=== PATIENT | male | born 1980 | race Two or more races ===

== ENCOUNTER 2024-10-02 15:44 | Inpatient (IN) | payer MEDICAID, SELFPAY ==
[2024-10-02] VITALS (18 sets, daily range): BP systolic 170–250; BP diastolic 17–140; PULSE 81–110; RESP 14–93; TEMP 36.9–37.4; O2SAT 95–99; BMI 32.5
--- NOTE | 2024-10-02 15:49 | EKG_ITS ---
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
--- NOTE | 2024-10-02 15:49 | XR_ITS ---
Examination: CTA carotids with intravenous contrast CTA brain, head with intravenous contrast. 2-D sagittal, coronal reconstructions. 3-D reconstructions. Exam date and time: October 02, 2024 1557 hrs. Indications: Stroke alert today, onset focal neurologic deficit CTDI: vol (mGy) 11.3 DLP: (mGycm) 6 Technique: Multiple CTA axial brain, head carotid images post contrast injection 100 cc, [id number]. 2-D sagittal, coronal reconstructions. 3-D reconstructions, 3-D post processing including vascular maximum intensity projection images. Low dose protocols were performed. One or more of the following dose reduction techniques were used; automated exposure control, adjustment of the mA and/or KV according to patient size, use of iterative reconstruction technique. Findings: No significant common carotid carotid bifurcation or internal carotid artery stenoses Mildly dominant right vertebral artery with no critical stenoses no middle cerebral or anterior cerebral large vessel occlusions, thrombus or dissection Suspicious for significant stenosis P1 segment right posterior cerebral artery, this may be technical however, clinical correlation advised Impression: No significant neck arterial stenoses No middle cerebral or anterior cerebral artery large vessel occlusions Suspicious for significant stenosis P1 segment right posterior cerebral artery, however, this may be technical, clinical correlation advised
--- NOTE | 2024-10-02 15:49 | XR_ITS ---
Examination: CT brain head without contrast. 2-D sagittal coronal reconstructions Date and time of exam:October 02, 2024 1553 hrs. Indications: Stroke alert, onset focal neurologic deficit today CTDI: vol (mGy):60 DLP: (mGycm):1282 Technique: Multiple CT axial sections of the brain have been obtained, 5 mm slice thickness. Contrast has not been administered. 2-D sagittal, coronal reconstructions have been obtained Low dose protocols were performed. One or more of the following dose reduction techniques were used; automated exposure control, adjustment of the mA and/or KV according to patient size, use of iterative reconstruction technique. Findings: No significant ventricular enlargement. Intra-axial or extra-axial hemorrhage density is not seen. No mass effect or midline shift Basal cisterns are not remarkable. Fourth ventricle is midline. Cranial vault intact. Impression: Negative for acute hemorrhage, mass effect or midline shift As clinically warranted, brain MRI follow-up would best assess for demyelinating disease, acute ischemic change
--- NOTE | 2024-10-02 15:50 | PC.NURSE ---
FSBS 307
--- NOTE | 2024-10-02 15:57 | ESCONSULT_ITS ---
Tele Neuro Consultation Consultation Date 10/02/24 Most Recent Vital Signs Last Vital Signs Temp 98.5 F 10/02/24 15:48 Pulse 103 H 10/02/24 15:48 Resp 20 10/02/24 15:48 BP 250/140 H 10/02/24 15:48 Pulse Ox 96 10/02/24 15:48 O2 Del Method Nasal Cannula 10/02/24 15:48 Consultation Narrative [facility] Tele[facility]rology [facility] Patient Name:???JUNIOR RHEA Date of :???1980 Identification Number:??? Date of Service:???10/02/2024 15:34:11 Diagnosis:?R41.0 - Disorientation, unspecified Impression: ?44 y/o man with h/o DM and HTN who presents to the ED with headache and AMS. Patient appears having difficulty expressing himself. CTA head/neck pending. Our recommendations are outlined below. Recommendations: ? Stroke/Telemetry Floor ? Neuro Checks ? Bedside Swallow Eval ? DVT Prophylaxis ? IV Fluids, Normal Saline ? Head of Bed 30 Degrees ? Euglycemia and Avoid Hyperthermia (PRN Acetaminophen) ? Initiate or continue Aspirin 81 MG daily ? Antihypertensives PRN if Blood pressure is greater than 220/120 or there is a concern for End organ damage/contraindications for permissive HTN. If blood pressure is greater than 220/120 give labetalol PO or IV or Vasotec IV with a goal of 15% reduction in BP during the first 24 hours. Sign Out: ? Discussed with Emergency Department Provider Advanced Imaging: Advanced imaging has been ordered. Results pending. Metrics: Last Known Well: 10/02/2024 04:00:00 Dispatch Time: 10/02/2024 15:34:11 Arrival Time: 10/02/2024 15:36:00 Initial Response Time: 10/02/2024 15:36:08Symptoms: headache. Initial patient interaction: 10/02/2024 15:40:18 NIHSS Assessment Completed: 10/02/2024 15:49:01Patient is not a candidate for Thrombolytic. Thrombolytic Medical Decision: 10/02/2024 15:49:03Patient was not deemed candidate for Thrombolytic because of following reasons: LKW outside 4.5 hr window. . I personally Reviewed the CT Head and it Showed No Acute Hemorrhage or Acute Core Infarct Primary Provider Notified of Diagnostic Impression and Management Plan on: 10/02/2024 16:02:01 History of Present Illness:Patient is a 44 year old Male. Patient was brought by EMS for symptoms of headache. 44 y/o man with h/o DM and HTN who presents to the ED via EMS. Emergent telestroke consult for headache since 0 and AMS. Unclear if patient woke up with the symptoms. Unclear last known well director life sciences used. No focal neurologic deficits on exam. CT brain reviewed and case discussed with the ED attending (Dr. Angel). Medications: No Anticoagulant use? No Antiplatelet use Reviewed EMR for current medications Allergies:? Allergies Unable To Obtain Due To:?Patient Is Confused Social History: Unable To Obtain Due To Patient Status :?Patient Is Confused Family History: Family History Cannot Be Obtained Because:Patient Is Confused ROS :?ROS Cannot Be Obtained Because:? Patient Is Confused Past Surgical History: Past Surgical History Cannot Be Obtained Because: Patient Is Confused Examination: BP(250/140),?Pulse(102),?Blood Glucose(307) 1A: Level of Consciousness - Alert; keenly responsive?+ 0 1B: Ask Month and Age - Could Not Answer Either Question Correctly?+ 2 1C: Blink Eyes & Squeeze Hands - Performs 0 Tasks?+ 2 2: Test Horizontal Extraocular Movements - Normal?+ 0 3: Test Visual Sanders - No Visual Loss?+ 0 4: Test Facial Palsy (Use Grimace if Obtunded) - Normal symmetry?+ 0 5A: Test Left Arm Motor Drift - No Drift for 10 Seconds?+ 0 5B: Test Right Arm Motor Drift - No Drift for 10 Seconds?+ 0 6A: Test Left Leg Motor Drift - No Drift for 5 Seconds?+ 0 6B: Test Right Leg Motor Drift - No Drift for 5 Seconds?+ 0 7: Test Limb Ataxia (FNF/Heel-Agudelo) - Does Not Understand?+ 0 8: Test Sensation - Normal; No sensory loss?+ 0 9: Test Language/Aphasia - Severe Aphasia: Fragmentary Expression, Inference Needed, Cannot Identify Materials?+ 2 10: Test Dysarthria - Normal?+ 0 11: Test Extinction/Inattention - No abnormality?+ 0 NIHSS Score:?6 Pre-Morbid Modified [place] Scale:0 Points = No symptoms at all Spoke with :?Dr. Angel Consent could not be obtained due to patient status and family not available. Patient is being evaluated for possible acute neurologic impairment and high probability of imminent or life-threatening deterioration. I spent total of 30 minutes providing care to this patient, including time for face to face visit via telemedicine, review of medical records, imaging studies and discussion of findings with providers, the patient and/or family. Dr Caesar Negrete [facility] For Inpatient follow-up with [facility] physician please call [facility] at . As we are not an outpatient service for any post hospital discharge needs please contact the hospital for assistance. If you have any questions for the [facility] physicians or need to reconsult for clinical or diagnostic changes please contact us via [facility] at .
--- NOTE | 2024-10-02 16:08 | PD.EDAMS ---
Altered Mental Status RME/HPI General Chief Complaint: Altered Mental Status Stated Complaint: AMS Time Seen by Provider: 10/02/24 15:46 Arrival date/time: 10/02/24 15:44 Limitations: physical limitation RME / HPI RME / HPI narrative: Patient was greeted in the ambulance bay by myself. According to the information conveyed to us by the EMS, the patient was last seen normal around 12 noon today, but patient cannot provide a consistent story. Patient he jumps between Estonian and Bruneian and seems completely confused. Immediately on arrival, the patient was introduced to teleneurology who also evaluated the patient at the same time. Patient did not have any facial droop or significant deficits in his arms and legs. Stroke alert was announced to the patient was immediately transferred to the CT scan for CT head and CT angio of the neck and brain. To the best of her knowledge, patient is not in the tPA time zone and his NIH score does not support tPA. Patient's only complaint at the time of arrival is of mild right-sided headache 1802 The care of this patient was coordinated together with teleneurology. The CT and CT angiogram results was also discussed with them and the possibility of P1 stenosis seen on the CT angiogram were discussed. The likelihood is very slim of this to be of any concern and most likely it is technical as called by the radiologist as well. Nonetheless, for this small lesion no medication or procedure is indicated at this point. Patient can be admitted to the hospital. Started on aspirin and allow permissive hypertension around 200s systolic. Once the MRI is done, the blood pressure can be managed more aggressively. I personally performed serial neurological checks on the patient. At the time of this dictation, he is conversive and makes more sense. He was able to pass swallow screening test supervised by myself. His neurological exam remained unremarkable throughout this time Related Data Home Medications ?Medication ?Instructions ?Recorded ?Confirmed amlodipine 10 mg tablet 10 mg PO QDAY 10/02/24 10/02/24 hydralazine 50 mg tablet 50 mg PO TID 10/02/24 10/02/24 losartan 100 1 tab PO QDAY 10/02/24 10/02/24 mg-hydrochlorothiazide 25 mg tablet metformin 1,000 mg tablet 1,000 mg PO BID 10/02/24 10/02/24 Previous Rx's ?Medication ?Instructions ?Recorded aspirin 81 mg tablet,delayed 81 mg PO QDAY 30 days #30 tabs 10/05/24 release atorvastatin 80 mg tablet 80 mg PO HS 30 days #30 tabs 10/05/24 blood sugar diagnostic (Blood #50 ea 10/05/24 Glucose Test strips) blood-glucose meter #1 ea 10/05/24 blood-glucose sensor (FreeStyle #1 ea 10/05/24 Anthony 3 Sensor device) carvedilol 12.5 mg tablet 12.5 mg PO BIDWM 30 days #60 tabs 10/05/24 insulin glargine 100 unit/mL (3 15 unit (0.15 mL) subcut HS #15 mL 10/05/24 mL) subcutaneous pen lancets #200 ea 10/05/24 nifedipine 30 mg tablet,extended 30 mg PO QDAY 30 days #30 tabs 10/05/24 release 24 hr pen needle, diabetic 29 gauge x #100 ea 10/05/24 1/2 Allergies Allergy/AdvReac Type Severity Reaction Status Date / Time No Known Allergies Allergy Verified 10/02/24 16:59 Review of Systems Review of Systems Systems Reviewed: All systems reviewed, normal except as documented ED Exam General Limitations: Present physical limitation General appearance: Present in no apparent distress Head Head exam: Present atraumatic and normocephalic Eye Eye exam: Present PERRL and EOMI ENT ENT exam: Present normal exam Neck Neck exam: Present normal inspection Respiratory Respiratory exam: Present normal lung sounds bilaterally Cardiovascular Cardiovascular exam: Present regular rate and normal rhythm Abdominal Exam Abdominal exam: Present soft and normal bowel sounds Extremities Exam Extremities exam: Present normal inspection Back Exam Back exam: Present normal inspection Neurological Exam Neurological exam: Present alert, CN II-XII intact and other (Speech appears normal, but patient has flight of ideas. 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 Care 10/02/24 15:49 Completed Continuous Pulse Oximetry NOW Care 10/02/24 15:49 Completed EKG (ED ONLY) *Do not use* NOW Care 10/02/24 15:49 Completed In and Out Catheter NEEDED Care 10/02/24 15:49 Completed Insert IV NOW Care 10/02/24 15:49 Completed NIH Stroke Scale now Care 10/02/24 15:49 Completed NPO NOW Care 10/02/24 15:49 Completed Nurse Swallow Screen x1 Care 10/02/24 15:49 Completed Consult to Neurology / Tele-Neurology Routine Cons 10/02/24 15:[address] angio stroke protocol Stat Exams 10/02/24 15:[address] stroke protocol Stat Exams 10/02/24 15:49 Completed EKG (ED Only) Stat Exams 10/02/24 15:49 Draft Arterial Blood Gas Stat Lab 10/02/24 16:23 Completed CBC Stat Lab 10/02/24 16:11 Completed Comprehensive Metabolic Panel Stat Lab 10/02/24 16:11 Completed Drug Screen,Urine Stat Lab 10/02/24 16:46 Completed HCG Titer if Positive Stat Lab 10/02/24 16:11 Completed Magnesium Stat Lab 10/02/24 16:11 Completed Partial Thromboplastin Time Stat Lab 10/02/24 16:11 Completed Prothrombin Time with INR Stat Lab 10/02/24 16:11 Completed Troponin I Stat Lab 10/02/24 16:11 Completed Urinalysis Stat Lab 10/02/24 16:46 Completed HYDROmorphone INJ [Dilaudid Inj] Med 10/02/24 16:48 Discontinued 1 mg IVP X1 ONE Metoprolol Tartrate Inj [Lopressor Inj] Med 10/02/24 17:41 Discontinued 2.5 mg IVP X1 ONE Ondansetron Inj [Zofran Inj] Med 10/02/24 15:49 Discontinued 4 mg IV Q4HR PRN Oxygen Delivery NOW RT 10/02/24 15:49 Completed Vital Signs Vital signs: Vital Signs Temperature 98.5 F 10/02/24 15:48 Pulse Rate 103 H 10/02/24 15:48 Respiratory Rate 20 10/02/24 15:48 Blood Pressure 250/140 H 10/02/24 15:48 Pulse Oximetry (%) 96 10/02/24 15:48 Oxygen Delivery Method Nasal Cannula 10/02/24 15:48 Altered Mental Status Patient data External records reviewed:: None Clinical information provided by:: EMS Social determinants that could affect healthcare access:: none Patient has the following chronic illnesses:: M How is presenting disease/condition affected by chronic disease/condition?: no chronic disease Evaluation data The following diagnostics were reviewed and interpreted by me:: lab results Lab and/or radiology exams considered but not ordered:: NA Interpretation Summary: as noted Medications / Prescriptions Medications or Prescriptions considered but not ordered:: NA Medication administrations:: Medication Administration History Discontinued Medications Acetaminophen (Acetaminophen 325 Mg Tablet) 650 mg PO Q6H PRN PRN Reason: PAIN OR FEVER > 101 Stop: 11/01/24 19:26 Last Admin: 10/02/24 23:09 Dose: 650 mg Documented By: MINH Aspirin (Aspirin Ec 81 Mg Tabec) 81 mg PO QDAY [facility] Stop: 11/01/24 20:59 Last Admin: 10/05/24 09:06 Dose: 81 mg Documented By: JRHarsh Admin: 10/04/24 08:10 Dose: 81 mg Documented By: Admin: 10/03/24 11:31 Dose: 81 mg Documented By: JRHarsh Admin: 10/02/24 20:56 Dose: 81 mg Documented By: CHEPE Atorvastatin Calcium (Atorvastatin Calcium 20 Mg Tablet) 80 mg PO HS [facility] Stop: 11/01/24 20:59 Last Admin: 10/04/24 21:40 Dose: 80 mg Documented By: Admin: 10/03/24 21:30 Dose: 80 mg Documented By: Admin: 10/02/24 20:56 Dose: 80 mg Documented By: CHEPE Atropine Sulfate (Atropine Sulf Inj 1 Mg/Ml Vial) Confirm Administered Dose 1 mg .ROUTE .STK-MED ONE Stop: 10/04/24 11:43 Last Admin: 10/04/24 12:58 Dose: Not Given Documented By: DENISE Non-Admin Reason: Duplicate Medication on eMAR Benzocaine (Benzocaine 20% (Hurricaine) [place] 1 Dose) Confirm Administered Dose 1 dose TOP .STK-MED ONE Stop: 10/04/24 11:42 Last Admin: 10/04/24 12:58 Dose: Not Given Documented By: DENISE Non-Admin Reason: Duplicate Medication on eMAR Benzocaine (Benzocaine 20% (Hurricaine) [place] 1 Dose) 0 dose TOP X1 ONE Stop: 10/04/24 12:22 Last Admin: 10/04/24 12:31 Dose: 1 dose Documented By: DL Carvedilol (Carvedilol 12.5 Mg Tablet) 12.5 mg PO BIDWM [facility] Stop: 11/02/24 20:23 Last Admin: 10/05/24 08:02 Dose: 12.5 mg Documented By: Admin: 10/04/24 17:10 Dose: 12.5 mg Documented By: Admin: 10/04/24 08:09 Dose: 12.5 mg Documented By: Admin: 10/03/24 21:31 Dose: 12.5 mg Documented By: MINH Dextrose (Dextrose 50%-Water Inj 50 Ml Syringe) 25 ml IV Q15MIN PRN PRN Reason: BG 50-70 responsive npo pt Stop: 11/01/24 19:29 Dextrose (Dextrose 50%-Water Inj 50 Ml Syringe) 50 ml IV Q15MIN PRN PRN Reason: BG <50 OR BG <70 & pt unresponsive Stop: 11/01/24 19:29 Fentanyl Citrate (Fentanyl Cit Inj 50 Mcg/Ml Amp 2ml) Confirm Administered Dose 200 mcg .ROUTE .STK-MED ONE Stop: 10/04/24 11:43 Last Admin: 10/04/24 12:59 Dose: Not Given Documented By: DENISE Non-Admin Reason: Duplicate Medication on eMAR Fentanyl Citrate (Fentanyl Cit Inj 50 Mcg/Ml Amp 2ml) 100 mcg IM X1 ONE Stop: 10/04/24 12:22 Fentanyl Citrate (Fentanyl Cit Inj 50 Mcg/Ml Amp 2ml) 100 mcg IVP X1 ONE Stop: 10/04/24 12:22 Last Admin: 10/04/24 12:23 Dose: 100 mcg Documented By: DENISE Flumazenil (Flumazenil Inj 0.1 Mg/Ml Vial 10 Ml) Confirm Administered Dose 1 mg .ROUTE .STK-MED ONE Stop: 10/04/24 11:44 Last Admin: 10/04/24 12:59 Dose: Not Given Documented By: DENISE Non-Admin Reason: Duplicate Medication on eMAR Glucagon (Glucagon Inj 1 Mg Vial) 1 mg IM Q15MIN PRN PRN Reason: BG <70, and no IV access Heparin Sodium (Porcine) (Heparin Sod Inj 5000 Unit/Ml Vial) 5,000 unit SC Q12HR DANA Stop: 10/16/24 20:59 Last Admin: 10/05/24 09:05 Dose: 5,000 unit Documented By: OMAYRA Co-signed By: AIDEN Admin: 10/04/24 21:41 Dose: 5,000 unit Documented By: MINH Co-signed By: MAURI Admin: 10/04/24 08:13 Dose: Not Given Documented By: OMAYRA Non-Admin Reason: Held for Procedure Admin: 10/03/24 21:29 Dose: 5,000 unit Documented By: MINH Co-signed By: LYNNETTE Admin: 10/03/24 09:20 Dose: 5,000 unit Documented By: OMAYRA Co-signed By: AIDEN Admin: 10/02/24 20:56 Dose: 5,000 unit Documented By: CHEPE Co-signed By: FARHAD Hydralazine HCl (Hydralazine Inj 20 Mg/Ml Vial) 10 mg IV X1 PRN PRN Reason: Hypertensive Emergency Stop: 11/01/24 20:12 Hydralazine HCl (Hydralazine Hcl 25 Mg Tablet) 50 mg PO TID DANA Stop: 11/02/24 13:59 Hydralazine HCl (Hydralazine Hcl 25 Mg Tablet) 50 mg PO TID DANA Stop: 11/02/24 13:24 Last Admin: 10/05/24 14:11 Dose: 50 mg Documented By: Admin: 10/05/24 06:10 Dose: 50 mg Documented By: Admin: 10/04/24 21:40 Dose: 50 mg Documented By: Admin: 10/04/24 14:46 Dose: 50 mg Documented By: Admin: 10/04/24 05:42 Dose: 50 mg Documented By: Admin: 10/03/24 21:30 Dose: 50 mg Documented By: Admin: 10/03/24 14:21 Dose: Not Given Documented By: OMAYRA Non-Admin Reason: Wrong Time Admin: 10/03/24 14:05 Dose: 50 mg Documented By: OMAYRA Hydralazine HCl (Hydralazine Inj 20 Mg/Ml Vial) 10 mg IV Q6HR PRN PRN Reason: Systolic >180 Stop: 11/01/24 20:12 Hydrochlorothiazide (Hydrochlorothiazide 12.5 Mg Capsule) 25 mg PO QDAY [facility]NA Stop: 11/02/24 10:29 Last Admin: 10/03/24 11:30 Dose: 25 mg Documented By: OMAYRA Hydrochlorothiazide (Hydrochlorothiazide 12.5 Mg Capsule) 25 mg PO QDAY [facility] Stop: 11/03/24 14:44 Last Admin: 10/05/24 09:06 Dose: 25 mg Documented By: Admin: 10/04/24 14:47 Dose: 25 mg Documented By: OMAYRA Hydromorphone HCl (Hydromorphone Inj 2 Mg/Ml Vial) 1 mg IVP X1 ONE Stop: 10/02/24 16:49 Last Admin: 10/02/24 16:55 Dose: 1 mg Documented By: ER Sodium Chloride (Ns) 1,000 mls @ 80 mls/hr IV .[id number] ONE Stop: 10/03/24 10:15 Last Admin: 10/02/24 22:47 Dose: 80 mls/hr Documented By: MINH Influenza Virus Vaccine Quadrival (Influenza Virus Quadrivalent 0.5 Ml Syringe) 0.5 ml IMi .ONCE ONE Stop: 10/03/24 02:38 Insulin Glargine (Insulin Glargine (Lantus) 5 Unit/0.05 Ml (Per 5 Units)) 10 unit SC [facility] Stop: 11/03/24 20:59 Last Admin: 10/04/24 21:41 Dose: 10 unit Documented By: MINH Co-signed By: MAURI Insulin Human Lispro (Insulin Lispro (Admelog) 1 Unit/0.01 Ml Unit) 0 unit SC [facility]; Protocol Stop: 11/01/24 20:59 Last Admin: 10/04/24 07:01 Dose: 4 unit Documented By: OMAYRA Co-signed By: MAURI Admin: 10/03/24 21:28 Dose: 4 unit Documented By: MINH Co-signed By: LYNNETTE Admin: 10/03/24 16:39 Dose: 4 unit Documented By: OMAYRA Co-signed By: AIDEN Admin: 10/03/24 11:32 Dose: 4 unit Documented By: OMAYRA Co-signed By: AIDEN Admin: 10/03/24 07:24 Dose: 4 unit Documented By: OMAYRA Co-signed By: AIDEN Admin: 10/02/24 20:56 Dose: 4 unit Documented By: CHEPE Co-signed By: FARHAD Insulin Human Lispro (Insulin Lispro (Admelog) 1 Unit/0.01 Ml Unit) 3 unit SC AC [facility] Stop: 11/03/24 11:29 Last Admin: 10/05/24 11:34 Dose: 3 unit Documented By: OMAYRA Co-signed By: AIDEN Admin: 10/05/24 08:00 Dose: 3 unit Documented By: OMAYRA Co-signed By: AIDEN Admin: 10/04/24 16:36 Dose: 3 unit Documented By: OMAYRA Co-signed By: GERA Admin: 10/04/24 13:25 Dose: Not Given Documented By: JRHarsh 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 Insulin Human Lispro (Insulin Lispro (Admelog) 1 Unit/0.01 Ml Unit) 0 unit SC AC [facility]; Protocol Stop: 11/03/24 09:29 Last Admin: 10/05/24 11:34 Dose: 2 unit Documented By: OMAYRA Co-signed By: AIDEN Admin: 10/05/24 08:01 Dose: 2 unit Documented By: OMAYRA Co-signed By: AIDEN Admin: 10/04/24 16:37 Dose: 6 unit Documented By: OMAYRA Co-signed By: GERA Admin: 10/04/24 13:25 Dose: Not Given Documented By: JRR 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 Admin: 10/04/24 08:44 Dose: Not Given Documented By: JRR Non-Admin Reason: NPO Losartan Potassium (Losartan Potassium 25 Mg Tablet) 100 mg PO QDAY [facility] Stop: 11/02/24 10:14 Losartan Potassium (Losartan Potassium 25 Mg Tablet) 100 mg PO QDAY [facility] Stop: 11/02/24 13:29 Last Admin: 10/05/24 09:07 Dose: 100 mg Documented By: Admin: 10/04/24 08:10 Dose: 100 mg Documented By: Admin: 10/03/24 14:06 Dose: 100 mg Documented By: OMAYRA Metoprolol Tartrate (Metoprolol Tartrate Inj 1 Mg/Ml Amp 5 Ml) 2.5 mg IVP X1 ONE Stop: 10/02/24 17:42 Last Admin: 10/02/24 17:44 Dose: 2.5 mg Documented By: ER Midazolam HCl (Midazolam Inj 1 Mg/Ml Vial 2 Ml) Confirm Administered Dose 8 mg .ROUTE .STK-MED ONE Stop: 10/04/24 11:43 Last Admin: 10/04/24 12:59 Dose: Not Given Documented By: DENISE Non-Admin Reason: Duplicate Medication on eMAR Midazolam HCl (Midazolam Inj 1 Mg/Ml Vial 2 Ml) 5 mg IV X1 ONE Stop: 11/26/24 12:22 Last Admin: 10/04/24 12:23 Dose: 5 mg Documented By: DENISE Naloxone HCl (Naloxone Inj 0.4 Mg/Ml Vial) Confirm Administered Dose 0.4 mg .ROUTE .STK-MED ONE Stop: 10/04/24 11:43 Last Admin: 10/04/24 12:59 Dose: Not Given Documented By: DENISE Non-Admin Reason: Duplicate Medication on eMAR Nicotine (Nicotine Patch 14 Mg/24 Hr Patch.Td24) 14 mg TOP QDAY [facility] Stop: 11/02/24 21:51 Last Admin: 10/05/24 09:05 Dose: 14 mg Documented By: Admin: 10/04/24 08:09 Dose: 14 mg Documented By: Admin: 10/03/24 22:04 Dose: 14 mg Documented By: MINH Nifedipine (Nifedipine Xl 30 Mg Tabcr) 30 mg PO X1 ONE Stop: 10/03/24 15:37 Last Admin: 10/03/24 16:34 Dose: 30 mg Documented By: OMAYRA Nifedipine (Nifedipine Xl 30 Mg Tabcr) 30 mg PO QDAY [facility] Stop: 11/03/24 08:59 Last Admin: 10/05/24 09:06 Dose: 30 mg Documented By: Admin: 10/04/24 08:08 Dose: 30 mg Documented By: OMAYRA Ondansetron HCl (Ondansetron Inj 2 Mg/Ml Inj 2 Ml) 4 mg IV Q4HR PRN PRN Reason: NAUSEA OR VOMITING Stop: 11/01/24 15:48 Pantoprazole Sodium (Pantoprazole 40 Mg Tablet) 40 mg PO QDAY [facility] Stop: 11/02/24 08:59 Last Admin: 10/05/24 09:06 Dose: 40 mg Documented By: Admin: 10/04/24 08:09 Dose: 40 mg Documented By: Admin: 10/03/24 11:31 Dose: 40 mg Documented By: OMAYRA Potassium Chloride (Potassium Chloride 20 Meq Tabcr) 40 meq PO X1 ONE Stop: 10/04/24 08:22 Last Admin: 10/04/24 08:53 Dose: 40 meq Documented By: OMAYRA Noted Consultations Consultation(s) initiated? (list below): Yes Diagnosis Most likely diagnosis given after review of the tests above:: as above Admission Indicated Admission indicated?: indicated Admission Request Was there a request for admission?: Yes Admission Attestation Admission request attestation: Discussed case with [] from Hospitalist service regarding admission. Discussed patients ED course, exam findings, labs, and radiology results. The Hospitalist [agrees,declines] to accept the patient for admission. Disposition Plan Disposition Plan: Admit Discharge Plan Plan Patient Disposition: Admit Acute Care w/in Hospital Patient condition on transfer: Stable Problem List Clinical Impression: Acute CVA (cerebrovascular accident) Patient/Caregiver Discharge Instructions Other Activity Instructions:: Please take your new medications as prescribed. Please start using Freestyle Anthony as a guide for your blood glucose. Fasting blood glucose goal is 80-130, and 180 after 2 hours post meal consumption. Please start incorporating daily exercise and healthy meals into your routine. Stop taking Atorvastatin 40mg and instead take Atorvastatin 80mg at night. Please see your PCP within 1 week. If you do not have one, please make an appointment at the [facility] at [phone]. Please see Cardiology within 1 week as you will need frequent follow up and echocardiograms for your bicuspid aortic stenosis. [place] fadia nuevos medicamentos seg?n lo recetado. Empiece a utilizar Freestyle Anthony ramon gu?a para moslye nivel de glucosa en glynn. El objetivo de glucosa en glynn en ayunas es 80-130 y 180 despu?s de 2 horas despu?s del consumo de comida. Comience a incorporar ejercicio diario y comidas saludables en mosley rutina. Deje de rhina Atorvastatina 40 mg y en mosley lugar tome Atorvastatina 80 mg por la noche. Consulte a mosley PCP dentro de 1 semana. Si no tiene nick, programe korin lizbeth en el [facility] al [phone]. Consulte Cardiolog?a dentro de 1 semana, ya que necesitar? seguimiento y ecocardiogramas frecuentes para mosley estenosis a?rtica bic?spide.
[2024-10-02 16:28] LABS: Basophils # (Auto) 0.1 Thou/mm3 (0.0-0.2); Basophils % (Auto) 0 % (0-2.5); Eosinophils % (Auto) 0 % (0-10); Hematocrit 49.4 % (41.0-53.0); Hemoglobin 17.2 g/dL (13.5-16.0); Immature Granulocytes % (Auto) 0 % (0-0); Immature Granulocytes Auto 0.04 Thou/mm3 (0.00-0.00); Lymphocytes # (Auto) 1.3 Thou/mm3 (1.0-4.8); Lymphocytes % (Auto) 10 % (10-50); Mean Corpuscular HGB Conc 34.8 g/dl (31.0-37.0); Mean Corpuscular Volume 83 fL (80-100); Monocytes # (Auto) 0.8 Thou/mm3 (0.0-0.8); Monocytes % (Auto) 6 % (0-12); Neutrophils # (Auto) 10.3 Thou/mm3 (1.8-7.7); Neutrophils % (Auto) 83 % (37-80); Nucleated Red Blood Cell % 0 /100 WBC (0); Platelet Count 245 Thou/mm3 (140-440); RDW Standard Deviation 38.5 fL (35.1-43.9); Red Blood Count 5.94 Miln/mm3 (4.50-5.90); White Blood Count 12.5 Thou/mm3 (3.8-10.6)
[2024-10-02 16:29] LABS: Base Excess 4 (-3-3); HCO3 29 mEq/L (20-26); Inspired Oxygen, FIO2 21 %; O2 Saturation 88 % (91-98); PCO2 43 mmHg (32.0-48.0); pH, Arterial 7.44 (7.35-7.45)
[2024-10-02 16:38] LABS: Allen Test Performed/OK; PO2 51 mmHg (83-108); Puncture Site Right Radial
[2024-10-02 16:43] LABS: INR 1.1 (0.9-1.3); Partial Thromboplastin Time 29.3 Seconds (22.0-36.0); Prothrombin Time 11.7 Seconds (9.0-12.2)
[2024-10-02 16:47] LABS: Alanine Aminotransferase 74 U/L (10-49); Albumin, Serum 4.5 gm/dL (3.5-5.0); Albumin/Globulin Ratio 1.6 (1.2-2.2); Alkaline Phosphatase 123 U/L (46-116); Anion Gap 6 (7-16); Aspartate Amino Transferase 26 U/L (0-34); BUN/Creatinine Ratio 12 Ratio (12-20); Bilirubin,Total 0.7 mg/dL (0.3-1.2); Blood Urea Nitrogen 15 mg/dL (9-23); Calcium 9.8 mg/dL (8.3-10.6); Calcium (Corrected) 9.8 mg/dL (8.5-10.1); Carbon Dioxide 31.1 mMol/L (20.0-31.0); Chloride 94 mMol/L (98-107); Creatinine (Component) 1.3 mg/dL (0.6-1.3); Estimated Creatinine Clearance 90.1 mL/min (>60); Globulin 2.8 gm/dL (2.3-3.5); Glucose 279 mg/dL (74-106); Magnesium 2.1 mg/dL (1.6-2.6); Osmolality,Calculated 273 (275-295); Potassium 3.6 mMol/L (3.4-5.1); Sodium 131 mMol/L (136-145); Total Protein 7.3 gm/dL (5.7-8.2); eGFR > 60 See Note
[2024-10-02 16:49] LABS: Troponin I 0.353 ng/mL (0.0-0.045)
[2024-10-02 16:51] LABS: HCG Titer if Positive Negative
[2024-10-02] MEDS: HYDROmorphone INJ 2 MG/ML VIAL 1 MG IVP (16:55)
--- NOTE | 2024-10-02 17:00 | PC.NURSE ---
Patient BIBA due to family noted increased AMS, and slurred speech since 1200. Upon arrival patient was able to follow commands, but could not verbally express himself properly. Patient has hx of HTN, DM, and hyperlipedemia. Patient c/o of IZAGUIRRE 08/18. Stroke alert initiated.
[2024-10-02 17:04] LABS: Collection Type, Urine Clean Catch; Squamous Epithelial Cell,Urine 0 /hpf (0-5)
[2024-10-02 17:19] LABS: Amphetamine/Methamp Scrn,U Negative (Negative); Barbiturate Screen,Urine Negative (Negative); Benzodiazepines Screen,Urine Negative (Negative); Benzoylecgonine Screen, Ur Negative (Negative); Fentanyl Screen,Urine Negative (Negative); Opiate Screen,Urine Negative (Negative); THC Screen,Urine Negative (Negative)
[2024-10-02 17:22] LABS: Bilirubin,Urine Negative (Negative); Blood,Urine Negative (Negative); Clarity,Urine Clear (Clear/Hazy); Color,Urine Lt-Yellow (Lt Yel-Yel); Glucose, Urine 4+ (Negative); Ketones,Urine Negative (Negative); Leukocyte Esterase,Urine Negative (Negative); Nitrite,Urine Negative (Negative); PH,Urine 7.5 (5.0-7.0); Protein,Urine 2+ (Neg - Trace); RBC,Urine 1 /hpf (0-3); Specific Gravity,Urine 1.028 (1.001-1.035); Urobilinogen,Urine Negative mg/dL (0.0-1.0); WBC,Urine < 1 /hpf (0-5)
--- NOTE | 2024-10-02 17:41 | PC.NURSE ---
Dr. Barrios at bedside updated patient and family on POC. Swallow screen completed, and pass.
[2024-10-02] MEDS: METOPROLOL TARTRATE INJ 1 MG/ML AMP 5 ML 2.5 MG IVP (17:44)
--- NOTE | 2024-10-02 18:29 | PD.RESEVENT ---
Documentation for date of: 10/02/24 Event Note Event Note: Patient is 44 years old male with past medical history of hypertension, hyperlipidemia and type 2 diabetes presents to the ED by ambulance due to slurred speech and confusion. His last well-known was around noon today. Stroke alert was called but patient did not meet criteria for tPA administration. On admission his blood pressure 250/140, pulse 103, respirations 20, saturation 96% on 3 L. Labs are significant for mild hypoosmolar hyponatremia and troponinemia of 0.353. U tox was negative. CT scan of the head was negative for acute hemorrhage. CTA of the neck was suspicious for significant stenosis P1 segment right posterior cerebral artery. Teleneurology recommended admission for further management and MRI in the morning. Primary team received a call for admission at 6:25 PM, the admission will be signed out night team. Plan of care discussed with attending Dr. Landrum. Mehul Rehman MD, PGY 2. Disclaimer: This note was dictated by speech recognition. Minor errors in trust administrative assistant may be present due to voice recognition software.
--- NOTE | 2024-10-02 19:18 | PC.NURSE ---
Hospitalist at bedside assessing patient at this time.
--- NOTE | 2024-10-02 19:35 | ESHP_ITS ---
Documentation for date of: 10/02/24 [facility] History of Present Illness History of present illness: Junior Penaloza is a 44-year-old male with a past medical history of type 2 diabetes mellitus, hypertension, and hyperlipidemia who presents to the ED with altered mental status. Patient was brought in by mother due to AMS and slurred speech. Upon presentation, patient was speaking Cook Islander and Niuean and could not provide history to ED physician. Thus, stroke alert was called and teleneurology was consulted. CT head was negative, NIHSS was 6, and LKW was approximately 4 AM, which was outside of tPA window. CTA obtained later and showed possible P1 stenosis , which was discussed again with teleneurology who advised admission and MRI brain for further evaluation. Upon my evaluation, mother at bedside who stated that patient was still not at his baseline but has improved from prior. During encounter, patient was alert and appeared to understand questions but had difficulty with word pronunciation. He states his only symptom prior to arriving to the ED was pressure and a headache, denying blurry vision or FNDs. He states that the pressure sensation has occurred more than once and that he does not regularly take his medications or monitor his blood pressure at home. He does have a PCP in [place]. ED course: BP 250/140, HR 103, RR 20, O2 96% on 3 L NC WBC 12.5, Na 131, glucose 279, troponin 0.353, ALP 133, ALT 74, UA and U tox negative ABG: pH 7.4, pCO2 43, pO2 51 CTA head/neck: possible P1 stenosis of R [employer] CT head negative PMHx: as stated above Medications: amlodipine, atorvastatin, losartan-HCTZ, metformin SHx: currently smokes 0.5 pack cigarettes/day, illicit drug use > 20 years ago, does not drink alcohol Review of Systems Review of Systems ROS Unobtainable: unobtainable due to mental status Exam Vital Signs Temp Pulse Resp BP Pulse Ox O2 Del Method O2 Flow Rate 98.4 F 85 18 187/98 H 98 Nasal Cannula 3 10/02/24 18:30 10/02/24 18:30 10/02/24 18:30 10/02/24 18:30 10/02/24 18:30 10/02/24 18:30 10/02/24 18:30 Narrative Exam General: alert, responding to questions, dysarthric HEENT: NC/AT, mucous membranes moist, bilateral sclera anicteric Cardiovascular: regular rate and rhythm, S1/S2 present, no murmurs appreciated Pulmonary: clear to auscultation bilaterally, no rales/rhonchi/wheezes Abdominal: soft, non-tender, non-distended, no rebound/guarding, normal bowel sounds present Musculoskeletal: normal ROM, no peripheral edema Skin: warm and dry, intact, no rashes Neuro: CN II-XII intact, no focal deficits Results: Labs 10/03/24 05:36 10/03/24 05:36 Labs: Short CBC 10/02/24 Range/Units 16:11 WBC 12.5 H (3.8-10.6) Thou/mm3 Hgb 17.2 H (13.5-16.0) g/dL Hct 49.4 (41.0-53.0) % Plt Count 245 (140-440) Thou/mm3 BMP 10/02/24 16:11 Sodium 131 L Potassium 3.6 Chloride 94 L Carbon Dioxide 31.1 H BUN 15 Creatinine 1.3 Glucose 279 H Calcium 9.8 Cardiac Enzymes 10/02/24 Range/Units 16:11 Troponin I 0.353 H* (0.0-0.045) ng/mL Liver Function 10/02/24 Range/Units 16:11 Total Bilirubin 0.7 (0.3-1.2) mg/dL AST 26 (0-34) U/L ALT 74 H (10-49) U/L Alkaline Phosphatase 123 H (46-116) U/L Albumin 4.5 (3.5-5.0) gm/dL Urine 10/02/24 Range/Units 16:46 Urine Color Lt-Yellow (Lt Yel-Yel) Urine Clarity Clear (Clear/Hazy) Urine pH 7.5 H (5.0-7.0) Ur Specific [place] 1.028 (1.001-1.035) Urine Protein 2+ A (Neg - Trace) Urine Glucose (UA) 4+ A (Negative) ABG Interpretation ABG results: 10/02/24 16:23 ABG pH 7.44 ABG pCO2 43 ABG pO2 51 L* ABG HCO3 29 H ABG O2 Saturation 88 L ABG Base Excess 4 H Quality Measures Quality Measures VTE prophylaxis Medications Home Medications and Allergies Home Medications ?Medication ?Instructions ?Recorded ?Confirmed ?Type amlodipine 10 mg tablet 10 mg PO QDAY 10/02/24 10/02/24 History atorvastatin 40 mg tablet 40 mg PO QPM 10/02/24 10/02/24 History hydralazine 50 mg tablet 50 mg PO TID 10/02/24 10/02/24 History losartan 100 1 tab PO QDAY 10/02/24 10/02/24 History mg-hydrochlorothiazide 25 mg tablet metformin 1,000 mg tablet 1,000 mg PO BID 10/02/24 10/02/24 History Allergies Allergy/AdvReac Type Severity Reaction Status Date / Time No Known Allergies Allergy Verified 10/02/24 16:59 Visit Medications Acetaminophen (Acetaminophen 325 Mg Tablet) 650 mg PO Q6H PRN PRN Reason: PAIN OR FEVER > 101 Stop: 11/01/24 19:26 Dextrose (Dextrose 50%-Water Inj 50 Ml Syringe) 25 ml IV Q15MIN PRN PRN Reason: BG 50-70 responsive npo pt Stop: 11/01/24 19:29 Dextrose (Dextrose 50%-Water Inj 50 Ml Syringe) 50 ml IV Q15MIN PRN PRN Reason: BG <50 OR BG <70 & pt unresponsive Stop: 11/01/24 19:29 Glucagon (Glucagon Inj 1 Mg Vial) 1 mg IM Q15MIN PRN PRN Reason: BG <70, and no IV access Heparin Sodium (Porcine) (Heparin Sod Inj 5000 Unit/Ml Vial) 5,000 unit SC Q12HR DANA Stop: 10/16/24 20:59 Insulin Human Lispro (Insulin Lispro (Admelog) 1 Unit/0.01 Ml Unit) 0 unit SC [facility]; Protocol Stop: 11/01/24 20:59 Ondansetron HCl (Ondansetron Inj 2 Mg/Ml Inj 2 Ml) 4 mg IV Q4HR PRN PRN Reason: NAUSEA OR VOMITING Stop: 11/01/24 15:48 Pantoprazole Sodium (Pantoprazole 40 Mg Tablet) 40 mg PO QDAY [facility] Stop: 11/02/24 08:59 Discontinued Medications Hydromorphone HCl (Hydromorphone Inj 2 Mg/Ml Vial) 1 mg IVP X1 ONE Stop: 10/02/24 16:49 Last Admin: 10/02/24 16:55 Dose: 1 mg Metoprolol Tartrate (Metoprolol Tartrate Inj 1 Mg/Ml Amp 5 Ml) 2.5 mg IVP X1 ONE Stop: 10/02/24 17:42 Last Admin: 10/02/24 17:44 Dose: 2.5 mg Assessment & Plan Plan Junior Penaloza is a 44-year-old male with a past medical history of type 2 diabetes mellitus, hypertension, and hyperlipidemia who is admitted for CVA/TIA work-up. #Stroke rule out #? CVA versus TIA versus hypertensive encephalopathy #Dysarthria #Altered mental status Presented with AMS and dysarthric speech. Teleneurology consulted and recommended admission with MRI for further evaluation. CTA head/neck: Suspicion for significant stenosis of P1 segment of right [employer] ? Teleneurology consulted, appreciate recommendations ? Permissive hypertension (220/120) during first 24 hours ? As needed hydralazine if BP greater than 220/120 ? Bedside swallow eval: passed, supervised by ED physician ? IVF, NS ? In-house neurology consulted, appreciate recommendations ? Aspirin 81 mg daily ? Atorvastatin 80 mg daily ? Physical therapy ? Follow-up MRI ? Follow-up lipid panel ? Follow-up A1c ? Every 4 neurochecks #Elevated troponins #NSTEMI type II, demand ischemia Likely secondary to hypertensive emergency/encephalopathy. Initial troponin 0.353, will trend. ? Trend troponins #Hypertension #Hypertensive emergency/encephalopathy Permissive hypertension for first 24 hours, will defer home antihypertensives. Med rec completed, continue when appropriate. #Type 2 diabetes mellitus Takes metformin at home, will defer inpatient. ? SSI ? Follow-up A1c #Hyperlipidemia ? Atorvastatin 80 mg daily Hospital management: Disposition: telemetry IVF: NS at 80 mL/hr Diet: carb consistent low Lines: peripheral DVT prophylaxis: heparin SC BID GI prophylaxis: pantporazole 40 mg PO daily Lopez: not indicated CODE STATUS: full code ----- Plan discussed with attending physician Dr. Los Díaz MD PGY-1 Internal Medicine Attending Provider Attestation/Addendum I reviewed labs, imaging, EKG, home medications and prior available records. Face to face evaluation was performed by me. I have personally examined the patient and discussed assessment and plan with the IM team. I reviewed the resident note and agree with the plan with exceptions as below. 44-year-old male with history of hypertension, type 2 diabetes mellitus, and hyperlipidemia, who presented with slurred speech and confusion. He was admitted for CVA rule out. Acute encephalopathy/CVA symptoms: Differential diagnosis includes TIA/CVA versus hypertensive encephalopathy. CT head is negative for acute changes but CT angiogram of the head/neck showed P1 right [employer] stenosis. Teleneurology was consulted and recommended starting the patient on aspirin. Continue atorvastatin hypotensive. Send A1c and lipid panel. Ordered brain MRI. Ordered echocardiogram. Inpatient neurology consulted. Hypertensive urgency versus emergency: Allowing permissive hypertension in the setting of possible CVA. Goal is BP less than 220/110. IV hydralazine as needed for that. Elevated troponin: Likely type II non-STEMI in the setting of hypertensive emergency. Management as above. Trend troponin. Continue telemetry. Uncontrolled diabetes mellitus with hyperglycemia: Type II. Start the patient on sliding scale insulin and monitor fingersticks.
--- NOTE | 2024-10-02 19:58 | PC.NURSE ---
Dr Madison aware of elevated BP 193/103, and states he will be keeping pt on permissive hypertension until stroke has been ruled out. Per Dr Madison keep pts Bp under 220/110 if higher than those parameter inform .
[2024-10-02] MEDS: ASPIRIN EC 81 MG TABEC PO (20:56)
[2024-10-02] MEDS: INSULIN LISPRO (AdmeLOG) 1 UNIT/0.01 ML UNIT SC (20:56)
[2024-10-02] MEDS: ATORVASTATIN CALCIUM 20 MG TABLET 80 MG PO (20:56)
[2024-10-02] MEDS: HEPARIN SOD INJ 5000 UNIT/ML VIAL SC (20:56)
[2024-10-02 22:19] LABS: Troponin I 0.356 ng/mL (0.0-0.045)
[2024-10-02] MEDS: SODIUM CHLORIDE 0.9% 1000 ML 1,000 ML 80 ML IV (22:47)
[2024-10-02] MEDS: ACETAMINOPHEN 325 MG TABLET 650 MG PO (23:09)
[2024-10-03] VITALS (17 sets, daily range): BP systolic 152–205; BP diastolic 101–118; PULSE 65–87; RESP 20–98; TEMP 36.1–36.7; O2SAT 95–98; BMI 34.2
--- NOTE | 2024-10-03 | XR_ITS ---
Examinations: MRI Brain without intravenous contrast. MRA brain without intravenous contrast. MRA carotids without intravenous contrast 3-D vascular reconstructions Date and time of exam: October 03, 2024 1252 hours INDICATIONS: CT stroke alert October 02, 2024, onset focal neurologic deficit Technique: Multiple axial and sagittal images of the brain have been obtained MRA brain carotid images without contrast obtained, including 3-D postprocessing, vascular maximum intensity projection images Findings: [place] is not enlarged. The optic chiasm and infundibular stalk are not remarkable. Prepontine and interpeduncular cisterns are not enlarged. No localized enlargement of the medulla or lizbet. Fourth ventricle and cerebellar tonsils normal in position. Subacute hemorrhage is not seen. Fourth ventricle is midline. Mass in the cerebellopontine angle region is not evident. 7th and 8th nerve complexes exhibits symmetry. Globes are symmetrical with no retro-orbital mass. Increased white matter signal moderate, old infarct right middle cerebral artery distribution Diffusion-weighted images demonstrate no focus of restricted diffusion Mass-effect upon the ventricular system is not identified. MRA carotid images degraded by patient motion. 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
[2024-10-03 06:02] LABS: Basophils % (Auto) 0 % (0-2.5); Eosinophils # (Auto) 0.1 Thou/mm3 (0.0-0.5); Eosinophils % (Auto) 1 % (0-10); Hematocrit 49.8 % (41.0-53.0); Hemoglobin 17.1 g/dL (13.5-16.0); Immature Granulocytes % (Auto) 0 % (0-0); Immature Granulocytes Auto 0.03 Thou/mm3 (0.00-0.00); Lymphocytes # (Auto) 2.4 Thou/mm3 (1.0-4.8); Lymphocytes % (Auto) 25 % (10-50); Mean Corpuscular HGB Conc 34.3 g/dl (31.0-37.0); Mean Corpuscular Hemoglobin 28.7 pg (25.0-35.0); Mean Corpuscular Volume 84 fL (80-100); Monocytes # (Auto) 0.9 Thou/mm3 (0.0-0.8); Monocytes % (Auto) 9 % (0-12); Neutrophils # (Auto) 6.3 Thou/mm3 (1.8-7.7); Neutrophils % (Auto) 64 % (37-80); Nucleated Red Blood Cell % 0 /100 WBC (0); Platelet Count 235 Thou/mm3 (140-440); Red Blood Count 5.95 Miln/mm3 (4.50-5.90); White Blood Count 9.8 Thou/mm3 (3.8-10.6)
[2024-10-03 06:52] LABS: Alanine Aminotransferase 60 U/L (10-49); Albumin, Serum 4.2 gm/dL (3.5-5.0); Albumin/Globulin Ratio 1.6 (1.2-2.2); Alkaline Phosphatase 107 U/L (46-116); Anion Gap 7 (7-16); Aspartate Amino Transferase 17 U/L (0-34); BUN/Creatinine Ratio 14 Ratio (12-20); Bilirubin,Total 1.1 mg/dL (0.3-1.2); Blood Urea Nitrogen 14 mg/dL (9-23); Calcium 9.3 mg/dL (8.3-10.6); Calcium (Corrected) 9.3 mg/dL (8.5-10.1); Carbon Dioxide 26.1 mMol/L (20.0-31.0); Cardiac Risk Estimate 4.3 RATIO (4.0-6.7); Chloride 101 mMol/L (98-107); Cholesterol 178 mg/dL (132-200); Globulin 2.7 gm/dL (2.3-3.5); Glucose 221 mg/dL (74-106); HDL Cholesterol 41 mg/dL (40-60); LDL Cholesterol,Calculated 112 mg/dL (0-130); Osmolality,Calculated 275 (275-295); Phosphorous 3.8 mg/dL (2.4-5.1); Potassium 3.6 mMol/L (3.4-5.1); Sodium 134 mMol/L (136-145); Thyroid Stimulating Hormone 2.05 uIU/mL (0.55-4.78); Total Protein 6.9 gm/dL (5.7-8.2); Triglycerides 123 mg/dL (30-150); eGFR > 60 See Note
[2024-10-03 06:56] LABS: Troponin I 0.328 ng/mL (0.0-0.045)
[2024-10-03 07:03] LABS: Glucose Estimated Average 275 mg/dL (80-131); Hemoglobin A1C 11.2 % Hgb (4.8-6.0)
[2024-10-03] MEDS: INSULIN LISPRO (AdmeLOG) 1 UNIT/0.01 ML UNIT SC ×4 (07:24→21:28)
--- NOTE | 2024-10-03 07:29 | ECHO_ITS ---
Transthoracic Echo Report Ht (in): 70 Wt (lb): 244 Exam Location: [facility] Status: Inpatient Cutter Grind Tool Technician: Elizabeth Decker Indications: Procedure Performed: BP: 198 / 112 HR: 71 Rhythm: Sinus Technical Quality: Fair Contrast: Agitated Saline Total Dose (mL): MEASUREMENTS (Male / Female) Normal Values 2D ECHO LV Diastolic Diameter PLAX 5.4 cm 4.2 - 5.9 / 3.9 - 5.3 cm LV Systolic Diameter PLAX 3.8 cm IVS Diastolic Thickness 1.2 cm 0.6 - 1.0 / 0.6 - 0.9 cm LVPW Diastolic Thickness 1.1 cm 0.6 - 1.0 / 0.6 - 0.9 cm LV Relative Wall Thickness 0.4 LVOT Diameter 2.2 cm LA Volume Index 27.6 cm?/m? 16 - 28 cm?/m? Ascending Aorta Diameter 3.4 cm M-MODE Aortic Root Diameter MM 2.7 cm LA Systolic Diameter MM 4.4 cm LA Ao Ratio MM 1.6 AV Cusp Separation MM 1.7 cm DOPPLER AV Peak Velocity 256.2 cm/s AV Peak Gradient 26.3 mmHg AV Mean Gradient 15.2 mmHg AV Velocity Time Integral 52.1 cm LVOT Peak Velocity 97.5 cm/s LVOT Peak Gradient 3.8 mmHg LVOT Velocity Time Integral 21.5 cm LVOT Cardiac Index 2440.6 cm?/min?m? AV Area Cont Eq vti 1.6 cm? AV Area Cont Eq pk 1.4 cm? MV Peak Velocity 108.0 cm/s MV Peak Gradient 4.7 mmHg MV Mean Velocity 71.3 cm/s MV Mean Gradient 2.0 mmHg MV Area PHT 3.9 cm? Mitral E Point Velocity 81.0 cm/s Mitral A Point Velocity 99.0 cm/s Mitral E to A Ratio 0.8 LV E' Lateral Velocity 5.7 cm/s Mitral E to LV E' Lateral Ratio 14.3 LV E' Septal Velocity 4.6 cm/s Mitral E to LV E' Septal Ratio 17.7 TR Peak Velocity 118.0 cm/s TR Peak Gradient 5.6 mmHg FINDINGS Left Ventricle Normal left ventricular size, Mild LVH. Nomral systolic function with no obvious regional wall louis on abnormalities. The ejection fraction is visually estimated at 55-60%. Right Ventricle The right ventricle is normal in size and systolic function. The estimated right ventricular systoli c pressure, 11mmHg. RAP 5. Left Atrium The left atrium is normal by two-dimensional, color flow and Doppler imaging with no structural abnormalities, no thrombus formation present. Right Atrium The right atrium is normal by two-dimensional imaging, color flow and Doppler imaging with no struct ural abnormalities, no thrombus formation present. Atrial Septum The interatrial septum appears normal with no evidence of a shunt. Aorta The aorta is normal by two-dimensional, color flow and Doppler interrogation. Mitral Valve The mitral valve is mildly MAC. There is trace mitral valve regurgitation. Aortic Valve The aortic valve is trileaflet. There is mild to moderate stenosis, mean gradient 23mmHg, vmax 3.1m/ s. There is no significant aortic valve regurgitation. Tricuspid Valve The tricuspid valve is normal by two-dimensional, color flow and Doppler interrogation. There is tra ce tricuspid valve regurgitation. Pulmonic Valve There is no significant pulmonic valve regurgitation. Vessels The pulmonary artery appears normal. The inferior vena cava pulmonary and hepatic veins appear jaylene l. Pericardium The pericardium is normal by two-dimensional imaging. There is no significant pericardial effusion. CONCLUSIONS Indication: Stroke Negative bubble study. No evidence of PFO or ASD. Consider [facility] if high clinical suspicion. Moderately elevated AV velocity - vmax 3.1m/s and mean gradient 23mmHg across the aortic valve. Need additional PW velocity measurements to evaluate for any sub aortic stenosis. There is a suspicious echogenic structure in the LVOT. Possible subaortic membrane. Consider [facility]. Normal LV size and function. Mild LVH. Grade I diastolic dysfunction. Estimated EF 55-60% Normal RV size and funciton. Mild MAC. Trace MR, TR. Rafael Mccain (Electronically Signed) Final Date: 03 October 2024 16:51
[2024-10-03] MEDS: HEPARIN SOD INJ 5000 UNIT/ML VIAL SC ×2 (09:20→21:29)
--- NOTE | 2024-10-03 09:20 | PCS.ST ---
Swallow Evaluation completed. No dysphagia. Regular carb consistent diet.
--- NOTE | 2024-10-03 10:38 | PC.SS ---
Patient Junior Penaloza is a 44 Year old male admitted for Altered Mental Status. SS met with patient at bedside however patient was asleep, Patient's mother, Jaye Penaloza was also at bedside, she reports patient resides at home with her. Patient is independent with all ADL's and does not utilize any source of DME to assist with ambulation. reports she is medical decision maker [phone]. Patient's PCP is Gerald Mcgregor from [facility], [place].When medically clear, patient will return home, no transportation. Discharge plan: Home Next of Kin: motherJaye
[2024-10-03 10:40] LABS: Troponin I 0.333 ng/mL (0.0-0.045)
[2024-10-03] MEDS: hydroCHLOROthiazide 12.5 MG CAPSULE 25 MG PO (11:30)
[2024-10-03] MEDS: ASPIRIN EC 81 MG TABEC PO (11:31)
[2024-10-03] MEDS: PANTOPRAZOLE 40 MG TABLET PO (11:31)
--- NOTE | 2024-10-03 11:48 | ESPR_ITS ---
<Statement entered by Mely Castañeda MD - 10/03/24 22:50> I discussed with and supervised the fashion styling intern physician who took care of this patient. I personally saw and examined the patient and discussed the assessment and plan with the entire medicine team, including my attending , I agree with most of the assessment and plan as documented below Mely Castañeda M.D. PGY-2 Documentation for date of: 10/03/24 Subjective Subjective Interval history: 10/03/2024: Overnight admit for patient 44-year-old with hypertension, hyperlipidemia, type 2 diabetes presented with slurred speech and admitted for stroke rule out. Overnight no acute events reported. Patient seen and examined in hospital bed reporting improvement in presenting symptoms; back to his regular baseline with no neurologic deficits. Patient was explained that he will need a MRI brain to rule out any stroke along with the TTE with bubble study. On exam, patient does not have any neurologic deficits and denies have any concerning symptoms such as chest pain, shortness of breath or any new headache/dizziness. Patient was extensively counseled on medication compliance and the importance of taking health seriously as he is very high risk for developing heart attack/stroke if he does not take his diabetes and blood pressure medication. 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 Exam Vital Signs Temp Pulse Resp BP Pulse Ox O2 Del Method O2 Flow Rate 97.5 F 75 20 205/118 H 97 Nasal Cannula 2 10/03/24 08:00 10/03/24 11:30 10/03/24 08:00 10/03/24 11:30 10/03/24 08:00 10/03/24 08:00 10/03/24 08:00 Narrative Exam General: alert, responding to questions, appears stated age HEENT: NC/AT, mucous membranes moist, bilateral sclera anicteric Cardiovascular: regular rate and rhythm, S1/S2 present, no murmurs appreciated Pulmonary: clear to auscultation bilaterally, no rales/rhonchi/wheezes Abdominal: soft, non-tender, non-distended, no rebound/guarding, normal bowel sounds present Musculoskeletal: normal ROM, no peripheral edema Skin: warm and dry, intact, no rashes Neuro: CN II-XII intact, no focal deficits Objective Labs 10/03/24 05:36 10/03/24 05:36 Labs: Laboratory Results - last 24 hr 10/02/24 10/02/24 10/02/24 16:11 16:23 16:46 WBC 12.5 H RBC 5.94 H Hgb 17.2 H Hct 49.4 MCV 83 MCH 29.0 MCHC 34.8 RDW Std Deviation 38.5 Plt Count 245 Neut % (Auto) 83 H Lymph % (Auto) 10 [place] % (Auto) 6 Eos % (Auto) 0 Baso % (Auto) 0 Neut # (Auto) 10.3 H Lymph # (Auto) 1.3 [place] # (Auto) 0.8 Eos # (Auto) 0.0 Baso # (Auto) 0.1 Immature Gran # (Auto) 0.04 H Absolute Nucleated RBC 0.00 Immature Gran % 0 Nucleated RBC % 0 PT 11.7 INR 1.1 APTT 29.3 Puncture Site Right Radial ABG pH 7.44 ABG pCO2 43 ABG pO2 51 L* ABG HCO3 29 H ABG O2 Saturation 88 L ABG Base Excess 4 H FiO2 21 Sodium 131 L Potassium 3.6 Chloride 94 L Carbon Dioxide 31.1 H Anion Gap 6 L BUN 15 Creatinine 1.3 Estim Creat Clear Calc 90.1 eGFR > 60 BUN/Creatinine Ratio [address] Glu mg/dL Hemoglobin A1c Calculated Osmolality 273 L Calcium 9.8 Corrected Calcium 9.8 Phosphorus Magnesium 2.1 Total Bilirubin 0.7 AST 26 ALT 74 H Alkaline Phosphatase 123 H Troponin I 0.353 H* Total Protein 7.3 Albumin 4.5 Globulin 2.8 Albumin/Globulin Ratio 1.6 Triglycerides Cholesterol LDL Cholesterol, Calc HDL Cholesterol Cholesterol/HDL Ratio TSH Ur Collection Type Clean Catch Urine Color Lt-Yellow Urine Clarity Clear Urine pH 7.5 H Ur Specific [place] 1.028 Urine Protein 2+ A Urine Glucose (UA) 4+ A Urine Ketones Negative Urine Blood Negative Urine Nitrite Negative Urine Bilirubin Negative Urine Urobilinogen (Auto) Negative Ur Leukocyte Esterase Negative Urine RBC 1 Urine WBC < 1 Ur Squamous Epith Cells 0 Urine Bacteria None Urine Opiates Screen Negative Urine Fentanyl Screen Negative Ur Barbiturates Screen Negative U Amphetamin/Meth Scrn Negative U Benzodiazepines Scrn Negative U Cocaine Metab Screen Negative U Marijuana (THC) Screen Negative HCG (Qual) Negative 10/02/24 10/03/24 10/03/24 21:50 05:36 10:12 WBC 9.8 RBC 5.95 H Hgb 17.1 H Hct 49.8 MCV 84 MCH 28.7 MCHC 34.3 RDW Std Deviation 39.0 Plt Count 235 Neut % (Auto) 64 Lymph % (Auto) 25 [place] % (Auto) 9 Eos % (Auto) 1 Baso % (Auto) 0 Neut # (Auto) 6.3 Lymph # (Auto) 2.4 [place] # (Auto) 0.9 H Eos # (Auto) 0.1 Baso # (Auto) 0.0 Immature Gran # (Auto) 0.03 H Absolute Nucleated RBC 0.00 Immature Gran % 0 Nucleated RBC % 0 PT INR APTT Puncture Site ABG pH ABG pCO2 ABG pO2 ABG HCO3 ABG O2 Saturation ABG Base Excess FiO2 Sodium 134 L Potassium 3.6 Chloride 101 Carbon Dioxide 26.1 Anion Gap 7 BUN 14 Creatinine 1.0 Estim Creat Clear Calc 120.0 eGFR > 60 BUN/Creatinine Ratio [address]ucose [address] Glu mg/dL 275 H Hemoglobin A1c 11.2 H Calculated Osmolality 275 Calcium 9.3 Corrected Calcium 9.3 Phosphorus 3.8 Magnesium 2.0 Total Bilirubin 1.1 AST 17 ALT 60 H Alkaline Phosphatase 107 Troponin I 0.356 H* 0.328 H* 0.333 H* Total Protein 6.9 Albumin 4.2 Globulin 2.7 Albumin/Globulin Ratio 1.6 Triglycerides 123 Cholesterol 178 LDL Cholesterol, Calc 112 HDL Cholesterol 41 Cholesterol/HDL Ratio 4.3 TSH 2.05 Ur Collection Type Urine Color Urine Clarity Urine pH Ur Specific [place] Urine Protein Urine Glucose (UA) Urine Ketones Urine Blood Urine Nitrite Urine Bilirubin Urine Urobilinogen (Auto) Ur Leukocyte Esterase Urine RBC Urine WBC Ur Squamous Epith Cells Urine Bacteria Urine Opiates Screen Urine Fentanyl Screen Ur Barbiturates Screen U Amphetamin/Meth Scrn U Benzodiazepines Scrn U Cocaine Metab Screen U Marijuana (THC) Screen HCG (Qual) ABG Interpretation ABG results: 10/02/24 16:23 ABG pH 7.44 ABG pCO2 43 ABG pO2 51 L* ABG HCO3 29 H ABG O2 Saturation 88 L ABG Base Excess 4 H Quality Measures Quality Measures VTE prophylaxis Assessment & Plan Assessment Current Active Medications: Generic Name Dose Route Start Last Admin Trade Name Freq PRN Reason Stop Dose Admin Acetaminophen 650 mg 10/02/24 19:27 10/02/24 23:09 Acetaminophen 325 Mg Tablet PO 11/01/24 19:26 650 mg Q6H PRN Administration PAIN OR FEVER > 101 Aspirin 81 mg 10/02/24 21:00 10/03/24 11:31 Aspirin Ec 81 Mg Tabec PO 11/01/24 20:59 81 mg QDAY DANA Administration Atorvastatin Calcium 80 mg 10/02/24 21:00 10/02/24 20:56 Atorvastatin Calcium 20 Mg Tablet PO 11/01/24 20:59 80 mg HS DANA Administration Dextrose 25 ml 10/02/24 19:30 Dextrose 50%-Water Inj 50 Ml Syringe IV 11/01/24 19:29 Q15MIN PRN BG 50-70 responsive npo pt Dextrose 50 ml 10/02/24 19:30 Dextrose 50%-Water Inj 50 Ml Syringe IV 11/01/24 19:29 Q15MIN PRN BG <50 OR BG <70 & pt unresponsive Glucagon 1 mg 10/02/24 19:30 Glucagon Inj 1 Mg Vial IM Q15MIN PRN BG <70, and no IV access Heparin Sodium (Porcine) 5,000 unit 10/02/24 21:00 10/03/24 09:20 Heparin Sod Inj 5000 Unit/Ml Vial SC 10/16/24 20:59 5,000 unit Q12HR DANA Administration Hydralazine HCl 10 mg 10/02/24 20:13 Hydralazine Inj 20 Mg/Ml Vial IV 11/01/24 20:12 X1 PRN Hypertensive Emergency Hydralazine HCl 50 mg 10/03/24 14:00 Hydralazine Hcl 25 Mg Tablet PO 11/02/24 13:59 TID DANA Hydrochlorothiazide 25 mg 10/03/24 10:30 10/03/24 11:30 Hydrochlorothiazide 12.5 Mg Capsule PO 11/02/24 10:29 25 mg QDAY DANA Administration Insulin Human Lispro 0 unit 10/02/24 21:00 10/03/24 11:32 Insulin Lispro (Admelog) 1 Unit/0.01 Ml Unit SC 11/01/24 20:59 4 unit ACHS DANA Administration Protocol Ondansetron HCl 4 mg 10/02/24 15:49 Ondansetron Inj 2 Mg/Ml Inj 2 Ml IV 11/01/24 15:48 Q4HR PRN NAUSEA OR VOMITING Pantoprazole Sodium 40 mg 10/03/24 09:00 10/03/24 11:31 Pantoprazole 40 Mg Tablet PO 11/02/24 08:59 40 mg QDAY DANA Administration Plan 44-year-old male with a past medical history of type 2 diabetes mellitus, hypertension, and hyperlipidemia who is noncompliant with medications admitted for acute encephalopathy secondary to CVA/TIA vs. hypertensive emergency. 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 Initial troponin 0.353 ==> 0.328 Plan: Stop trending troponin Monitor for acute changes #Hypertension #Hypertensive emergency/encephalopathy Patient on home amlodipine 10, hydralazine 50 tid, losartan-hctz (100-25) Permissive hypertension for first 24 hours, will defer home antihypertensives Patient given x1 dose of HCTZ 25mg by Pharmacy Plan: Discontinued HCTZ Will give Losartan 100 and Hydralazine 50 tid Telemetry #Type 2 diabetes mellitus A1c of >11 Patient is noncompliant with meds Takes metformin at home, will defer inpatient. Plan: Diabetic education SSI #Hyperlipidemia ASCVD risk of 19.4-34.9% Risk of cardiovascular event (coronary or stroke or non-fatal LA or stroke) in next 10 years. Lipid panel shows LDL above target <70 for diabetic patients Plan: Continue high-intensity statin for now while ruling out stroke Will discharge with high-intensity statin Hospital Management: Lines - PIV Diet - carb consistent low Bowel - Senna prn GI prophylaxis - protonix DVT prophylaxis - hep subq Dispo - stroke r/o Code - Full Patient seen and examined with attending Dr. Gomez and senior resident Dr. Maddy Carrington, PGY-1 Attending Provider Attestation/Addendum I have examined the patient, reviewed labs and imaging findings, discussed the case with the resident(s), and reviewed entered orders. I agree with the plan of care as outlined in this note, with these additional summaries/recommendations: #Stroke-like symptoms: TIA vs CVA vs HTN emergency CT head is negative for acute changes but CT angiogram of the head/neck showed P1 right CARD FIXER stenosis. Teleneurology was consulted and recommended starting the patient on aspirin. Continue atorvastatin. Risk factor screening. Echocardiogram and MRI brain. In-house neurology consulted. Continue aspirin. Physical therapy and swallow evaluation # Hypertensive emergency: Suspect patient's symptoms are related to hypertensive emergency rather than acute CVA. Given this we will discontinue permissive hypertension and start home antihypertensives as of as well as as needed. If blood pressure does not improve then we will consider secondary workup although appears patient's elevated blood pressure is most likely related to medication noncompliance #Elevated troponin: Likely type II non-STEMI in the setting of hypertensive emergency. Trend troponin. Continue telemetry. #Uncontrolled diabetes mellitus with hyperglycemia: Type II. Continue the patient on sliding scale insulin and monitor fingersticks. Dr. Gomez
[2024-10-03] MEDS: hydrALAZINE HCL 25 MG TABLET 50 MG PO ×2 (14:05→21:30)
[2024-10-03] MEDS: LOSARTAN POTASSIUM 25 MG TABLET 100 MG PO (14:06)
--- NOTE | 2024-10-03 16:14 | PC.SS ---
Rounding note; MRI pending at the time.
[2024-10-03] MEDS: NIFEdipine XL 30 MG TABCR PO (16:34)
--- NOTE | 2024-10-03 18:35 | PD.RESCONSUL ---
HPI Data of Consult Patient: new to practice Consult date: 10/03/24 Requesting Physician: Toby Gomez MD Admitting Provider: Garcia Madison MD Attending Provider: Toby Gomez MD Primary Care Provider: Physician No Primary/Family Consult Narrative Reason for consult: LAWRENCE, sub aortic membrane on TTE History of present illness: HISTORY OF PRESENT ILLNESS : Patient is a 44-year-old male with past medical history significant for NIDDM [11.2], essential hypertension, CAD, CA 2-3 years ago and hyperlipidemia. Patient presented to the ED with a chief complaint of headache and high blood pressure. From chart review however it appears that patient was brought in by his mother for AMS and slurred speech. Initially patient was speaking Setswana and Ethiopian and could not provide any history to the ED providers. Patient endorses an 8/10 occipital headache at the time of admission with no radiation, squeezing in nature and no aggravating or relieving factors. Patient also endorsed SOB at the time, but denies any chest pain/pressure or palpitations. Patient also denies any presyncope/syncopal episodes at the time. Patient also denies any PND or orthopnea and leg cramps/intermittent claudication. Upon review patient also denied cough, fever and chills. Of note patient stated that when he had his CA 2-3 years ago he was admitted to a hospital in [place] and had an angiogram at the time which she reported as normal. Patient denies any kind of swallowing problems or any kind of esophageal interventions or previous surgeries. Patient denies any kind of gastric ulcers bleeding and any other hematemesis or hematochezia. Patient denies any issues with anesthesia previously. Patient explained all the risks, benefits and alternatives of LAWRENCE including the risk of perforation, bleeding, respiratory failure secondary to sedation, injury to teeth gums esophagus and stomach. Patient understands all risks and benefits and provided consent for the procedure. 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 Brain MRI was significant for large old infarct in the right MCA distribution. EKG on admission showed sinus rhythm, rate 95, left atrial enlargement and left ventricular hypertrophy with Q waves in septal leads. No acute ST changes Transthoracic echocardiogram completed on 10/03 findings include: Negative bubble study. No evidence of PFO or ASD. Consider LAWRENCE if high clinical suspicion. Moderately elevated AV velocity - vmax 3.1m/s and mean gradient 23mmHg across the aortic valve. Need additional PW velocity measurements to evaluate for any sub aortic stenosis. There is a suspicious echogenic structure in the LVOT. Possible subaortic membrane. Consider LAWRENCE. Normal LV size and function. Mild LVH. Grade I diastolic dysfunction. Estimated EF 55-60% Normal RV size and funciton. Mild MAC. Trace MR, TR. Patient was admitted to the floor for stroke workup. Cardiology was consulted for suspicious echogenic structure seen in the LVOT possibly subaortic membrane. HOME MEDICATIONS: ? Amlodipine 10 Mg p.o. daily ? Atorvastatin 40 Mg p.o. daily ? Hydralazine 50 Mg p.o. 3 times daily ? Losartan/hydrochlorothiazide 100/25 1 tab p.o. daily ? Metformin 1 g p.o. twice daily cc:: cc: Toby Gomez MD Review of Systems Review of Systems Narrative Review of Systems: GENERAL: Denies fever/chills or diaphoresis. HEENT: As above Neuro: As above CARDIO: As above PULM: As above GI: Denies abdominal pain, N/V/C/D. Reports having BMs. URO: Denies buring/itching/pain/urinary changes. MSK/EXT/SKIN: Denies joint/skeletal/muscle pain, issues/changes in upper or lower extremities, itchiness, or superficial pain. PSYCH: Cooperative, pleasant mood & affect. The rest of the review of systems is otherwise negative. Past Medical History Past Medical History Comments PMH COMMENT: Past medical history: ? Essential hypertension ? Hyperlipidemia ? CAD ? History of CA ? NIDDM Past surgical history: Nil Allergies: NKFDA Social history: Tobacco use: 10 pack year history. Quit 10 years ago ETHO use: Quit Alchohol, methamphetamine and marijuana use 10 years ago Illicit drug use: Denies Social note : patient lives with his parents and has a sedentary lifestyle Family History: Denies any family history of cardiac disease Exam Vital Signs Temp Pulse Resp BP Pulse Ox O2 Del Method O2 Flow Rate 98.1 F 82 20 176/104 H 98 Room Air 2 10/03/24 16:00 10/03/24 16:34 10/03/24 16:00 10/03/24 16:34 10/03/24 16:00 10/03/24 16:00 10/03/24 12:00 Narrative Exam Constitutional Alert, oriented x 3 and comfortable. HEENT Vision grossly intact. Patent nares. Trachea midline Respiratory Chest normal on inspection and clear auscultation bilaterally Cardiovascular S1 and S2 audible, RRR. 2/6 ejection systolic murmur at right sternal border, No carotid bruit. JVD not assessed Abdominal Soft and non tender to palpation in all quadrants. BS + Genitourinary No bladder tenderness, no flank pain. Normal to palpation Musculoskeletal Extremities tone within normal limits. No LE edema. Neurological CN II - XII grossly intact. Extremity motor and sensation grossly intact. Skin Warm, dry and intact. No apparent lesions. Psychiatric Patient has good affect, is cooperative Results Labs 10/04/24 04:30 10/04/24 04:30 Labs: Short CBC 10/03/24 Range/Units 05:36 WBC 9.8 (3.8-10.6) Thou/mm3 Hgb 17.1 H (13.5-16.0) g/dL Hct 49.8 (41.0-53.0) % Plt Count 235 (140-440) Thou/mm3 BMP 10/03/24 05:36 Sodium 134 L Potassium 3.6 Chloride 101 Carbon Dioxide 26.1 BUN 14 Creatinine 1.0 Glucose 221 H D Calcium 9.3 Cardiac Enzymes 10/02/24 10/03/24 10/03/24 Range/Units 21:50 05:36 10:12 Troponin I 0.356 H* 0.328 H* 0.333 H* (0.0-0.045) ng/mL Liver Function 10/03/24 Range/Units 05:36 Total Bilirubin 1.1 (0.3-1.2) mg/dL AST 17 (0-34) U/L ALT 60 H (10-49) U/L Alkaline Phosphatase 107 (46-116) U/L Albumin 4.2 (3.5-5.0) gm/dL ABG Interpretation ABG results: 10/02/24 16:23 ABG pH 7.44 ABG pCO2 43 ABG pO2 51 L* ABG HCO3 29 H ABG O2 Saturation 88 L ABG Base Excess 4 H Quality Measures Quality Measures VTE prophylaxis Medications Home Medications and Allergies Home Medications ?Medication ?Instructions ?Recorded ?Confirmed ?Type amlodipine 10 mg tablet 10 mg PO QDAY 10/02/24 10/02/24 History atorvastatin 40 mg tablet 40 mg PO QPM 10/02/24 10/02/24 History hydralazine 50 mg tablet 50 mg PO TID 10/02/24 10/02/24 History losartan 100 1 tab PO QDAY 10/02/24 10/02/24 History mg-hydrochlorothiazide 25 mg tablet metformin 1,000 mg tablet 1,000 mg PO BID 10/02/24 10/02/24 History Allergies Allergy/AdvReac Type Severity Reaction Status Date / Time No Known Allergies Allergy Verified 10/02/24 16:59 Visit Medications Acetaminophen (Acetaminophen 325 Mg Tablet) 650 mg PO Q6H PRN PRN Reason: PAIN OR FEVER > 101 Stop: 11/01/24 19:26 Last Admin: 10/02/24 23:09 Dose: 650 mg Aspirin (Aspirin Ec 81 Mg Tabec) 81 mg PO QDAY DANA Stop: 11/01/24 20:59 Last Admin: 10/03/24 11:31 Dose: 81 mg Atorvastatin Calcium (Atorvastatin Calcium 20 Mg Tablet) 80 mg PO HS DANA Stop: 11/01/24 20:59 Last Admin: 10/02/24 20:56 Dose: 80 mg Dextrose (Dextrose 50%-Water Inj 50 Ml Syringe) 25 ml IV Q15MIN PRN PRN Reason: BG 50-70 responsive npo pt Stop: 11/01/24 19:29 Dextrose (Dextrose 50%-Water Inj 50 Ml Syringe) 50 ml IV Q15MIN PRN PRN Reason: BG <50 OR BG <70 & pt unresponsive Stop: 11/01/24 19:29 Glucagon (Glucagon Inj 1 Mg Vial) 1 mg IM Q15MIN PRN PRN Reason: BG <70, and no IV access Heparin Sodium (Porcine) (Heparin Sod Inj 5000 Unit/Ml Vial) 5,000 unit SC Q12HR DANA Stop: 10/16/24 20:59 Last Admin: 10/03/24 09:20 Dose: 5,000 unit Hydralazine HCl (Hydralazine Hcl 25 Mg Tablet) 50 mg PO TID [facility] Stop: 11/02/24 13:24 Last Admin: 10/03/24 14:21 Dose: Not Given Hydralazine HCl (Hydralazine Inj 20 Mg/Ml Vial) 10 mg IV Q6HR PRN PRN Reason: Systolic >180 Stop: 11/01/24 20:12 Insulin Human Lispro (Insulin Lispro (Admelog) 1 Unit/0.01 Ml Unit) 0 unit SC [facility]; Protocol Stop: 11/01/24 20:59 Last Admin: 10/03/24 16:39 Dose: 4 unit Losartan Potassium (Losartan Potassium 25 Mg Tablet) 100 mg PO QDAY [facility] Stop: 11/02/24 13:29 Last Admin: 10/03/24 14:06 Dose: 100 mg Nifedipine (Nifedipine Xl 30 Mg Tabcr) 30 mg PO QDAY [facility] Stop: 11/03/24 08:59 Ondansetron HCl (Ondansetron Inj 2 Mg/Ml Inj 2 Ml) 4 mg IV Q4HR PRN PRN Reason: NAUSEA OR VOMITING Stop: 11/01/24 15:48 Pantoprazole Sodium (Pantoprazole 40 Mg Tablet) 40 mg PO QDAY [facility] Stop: 11/02/24 08:59 Last Admin: 10/03/24 11:31 Dose: 40 mg Discontinued Medications Hydralazine HCl (Hydralazine Inj 20 Mg/Ml Vial) 10 mg IV X1 PRN PRN Reason: Hypertensive Emergency Stop: 11/01/24 20:12 Hydralazine HCl (Hydralazine Hcl 25 Mg Tablet) 50 mg PO TID [facility] Stop: 11/02/24 13:59 Hydrochlorothiazide (Hydrochlorothiazide 12.5 Mg Capsule) 25 mg PO QDAY [facility] Stop: 11/02/24 10:29 Last Admin: 10/03/24 11:30 Dose: 25 mg Hydromorphone HCl (Hydromorphone Inj 2 Mg/Ml Vial) 1 mg IVP X1 ONE Stop: 10/02/24 16:49 Last Admin: 10/02/24 16:55 Dose: 1 mg Sodium Chloride (Ns) 1,000 mls @ 80 mls/hr IV .[id number] ONE Stop: 10/03/24 10:15 Last Admin: 10/02/24 22:47 Dose: 80 mls/hr Influenza Virus Vaccine Quadrival (Influenza Virus Quadrivalent 0.5 Ml Syringe) 0.5 ml IMi .ONCE ONE Stop: 10/03/24 02:38 Losartan Potassium (Losartan Potassium 25 Mg Tablet) 100 mg PO QDAY DANA Stop: 11/02/24 10:14 Metoprolol Tartrate (Metoprolol Tartrate Inj 1 Mg/Ml Amp 5 Ml) 2.5 mg IVP X1 ONE Stop: 10/02/24 17:42 Last Admin: 10/02/24 17:44 Dose: 2.5 mg Nifedipine (Nifedipine Xl 30 Mg Tabcr) 30 mg PO X1 ONE Stop: 10/03/24 15:37 Last Admin: 10/03/24 16:34 Dose: 30 mg Assessment & Plan Plan Patient is a 44-year-old male with past medical history significant for NIDDM [11.2], essential hypertension, CAD, CA 2-3 years ago and hyperlipidemia. Patient presented to the ED with a chief complaint of headache and high blood pressure. From chart review however it appears that patient was brought in by his mother for AMS and slurred speech. 1. Hypertensive emergency?resolved 2. NSTEMI type I versus type II 3. Rule out subaortic membrane On admission patient was hypertensive BP 250/140, permissive hypertension was allowed as patient was being worked up for stroke. Also troponin were mildly elevated at 0.328 and up trended to 0.333 EKG on admission showed sinus rhythm, rate 95, left atrial and left ventricular hypertrophy. No acute ST elevation. Troponin elevation likely secondary to hypertensive emergency Transthoracic echocardiogram completed on 10/03 findings include: Negative bubble study. No evidence of PFO or ASD. Consider LAWRENCE if high clinical suspicion. Moderately elevated AV velocity - vmax 3.1m/s and mean gradient 23mmHg across the aortic valve. Need additional PW velocity measurements to evaluate for any sub aortic stenosis. There is a suspicious echogenic structure in the LVOT. Possible subaortic membrane. Consider LAWRENCE. Normal LV size and function. Mild LVH. Grade I diastolic dysfunction. Estimated EF 55-60% Normal RV size and funciton. Mild MAC. Trace MR, TR. Patient denies any kind of swallowing problems or any kind of esophageal interventions or previous surgeries. Patient denies any kind of gastric ulcers bleeding and any other hematemesis or hematochezia. Patient denies any issues with anesthesia previously. Patient explained all the risks, benefits and alternatives of LAWRENCE including the risk of perforation, bleeding, respiratory failure secondary to sedation, injury to teeth gums esophagus and stomach. Patient understands all risks and benefits and provided consent for the procedure. Patient NPO overnight - will plan for LAWRENCE today Plan: ? No need for heparin infusion at this time ? Recommend to continue aspirin 81 Mg p.o. daily ? Continue high intensity statin ?Patient n.p.o. for LAWRENCE today to better visualize aortic area 4. Uncontrolled essential hypertension On admission patient's BP 250/140 Home medication losartan/HCTZ 100/25 1 tab p.o. daily, hydralazine 50 Mg p.o. 3 times daily and amlodipine 10 Mg p.o. daily. Currently patient's BP 150/93 and stroke was ruled out. Plan: ? Recommend Coreg 12.5 Mg p.o. twice daily ? Recommend to continue hydralazine 50 Mg p.o. 3 times daily ? Recommend to continue losartan 100 Mg p.o. daily and nifedipine 30 Mg p.o. daily. ? Recommend tight control of blood pressure keeping SBP <140. Titrate medication as necessary 5. CAD 6. Hyperlipidemia 7. History of CA Patient had an CA approximately 2-3 years ago and was admitted at a hospital in [place]. At the time he had an angiogram which patient reports was normal. No PCI or stents were done. On admission triglycerides 123, cholesterol 178, LDL 112. Plan: ? Recommend to continue high intensity statin 8. VEGA On admission CR 1 currently CR 1.2. Continue management as per primary team 9. Polycythemia On admission patient's Hb 17.4 and HCT 51.5%. Patient may benefit from therapeutic phlebotomy. DDx: LUCÍA, smoking, dehydration, polycythemia vera Patient should be worked up as outpatient for LUCÍA and polycythemia. Continue management as per primary team 10. TIA Patient's symptoms of confusion and slurred speech has presentation have now resolved and patient is back to baseline. 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 Continue management as per primary team and neurology Continue rest of management as per primary team. We are grateful to be able to participate in Mr. Penaloza's care. Thank you for the consult Plan of care discussed with attending Watch Dial Printer, Dr Kalyn Schulz MD PGY 1 Attending Provider Attestation/Addendum I have personally seen and examined the patient separately on the above date of service and discussed the plan of care with the resident. I reviewed the resident Dr. Schulz consultation note and agree with the resident findings and plan in the note above and have also edited the documentation to reflect my findings and plan. Patient presented to the emergency department for further evaluation of headache as well as high blood pressure. Patient does have a history of type 2 diabetes mellitus along with essential hypertension and hyperlipidemia. Questionable history of CAD as per the patient he went to [facility] few years ago and they did a cardiac catheterization on him which was apparently negative and did not receive any kind of stents. Patient blood pressure was elevated around 240/120 mmHg. Patient otherwise denies any Chest pain or chest pressure. Patient blood pressure still high at 180 mmHg today. Recommended to start Coreg 12.5 mg twice daily and continue to uptitrate it as needed. Cardiology was consulted because of questionable subaortic membrane because of increased aortic valve velocities and could not rule out a bicuspid aortic valve. Hence LAWRENCE was recommended and cardiology was consulted for further evaluation with a LAWRENCE. Patient did not have any cardiac indications for a LAWRENCE and was explained that his benefits and alternatives of the performing the LAWRENCE including the risk of significant perforation, esophageal bleeding as well as gastric bleeding and significant respiratory depression from anesthesia requiring possible intubation. Patient agreed and consented for the procedure. LAWRENCE showed no evidence of any subaortic membrane but patient does have a mildly calcified bicuspid aortic valve but no evidence of any aortopathy. LAWRENCE results as noted below. The ascending aorta only measured at 3.5 cm. Patient explained the results of the LAWRENCE and recommended to continue to follow with cardiology as this does have mild to moderate bicuspid aortic stenosis with a mean gradient of 19 mmHg and a V-max of 3 m/s. Patient will need frequent echocardiograms for monitoring for his bicuspid aortic stenosis. Patient will eventually need surgery for the aortic valve replacement when he has severe symptoms or has severe stenosis or aortopathy. Patient again reiterated the importance to continue to follow-up with cardiology as well as primary care regularly. MRI did not show any evidence of any stroke. LAWRENCE did not show any evidence of any PFO or ASD or any kind of LA or KELSIE thrombus. Patient blood pressure is elevated and he is already on amlodipine 10 mg once daily, losartan 100 mg once daily as well as hydrochlorothiazide 25 mg once daily and hydralazine 50 mg p.o. 3 times daily. Patient started the patient on Coreg 12.5 mg twice daily for today and will continue to uptitrate to 25 mg twice daily if the blood pressure continues to be high. Patient recommended to follow-up with doctors regularly and will need strict control of diabetes mellitus. Patient also has a history of polysubstance abuse including methamphetamine, marijuana, cocaine and heroin previously. Still continues to do meth. Recommend U tox and follow-up in the clinic closely and counseled the patient to quit smoking and substance abuse LAWRENCE: 10/04/2024 The aortic valve is bicuspid. Both cusps are calcified. Mild to moderate bicuspid stenosis, mean gradient 19mmHg, vmax 3.0m/s. There is LVOT calcification. Trace bicuspid valve regurigitation. Negative bubble study. No evidence of PFO or LA/KELSIE thrombus. Normal LV size and function. Moderate LVH. Estimated EF 55-60% Normal RV size and function. Mild MR. TR. Normal pulmonary veins flow. Management of rest of the medical conditions as per primary team and other consultants. Thank you for the consult and allowing me to participate in the care of the patient. Cardiology will continue to follow. Rafael Mccain M.D. Interventional Cardiology
[2024-10-03] MEDS: ATORVASTATIN CALCIUM 20 MG TABLET 80 MG PO (21:30)
[2024-10-03] MEDS: carVEDILOL 12.5 MG TABLET PO (21:31)
[2024-10-03] MEDS: NICOTINE PATCH 14 MG/24 HR PATCH.TD24 TOP (22:04)
--- NOTE | 2024-10-03 23:55 | ESPR_ITS ---
Documentation for date of: 10/03/24 Subjective Subjective Interval history: Patient was seen in telemetry today. No new symptoms reported, no recurrence of similar symptoms after admission. No more dysarthria. Exam - Neurology Vital Signs Temp Pulse Resp BP Pulse Ox O2 Del Method O2 Flow Rate 97.8 F 87 20 152/108 H 96 Room Air 2 10/03/24 20:00 10/03/24 21:31 10/03/24 20:00 10/03/24 21:31 10/03/24 20:00 10/03/24 20:00 10/03/24 12:00 Narrative Exam GENERAL APPEARANCE: Well hydrated, well-nourished in no acute distress. HEENT: Normocephalic, atraumatic, extraocular movements intact. Pupils: Equal reacting to light and accommodation NECK: Supple, no JVD or bruits. CARDIOVASULAR: Heart: S1, S2 heard, regular without S3-S4 or murmur no rubs or gallops. LUNGS/CHEST: Clear to auscultation bilaterally. No rails, rhonchi, or wheezing. Normal inspection. ABDOMEN: Soft, nontender, with normal bowel sounds. No pulsatile masses. No rebound, rigidity, or guarding. Normal inspection and palpation. EXTREMITIES: Normal inspection and palpation. No edema, clubbing or cyanosis. SKIN: Warm and dry without rashes. Normal inspection. MUSCULOSKELETAL: No cervical, thoracic, lumbar or midline bony tenderness. Normal inspection. NEURO: Alert, awake and oriented x3. Cranial nerves: II through XII grossly intact. Speech and language: Normal with no dysarthria or dysphasia. Motor system: Tone and bulk: Normal: Strength: 5 out of 5 in all 4 extremities; No pronator drift noted. Deep tendon reflexes: 2+ bilaterally symmetrical. Plantar reflex: Downgoing bilaterally. Sensory system: Intact to all modalities of sensation bilaterally. Coordination: Intact to [id number] and [id number]-[id number] test bilaterally. No ataxia, no dysmetria, or dysdiadochokinesia noted. No intention tremors noted. Gait: Normal. Toe, heel, tandem walk all are normal. Romberg: Negative. No signs of meningeal irritation noted. PSYCHIATRIC: Normal mood and affect. Objective Labs 10/03/24 05:36 10/03/24 05:36 Labs: Laboratory Results - last 24 hr 10/03/24 10/03/24 05:36 10:12 WBC 9.8 RBC 5.95 H Hgb 17.1 H Hct 49.8 MCV 84 MCH 28.7 MCHC 34.3 RDW Std Deviation 39.0 Plt Count 235 Neut % (Auto) 64 Lymph % (Auto) 25 Phillips % (Auto) 9 Eos % (Auto) 1 Baso % (Auto) 0 Neut # (Auto) 6.3 Lymph # (Auto) 2.4 Phillips # (Auto) 0.9 H Eos # (Auto) 0.1 Baso # (Auto) 0.0 Immature Gran # (Auto) 0.03 H Absolute Nucleated RBC 0.00 Immature Gran % 0 Nucleated RBC % 0 Sodium 134 L Potassium 3.6 Chloride 101 Carbon Dioxide 26.1 Anion Gap 7 BUN 14 Creatinine 1.0 Estim Creat Clear Calc 120.0 eGFR > 60 BUN/Creatinine Ratio [address] Glu mg/dL 275 H Hemoglobin A1c 11.2 H Calculated Osmolality 275 Calcium 9.3 Corrected Calcium 9.3 Phosphorus 3.8 Magnesium 2.0 Total Bilirubin 1.1 AST 17 ALT 60 H Alkaline Phosphatase 107 Troponin I 0.328 H* 0.333 H* Total Protein 6.9 Albumin 4.2 Globulin 2.7 Albumin/Globulin Ratio 1.6 Triglycerides 123 Cholesterol 178 LDL Cholesterol, Calc 112 HDL Cholesterol 41 Cholesterol/HDL Ratio 4.3 TSH 2.05 ABG Interpretation ABG results: 10/02/24 16:23 ABG pH 7.44 ABG pCO2 43 ABG pO2 51 L* ABG HCO3 29 H ABG O2 Saturation 88 L ABG Base Excess 4 H Assessment & Plan Assessment and plan (1) TIA (transient ischemic attack): Status: Resolved Assessment and plan: Reassurance given to the patient regarding the negative MRI brain for acute ischemic infarction. MRI brain only showed old large infarct. Transthoracic echocardiogram: Negative bubble study. No evidence of PFO or ASD. Consider LAWRENCE if high clinical suspicion. Moderately elevated AV velocity - vmax 3.1m/s and mean gradient 23mmHg across the aortic valve. Need additional PW velocity measurements to evaluate for any sub aortic stenosis. There is a suspicious echogenic structure in the LVOT. Possible subaortic membrane. Consider LAWRENCE. Normal LV size and function. Mild LVH. Grade I diastolic dysfunction. Estimated EF 55-60% Normal RV size and funciton. Mild MAC. Trace MR, TR. Continue with aspirin 81 mg a day along with vascular risk factors reduction: Blood pressure, diabetes and cholesterol controlled. Patient does not have any focal deficit. (2) Hypertension: Status: Acute Assessment and plan: Continue home meds (3) Hyperlipidemia: Status: Acute Assessment and plan: Continue with high intensity statin: LDL: 112 (4) Type 2 diabetes mellitus: Status: Chronic Assessment and plan: Needs better control of diabetes as the last A1c: 11.2
[2024-10-04] VITALS (28 sets, daily range): BP systolic 132–176; BP diastolic 85–102; PULSE 74–90; RESP 9–96; TEMP 36.2–37; O2SAT 93–98
[2024-10-04] MEDS: hydrALAZINE HCL 25 MG TABLET 50 MG PO ×3 (05:42→21:40)
[2024-10-04 05:44] LABS: Basophils # (Auto) 0.1 Thou/mm3 (0.0-0.2); Basophils % (Auto) 1 % (0-2.5); Eosinophils # (Auto) 0.1 Thou/mm3 (0.0-0.5); Eosinophils % (Auto) 2 % (0-10); Hematocrit 51.5 % (41.0-53.0); Hemoglobin 17.4 g/dL (13.5-16.0); Immature Granulocytes % (Auto) 0 % (0-0); Immature Granulocytes Auto 0.02 Thou/mm3 (0.00-0.00); Lymphocytes # (Auto) 1.7 Thou/mm3 (1.0-4.8); Lymphocytes % (Auto) 19 % (10-50); Mean Corpuscular HGB Conc 33.8 g/dl (31.0-37.0); Mean Corpuscular Hemoglobin 28.6 pg (25.0-35.0); Mean Corpuscular Volume 85 fL (80-100); Monocytes # (Auto) 0.7 Thou/mm3 (0.0-0.8); Monocytes % (Auto) 8 % (0-12); Neutrophils # (Auto) 6.4 Thou/mm3 (1.8-7.7); Neutrophils % (Auto) 71 % (37-80); Nucleated Red Blood Cell % 0 /100 WBC (0); Platelet Count 230 Thou/mm3 (140-440); RDW Standard Deviation 39.2 fL (35.1-43.9); Red Blood Count 6.08 Miln/mm3 (4.50-5.90)
[2024-10-04 06:11] LABS: Alanine Aminotransferase 54 U/L (10-49); Albumin, Serum 4.4 gm/dL (3.5-5.0); Albumin/Globulin Ratio 1.6 (1.2-2.2); Alkaline Phosphatase 110 U/L (46-116); Anion Gap 8 (7-16); Aspartate Amino Transferase 17 U/L (0-34); BUN/Creatinine Ratio 15 Ratio (12-20); Blood Urea Nitrogen 18 mg/dL (9-23); Calcium 9.5 mg/dL (8.3-10.6); Calcium (Corrected) 9.5 mg/dL (8.5-10.1); Carbon Dioxide 27.2 mMol/L (20.0-31.0); Chloride 99 mMol/L (98-107); Creatinine (Component) 1.2 mg/dL (0.6-1.3); Globulin 2.8 gm/dL (2.3-3.5); Glucose 221 mg/dL (74-106); Osmolality,Calculated 277 (275-295); Potassium 3.5 mMol/L (3.4-5.1); Sodium 134 mMol/L (136-145); Total Protein 7.2 gm/dL (5.7-8.2); eGFR > 60 See Note
[2024-10-04] MEDS: INSULIN LISPRO (AdmeLOG) 1 UNIT/0.01 ML UNIT SC ×2 (07:01→16:37)
[2024-10-04] MEDS: NIFEdipine XL 30 MG TABCR PO (08:08)
[2024-10-04] MEDS: carVEDILOL 12.5 MG TABLET PO ×2 (08:09→17:10)
[2024-10-04] MEDS: NICOTINE PATCH 14 MG/24 HR PATCH.TD24 TOP (08:09)
[2024-10-04] MEDS: PANTOPRAZOLE 40 MG TABLET PO (08:09)
[2024-10-04] MEDS: LOSARTAN POTASSIUM 25 MG TABLET 100 MG PO (08:10)
[2024-10-04] MEDS: ASPIRIN EC 81 MG TABEC PO (08:10)
[2024-10-04] MEDS: POTASSIUM CHLORIDE 20 mEq TABCR 40 MEQ PO (08:53)
--- NOTE | 2024-10-04 09:00 | ECHO_ITS ---
Transesophageal Echo Report Ht (in): 70 Wt (lb): 244 Exam Location: [facility] Status: Inpatient Trial Mgr: Elizabeth Decker Indications: Procedure Performed: BP: 169 / 96 HR: 78 Contrast: Agitated Saline Rhythm: Sinus Technical Quality: Fair Total Dose(mL): MEASUREMENTS 2D ECHO LVOT Diameter 1.8 cm DOPPLER LVOT Peak Velocity 85.2 cm/s LVOT Peak Gradient 2.9 mmHg LVOT Velocity Time Integral 17.0 cm LVOT Cardiac Index 1419.2 cm?/min?m? (Male / Female) Normal Values Medications The patient is medicated with 5mg of intravenous Versed and 100mcg of intravenous Fentanyl. Complications There are no complications prior to, during or in recovery from the transesophageal echocardiogram. FINDINGS Left Ventricle Normal left ventricular size, systolic function with no obvious regional wall motion abnormalities. Moderate LVH. The ejection fraction is visually estimated at 55-60 %. Right Ventricle The right ventricle is normal in size and systolic function. Left Atrium The left atrium is normal. Right Atrium The right atrium is normal. Atrial Appendages The left atrial appendage appears normal with no evidence for thrombus. Atrial Septum The interatrial septum appears normal with no evidence of a shunt. Aorta The aorta is normal. Mitral Valve The mitral valve is normal. There is mild mitral valve regurgitation. Aortic Valve Bicuspid aortic valve. Both cusps are calcified. There is dooming of the valves. There is mild to mo derate stenosis, mean gradient 19mmHg, vmax 3.0m/s. There is trace bicuspid valve. Tricuspid Valve The tricuspid valve is normal. There is mild tricuspid valve regurgitation. Pulmonic Valve The pulmonic valve is normal. There is no significant pulmonic valve regurgitation. Vessels The pulmonary artery appears normal. The inferior vena cava pulmonary and hepatic veins appear jaylene l. Pericardium The pericardium is normal. There is no significant pericardial effusion. CONCLUSIONS Indication: Subaortic membrane The aortic valve is bicuspid. Both cusps are calcified. Mild to moderate bicuspid stenosis, mean gra dient 19mmHg, vmax 3.0m/s. There is LVOT calcification. Trace bicuspid valve regurigitation. Negative bubble study. No evidence of PFO or LA/KELSIE thrombus. Normal LV size and function. Moderate LVH. Estimated EF 55-60% Normal RV size and function. Mild MR. TR. Normal pulmonary veins flow. Rafael Anumandla (Electronically Signed) Final Date: 04 October 2024 17:19
[2024-10-04] MEDS: MIDAZOLAM INJ 1 MG/ML VIAL 2 ML 5 MG IV (12:23)
[2024-10-04] MEDS: fentaNYL CIT INJ 50 mCg/ML AMP 2ML 100 MCG IVP (12:23)
[2024-10-04] MEDS: BENZOCAINE 20% (Hurricaine) SPRAY 1 DOSE TOP (12:31)
[2024-10-04 13:20] LABS: Magnesium 2.1 mg/dL (1.6-2.6)
[2024-10-04] MEDS: hydroCHLOROthiazide 12.5 MG CAPSULE 25 MG PO (14:47)
[2024-10-04] MEDS: INSULIN LISPRO (AdmeLOG) 1 UNIT/0.01 ML UNIT 3 UNIT SC (16:36)
[2024-10-04 16:47] LABS: Amphetamine/Methamp Scrn,U Negative (Negative); Barbiturate Screen,Urine Negative (Negative); Benzodiazepines Screen,Urine Positive (Negative); Benzoylecgonine Screen, Ur Negative (Negative); Fentanyl Screen,Urine Positive (Negative); Opiate Screen,Urine Negative (Negative); THC Screen,Urine Negative (Negative)
--- NOTE | 2024-10-04 18:07 | PC.DIETICIAN ---
Nutrition Education (A1C=11.2): Patient was educated on dietary management of diabetes; written material and a FreeStyle Anthony 3 System (CGM) were provided. *Consider prescribing FreeStyle Anthony 3 Sensor prior to discharge.
--- NOTE | 2024-10-04 18:11 | PD.RESPRO ---
Documentation for date of: 10/04/24 Subjective Subjective Interval history: 10/04/2024: No acute overnight events to report. Patient seen and examined in hospital bed reporting improvement in presenting symptoms. Patient was counselled on medication adherence and the importance of following up with PCP once he is safe to be discharged. Cardiology completed both TTE w/bubble and LAWRENCE (for suspicion of echogenic structure near LVOT), and results were negative for PFO or presence of thrombus; however, patient does bicuspid aortic valve with increased Vmax which equates with a moderate valve stenosis. Patient will remain in the hospital for hypertension management and to control insulin needs with likely discharge on 10/05 if he remains clinically stable. Exam Vital Signs Temp Pulse Resp BP Pulse Ox O2 Del Method O2 Flow Rate 98.6 F 82 20 141/85 H 94 L Room Air 3 10/04/24 16:00 10/04/24 17:10 10/04/24 16:38 10/04/24 17:10 10/04/24 16:00 10/04/24 16:00 10/04/24 12:50 Narrative Exam General: alert, responding to questions, appears stated age HEENT: NC/AT, mucous membranes moist, bilateral sclera anicteric Cardiovascular: regular rate and rhythm, S1/S2 present, no murmurs appreciated Pulmonary: clear to auscultation bilaterally, no rales/rhonchi/wheezes Abdominal: soft, non-tender, non-distended, no rebound/guarding, normal bowel sounds present Musculoskeletal: normal ROM, no peripheral edema Skin: warm and dry, intact, no rashes Neuro: CN II-XII intact, no focal deficits Objective Labs 10/04/24 04:30 10/04/24 04:30 Labs: Laboratory Results - last 24 hr 10/04/24 10/04/24 10/04/24 04:30 12:54 14:50 WBC 9.0 RBC 6.08 H Hgb 17.4 H Hct 51.5 MCV 85 MCH 28.6 MCHC 33.8 RDW Std Deviation 39.2 Plt Count 230 Neut % (Auto) 71 Lymph % (Auto) 19 [place] % (Auto) 8 Eos % (Auto) 2 Baso % (Auto) 1 Neut # (Auto) 6.4 Lymph # (Auto) 1.7 [place] # (Auto) 0.7 Eos # (Auto) 0.1 Baso # (Auto) 0.1 Immature Gran # (Auto) 0.02 H Absolute Nucleated RBC 0.00 Immature Gran % 0 Nucleated RBC % 0 Sodium 134 L Potassium 3.5 Chloride 99 Carbon Dioxide 27.2 Anion Gap 8 BUN 18 Creatinine 1.2 Estim Creat Clear Calc 100.0 eGFR > 60 BUN/Creatinine Ratio 15 Glucose 221 H Calculated Osmolality 277 Calcium 9.5 Corrected Calcium 9.5 Magnesium 2.1 Total Bilirubin 1.0 AST 17 ALT 54 H Alkaline Phosphatase 110 Total Protein 7.2 Albumin 4.4 Globulin 2.8 Albumin/Globulin Ratio 1.6 Urine Opiates Screen Negative Urine Fentanyl Screen Positive A Ur Barbiturates Screen Negative U Amphetamin/Meth Scrn Negative U Benzodiazepines Scrn Positive A U Cocaine Metab Screen Negative U Marijuana (THC) Screen Negative ABG Interpretation ABG results: 10/02/24 16:23 ABG pH 7.44 ABG pCO2 43 ABG pO2 51 L* ABG HCO3 29 H ABG O2 Saturation 88 L ABG Base Excess 4 H Quality Measures Quality Measures VTE prophylaxis Assessment & Plan Assessment Current Active Medications: Generic Name Dose Route Start Last Admin Trade Name Freq PRN Reason Stop Dose Admin Acetaminophen 650 mg 10/02/24 19:27 10/02/24 23:09 Acetaminophen 325 Mg Tablet PO 11/01/24 19:26 650 mg Q6H PRN Administration PAIN OR FEVER > 101 Aspirin 81 mg 10/02/24 21:00 10/04/24 08:10 Aspirin Ec 81 Mg Tabec PO 11/01/24 20:59 81 mg QDAY DANA Administration Atorvastatin Calcium 80 mg 10/02/24 21:00 10/03/24 21:30 Atorvastatin Calcium 20 Mg Tablet PO 11/01/24 20:59 80 mg HS DANA Administration Carvedilol 12.5 mg 10/03/24 20:24 10/04/24 17:10 Carvedilol 12.5 Mg Tablet PO 11/02/24 20:23 12.5 mg BIDWM DANA Administration Dextrose 25 ml 10/02/24 19:30 Dextrose 50%-Water Inj 50 Ml Syringe IV 11/01/24 19:29 Q15MIN PRN BG 50-70 responsive npo pt Dextrose 50 ml 10/02/24 19:30 Dextrose 50%-Water Inj 50 Ml Syringe IV 11/01/24 19:29 Q15MIN PRN BG <50 OR BG <70 & pt unresponsive Glucagon 1 mg 10/02/24 19:30 Glucagon Inj 1 Mg Vial IM Q15MIN PRN BG <70, and no IV access Heparin Sodium (Porcine) 5,000 unit 10/02/24 21:00 10/04/24 08:13 Heparin Sod Inj 5000 Unit/Ml Vial SC 10/16/24 20:59 Not Given Q12HR DANA Hydralazine HCl 50 mg 10/03/24 13:25 10/04/24 14:46 Hydralazine Hcl 25 Mg Tablet PO 11/02/24 13:24 50 mg TID DANA Administration Hydralazine HCl 10 mg 10/03/24 16:03 Hydralazine Inj 20 Mg/Ml Vial IV 11/01/24 20:12 Q6HR PRN Systolic >180 Hydrochlorothiazide 25 mg 10/04/24 14:45 10/04/24 14:47 Hydrochlorothiazide 12.5 Mg Capsule PO 11/03/24 14:44 25 mg QDAY DANA Administration Insulin Glargine 10 unit 10/04/24 21:00 Insulin Glargine (Lantus) 5 Unit/0.05 Ml (Per 5 Units) SC 11/03/24 20:59 [facility] Insulin Human Lispro 3 unit 10/04/24 11:30 10/04/24 16:36 Insulin Lispro (Admelog) 1 Unit/0.01 Ml Unit SC 11/03/24 11:29 3 unit AC [facility] [place] Administration Insulin Human Lispro 0 unit 10/04/24 09:30 10/04/24 16:37 Insulin Lispro (Admelog) 1 Unit/0.01 Ml Unit SC 11/03/24 09:29 6 unit AC DANA Administration Protocol Losartan Potassium 100 mg 10/03/24 13:30 10/04/24 08:10 Losartan Potassium 25 Mg Tablet PO 11/02/24 13:29 100 mg QDAY DANA Administration Nicotine 14 mg 10/03/24 21:52 10/04/24 08:09 Nicotine Patch 14 Mg/24 Hr Patch.Td24 TOP 11/02/24 21:51 14 mg QDAY DANA Administration Nifedipine 30 mg 10/04/24 09:00 10/04/24 08:08 Nifedipine Xl 30 Mg Tabcr PO 11/03/24 08:59 30 mg QDAY DANA Administration Ondansetron HCl 4 mg 10/02/24 15:49 Ondansetron Inj 2 Mg/Ml Inj 2 Ml IV 11/01/24 15:48 Q4HR PRN NAUSEA OR VOMITING Pantoprazole Sodium 40 mg 10/03/24 09:00 10/04/24 08:09 Pantoprazole 40 Mg Tablet PO 11/02/24 08:59 40 mg QDAY DANA Administration Plan 44-year-old male with a past medical history of type 2 diabetes mellitus, hypertension, and hyperlipidemia who is noncompliant with medications admitted for acute encephalopathy secondary to CVA/TIA vs. hypertensive emergency. 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 No evidence of PFO or ASD. Moderately elevated AV velocity. There is a suspicious echogenic structure in the LVOT. Mild LVH. Grade I diastolic dysfunction. Estimated EF 55-60% Normal RV size and funciton. Mild MAC. Trace MR, TR. LAWRENCE ordered showed: aortic valve is bicuspid. Both cusps are calcified. Mild to moderate bicuspid stenosis, mean gradient 19mmHg, vmax 3.0m/s. There is LVOT calcification. Trace bicuspid valve regurigitation. Plan: Hydralazine if BP greater than 220/120 In-house neurology consulted, appreciate recommendations Continue Aspirin 81 mg daily Atorvastatin 40 mg daily Physical therapy #Bicuspid Aortic Valve #Mild/Moderate Bicuspid Stenosis As noted from LAWRENCE above Plan: Follow-up outpatient for monitoring with PCP and cardiology referral. #Polycythemia Patient has persistently elevated Hgb, 17s Ddx: Secondary polycythemia (OHS/LUCÍA) vs. primary less likely (hematologic) Patient denies anabolic steroid use, hx of COPD/asthma, smoking Patient does have BMI 33 and apparently does snore at home Plan: Follow-up outpatient for work-up with church warden vs. sleep study #Elevated troponins, peaked/downtrending #NSTEMI type II, demand ischemia Likely secondary to hypertensive emergency/encephalopathy. Initial troponin 0.353 ==> 0.328 Plan: Stop trending troponin Monitor for acute changes #Hypertension #Hypertensive emergency/encephalopathy Patient on home amlodipine 10, hydralazine 50 tid, losartan-hctz (100-25) Permissive hypertension for first 24 hours, will defer home antihypertensives Patient given x1 dose of HCTZ 25mg by Pharmacy Plan: Cardiology recommended starting Coreg 12.5mg po BID Started HCTZ 25mg po daily Will give Losartan 100 po daily and Hydralazine 50 tid Telemetry #Type 2 diabetes mellitus A1c of >11 Patient is noncompliant with meds Takes metformin at home, will defer inpatient. Plan: Diabetic education Lantus 10 Lispro 3 premeals SSI #Hyperlipidemia ASCVD risk of 19.4-34.9% Risk of cardiovascular event (coronary or stroke or non-fatal SD or stroke) in next 10 years. Lipid panel shows LDL above target <70 for diabetic patients Plan: Continue statin; 40mg HS Will discharge with high-intensity statin Hospital Management: Lines - PIV Diet - carb consistent low Bowel - Senna prn GI prophylaxis - protonix DVT prophylaxis - hep subq Dispo - hypertension management; plan for d/c on 10/05 Code - Full Patient seen and examined with attending Dr. Culp and senior resident Dr. Eddi Carrington, PGY-1 Attending Provider Attestation/Addendum In short, the patient is a 44-year-old male with significant past medical history of type 2 diabetes, presently uncontrolled with an A1c of 11.2, hypertension and hyperlipidemia as well as medication noncompliance who was admitted for acute encephalopathy likely secondary to CVA versus hypertensive. Initial CT head was negative for any acute intracranial pathology, CTA head and neck was suspicious for significant stenosis of the P1 segment of the right ELECTROTYPE CASTER, MRI of the brain demonstrates a large old infarction in the right MCA, echo negative for PFO however suspicious for an echogenic structure within the left ventricular outflow track. Grade 1 diastolic function was also noted overall EF 55 to 60% with normal RV size and function, mild MAC noted as well as trace MR and TR. INTERVAL HX: 10/04. Vital signs stable, patient afebrile overnight. Significant labs include a hemoglobin of 17 which is elevated however stable. BMP largely unremarkable, U tox demonstrating fentanyl and benzodiazepines. LAWRENCE performed today: The aortic valve is bicuspid. Both cusps are calcified. Mild to moderate bicuspid stenosis, mean gradient 19mmHg, vmax 3.0m/s. There is LVOT calcification. Trace bicuspid valve regurigitation. Negative bubble study. No evidence of PFO or LA/KELSIE thrombus. Normal LV size and function. Moderate LVH. Estimated EF 55-60% Normal RV size and function. Mild MR. TR. Normal pulmonary veins flow. ASSESSMENT: #Hypertensive emergency?resolved #NSTEMI, likely type II secondary to demand ischemia?resolved #Acute encephalopathy likely secondary to TIA versus hypertensive emergency?resolved 1. Cardiology consulted, appreciate recommendations 2. Will continue aspirin 81 mg daily and high intensity statin 3. LAWRENCE performed today to rule out subaortic membrane, results above #VEGA ? Resolved #Polycythemia, hemoglobin 17, possibly secondary to LUCÍA, patient will likely need a sleep study on an outpatient basis Chronic Conditions: #Essential hypertension, uncontrolled 1. Per cardiology recommendations, Coreg 12.5 mg p.o. twice daily 2. Continue hydralazine 50 mg p.o. 3 times daily 3. Continue losartan 100 mg p.o. daily 4. Continue nifedipine 30 mg p.o. daily 5. Goal SBP less than 140 #CAD #Hyperlipidemia #History of myocardial infarction 1. Continue statin as demonstrated above DISPO: Likely discharge in 1 to 2 days pending specialist recommendations
[2024-10-04] MEDS: ATORVASTATIN CALCIUM 20 MG TABLET 80 MG PO (21:40)
[2024-10-04] MEDS: INSULIN GLARGINE (Lantus) 5 UNIT/0.05 ML (PER 5 UNITS) 10 UNIT SC (21:41)
[2024-10-04] MEDS: HEPARIN SOD INJ 5000 UNIT/ML VIAL SC (21:41)
--- NOTE | 2024-10-04 23:27 | PD.NEUROPROG ---
Documentation for date of: 10/04/24 Subjective Subjective Interval history: Patient was seen in telemetry today. No new symptoms reported, no recurrence of similar symptoms after admission. No more dysarthria. Exam - Neurology Vital Signs Temp Pulse Resp BP Pulse Ox O2 Del Method O2 Flow Rate 97.7 F 79 14 132/98 H 95 Room Air 3 10/04/24 20:00 10/04/24 21:40 10/04/24 20:00 10/04/24 21:40 10/04/24 20:00 10/04/24 20:00 10/04/24 12:50 Narrative Exam GENERAL APPEARANCE: Well hydrated, well-nourished in no acute distress. HEENT: Normocephalic, atraumatic, extraocular movements intact. Pupils: Equal reacting to light and accommodation NECK: Supple, no JVD or bruits. CARDIOVASULAR: Heart: S1, S2 heard, regular without S3-S4 or murmur no rubs or gallops. LUNGS/CHEST: Clear to auscultation bilaterally. No rails, rhonchi, or wheezing. Normal inspection. ABDOMEN: Soft, nontender, with normal bowel sounds. No pulsatile masses. No rebound, rigidity, or guarding. Normal inspection and palpation. EXTREMITIES: Normal inspection and palpation. No edema, clubbing or cyanosis. SKIN: Warm and dry without rashes. Normal inspection. MUSCULOSKELETAL: No cervical, thoracic, lumbar or midline bony tenderness. Normal inspection. NEURO: Alert, awake and oriented x3. Cranial nerves: II through XII grossly intact. Speech and language: Normal with no dysarthria or dysphasia. Motor system: Tone and bulk: Normal: Strength: 5 out of 5 in all 4 extremities; No pronator drift noted. Deep tendon reflexes: 2+ bilaterally symmetrical. Plantar reflex: Downgoing bilaterally. Sensory system: Intact to all modalities of sensation bilaterally. Coordination: Intact to [id number] and [id number] test bilaterally. No ataxia, no dysmetria, or dysdiadochokinesia noted. No intention tremors noted. Gait: Normal. Toe, heel, tandem walk all are normal. Romberg: Negative. No signs of meningeal irritation noted. PSYCHIATRIC: Normal mood and affect. Objective Labs 10/04/24 04:30 10/04/24 04:30 Labs: Laboratory Results - last 24 hr 10/04/24 10/04/24 10/04/24 04:30 12:54 14:50 WBC 9.0 RBC 6.08 H Hgb 17.4 H Hct 51.5 MCV 85 MCH 28.6 MCHC 33.8 RDW Std Deviation 39.2 Plt Count 230 Neut % (Auto) 71 Lymph % (Auto) 19 [place] % (Auto) 8 Eos % (Auto) 2 Baso % (Auto) 1 Neut # (Auto) 6.4 Lymph # (Auto) 1.7 [place] # (Auto) 0.7 Eos # (Auto) 0.1 Baso # (Auto) 0.1 Immature Gran # (Auto) 0.02 H Absolute Nucleated RBC 0.00 Immature Gran % 0 Nucleated RBC % 0 Sodium 134 L Potassium 3.5 Chloride 99 Carbon Dioxide 27.2 Anion Gap 8 BUN 18 Creatinine 1.2 Estim Creat Clear Calc 100.0 eGFR > 60 BUN/Creatinine Ratio 15 Glucose 221 H Calculated Osmolality 277 Calcium 9.5 Corrected Calcium 9.5 Magnesium 2.1 Total Bilirubin 1.0 AST 17 ALT 54 H Alkaline Phosphatase 110 Total Protein 7.2 Albumin 4.4 Globulin 2.8 Albumin/Globulin Ratio 1.6 Urine Opiates Screen Negative Urine Fentanyl Screen Positive A Ur Barbiturates Screen Negative U Amphetamin/Meth Scrn Negative U Benzodiazepines Scrn Positive A U Cocaine Metab Screen Negative U Marijuana (THC) Screen Negative ABG Interpretation ABG results: 10/02/24 16:23 ABG pH 7.44 ABG pCO2 43 ABG pO2 51 L* ABG HCO3 29 H ABG O2 Saturation 88 L ABG Base Excess 4 H Assessment & Plan Assessment and plan (1) TIA (transient ischemic attack): Status: Resolved Assessment and plan: Reassurance given to the patient regarding the negative MRI brain for acute ischemic infarction. MRI brain only showed old large infarct. Transthoracic echocardiogram: Negative bubble study. No evidence of PFO or ASD. Consider LAWRENCE if high clinical suspicion. Moderately elevated AV velocity - vmax 3.1m/s and mean gradient 23mmHg across the aortic valve. Need additional PW velocity measurements to evaluate for any sub aortic stenosis. There is a suspicious echogenic structure in the LVOT. Possible subaortic membrane. Consider LAWRENCE. Normal LV size and function. Mild LVH. Grade I diastolic dysfunction. Estimated EF 55-60% Normal RV size and funciton. Mild MAC. Trace MR, TR. Continue with aspirin 81 mg a day along with vascular risk factors reduction: Blood pressure, diabetes and cholesterol controlled. Patient does not have any focal deficit. FU with LAWRENCE. (2) Hypertension: Status: Acute Assessment and plan: Continue home meds (3) Hyperlipidemia: Status: Acute Assessment and plan: Continue with high intensity statin: LDL: 112 (4) Type 2 diabetes mellitus: Status: Chronic Assessment and plan: Needs better control of diabetes as the last A1c: 11.2
[2024-10-05] VITALS (13 sets, daily range): BP systolic 139–161; BP diastolic 89–102; PULSE 69–85; RESP 14–97; TEMP 36–36.5; O2SAT 95–97; BMI 33.6
[2024-10-05 05:49] LABS: Basophils % (Auto) 1 % (0-2.5); Eosinophils # (Auto) 0.1 Thou/mm3 (0.0-0.5); Eosinophils % (Auto) 2 % (0-10); Hematocrit 50.8 % (41.0-53.0); Hemoglobin 17.4 g/dL (13.5-16.0); Immature Granulocytes % (Auto) 0 % (0-0); Immature Granulocytes Auto 0.03 Thou/mm3 (0.00-0.00); Lymphocytes % (Auto) 24 % (10-50); Mean Corpuscular HGB Conc 34.3 g/dl (31.0-37.0); Mean Corpuscular Hemoglobin 28.7 pg (25.0-35.0); Mean Corpuscular Volume 84 fL (80-100); Monocytes # (Auto) 0.8 Thou/mm3 (0.0-0.8); Monocytes % (Auto) 9 % (0-12); Neutrophils # (Auto) 5.6 Thou/mm3 (1.8-7.7); Neutrophils % (Auto) 65 % (37-80); Nucleated Red Blood Cell % 0 /100 WBC (0); Platelet Count 216 Thou/mm3 (140-440); RDW Standard Deviation 39.2 fL (35.1-43.9); Red Blood Count 6.06 Miln/mm3 (4.50-5.90); White Blood Count 8.6 Thou/mm3 (3.8-10.6)
[2024-10-05] MEDS: hydrALAZINE HCL 25 MG TABLET 50 MG PO ×2 (06:10→14:11)
[2024-10-05 06:26] LABS: Alanine Aminotransferase 46 U/L (10-49); Albumin, Serum 4.5 gm/dL (3.5-5.0); Albumin/Globulin Ratio 1.5 (1.2-2.2); Alkaline Phosphatase 112 U/L (46-116); Anion Gap 8 (7-16); Aspartate Amino Transferase 20 U/L (0-34); BUN/Creatinine Ratio 17 Ratio (12-20); Blood Urea Nitrogen 20 mg/dL (9-23); Calcium 9.7 mg/dL (8.3-10.6); Calcium (Corrected) 9.7 mg/dL (8.5-10.1); Carbon Dioxide 26.7 mMol/L (20.0-31.0); Chloride 100 mMol/L (98-107); Creatinine (Component) 1.2 mg/dL (0.6-1.3); Estimated Creatinine Clearance 99.1 mL/min (>60); Glucose 168 mg/dL (74-106); Osmolality,Calculated 276 (275-295); Potassium 3.9 mMol/L (3.4-5.1); Sodium 135 mMol/L (136-145); Total Protein 7.5 gm/dL (5.7-8.2); eGFR > 60 See Note
[2024-10-05] MEDS: INSULIN LISPRO (AdmeLOG) 1 UNIT/0.01 ML UNIT 3 UNIT SC ×2 (08:00→11:34)
[2024-10-05] MEDS: INSULIN LISPRO (AdmeLOG) 1 UNIT/0.01 ML UNIT SC ×2 (08:01→11:34)
[2024-10-05] MEDS: carVEDILOL 12.5 MG TABLET PO (08:02)
[2024-10-05] MEDS: NICOTINE PATCH 14 MG/24 HR PATCH.TD24 TOP (09:05)
[2024-10-05] MEDS: HEPARIN SOD INJ 5000 UNIT/ML VIAL SC (09:05)
[2024-10-05] MEDS: hydroCHLOROthiazide 12.5 MG CAPSULE 25 MG PO (09:06)
[2024-10-05] MEDS: NIFEdipine XL 30 MG TABCR PO (09:06)
[2024-10-05] MEDS: PANTOPRAZOLE 40 MG TABLET PO (09:06)
[2024-10-05] MEDS: ASPIRIN EC 81 MG TABEC PO (09:06)
[2024-10-05] MEDS: LOSARTAN POTASSIUM 25 MG TABLET 100 MG PO (09:07)
--- NOTE | 2024-10-05 10:37 | PD.RESPRO ---
Documentation for date of: 10/05/24 Subjective Subjective Interval history: Patient was seen and examined at bedside this AM. No acute exents overnight. Patient tolerating diet, adequate urine output and mentation is at baseline. Patient endorses improvement of headaches and is currently ambulating in the hallway without assistance LAWRENCE completed on 10/04/2024 findings include: The aortic valve is bicuspid. Both cusps are calcified. Mild to moderate bicuspid stenosis, mean gradient 19mmHg, vmax 3.0m/s. There is LVOT calcification. Trace bicuspid valve regurigitation. Negative bubble study. No evidence of PFO or LA/KELSIE thrombus. Normal LV size and function. Moderate LVH. Estimated EF 55-60% Normal RV size and function. Mild MR. TR. Normal pulmonary veins flow. Patient will need to continue following up with cardiology outpatient every 3 months for the rest of his life to monitor for progression of aortic stenosis and assess for valve replacement when it becomes necessary. Recommend patient to follow-up in cardiology clinic within 1 week of discharge. Exam Vital Signs Temp Pulse Resp BP Pulse Ox O2 Del Method O2 Flow Rate 97.2 F 85 14 155/102 H 96 Room Air 3 10/05/24 08:00 10/05/24 09:07 10/05/24 08:00 10/05/24 09:07 10/05/24 08:00 10/05/24 08:00 10/04/24 12:50 Narrative Exam Constitutional Alert, oriented x 3 and comfortable. HEENT Vision grossly intact. Patent nares. Trachea midline Respiratory Chest normal on inspection and clear auscultation bilaterally Cardiovascular S1 and S2 audible, RRR. 2/6 ejection systolic murmur at right sternal border, No carotid bruit. JVD not assessed Abdominal Soft and non tender to palpation in all quadrants. BS + Genitourinary No bladder tenderness, no flank pain. Normal to palpation Musculoskeletal Extremities tone within normal limits. No LE edema. Neurological CN II - XII grossly intact. Extremity motor and sensation grossly intact. Skin Warm, dry and intact. No apparent lesions. Psychiatric Patient has good affect, is cooperative Objective Labs 10/05/24 05:13 10/05/24 05:13 Labs: Laboratory Results - last 24 hr 10/04/24 10/04/24 10/05/24 12:54 14:50 05:13 WBC 8.6 RBC 6.06 H Hgb 17.4 H Hct 50.8 MCV 84 MCH 28.7 MCHC 34.3 RDW Std Deviation 39.2 Plt Count 216 Neut % (Auto) 65 Lymph % (Auto) 24 [place] % (Auto) 9 Eos % (Auto) 2 Baso % (Auto) 1 Neut # (Auto) 5.6 Lymph # (Auto) 2.0 [place] # (Auto) 0.8 Eos # (Auto) 0.1 Baso # (Auto) 0.0 Immature Gran # (Auto) 0.03 H Absolute Nucleated RBC 0.00 Immature Gran % 0 Nucleated RBC % 0 Sodium 135 L Potassium 3.9 Chloride 100 Carbon Dioxide 26.7 Anion Gap 8 BUN 20 Creatinine 1.2 Estim Creat Clear Calc 99.1 eGFR > 60 BUN/Creatinine Ratio 17 Glucose 168 H D Calculated Osmolality 276 Calcium 9.7 Corrected Calcium 9.7 Magnesium 2.1 Total Bilirubin 1.0 AST 20 ALT 46 Alkaline Phosphatase 112 Total Protein 7.5 Albumin 4.5 Globulin 3.0 Albumin/Globulin Ratio 1.5 Urine Opiates Screen Negative Urine Fentanyl Screen Positive A Ur Barbiturates Screen Negative U Amphetamin/Meth Scrn Negative U Benzodiazepines Scrn Positive A U Cocaine Metab Screen Negative U Marijuana (THC) Screen Negative ABG Interpretation ABG results: 10/02/24 16:23 ABG pH 7.44 ABG pCO2 43 ABG pO2 51 L* ABG HCO3 29 H ABG O2 Saturation 88 L ABG Base Excess 4 H Quality Measures Quality Measures VTE prophylaxis Assessment & Plan Assessment Current Active Medications: Generic Name Dose Route Start Last Admin Trade Name Freq PRN Reason Stop Dose Admin Acetaminophen 650 mg 10/02/24 19:27 10/02/24 23:09 Acetaminophen 325 Mg Tablet PO 11/01/24 19:26 650 mg Q6H PRN Administration PAIN OR FEVER > 101 Aspirin 81 mg 10/02/24 21:00 10/05/24 09:06 Aspirin Ec 81 Mg Tabec PO 11/01/24 20:59 81 mg QDAY DAAN Administration Atorvastatin Calcium 80 mg 10/02/24 21:00 10/04/24 21:40 Atorvastatin Calcium 20 Mg Tablet PO 11/01/24 20:59 80 mg HS DANA Administration Carvedilol 12.5 mg 10/03/24 20:24 10/05/24 08:02 Carvedilol 12.5 Mg Tablet PO 11/02/24 20:23 12.5 mg BIDWM DANA Administration Dextrose 25 ml 10/02/24 19:30 Dextrose 50%-Water Inj 50 Ml Syringe IV 11/01/24 19:29 Q15MIN PRN BG 50-70 responsive npo pt Dextrose 50 ml 10/02/24 19:30 Dextrose 50%-Water Inj 50 Ml Syringe IV 11/01/24 19:29 Q15MIN PRN BG <50 OR BG <70 & pt unresponsive Glucagon 1 mg 10/02/24 19:30 Glucagon Inj 1 Mg Vial IM Q15MIN PRN BG <70, and no IV access Heparin Sodium (Porcine) 5,000 unit 10/02/24 21:00 10/05/24 09:05 Heparin Sod Inj 5000 Unit/Ml Vial SC 10/16/24 20:59 5,000 unit Q12HR DANA Administration Hydralazine HCl 50 mg 10/03/24 13:25 10/05/24 06:10 Hydralazine Hcl 25 Mg Tablet PO 11/02/24 13:24 50 mg TID DANA Administration Hydralazine HCl 10 mg 10/03/24 16:03 Hydralazine Inj 20 Mg/Ml Vial IV 11/01/24 20:12 Q6HR PRN Systolic >180 Hydrochlorothiazide 25 mg 10/04/24 14:45 10/05/24 09:06 Hydrochlorothiazide 12.5 Mg Capsule PO 11/03/24 14:44 25 mg QDAY DANA Administration Insulin Glargine 10 unit 10/04/24 21:00 10/04/24 21:41 Insulin Glargine (Lantus) 5 Unit/0.05 Ml (Per 5 Units) SC 11/03/24 20:59 10 unit HS COUNT INCLUDES THE [facility] Administration Insulin Human Lispro 3 unit 10/04/24 11:30 10/05/24 08:00 Insulin Lispro (Admelog) 1 Unit/0.01 Ml Unit SC 11/03/24 11:29 3 unit AC DANA Administration Insulin Human Lispro 0 unit 10/04/24 09:30 10/05/24 08:01 Insulin Lispro (Admelog) 1 Unit/0.01 Ml Unit SC 11/03/24 09:29 2 unit AC DANA Administration Protocol Losartan Potassium 100 mg 10/03/24 13:30 10/05/24 09:07 Losartan Potassium 25 Mg Tablet PO 11/02/24 13:29 100 mg QDAY DANA Administration Nicotine 14 mg 10/03/24 21:52 10/05/24 09:05 Nicotine Patch 14 Mg/24 Hr Patch.Td24 TOP 11/02/24 21:51 14 mg QDAY DANA Administration Nifedipine 30 mg 10/04/24 09:00 10/05/24 09:06 Nifedipine Xl 30 Mg Tabcr PO 11/03/24 08:59 30 mg QDAY DANA Administration Ondansetron HCl 4 mg 10/02/24 15:49 Ondansetron Inj 2 Mg/Ml Inj 2 Ml IV 11/01/24 15:48 Q4HR PRN NAUSEA OR VOMITING Pantoprazole Sodium 40 mg 10/03/24 09:00 10/05/24 09:06 Pantoprazole 40 Mg Tablet PO 11/02/24 08:59 40 mg QDAY DANA Administration Plan Patient is a 44-year-old male with past medical history significant for NIDDM [11.2], essential hypertension, CAD, ME 2-3 years ago and hyperlipidemia. Patient presented to the ED with a chief complaint of headache and high blood pressure. From chart review however it appears that patient was brought in by his mother for AMS and slurred speech. 1. Hypertensive emergency?resolved 2. NSTEMI type I versus type II 3. Subaortic membrane - ruled out 4. Bicuspid aortic valve On admission patient was hypertensive BP 250/140, permissive hypertension was allowed as patient was being worked up for stroke. Also troponin were mildly elevated at 0.328 and up trended to 0.333 EKG on admission showed sinus rhythm, rate 95, left atrial and left ventricular hypertrophy. No acute ST elevation. Troponin elevation likely secondary to hypertensive emergency Transthoracic echocardiogram completed on 10/03 findings include: Negative bubble study. No evidence of PFO or ASD. Consider LAWRENCE if high clinical suspicion. Moderately elevated AV velocity - vmax 3.1m/s and mean gradient 23mmHg across the aortic valve. Need additional PW velocity measurements to evaluate for any sub aortic stenosis. There is a suspicious echogenic structure in the LVOT. Possible subaortic membrane. Consider LAWRENCE. Normal LV size and function. Mild LVH. Grade I diastolic dysfunction. Estimated EF 55-60% Normal RV size and funciton. Mild MAC. Trace MR, TR. Patient denies any kind of swallowing problems or any kind of esophageal interventions or previous surgeries. Patient denies any kind of gastric ulcers bleeding and any other hematemesis or hematochezia. Patient denies any issues with anesthesia previously. Patient explained all the risks, benefits and alternatives of LAWRENCE including the risk of perforation, bleeding, respiratory failure secondary to sedation, injury to teeth gums esophagus and stomach. Patient understands all risks and benefits and provided consent for the procedure. LAWRENCE completed on 10/04/2024 findings include: The aortic valve is bicuspid. Both cusps are calcified. Mild to moderate bicuspid stenosis, mean gradient 19mmHg, vmax 3.0m/s. There is LVOT calcification. Trace bicuspid valve regurigitation. Negative bubble study. No evidence of PFO or LA/KELSIE thrombus. Normal LV size and function. Moderate LVH. Estimated EF 55-60% Normal RV size and function. Mild MR. TR. Normal pulmonary veins flow. Plan: ? Recommend to continue aspirin 81 Mg p.o. daily ? Continue high intensity statin - Patient will need frequent echocardiograms for monitoring for his bicuspid aortic stenosis. - Patient will eventually need surgery for the aortic valve replacement when he has severe symptoms or has severe stenosis or aortopathy. - Patient again reiterated the importance to continue to follow-up with cardiology as well as primary care regularly. - Follow up in Cardiology clinic within 1 week of discharge 4. Uncontrolled essential hypertension On admission patient's BP 250/140 Home medication losartan/HCTZ 100/25 1 tab p.o. daily, hydralazine 50 Mg p.o. 3 times daily and amlodipine 10 Mg p.o. daily. Currently patient's BP 150/93 and stroke was ruled out. Patient blood pressure is elevated and he is already on amlodipine 10 mg once daily, losartan 100 mg once daily as well as hydrochlorothiazide 25 mg once daily and hydralazine 50 mg p.o. 3 times daily. Patient started the patient on Coreg 12.5 mg twice daily for today and will continue to uptitrate to 25 mg twice daily if the blood pressure continues to be high. Plan: ? Continue Coreg 12.5 Mg p.o. twice daily and titrate as necessary ? Recommend to continue hydralazine 50 Mg p.o. 3 times daily ? Recommend to continue losartan 100 Mg p.o. daily and nifedipine 30 Mg p.o. daily. ? Recommend tight control of blood pressure keeping SBP <140. Titrate medication as necessary 5. CAD 6. Hyperlipidemia 7. History of ME Patient had an ME approximately 2-3 years ago and was admitted at a hospital in [place]. At the time he had an angiogram which patient reports was normal. No PCI or stents were done. On admission triglycerides 123, cholesterol 178, LDL 112. Plan: ? Recommend to continue high intensity statin 8. VEGA On admission CR 1 currently CR 1.2. Continue management as per primary team 9. Polycythemia On admission patient's Hb 17.4 and HCT 51.5%. Patient may benefit from therapeutic phlebotomy. DDx: LUCÍA, smoking, dehydration, polycythemia vera Patient should be worked up as outpatient for LUCÍA and polycythemia. Continue management as per primary team 10. TIA Patient's symptoms of confusion and slurred speech has presentation have now resolved and patient is back to baseline. 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 Continue management as per primary team and neurology 11. History of polysubstance use Patient also has a history of polysubstance abuse including methamphetamine, marijuana, cocaine and heroin previously. Still continues to do meth. Recommend U tox and follow-up in the clinic closely and counseled the patient to quit smoking and substance abuse Continue rest of management as per primary team. We are grateful to be able to participate in Mr. Penaloza's care. Thank you for the consult Plan of care discussed with attending Shuttle Van Driver, Dr Kalyn Schulz MD PGY 1 Attending Provider Attestation/Addendum I have personally seen and examined the patient separately on the above date of service and discussed the plan of care with the resident. I reviewed the resident Dr. Schulz consultation progress note and agree with the resident findings and plan in the note above and have also edited the documentation to reflect my findings and plan. Rafael Mccain M.D. Interventional Cardiology
[2024-10-05 10:49] LABS: Magnesium 2.1 mg/dL (1.6-2.6)
--- NOTE | 2024-10-05 13:36 | ESDS_ITS ---
<Statement entered by Mely Castañeda MD - 10/05/24 16:51> I discussed with and supervised the manager internet physician who took care of this patient. I personally saw and examined the patient and discussed the assessment and plan with the entire medicine team, including my attending , I agree with most of the assessment and plan as documented below Mely Castañeda M.D. PGY-2 Planned Discharge Date 10/05/24 DS: Providers Provider Date of admission: 10/02/24 19:26 Primary care physician: Physician No Primary/Family Admitting Provider: Garcia Madison MD Attending Provider on Admission: Dawood Culp DO Consults: 10/02/24 15:49 Consult to Neurology / Tele-Neurology Routine Comment: Consulting Provider: [facility] 10/02/24 19:29 Referral Physical Therapy Routine Comment: Physician Instructions: 10/02/24 20:10 Consult to Neurology / Tele-Neurology Routine Comment: Consulting Provider: David Castañeda 10/03/24 00:44 Referral Speech Therapy Routine Comment: 10/03/24 02:38 Referral Smoking Cessation Counseling Routine Comment: Smoking Cessation Education Needed 10/03/24 10:14 Referral Registered Dietitian Routine Comment: Referral Registered Dietitian Stat Comment: 10/03/24 17:47 Consult to Cardiology Routine Comment: Consulting Provider: Rafael Mccain Attending Provider on DC: Jose Carrington MD Discharging Provider: Jose Carrington MD DS: Diagnosis Problem List Completed Was Problem List Reviewed/Reconciled?: Yes Hospital Course Hospital Course Hospital course: 44-year-old male with past medical history of type 2 diabetes, hypertension and hyperlipidemia not medically compliant presented to the ED on 10/02 with acute encephalopathy likely secondary to hypertensive emergency. Stroke alert was initiated in the ED; CT head was negative, NIHSS score was 6, CTA showed possible P1 stenosis at which point MRI brain was ordered which showed no acute process; however, there was a large old infarct in the right middle cerebral artery. Cardiology was consulted for echo with bubble study which showed negative bubble study; however, there was a suspicious echogenic structure in the LVOT, at which point LAWRENCE was ordered which ruled out any thrombi or PFO; however, there was confirmation of bicuspid aortic valve with some mild to moderate stenosis and calcification. Patient will be discharged upon making significant improvement and returning near his baseline with the following strict recommendations as outlined below. Please take your new medications as prescribed. Please start using Freestyle Anthony as a guide for your blood glucose. Fasting blood glucose goal is 80-130, and 180 after 2 hours post meal consumption. Please start incorporating daily exercise and healthy meals into your routine. Stop taking Atorvastatin 40mg and instead take Atorvastatin 80mg at night. Please see your PCP within 1 week. If you do not have one, please make an appointment at the [facility] at [phone]. Please see Cardiology within 1 week as you will need frequent follow up and echocardiograms for your bicuspid aortic stenosis. (Also translated to Grenadian) Hospital Diagnosis: #Acute Encephalopathy, resolved #TIA versus hypertensive encephalopathy #Dysarthria, resolved #Altered mental status, resolved #Bicuspid Aortic Valve #Mild/Moderate Bicuspid Stenosis #Polycythemia #Elevated troponins, peaked/downtrending #NSTEMI type II, demand ischemia #Hypertension #Hypertensive emergency/encephalopathy #Type 2 diabetes mellitus #Hyperlipidemia Jose Carrington, PGY-1 Status at Discharge Overall status at discharge: patient is progressing back to baseline Time Spent with Patient Time attestation: Total time spent providing and/or coordinating discharge services: 45 minutes Time spent: Greater than 30 minutes Quality: Stroke Pt Provided Written Stroke Discharge Instructions: Yes Exam Vital Signs Temp Pulse Resp BP Pulse Ox O2 Del Method O2 Flow Rate 97.6 F 85 20 158/89 H 97 Room Air 3 10/05/24 12:00 10/05/24 12:00 10/05/24 12:10/05/24 12:00 10/05/24 12:00 10/05/24 12:00 10/04/24 12:50 Narrative Exam General: alert, responding to questions, appears stated age HEENT: NC/AT, mucous membranes moist, bilateral sclera anicteric Cardiovascular: regular rate and rhythm, S1/S2 present, no murmurs appreciated Pulmonary: clear to auscultation bilaterally, no rales/rhonchi/wheezes Abdominal: soft, non-tender, non-distended, no rebound/guarding, normal bowel sounds present Musculoskeletal: normal ROM, no peripheral edema Skin: warm and dry, intact, no rashes Neuro: CN II-XII intact, no focal deficits Discharge Plan Plan Patient Disposition: HOME (Self Care) Prescriptions/Referrals Prescriptions/Med Rec: New nifedipine 30 mg Tablet Extended Release 24hr 30 mg PO QDAY 30 Days Qty: 30 0RF carvedilol 12.5 mg Tablet 12.5 mg PO BIDWM 30 Days Qty: 60 0RF aspirin 81 mg Tablet,Delayed Release (Dr/Ec) 81 mg PO QDAY 30 Days Qty: 30 0RF atorvastatin 80 mg tablet 80 mg PO HS 30 Days Qty: 30 0RF insulin glargine 100 unit/mL (3 mL) insulin pen 15 unit subcut HS Qty: 15 0RF (DME) pen needle, diabetic 29 gauge x 1/2 needle See Rx Instructions .Route Qty: 100 0RF Rx Instructions: As directed (DME) blood-glucose meter Kit See Rx Instructions .Route Qty: 1 0RF Rx Instructions: As directed (DME) Blood Glucose Test Strip See Rx Instructions .Route Qty: 50 0RF Rx Instructions: As directed (DME) lancets Misc See Rx Instructions .Route Qty: 200 0RF Rx Instructions: As directed (DME) FreeStyle Anthony 3 Sensor Device See Rx Instructions .Route Qty: 1 0RF Rx Instructions: As directed Continued losartan-hydrochlorothiazide 100-25 mg Tablet 1 tab PO QDAY amlodipine 10 mg Tablet 10 mg PO QDAY metformin 1,000 mg Tablet 1,000 mg PO BID hydralazine 50 mg Tablet 50 mg PO TID Discontinued atorvastatin 40 mg Tablet 40 mg PO QPM Referrals: Rafael Mccain MD [Physician] - No Primary/Family,Physician [Primary Care Provider] - Patient/Caregiver Discharge Instructions Other Discharge Activity Instructions:: Please take your new medications as prescribed. Please start using Freestyle Anthony as a guide for your blood glucose. Fasting blood glucose goal is 80-130, and 180 after 2 hours post meal consumption. Please start incorporating daily exercise and healthy meals into your routine. Stop taking Atorvastatin 40mg and instead take Atorvastatin 80mg at night. Please see your PCP within 1 week. If you do not have one, please make an appointment at the [facility] at [phone]. Please see Cardiology within 1 week as you will need frequent follow up and echocardiograms for your bicuspid aortic stenosis. [place] fadia nuevos medicamentos seg?n lo recetado. Empiece a utilizar Freestyle Anthony ramon gu?a para mos[place] nivel de glucosa en glynn. El objetivo de glucosa en glynn en ayunas es 80-130 y 180 despu?s de 2 horas despu?s del consumo de comida. Comience a incorporar ejercicio diario y comidas saludables en mos[place] rutina. Deje de rhina Atorvastatina 40 mg y en mosley lugar tome Atorvastatina 80 mg por la noche. Consulte a mosley PCP dentro de 1 semana. Si no tiene nick, programe korin lizbeth en el [facility] de [facility]?maximus al [phone]. Consulte Cardiolog?a dentro de 1 semana, ya que necesitar? seguimiento y ecocardiogramas frecuentes para [place] estenosis a?rtica bic?spide. Education Materials: Controlling High Blood Pressure, Healthy Meals for Diabetes, Diabetes: Keeping Feet Healthy, Diabetes: Caring for Your Body, Diabetes Exercise Get Started, Managing Diabetes: The A1C Test, Aortic Stenosis Ch, Diabetes Exercise Plan, Diabetes Tracking Your Fitness ..., Diabetes Carbs Fats Protein, Diabetes and High Blood Pressure Print Language: Grenadian Stand Alone Forms: Mag Award Info., Patient Portal Info Letter Discharge Order Discharge Orders: Discharge (Routine); Ordered 10/05/24 Ordered By: Jose Carrington Quality Discharge Quality Measures VTE prophylaxis Attestestation MD Attestation I have discussed and was present for the essential components of the discharge history, physical examination, diagnosis, and discharge treatment plan with the resident. I agree with the patient's discharge care as documented by the resident and amended herein by me. Saleem Culp DO. The patient understood all discharge instructions, all questions were answered satisfactorily. The patient was instructed to return to the Emergency Department is symptoms worsened or persisted. Although this document has been carefully reviewed, there may still be some phonetic and other typographical errors. These errors are purely grammatical due to imperfections in the software program and should not be construed in any way to compromise the substance of the patient's medical care during this visit.
--- NOTE | 2024-10-05 23:50 | VVPN_ITS ---
Telemedicine visit statement This visit was conducted with the use of phone was obtained on 10/05/24. Documentation for date of: 10/05/24 Subjective Subjective Interval history: Patient is in telemetry. No new symptoms reported. No similar episodes after admission. Virtual exam Vital Signs Temp Pulse Resp BP Pulse Ox O2 Del Method O2 Flow Rate 96.8 F 83 20 160/100 H 97 Room Air 3 10/05/24 15:00 10/05/24 15:00 10/05/24 15:00 10/05/24 15:00 10/05/24 15:00 10/05/24 15:00 10/04/24 12:50 Objective Labs 10/05/24 05:13 10/05/24 05:13 Labs: Laboratory Results - last 24 hr 10/05/24 05:13 WBC 8.6 RBC 6.06 H Hgb 17.4 H Hct 50.8 MCV 84 MCH 28.7 MCHC 34.3 RDW Std Deviation 39.2 Plt Count 216 Neut % (Auto) 65 Lymph % (Auto) 24 [place] % (Auto) 9 Eos % (Auto) 2 Baso % (Auto) 1 Neut # (Auto) 5.6 Lymph # (Auto) 2.0 [place] # (Auto) 0.8 Eos # (Auto) 0.1 Baso # (Auto) 0.0 Immature Gran # (Auto) 0.03 H Absolute Nucleated RBC 0.00 Immature Gran % 0 Nucleated RBC % 0 Sodium 135 L Potassium 3.9 Chloride 100 Carbon Dioxide 26.7 Anion Gap 8 BUN 20 Creatinine 1.2 Estim Creat Clear Calc 99.1 eGFR > 60 BUN/Creatinine Ratio 17 Glucose 168 H D Calculated Osmolality 276 Calcium 9.7 Corrected Calcium 9.7 Magnesium 2.1 Total Bilirubin 1.0 AST 20 ALT 46 Alkaline Phosphatase 112 Total Protein 7.5 Albumin 4.5 Globulin 3.0 Albumin/Globulin Ratio 1.5 ABG Interpretation ABG results: 10/02/24 16:23 ABG pH 7.44 ABG pCO2 43 ABG pO2 51 L* ABG HCO3 29 H ABG O2 Saturation 88 L ABG Base Excess 4 H Assessment & Plan Assessment (1) TIA (transient ischemic attack): Status: Resolved Assessment and plan: Reassurance given to the patient regarding the negative MRI brain for acute ischemic infarction. MRI brain only showed old large infarct. Transthoracic echocardiogram: Negative bubble study. No evidence of PFO or ASD. Consider LAWRENCE if high clinical suspicion. Moderately elevated AV velocity - vmax 3.1m/s and mean gradient 23mmHg across the aortic valve. Need additional PW velocity measurements to evaluate for any sub aortic stenosis. There is a suspicious echogenic structure in the LVOT. Possible subaortic membrane. Consider LAWRENCE. Normal LV size and function. Mild LVH. Grade I diastolic dysfunction. Estimated EF 55-60% Normal RV size and funciton. Mild MAC. Trace MR, TR. Continue with aspirin 81 mg a day along with vascular risk factors reduction: Blood pressure, diabetes and cholesterol controlled. Patient does not have any focal deficit. Follow-up with cardiology for aortic stenosis patient is stable from neurology standpoint for discharge we will see him back in the clinic in 3 weeks (2) Hypertension: Continue home meds (3) Hyperlipidemia: Continue with high intensity statin: LDL: 112 (4) Type 2 diabetes mellitus: Needs better control of diabetes as the last A1c: 11.2
== END 2024-10-05 14:43 | disposition home or self-care (01) | DRG 199 ==
LOC: SERX 17:35 → SERHOLD 20:08 → S2NX 22:27
PROVIDERS: Internal Medicine Cardiovascular Disease; Admitting Provider Student in an Organized Health Care Education/Training Program; Emergency Provider Emergency Medicine; Visit Provider Student in an Organized Health Care Education/Training Program
PROC: B24BZZ4 Ultrasonography of Heart with Aorta, Transesophageal (ICD-10-PCS; CPT 93312; principal; 2024-10-04 09:30)
DX: I16.1 Hypertensive emergency (principal); I67.4 Hypertensive encephalopathy; G45.9 Transient cerebral ischemic attack, unspecified; E11.65 Type 2 diabetes mellitus with hyperglycemia; I21.A1 Myocardial infarction type 2; I35.0 Nonrheumatic aortic (valve) stenosis; Q23.81 Bicuspid aortic valve; I66.21 Occlusion and stenosis of right posterior cerebral artery; E78.5 Hyperlipidemia, unspecified; D75.1 Secondary polycythemia; E87.1 Hypo-osmolality and hyponatremia; I25.10 Atherosclerotic heart disease of native coronary artery without angina pectoris; I25.2 Old myocardial infarction; F12.10 Cannabis abuse, uncomplicated; I10 Essential (primary) hypertension; F14.10 Cocaine abuse, uncomplicated; F17.210 Nicotine dependence, cigarettes, uncomplicated; Z86.73 Personal history of transient ischemic attack (TIA), and cerebral infarction without residual deficits; Z91.148 Patient's other noncompliance with medication regimen for other reason; Z79.84 Long term (current) use of oral hypoglycemic drugs; Z79.899 Other long term (current) drug therapy
CPT/HCPCS: 36415; 36600; 70450; 70496; 70498; 70544; 80053; 80061; 80307; 81001; 82803; 83036; 83735; 84100; 84443; 84484; 84703; 85025; 85610; 85730; 92610; 93005; 93306; 93312; 96372; 96374; 96375; 97162; 99152; 99285; A4649; J1643; J1815; J2250; J3010; J3490; J7030; Q9967; A9270; J1644

== ENCOUNTER 2024-10-14 02:36 | Inpatient (IN) | payer MEDICAID, SELFPAY ==
[2024-10-14] VITALS (19 sets, daily range): BP systolic 158–224; BP diastolic 86–122; PULSE 81–99; RESP 12–28; TEMP 36.4–36.7; O2SAT 95–100; BMI 33.0; BMI 34.0
--- NOTE | 2024-10-14 | XR_ITS ---
Examination: MRI brain without intravenous contrast. Date and time of exam: October 14, 2024 0708 hrs. Indications: Stroke alert, onset dizziness vomiting, onset focal neurologic deficits generalized body weakness beginning this morning Technique: Multiple axial and sagittal images of the brain obtained. Siemens high-resolution 1.5 Kaley short bore scanners utilized. Sagittal sections, T1-weighted, TR 500, TE 14, are performed. Axial sections proton-density and T2-weighted have been obtained. Inversion recovery axial images, TR 9, 260, TE 111, TI 2500. Diffusion weighted images, axial sections, TR 4800, TE 128, B value 1000 Axial sections, ADC map, TR 4800, TE 128 Findings: Enlargement of the sella turcica is not present. The optic chiasm and infundibular are not remarkable. Prepontine and interpeduncular cisterns are not enlarged. There is no localized enlargement of the medulla or lizbet. Fourth ventricle and cerebellar tonsils appear normal in position. No subacute area of hemorrhage density is seen. Mass in the cerebellopontine angle region is not evident. Globes symmetrical. Orbital musculature including medial lateral rectus muscles do not exhibit abnormality. Diffusion-weighted images demonstrate foci restricted diffusion involving the right cerebellar hemisphere and inferior vermis as well as small portions of the left cerebellar hemisphere. Increased white matter signal prominent Mass effect upon the ventricular system is not identified. 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
--- NOTE | 2024-10-14 03:00 | EDNOTE_ITS ---
ED Dizzyness RME/HPI General Chief Complaint: Dizziness Stated Complaint: VOMITING AND DIZZINESS Time Seen by Provider: 10/14/24 04:04 Arrival date/time: 10/14/24 02:36 Limitations: no limitations RME / HPI RME / HPI Narrative: Dr. [facility]aya[facility] Main ED Evaluation: 44yo male with pmhx DM, HTN, HLD BIBA from home presents to the ED for a chief complaint of dizziness x tonight. 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 He states he wasn't able to ambulate due to being dizzy, so he called 911 to come in for evaluation. He states he ate [employer] at 2130 and thinks it could be related. He is actively vomiting here in the ED. He denies any diarrhea, fever, chills, slurred speech or any other associated symptoms. No known allergies. Related Data Home Medications ?Medication ?Instructions ?Recorded ?Confirmed amlodipine 10 mg tablet 10 mg PO QDAY 10/02/24 10/02/24 hydralazine 50 mg tablet 50 mg PO TID 10/02/24 10/02/24 losartan 100 1 tab PO QDAY 10/02/24 10/02/24 mg-hydrochlorothiazide 25 mg tablet metformin 1,000 mg tablet 1,000 mg PO BID 10/02/24 10/02/24 Previous Rx's ?Medication ?Instructions ?Recorded aspirin 81 mg tablet,delayed 81 mg PO QDAY 30 days #30 tabs 10/05/24 release atorvastatin 80 mg tablet 80 mg PO HS 30 days #30 tabs 10/05/24 blood sugar diagnostic (Blood #50 ea 10/05/24 Glucose Test strips) blood-glucose meter #1 ea 10/05/24 blood-glucose sensor (FreeStyle #1 ea 10/05/24 Anthony 3 Sensor device) carvedilol 12.5 mg tablet 12.5 mg PO BIDWM 30 days #60 tabs 10/05/24 insulin glargine 100 unit/mL (3 15 unit (0.15 mL) subcut HS #15 mL 10/05/24 mL) subcutaneous pen lancets #200 ea 10/05/24 nifedipine 30 mg tablet,extended 30 mg PO QDAY 30 days #30 tabs 10/05/24 release 24 hr pen needle, diabetic 29 gauge x #100 ea 10/05/24 1/2 Allergies Allergy/AdvReac Type Severity Reaction Status Date / Time No Known Allergies Allergy Verified 10/02/24 16:59 Review of Systems Review of Systems Systems Reviewed: All systems reviewed, normal except as documented ED Exam Narrative Physical exam: NIHSS is 0. Patient unable to cooperate with [place]out [place]-Hallpike since actively vomiting General Limitations: Present no limitations General appearance: Present alert and other (Vomiting) Head Head exam: Present atraumatic Eye Eye exam: Present normal appearance, PERRL, EOMI and other (No nystagmus) ENT ENT exam: Present normal exam, normal oropharynx and mucous membranes moist Neck Neck exam: Present normal inspection, full ROM and trachea midline Chest Chest inspection: Present normal inspection and symmetric chest wall rise Respiratory Respiratory exam: Present normal lung sounds bilaterally Cardiovascular Cardiovascular exam: Present regular rate, normal rhythm and normal heart sounds Abdominal Exam Abdominal exam: Present soft and normal bowel sounds; Absent distention Extremities Exam Extremities exam: Present normal inspection and full ROM Back Exam Back exam: Present normal inspection and full ROM Neurological Exam Neurological exam: Present alert, oriented X3, CN II-XII intact and other (normal mbrdfl-cs-wakc, normal aagv-si-gfot bilaterally, normal sensations, no facial droop) Psychiatric Psychiatric exam: Present normal affect and normal mood Skin Skin exam: Present warm, dry, intact and other; Absent diaphoresis or mottled Course Course Course Narrative: On arrival, patient's BP was 166/122. Now at 0302, his BP is 166/122. Hydralazine ordered. 0310: Patient is sent to CT. 0406: Pt's blood pressure is 185/101 after being given hydralazine, valium, and zofran. Labetalol ordered. 0534: Patient states he feels significantly better. He is not vomiting at this time. 0538: The nurse sat the patient up to attempt to ambulate him and he started vomiting again. MRI ordered. 0600: Care signed out to Dr. Loaiza (emergency physician). Past medical, surgical, social and family history reviewed. Vitals and home medications reviewed. Results and treatment plan discussed. They will assume the care of the patient at this time and will follow the patient, pending MRI Quality Measures none Orders Category Date Time Status Bedside Blood Glucose NOW Care 10/14/24 03:08 Active EKG (ED ONLY) *Do not use* NOW Care 10/14/24 03:02 Completed MRI Screening NOW Care 10/14/24 05:46 Active MRI Screening NOW Care 10/14/24 05:46 Active NIH Stroke Scale now Care 10/14/24 03:08 Active NPO NOW Care 10/14/24 03:[address] stroke protocol Stat Exams 10/14/24 03:08 Taken EKG (ED Only) Stat Exams 10/14/24 03:02 Ordered MR head/brain wo con Stat Exams 10/14/24 Ordered Alcohol, Blood Medical Stat Lab 10/14/24 03:05 Completed CBC Stat Lab 10/14/24 03:05 Completed Comprehensive Metabolic Panel Stat Lab 10/14/24 03:05 Completed Drug Screen,Urine Stat Lab 10/14/24 03:42 Completed Magnesium Stat Lab 10/14/24 03:05 Completed Partial Thromboplastin Time Stat Lab 10/14/24 03:05 Completed Prothrombin Time with INR Stat Lab 10/14/24 03:05 Completed Troponin I Stat Lab 10/14/24 03:05 Completed Urinalysis Stat Lab 10/14/24 03:42 Completed Urine Culture Stat Lab 10/14/24 03:42 Received Diazepam Inj [Valium Inj] Med 10/14/24 03:01 Discontinued 2.5 mg IVP X1 ONE Diazepam Inj [Valium Inj] Med 10/14/24 05:38 Discontinued 2.5 mg IVP X1 ONE Labetalol IV [Trandate IV] Med 10/14/24 04:06 Discontinued 10 mg IVP X1 ONE Labetalol IV [Trandate IV] Med 10/14/24 04:40 Discontinued 10 mg IVP X1 ONE Meclizine HCl [Antivert] Med 10/14/24 02:57 Discontinued 25 mg PO X1 ONE Metoclopramide Inj [Reglan Inj] Med 10/14/24 03:56 Discontinued 10 mg IVP X1 ONE Ondansetron Inj [Zofran Inj] Med 10/14/24 02:57 Active 4 mg IV Q1HR PRN Ondansetron Inj [Zofran Inj] Med 10/14/24 03:07 Active 4 mg IV Q4HR PRN Sodium Chloride 0.9% 1000 ml [Ns] 1,000 ml Med 10/14/24 02:57 Discontinued IV 999 mls/hr hydrALAZINE INJ [Apresoline Inj] Med 10/14/24 03:00 Discontinued 20 mg IV X1 ONE Vital Signs Vital signs: Vital Signs Temperature 97.9 F 10/14/24 02:40 Pulse Rate 81 10/14/24 02:40 Respiratory Rate 18 10/14/24 02:40 Blood Pressure 191/95 H 10/14/24 02:40 Pulse Oximetry (%) 96 10/14/24 02:40 Oxygen Delivery Method Room Air 10/14/24 02:40 Pulse ox is 96% on room air, according to my interpretation. Dizziness Patient data External records reviewed:: [facility] previous records (Per chart review, patient was admitted here from 10/02/24-10/05/24 for acute encephalopathy 2/2 hypertensive emergency.) Clinical information provided by:: patient Social determinants that could affect healthcare access:: none Patient has the following chronic illnesses:: DM, HTN, HLD How is presenting disease/condition affected by chronic disease/condition?: exacerbated by Evaluation data The following diagnostics were reviewed and interpreted by me:: lab results, radiology exam(s) and EKG tracing(s) Lab and/or radiology exams considered but not ordered:: none Interpretation Summary: WBC count is elevated at 11.7, Glucose is elevated at 266, Troponin is elevated at 0.162, UA shows trace protein and 3+ glucose, UDS is negative, Blood alcohol is negative, according to my interpretation. EKG done at 0333, NSR, rate of 81, PVCs, LVH, no ST depressions, 1st degree AV block, similar LVH changes to EKG done on 10/02/24. 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 Record#: [id number] Birthdate: 1980 Age/Sex: 44 / M Location: [facility] [place] Attending Dr: Ordering Physician: Date of Service: Procedure(s): Accession Number(s): cc: ~ CT scan of the head without intravenous contrast (axial sections with sagittal and coronal reformats) October 14, 2024 0310 hours. 3D reconstructed images were also provided. Clinical History: Elevated BP Comparison: No prior study is available for comparison. Findings: No evidence of intracranial hemorrhage, mass effect or midline shift. The ventricles and CSF spaces are unremarkable. A prominent cisterna magna is incidentally noted. There is mild atheromatous calcification of the intracranial arteries. The calvarium is unremarkable. Small retention cysts or polyps are seen in the maxillary sinuses bilaterally. The mastoid air cells are clear. 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 Impression: No evidence of intracranial hemorrhage, mass effect or midline shift. If there are persistent clinical symptoms or additional clinical concerns, consider MRI. Other findings as described above. Discussion Details: Results verbally communicated to : Dr. Jaime at 03:24 AM 10/14/2024 Report Electronically Signed By: Christina Jackson 10/14/2024 3:29:24 AM [EST] Medications / Prescriptions Medications or Prescriptions considered but not ordered:: none Medication administrations:: Medication Administration History Ondansetron HCl (Ondansetron Inj 2 Mg/Ml Inj 2 Ml) 4 mg IV Q1HR PRN PRN Reason: PERSISTENT NAUSEA OR VOMITING Last Admin: 10/14/24 03:06 Dose: 4 mg Documented By: TC Ondansetron HCl (Ondansetron Inj 2 Mg/Ml Inj 2 Ml) 4 mg IV Q4HR PRN PRN Reason: NAUSEA OR VOMITING Stop: 11/13/24 03:06 Discontinued Medications Diazepam (Diazepam Inj 5 Mg/Ml Vial 2 Ml) 2.5 mg IVP X1 ONE Stop: 10/14/24 03:02 Last Admin: 10/14/24 03:24 Dose: 2.5 mg Documented By: TC Diazepam (Diazepam Inj 5 Mg/Ml Vial 2 Ml) 2.5 mg IVP X1 ONE Stop: 10/14/24 05:39 Last Admin: 10/14/24 05:42 Dose: 2.5 mg Documented By: TC Hydralazine HCl (Hydralazine Inj 20 Mg/Ml Vial) 20 mg IV X1 ONE Stop: 10/14/24 03:01 Last Admin: 10/14/24 03:05 Dose: 20 mg Documented By: TC Sodium Chloride (Ns) 1,000 mls @ 999 mls/hr IV .Q1H1M ONE Stop: 10/14/24 03:57 Last Infusion: 10/14/24 04:39 Dose: Infused Documented By: Admin: 10/14/24 03:25 Dose: 999 mls/hr Documented By: TC Labetalol HCl (Labetalol Inj 5 Mg/Ml Vial 20 Ml) 10 mg IVP X1 ONE Stop: 10/14/24 04:07 Last Admin: 10/14/24 04:11 Dose: 10 mg Documented By: TC Labetalol HCl (Labetalol Inj 5 Mg/Ml Vial 20 Ml) 10 mg IVP X1 ONE Stop: 10/14/24 04:41 Last Admin: 10/14/24 04:42 Dose: 10 mg Documented By: TC Meclizine HCl (Meclizine Hcl 25 Mg Tablet) 25 mg PO X1 ONE Stop: 10/14/24 02:58 Last Admin: 10/14/24 03:25 Dose: Not Given Documented By: TC Non-Admin Reason: Duplicate Medication on eMAR Metoclopramide HCl (Metoclopramide Inj 5 Mg/Ml Vial 2 Ml) 10 mg IVP X1 ONE; Pro tocol Stop: 10/14/24 03:57 Last Admin: 10/14/24 03:59 Dose: 10 mg Documented By: TC see above Consultations Consultation(s) initiated? (list below): No Diagnosis Dizziness Differential Diagnosis: benign paroxysmal positional vertigo and other (hypertensive urgency versus emergency, drug use, cerebellar infarct, dehydration, electrolyte abnormality) Most likely diagnosis given after review of the tests above:: see below Admission Indicated Admission indicated?: not indicated Admission Request Was there a request for admission?: No Disposition Plan Disposition Plan: other (specify) (Signed out to the next oncoming provider at 0600 pending MRI.) Discharge Plan Prescriptions/Referrals Prescriptions/Med Rec: No Action losartan-hydrochlorothiazide 100-25 mg Tablet 1 tab PO QDAY amlodipine 10 mg Tablet 10 mg PO QDAY metformin 1,000 mg Tablet 1,000 mg PO BID hydralazine 50 mg Tablet 50 mg PO TID nifedipine 30 mg Tablet Extended Release 24hr 30 mg PO QDAY 30 Days Qty: 30 0RF carvedilol 12.5 mg Tablet 12.5 mg PO BIDWM 30 Days Qty: 60 0RF aspirin 81 mg Tablet,Delayed Release (Dr/Ec) 81 mg PO QDAY 30 Days Qty: 30 0RF atorvastatin 80 mg tablet 80 mg PO HS 30 Days Qty: 30 0RF insulin glargine 100 unit/mL (3 mL) insulin pen 15 unit subcut HS Qty: 15 0RF (DME) pen needle, diabetic 29 gauge x 1/2 needle See Rx Instructions .Route Qty: 100 0RF Rx Instructions: As directed (DME) blood-glucose meter Kit See Rx Instructions .Route Qty: 1 0RF Rx Instructions: As directed (DME) Blood Glucose Test Strip See Rx Instructions .Route Qty: 50 0RF Rx Instructions: As directed (DME) lancets Misc See Rx Instructions .Route Qty: 200 0RF Rx Instructions: As directed (DME) FreeStyle Anthony 3 Sensor Device See Rx Instructions .Route Qty: 1 0RF Rx Instructions: As directed Problem List Clinical Impression: Intractable vomiting, Dizziness Patient/Caregiver Discharge Instructions Print Language: Persian
[2024-10-14] MEDS: hydrALAZINE INJ 20 MG/ML VIAL IV (03:05)
[2024-10-14] MEDS: ONDANSETRON INJ 2 MG/ML INJ 2 ML 4 MG IV ×3 (03:06→20:39)
--- NOTE | 2024-10-14 03:08 | XR_ITS ---
Examination: CT brain head without contrast. 2-D sagittal coronal reconstructions Date and time of exam:October 14, 2024 0310 hours INDICATIONS: Onset dizziness vomiting episodes today, stroke alert, onset focal neurologic deficit today CTDI: vol (mGy):57.7 DLP: (mGycm):1259 Technique: Multiple CT axial sections of the brain have been obtained, 5 mm slice thickness. Contrast has not been administered. 2-D sagittal, coronal reconstructions have been obtained Low dose protocols were performed. One or more of the following dose reduction techniques were used; automated exposure control, adjustment of the mA and/or KV according to patient size, use of iterative reconstruction technique. Findings: No significant ventricular enlargement. Intra-axial or extra-axial hemorrhage density is not seen. No mass effect or midline shift Basal cisterns are not remarkable. Fourth ventricle is midline. Cranial vault intact. Axial image 40 demonstrates diffuse low density in the inferior right cerebellar hemisphere Impression: Negative for acute hemorrhage, mass effect or midline shift Nonhemorrhagic infarct right inferior cerebellar hemisphere
[2024-10-14 03:21] LABS: Basophils # (Auto) 0.1 Thou/mm3 (0.0-0.2); Basophils % (Auto) 0 % (0-2.5); Eosinophils # (Auto) 0.3 Thou/mm3 (0.0-0.5); Eosinophils % (Auto) 2 % (0-10); Hematocrit 47.6 % (41.0-53.0); Hemoglobin 16.7 g/dL (13.5-16.0); Immature Granulocytes % (Auto) 0 % (0-0); Immature Granulocytes Auto 0.04 Thou/mm3 (0.00-0.00); Lymphocytes # (Auto) 3.2 Thou/mm3 (1.0-4.8); Lymphocytes % (Auto) 27 % (10-50); Mean Corpuscular HGB Conc 35.1 g/dl (31.0-37.0); Mean Corpuscular Volume 83 fL (80-100); Monocytes # (Auto) 0.9 Thou/mm3 (0.0-0.8); Monocytes % (Auto) 8 % (0-12); Neutrophils # (Auto) 7.2 Thou/mm3 (1.8-7.7); Neutrophils % (Auto) 62 % (37-80); Nucleated Red Blood Cell % 0 /100 WBC (0); Platelet Count 326 Thou/mm3 (140-440); RDW Standard Deviation 37.4 fL (35.1-43.9); Red Blood Count 5.76 Miln/mm3 (4.50-5.90); White Blood Count 11.7 Thou/mm3 (3.8-10.6)
[2024-10-14] MEDS: DIAZEPAM INJ 5 MG/ML VIAL 2 ML 2.5 MG IVP ×2 (03:24→05:42)
[2024-10-14] MEDS: SODIUM CHLORIDE 0.9% 1000 ML 1,000 ML 999 ML IV (03:25)
[2024-10-14 03:29] LABS: INR 1.1 (0.9-1.3); Partial Thromboplastin Time 26.4 Seconds (22.0-36.0); Prothrombin Time 12.2 Seconds (9.0-12.2)
--- NOTE | 2024-10-14 03:30 | PRELIM_ITS ---
CT scan of the head without intravenous contrast (axial sections with sagittal and coronal reformats) October 14, 2024 0310 hours. 3D reconstructed images were also provided. Clinical History: Elevate d BPComparison: No prior study is available for comparison. Findings:No evidence of intracranial hemo rrhage, mass effect or midline shift. The ventricles and CSF spaces are unremarkable. A prominent cis terna magna is incidentally noted. There is mild atheromatous calcification of the intracranial arter ies. The calvarium is unremarkable. Small retention cysts or polyps are seen in the maxillary sinuses bilaterally. The mastoid air cells are clear. 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 Impression:No evidence of intracranial hemorrhage, mass effect or midline shift. If the re are persistent clinical symptoms or additional clinical concerns, consider MRI. Other findings as described above. Discussion Details: Results verbally communicated to : Dr. Jaime at 03:24 AM 04/2024 Report Electronically Signed By: Christina Jackson 10/14/2024 3:29:24 AM [EST]
[2024-10-14 03:33] LABS: Alanine Aminotransferase 51 U/L (10-49); Albumin, Serum 4.8 gm/dL (3.5-5.0); Albumin/Globulin Ratio 1.7 (1.2-2.2); Alcohol, Blood Medical < 3.0 mg/dL (0-10.0); Alkaline Phosphatase 129 U/L (46-116); Anion Gap 10 (7-16); Aspartate Amino Transferase 25 U/L (0-34); BUN/Creatinine Ratio 21 Ratio (12-20); Bilirubin,Total 0.4 mg/dL (0.3-1.2); Blood Urea Nitrogen 23 mg/dL (9-23); Calcium 9.7 mg/dL (8.3-10.6); Calcium (Corrected) 9.7 mg/dL (8.5-10.1); Carbon Dioxide 27.5 mMol/L (20.0-31.0); Chloride 99 mMol/L (98-107); Creatinine (Component) 1.1 mg/dL (0.6-1.3); Estimated Creatinine Clearance 105.8 mL/min (>60); Globulin 2.8 gm/dL (2.3-3.5); Glucose 226 mg/dL (74-106); Magnesium 2.1 mg/dL (1.6-2.6); Osmolality,Calculated 282 (275-295); Potassium 3.5 mMol/L (3.4-5.1); Sodium 136 mMol/L (136-145); Total Protein 7.6 gm/dL (5.7-8.2); eGFR > 60 See Note
[2024-10-14 03:37] LABS: Troponin I 0.162 ng/mL (0.0-0.045)
[2024-10-14 03:48] LABS: Collection Type, Urine Voided; Squamous Epithelial Cell,Urine 0 /hpf (0-5)
[2024-10-14] MEDS: METOCLOPRAMIDE INJ 5 MG/ML VIAL 2 ML 10 MG IVP (03:59)
[2024-10-14] MEDS: LABETALOL INJ 5 MG/ML VIAL 20 ML 10 MG IVP ×4 (04:11→19:50)
[2024-10-14 04:33] LABS: Bilirubin,Urine Negative (Negative); Blood,Urine Negative (Negative); Clarity,Urine Clear (Clear/Hazy); Color,Urine Colorless (Lt Yel-Yel); Glucose, Urine 3+ (Negative); Ketones,Urine Negative (Negative); Leukocyte Esterase,Urine Negative (Negative); Nitrite,Urine Negative (Negative); Protein,Urine Trace (Neg - Trace); RBC,Urine 2 /hpf (0-3); Specific Gravity,Urine 1.013 (1.001-1.035); Urobilinogen,Urine Negative mg/dL (0.0-1.0); WBC,Urine 1 /hpf (0-5)
[2024-10-14 04:38] LABS: Amphetamine/Methamp Scrn,U Negative (Negative); Barbiturate Screen,Urine Negative (Negative); Benzodiazepines Screen,Urine Negative (Negative); Benzoylecgonine Screen, Ur Negative (Negative); Fentanyl Screen,Urine Negative (Negative); Opiate Screen,Urine Negative (Negative); THC Screen,Urine Negative (Negative)
--- NOTE | 2024-10-14 08:46 | XR_ITS ---
Examination: CTA carotids with intravenous contrast CTA brain, head with intravenous contrast. 2-D sagittal, coronal reconstructions. 3-D reconstructions. Exam date and time: October 14, 2024 0858 hours INDICATIONS: Onset dizziness vomiting generalized body weakness beginning this morning, stroke alert, onset focal neurologic deficit this morning CTDI: vol (mGy) 65.6 DLP: (mGycm) 540 Technique: Multiple CTA axial brain, head carotid images post intravenous contrast injection 75 cc, [id number]. 2-D sagittal, coronal reconstructions. 3-D reconstructions, 3-D post processing including vascular maximum intensity projection images. Low dose protocols were performed. One or more of the following dose reduction techniques were used; automated exposure control, adjustment of the mA and/or KV according to patient size, use of iterative reconstruction technique. Findings: No significant common carotid carotid bifurcation or internal carotid artery stenoses Minimally dominant right vertebral artery no critical stenoses Intracranial vertebral arteries intact No thrombus noted in the basilar artery or posterior cerebral artery branches No large vessel occlusions involving the middle cerebral or anterior cerebral arteries IMPRESSION: No significant neck arterial stenoses No cerebral large vessel arterial occlusions or thrombus noted
[2024-10-14] MEDS: LABETALOL INJ 5 MG/ML VIAL 20 ML 20 MG IVP (09:00)
--- NOTE | 2024-10-14 09:24 | EDNOTE_ITS ---
Emergency Room Addendum Addendum Narrative: 0600: Care assumed from Dr. Jaime, the previous shift emergency physician. Past medical, surgical, social and family history reviewed. Vitals and home medications reviewed. I will assume the care of the patient at this time, pending MRI. Please refer to the emergency department record for history and examination from initial visit.? Nursing notes reviewed by me. Vital signs reviewed by me. [facility] medical records reviewed by me. I reviewed ED visit 10/02/2024 through 10/05/2024 for TIA vs hypertensive encephalopathy. MRI at that time showed no acute infarct. MRI today shows a large acute infarct involving the right cerebellar hemisphere, inferior vermis as well as small portions of the left cerebellar hemisphere. 0838: I spoke with radiologist Dr. Ramos regarding head CT results, recommends head/neck CTA. 0840: On reassessment, the patient complains of headache. States he went to bed last night at 22:30 hours feeling at his usual state of health. Woke up at 02:00 this morning with a headache and room spinning dizziness accompanied by nausea and vomiting. Denies changes in speech. Stroke alert activated. GENERAL APPEARANCE:? alert and oriented x 4, well-developed, well-nourished, no acute distress HEENT: normocephalic, atraumatic; horizontal nystagmus right>left. NECK: supple LUNGS: no respiratory distress, normal effort HEART: good peripheral perfusion ABDOMEN: non distended EXTREMITIES:? atraumatic NEUROLOGIC: awake; alert and oriented x4; horizontal nystagmus right>left, positive ataxia, no intention tremor, no dysdiadochokinesia PSYCHIATRIC:? appropriate mood and affect SKIN: warm, dry, normal color; no rashes 0920: I spoke with teleneurologist Dr. Avendaño. Discussed patients PMHx, HPI, ED course, exam findings, labs, and radiology results. States patient is not a TNK candidate, LKW above 4.5 hour window. He recommends antihypertensives PRN if blood pressure is greater than 220/120. 1024: I spoke with resident Dr. Cummings working with Dr. Madison. Discussed patients PMHx, HPI, ED course, exam findings, labs, and radiology results. The hospitalist agree to accept the patient for admission. Critical Care Time Critical Care Time Critical Care Time: Yes Total Critical Care Time (min.): 60 Attestation: The high probability of sudden, clinically significant deterioration in the patient's condition required the highest level of my preparedness to intervene urgently. The services I provided to this patient were to treat and/or prevent clinically significant deterioration. Services included the following: chart data review, reviewing nursing notes and/or old charts, documentation time, medical device sales consultant collaboration regarding findings and treatment options, medication orders and management, direct patient care, vital sign assessments and ordering, interpreting and reviewing diagnostic studies and lab tests. Aggregate critical care time includes only time during which I was engaged in work directly related to the patient's care, as described above, whether at bedside or elsewhere in the Emergency Department. It did not include time spent performing other reported procedures or the services of residents, students, nurses or physician assistants.
--- NOTE | 2024-10-14 09:30 | ESCONSULT_ITS ---
Tele Neuro Consultation Consultation Date 10/14/24 Most Recent Vital Signs Last Vital Signs Temp 97.9 F 10/14/24 07:55 Pulse 94 10/14/24 09:00 Resp 28 H 10/14/24 07:55 BP 193/110 H 10/14/24 09:00 Pulse Ox 95 10/14/24 07:55 O2 Del Method Room Air 10/14/24 07:55 Laboratory-Coagulation Panel PT 12.2 Seconds (9.0-12.2) 10/14/24 03:05 INR 1.1 (0.9-1.3) 10/14/24 03:05 APTT 26.4 Seconds (22.0-36.0) 10/14/24 03:05 Consultation Narrative [facility] TeleNeurology Consult Services Patient Name:???Junior Tremaine Date of :???1980 Identification Number:??? Date of Service:???10/14/2024 08:46:20 Diagnosis:?I63.40 - Cerebrovascular accident (CVA) due to embolism of other cerebral artery (HCCC) Impression: ?Mr. Penaloza has a bicuspid aortic valve and embolic stroke pattern history causing right MCA and now right cerebellar infarct. His vomiting, ataxia, size of infarct and young age are concerning and require close monitoring to detect any early signs of herniation in the posterior fossa therefore for the first 24 hours Q1-2 neuro checks. I recommend loop recorder, cardiology evaluation of aortic valve for vegetations, hypercoagulation labs like antiphospholipid panel. His LAWRENCE recently showed no PFO. Our recommendations are outlined below. Recommendations: ? Stroke/Telemetry Floor ? Neuro Checks ? Bedside Swallow Eval ? DVT Prophylaxis ? IV Fluids, Normal Saline ? Head of Bed 30 Degrees ? Euglycemia and Avoid Hyperthermia (PRN Acetaminophen) ? Initiate or continue Aspirin 325 MG daily ? Antihypertensives PRN if Blood pressure is greater than 220/120 or there is a concern for End organ damage/contraindications for permissive HTN. If blood pressure is greater than 220/120 give labetalol PO or IV or Vasotec IV with a goal of 15% reduction in BP during the first 24 hours. Sign Out: ? Discussed with Emergency Department Provider Advanced Imaging: Advanced imaging has been ordered. Results pending. Metrics: Last Known Well: 10/13/2024 22:30:00 Dispatch Time: 10/14/2024 08:46:19 Arrival Time: 10/14/2024 02:36:00 Initial Response Time: 10/14/2024 08:49:49Symptoms: dizziness and headache. Initial patient interaction: 10/14/2024 08:51:12 NIHSS Assessment Completed: 10/14/2024 09:00:05Patient is not a candidate for Thrombolytic. Thrombolytic Medical Decision: 10/14/2024 09:00:07Patient was not deemed candidate for Thrombolytic because of following reasons: LKW outside 4.5 hr window. . I personally Reviewed the CT Head and it Showed no ICH MRI brain shows acute right cerebellar hemisphere infarct Primary Provider Notified of Diagnostic Impression and Management Plan on: 10/14/2024 09:19:03 History of Present Illness:Patient is a 44 year old Male. Patient was brought by EMS for symptoms of dizziness and headache. 44 year old man with history of right MCA infarct and recent evaluation for stroke in September with LAWERNCE and MRI/MRA presents with acute onset dizziness. He went to bed normal then awoke with vertigo and no new focal weakness or numbness or speech difficulty. He tells me that he is taking his stroke prevention medications without missing doses, but has noticed extremely high blood pressures at home. He is vomiting in the ED and can't walk because of imbalance Past Medical History: ?Hypertension ?Diabetes Mellitus ?Stroke Other PMH:? stroke 1 year ago right MCA infarct Medications: No Anticoagulant use? Antiplatelet use:?Yes?asa Reviewed EMR for current medications Allergies:? NKDA Social History: Smoking: Yes Alcohol Use: No Drug Use: Former Family History: There is no family history of premature cerebrovascular disease pertinent to this consultation ROS : 14 Points Review of Systems was performed and was negative except mentioned in HPI. Past Surgical History: There Is No Surgical History Contributory To Today?s Visit Examination: BP(198/113),?Pulse(89),?Blood Glucose(221) 1A: Level of Consciousness - Alert; keenly responsive?+ 0 1B: Ask Month and Age - Both Questions Right?+ 0 1C: Blink Eyes & Squeeze Hands - Performs Both Tasks?+ 0 2: Test Horizontal Extraocular Movements - Normal?+ 0 3: Test Visual Sanders - No Visual Loss?+ 0 4: Test Facial Palsy (Use Grimace if Obtunded) - Normal symmetry?+ 0 5A: Test Left Arm Motor Drift - No Drift for 10 Seconds?+ 0 5B: Test Right Arm Motor Drift - No Drift for 10 Seconds?+ 0 6A: Test Left Leg Motor Drift - No Drift for 5 Seconds?+ 0 6B: Test Right Leg Motor Drift - No Drift for 5 Seconds?+ 0 7: Test Limb Ataxia (FNF/Heel-Agudelo) - Ataxia in 1 Limb?+ 1 8: Test Sensation - Normal; No sensory loss?+ 0 9: Test Language/Aphasia - Normal; No aphasia?+ 0 10: Test Dysarthria - Normal?+ 0 11: Test Extinction/Inattention - No abnormality?+ 0 NIHSS Score:?1 NIHSS Free Text :?mild HTS difficulty Pre-Morbid Modified Nai Scale:0 Points = No symptoms at all Spoke with :? in ED This consult was conducted in real time using interactive audio and video technology. Patient was informed of the technology being used for this visit and agreed to proceed. Patient located in hospital and provider located at home/office setting. Patient is being evaluated for possible acute neurologic impairment and high pr obability of imminent or life-threatening deterioration. I spent total of 35 minutes providing care to this patient, including time for face to face visit via telemedicine, review of medical records, imaging studies and discussion of findings with providers, the patient and/or family. Dr Elmer Avendaño [facility] For Inpatient follow-up with [facility] physician please call [facility] at . As we are not an outpatient service for any post hospital discharge needs please contact the hospital for assistance. If you have any questions for the [facility] physicians or need to r econsult for clinical or diagnostic changes please contact us via [facility] at .
[2024-10-14] MEDS: Aspirin 325 MG TABLET PO (09:58)
--- NOTE | 2024-10-14 11:57 | PD.RESHP ---
Documentation for date of: 10/14/24 [facility] History of Present Illness History of present illness: This is a 44-year-old male presented to ED after acute overnight dizziness. Patient has a history of previous/recent right MCA stroke, HTN, HLD, T2DM, bicuspid aortic valve with moderate stenosis. Last known normal was yesterday at 22:30 before he went to bed, woke up prior to arrival at 3 AM feeling dizzy, called 911 for evaluation. In ED patient was found vomiting which she attributed to eating [employer] last night, fever, chills or diarrhea. ED COURSE: Presentation was consistent with stroke, stroke alert was initiated. CT head showed nonhemorrhagic infarct of right inferior cerebellar hemisphere, negative for hemorrhage or mass effect. CTA head/neck no significant neck arterial stenosis or stable large vessel occlusion or thrombus. MRI showed large acute infarct of right cerebellar hemisphere, inferior vermis and small portion of left cerebellar hemisphere. Afebrile, BP 191/95, HR 81, satting 96% on room air. Troponin 0.162 then 0.163, EKG showed sinus rhythm with occasional PVCs, no acute ST changes. ALP 129, ALT 51, AST normal, GLUCOSE 226. WBC 11.7, hemoglobin 16.7 with baseline around 17.4. UA negative for UTI U-Tox negative Teleneuro was consulted who recommended patient admission, ASPIRIN, and statin, permissive hypertension. I saw patient at bedside, in ED. He was complaining of persistent dizziness, and generalized headache, similar to when he came in, not worse than before. He denies recent fall, head injury, drug use, alcohol use, tobacco use, recent illness, sick exposure, chest pain, shortness of breath, palpitation, GI or urinary symptoms other than vomiting. Admission blood pressure 191/95, patient recently prescribed antihypertensives which she has been taking for the last week as prescribed. Patient states also taking ASPIRIN and ATORVASTATIN daily as prescribed. Per chart review, recent admission 10/02 for acute encephalopathy and hypertensive emergency with NIHSS score of 6. CT head then was negative, CTA showed possible P1 stenosis. MRI was also negative for acute pathology but demonstrated large old infarct of right MCA. TTE and LAWRENCE were done showing suspicious echogenic structure in LVOT, bicuspid aortic valve with moderate stenosis and calcification, negative for PFO or thrombus. Will admit patient for stroke protocol. PMHx: CVA, HTN, HLD, T2DM Meds: Pending med rec. Patient states taking ASPIRIN, statin, and ANTIHYPERTENSIVE. Allergies: NKA FH: No history of stroke SH: No alcohol tobacco or drugs Exam Vital Signs Temp Pulse Resp BP Pulse Ox O2 Del Method 98.0 F 92 22 H 180/101 H 96 Room Air 10/14/24 10:28 10/14/24 10:28 10/14/24 10:28 10/14/24 10:10/14/24 10:10/14/24 10:28 Narrative Exam GENERAL: Normal appearing adult male, NAD, complains of headaches and dizziness, on room air HEENT: NCAT.?KEYUR. Oral mucosa is moist. Patent Nares NECK: Supple, nontender, no thyromegaly, no meningismus, no JVD, no step offs CHEST: Symmetrical, atraumatic, and with equal expansion, Nontender on palpation no deformity and no crepitus. CARDIOVASCULAR: RRR, no m/g/r LUNGS: CTAB, no w/r/r. Symmetrical chest rise. No intercostal subcostal retraction. ABDOMEN: Soft, flat, nontender. No guarding/rebound tenderness/masses. +BS EXTREMITIES: Nontender.? No edema/cyanosis.?Moves all 4 extremities well, with full ROM and good CSM. SKIN: Warm and dry, no jaundice/rashes. MSK: No lumbar or midline, no CVA, no paraspinal muscle spasm or tenderness. NEURO: SUTTON x4, CN II-XII grossly intact.?No focal neurologic deficits. PSYCHIATRIC: Normal mood and affect, cooperative, no SI or HI or hallucinations. Results: Labs 10/15/24 04:46 10/15/24 04:46 Labs: Short CBC 10/14/24 Range/Units 03:05 WBC 11.7 H (3.8-10.6) Thou/mm3 Hgb 16.7 H (13.5-16.0) g/dL Hct 47.6 (41.0-53.0) % Plt Count 326 D (140-440) Thou/mm3 BMP 10/14/24 03:05 Sodium 136 Potassium 3.5 Chloride 99 Carbon Dioxide 27.5 BUN 23 Creatinine 1.1 Glucose 226 H Calcium 9.7 Cardiac Enzymes 10/14/24 Range/Units 03:05 Troponin I 0.162 H* (0.0-0.045) ng/mL Liver Function 10/14/24 Range/Units 03:05 Total Bilirubin 0.4 (0.3-1.2) mg/dL AST 25 (0-34) U/L ALT 51 H (10-49) U/L Alkaline Phosphatase 129 H (46-116) U/L Albumin 4.8 (3.5-5.0) gm/dL Urine 10/14/24 Range/Units 03:42 Urine Color Colorless A (Lt Yel-Yel) Urine Clarity Clear (Clear/Hazy) Urine pH 7.0 (5.0-7.0) Ur Specific [place] 1.013 (1.001-1.035) Urine Protein Trace (Neg - Trace) Urine Glucose (UA) 3+ A (Negative) Quality Measures Quality Measures none Medications Home Medications and Allergies Home Medications ?Medication ?Instructions ?Recorded ?Confirmed ?Type hydralazine 50 mg tablet 50 mg PO TID 10/02/24 10/14/24 History losartan 100 1 tab PO QDAY 10/02/24 10/14/24 History mg-hydrochlorothiazide 25 mg tablet metformin 1,000 mg tablet 1,000 mg PO BID 10/02/24 10/14/24 History Allergies Allergy/AdvReac Type Severity Reaction Status Date / Time No Known Allergies Allergy Verified 10/02/24 16:59 Visit Medications Acetaminophen (Acetaminophen 325 Mg Tablet) 650 mg PO Q6H PRN PRN Reason: Fever >100.4 Stop: 11/13/24 11:31 Acetaminophen (Acetaminophen 325 Mg Tablet) 650 mg PO Q6H PRN PRN Reason: PAIN SCALE 1-3 (mild Stop: 11/13/24 11:31 Aspirin (Aspirin Ec 81 Mg Tabec) 81 mg PO QDAY [facility] Stop: 11/14/24 08:59 Atorvastatin Calcium (Atorvastatin Calcium 20 Mg Tablet) 80 mg PO HS [facility] Stop: 11/13/24 20:59 Sodium Chloride (Ns) 1,000 mls @ 75 mls/hr IV .[id number] [facility] Stop: 11/13/24 11:41 Ondansetron HCl (Ondansetron Inj 2 Mg/Ml Inj 2 Ml) 4 mg IV Q1HR PRN PRN Reason: PERSISTENT NAUSEA OR VOMITING Last Admin: 10/14/24 08:59 Dose: 4 mg Ondansetron HCl (Ondansetron Inj 2 Mg/Ml Inj 2 Ml) 4 mg IV Q4HR PRN PRN Reason: NAUSEA OR VOMITING Stop: 11/13/24 03:06 Oxycodone/Acetaminophen (Oxycodone/Apap 5/325 Tablet) 1 tab PO Q6H PRN PRN Reason: PAIN SCALE 4-6 (Moderate Stop: 10/19/24 11:31 Pantoprazole Sodium (Pantoprazole 40 Mg Tablet) 40 mg PO Q12HR DANA Stop: 11/13/24 20:59 Discontinued Medications Aspirin (Aspirin 325 Mg Tablet) 325 mg PO X1 ONE Stop: 10/14/24 09:21 Last Admin: 10/14/24 09:58 Dose: 325 mg Diazepam (Diazepam Inj 5 Mg/Ml Vial 2 Ml) 2.5 mg IVP X1 ONE Stop: 10/14/24 03:02 Last Admin: 10/14/24 03:24 Dose: 2.5 mg Diazepam (Diazepam Inj 5 Mg/Ml Vial 2 Ml) 2.5 mg IVP X1 ONE Stop: 10/14/24 05:39 Last Admin: 10/14/24 05:42 Dose: 2.5 mg Hydralazine HCl (Hydralazine Inj 20 Mg/Ml Vial) 20 mg IV X1 ONE Stop: 10/14/24 03:01 Last Admin: 10/14/24 03:05 Dose: 20 mg Sodium Chloride (Ns) 1,000 mls @ 999 mls/hr IV .Q1H1M ONE Stop: 10/14/24 03:57 Last Infusion: 10/14/24 04:39 Dose: Infused Labetalol HCl (Labetalol Inj 5 Mg/Ml Vial 20 Ml) 10 mg IVP X1 ONE Stop: 10/14/24 04:07 Last Admin: 10/14/24 04:11 Dose: 10 mg Labetalol HCl (Labetalol Inj 5 Mg/Ml Vial 20 Ml) 10 mg IVP X1 ONE Stop: 10/14/24 04:41 Last Admin: 10/14/24 04:42 Dose: 10 mg Labetalol HCl (Labetalol Inj 5 Mg/Ml Vial 20 Ml) 20 mg IVP X1 ONE Stop: 10/14/24 08:53 Last Admin: 10/14/24 09:00 Dose: 20 mg Labetalol HCl (Labetalol Inj 5 Mg/Ml Vial 20 Ml) 10 mg IVP Q4H ONE Stop: 10/14/24 11:37 Meclizine HCl (Meclizine Hcl 25 Mg Tablet) 25 mg PO X1 ONE Stop: 10/14/24 02:58 Last Admin: 10/14/24 03:25 Dose: Not Given Metoclopramide HCl (Metoclopramide Inj 5 Mg/Ml Vial 2 Ml) 10 mg IVP X1 ONE; Protocol Stop: 10/14/24 03:57 Last Admin: 10/14/24 03:59 Dose: 10 mg Assessment & Plan Plan In summary: 44-year-old male with history of CVA, HTN, HLD, T2DM presenting with acute dizziness, outside tPA window, admitted for left cerebral hemisphere infarct. Teleneuro recommended ASPIRIN and high-dose statin. In-house neurology, Dr. Castañeda, on board. Hematology, Dr. Hobbs, consulted for chronic erythrocytosis. Appreciate neurology and hematology recommendations. # Acute cerebral infarct # Hx of right MCA infarct # Hypertensive emergency # Hyperlipidemia Presented with acute dizziness, outside tPA window CT head showed nonhemorrhagic infarct right inferior cerebellar hemisphere, no hemorrhage or mass effect. CTA head/neck no stenosis or large vessel disease. MRI with large acute infarct of right cerebellar hemisphere, inferior vermis, and small portion of left cerebellar hemisphere. NIHSS score 0 Teleneuro recommended ASPIRIN and high-dose statin permissive hypertension BP 191/95, HR 81 on admission 10/03 TGC 123, LDL 112, cholesterol 178 10/03 LAWRENCE negative for thrombus or PFO, EF 55 to 60% 10/03 A1c 11.2, TSH 2.05 Dr. Castañeda recommended continue current management, no PLAVIX ? Continue ASPIRIN 81 mg daily ? Continue ATORVASTATIN 80 mg HS ? Continue LABETALOL PRN q.4h. for BP greater than 220/120 ? Head elevation 30 degrees ? Swallow evaluation, continue n.p.o. for now ? Physical therapy ? TYLENOL for fever and headache ? Normal saline 1 L at 75 cc/HR # NSTEMI type II Likely demand ischemia 2/2 HTN Admission troponin 0.162 then 0.163 EKG sinus rhythm with occasional PVC Denies chest pain or palpitations Previous admission elevated troponin of 0.356 Previous admission, LAWRENCE EF 55?60, no wall motion abnormalities ? Troponin q.6 H ? Antihypertensives as above ? Fluids as above # Erythrocytosis Patient hemoglobin 16.7, baseline around 17.5 No previous workup for hematological disorders Possibly contributing to her recurrent CVA ? Hematology, Dr. Hobbs consulted ? Daily CBC # T2DM Admission GLUCOSE 168, currently 226 10/03 A1c 11.2 ? Accu-Cheks ? INSULIN sliding scale ? Holding home meds ? CHO consistent diet Health maintenance Diet: Passed swallow eval, CHO consistent/cardiac diet GI prophylaxis: PROTONIX DVT prophylaxis: SCD Antibiotics: Not indicated CODE STATUS: Full code Disposition: Pending neurology recommendations Patient case was discussed with attending, Garcia Madison MD and senior residents Dr. Rico and Dr. Cummings. Kati Brooks DO PGYI Attending Provider Attestation/Addendum I reviewed labs, imaging, EKG, home medications and prior available records. Face to face evaluation was performed by me. I have personally examined the patient and discussed assessment and plan with the IM team. I reviewed the resident note and agree with the plan with exceptions as below. Acute CVA: Brain MRI showed large right cerebellum which is consistent with the patient's symptoms. In the setting of prior history of CVA. Started aspirin and atorvastatin. Allow permissive hypertension. Consulted inpatient neurology. Continue frequent neurochecks. Ordered PT evaluation. Erythrocytosis: Noted on H&H. Mild. May contribute to increased risk of CVA. Consulted hematology. Monitor H&H.
[2024-10-14] MEDS: SODIUM CHLORIDE 0.9% 1000 ML 1,000 ML 75 ML IV (12:23)
[2024-10-14 12:28] LABS: Troponin I 0.163 ng/mL (0.0-0.045)
[2024-10-14 12:31] LABS: Path Review Blood Smear Sent to Pathologist
--- NOTE | 2024-10-14 14:38 | PCS.ST ---
Swallow Evaluation completed. See report for details. No dysphagia. OK with current diet order.
[2024-10-14 16:27] LABS: Troponin I 0.161 ng/mL (0.0-0.045)
[2024-10-14] MEDS: INSULIN LISPRO (AdmeLOG) 1 UNIT/0.01 ML UNIT SC ×2 (17:08→20:24)
[2024-10-14 20:08] LABS: Troponin I 0.159 ng/mL (0.0-0.045)
[2024-10-14] MEDS: PANTOPRAZOLE 40 MG TABLET PO (20:24)
[2024-10-14] MEDS: ATORVASTATIN CALCIUM 20 MG TABLET 80 MG PO (20:26)
--- NOTE | 2024-10-14 23:05 | ESPR_ITS ---
Documentation for date of: 10/14/24 Subjective Subjective Interval history: Patient was seen in telemetry at the bedside with his family. Patient continues to have pressure-like sensation, dizziness, vertigo and intractable nausea and vomiting. He finds it hard to sit up. Denies any weakness or paresthesias or lack of coordination in both upper and lower extremities. Exam - Neurology Vital Signs Temp Pulse Resp BP Pulse Ox O2 Del Method 97.5 F 97 12 191/105 H 95 Room Air 10/14/24 20:25 10/14/24 20:25 10/14/24 20:25 10/14/24 20:25 10/14/24 20:25 10/14/24 20:25 Narrative Exam GENERAL APPEARANCE: Well hydrated, well-nourished in no acute distress. HEENT: Normocephalic, atraumatic, extraocular movements intact. Pupils: Equal reacting to light and accommodation NECK: Supple, no JVD or bruits. CARDIOVASULAR: Heart: S1, S2 heard, regular without S3-S4 or murmur no rubs or gallops. LUNGS/CHEST: Clear to auscultation bilaterally. No rails, rhonchi, or wheezing. Normal inspection. ABDOMEN: Soft, nontender, with normal bowel sounds. No pulsatile masses. No rebound, rigidity, or guarding. Normal inspection and palpation. EXTREMITIES: Normal inspection and palpation. No edema, clubbing or cyanosis. SKIN: Warm and dry without rashes. Normal inspection. MUSCULOSKELETAL: No cervical, thoracic, lumbar or midline bony tenderness. Normal inspection. NEURO: Alert, awake and oriented x3. Cranial nerves: II through XII grossly intact. Speech and language: Normal with no dysarthria or dysphasia. Motor system: Tone and bulk: Normal: Strength: 5 out of 5 in all 4 extremities; No pronator drift noted. Deep tendon reflexes: 2+ bilaterally symmetrical. Plantar reflex: Downgoing bilaterally. Sensory system: Intact to all modalities of sensation bilaterally. Coordination: Intact to [id number]-[id number] and vbvl-ille-akuz test bilaterally. No ataxia, no dysmetria, or dysdiadochokinesia noted. No intention tremors noted. Gait: Not tested. No signs of meningeal irritation noted. PSYCHIATRIC: Normal mood and affect. Objective Labs 10/14/24 03:05 10/14/24 03:05 Labs: Laboratory Results - last 24 hr 10/14/24 10/14/24 10/14/24 03:05 03:42 11:40 WBC 11.7 H RBC 5.76 Hgb 16.7 H Hct 47.6 MCV 83 MCH 29.0 MCHC 35.1 RDW Std Deviation 37.4 Plt Count 326 D Neut % (Auto) 62 Lymph % (Auto) 27 [place] % (Auto) 8 Eos % (Auto) 2 Baso % (Auto) 0 Neut # (Auto) 7.2 Lymph # (Auto) 3.2 [place] # (Auto) 0.9 H Eos # (Auto) 0.3 Baso # (Auto) 0.1 Immature Gran # (Auto) 0.04 H Absolute Nucleated RBC 0.00 Immature Gran % 0 Nucleated RBC % 0 Smear Path Review Sent to Pathologist Cancelled PT 12.2 INR 1.1 APTT 26.4 Sodium 136 Potassium 3.5 Chloride 99 Carbon Dioxide 27.5 Anion Gap 10 BUN 23 Creatinine 1.1 Estim Creat Clear Calc 105.8 eGFR > 60 BUN/Creatinine Ratio 21 H Glucose 226 H Calculated Osmolality 282 Calcium 9.7 Corrected Calcium 9.7 Magnesium 2.1 Total Bilirubin 0.4 AST 25 ALT 51 H Alkaline Phosphatase 129 H Troponin I 0.162 H* 0.163 H* Total Protein 7.6 Albumin 4.8 Globulin 2.8 Albumin/Globulin Ratio 1.7 Ur Collection Type Voided Urine Color Colorless A Urine Clarity Clear Urine pH 7.0 Ur Specific [place] 1.013 Urine Protein Trace Urine Glucose (UA) 3+ A Urine Ketones Negative Urine Blood Negative Urine Nitrite Negative Urine Bilirubin Negative Urine Urobilinogen (Auto) Negative Ur Leukocyte Esterase Negative Urine RBC 2 Urine WBC 1 Ur Squamous Epith Cells 0 Urine Bacteria None Urine Opiates Screen Negative Urine Fentanyl Screen Negative Ur Barbiturates Screen Negative U Amphetamin/Meth Scrn Negative U Benzodiazepines Scrn Negative U Cocaine Metab Screen Negative U Marijuana (THC) Screen Negative Ethyl Alcohol < 3.0 10/14/24 10/14/24 15:31 19:20 WBC RBC Hgb Hct MCV MCH MCHC RDW Std Deviation Plt Count Neut % (Auto) Lymph % (Auto) [place] % (Auto) Eos % (Auto) Baso % (Auto) Neut # (Auto) Lymph # (Auto) [place] # (Auto) Eos # (Auto) Baso # (Auto) Immature Gran # (Auto) Absolute Nucleated RBC Immature Gran % Nucleated RBC % Smear Path Review PT INR APTT Sodium Potassium Chloride Carbon Dioxide Anion Gap BUN Creatinine Estim Creat Clear Calc eGFR BUN/Creatinine Ratio Glucose Calculated Osmolality Calcium Corrected Calcium Magnesium Total Bilirubin AST ALT Alkaline Phosphatase Troponin I 0.161 H* 0.159 H* Total Protein Albumin Globulin Albumin/Globulin Ratio Ur Collection Type Urine Color Urine Clarity Urine pH Ur Specific [place] Urine Protein Urine Glucose (UA) Urine Ketones Urine Blood Urine Nitrite Urine Bilirubin Urine Urobilinogen (Auto) Ur Leukocyte Esterase Urine RBC Urine WBC Ur Squamous Epith Cells Urine Bacteria Urine Opiates Screen Urine Fentanyl Screen Ur Barbiturates Screen U Amphetamin/Meth Scrn U Benzodiazepines Scrn U Cocaine Metab Screen U Marijuana (THC) Screen Ethyl Alcohol Assessment & Plan Assessment and plan (1) Dizziness: Status: Acute Assessment and plan: Secondary to acute cerebellar CVA Should improve with time (2) Acute CVA (cerebrovascular accident): Status: Acute Assessment and plan: Affecting the right cerebellar hemisphere mainly Will continue to follow him closely as stroke involves the posterior fossa Continue with aspirin for now and then will add Plavix later on to prevent hemorrhagic transformation (3) Hypertension: Status: Acute Assessment and plan: Continue permissive blood pressure control (4) Hyperlipidemia: Status: Acute Assessment and plan: Continue with high intensity statin: LDL: 112 (5) Type 2 diabetes mellitus: Status: Chronic Assessment and plan: Needs better control of diabetes as the last A1c: 11.2 (6) Intractable vomiting: Status: Acute Assessment and plan: Secondary to acute cerebellar CVA, should improve with time as the edema resolves.
[2024-10-15] VITALS (20 sets, daily range): BP systolic 170–235; BP diastolic 90–127; PULSE 67–90; RESP 13–24; TEMP 36.3–36.8; O2SAT 94–98; BMI 34.1; BMI 34.0
[2024-10-15 00:23] LABS: Troponin I 0.161 ng/mL (0.0-0.045)
[2024-10-15] MEDS: SODIUM CHLORIDE 0.9% 1000 ML 1,000 ML 75 ML IV (03:29)
[2024-10-15] MEDS: ACETAMINOPHEN 325 MG TABLET 650 MG PO ×3 (03:29→17:21)
[2024-10-15] MEDS: LABETALOL INJ 5 MG/ML VIAL 20 ML 10 MG IVP ×3 (04:56→12:44)
[2024-10-15] MEDS: oxyCODONE/APAP 5/325 TABLET 1 TAB PO (05:05)
[2024-10-15 05:42] LABS: Basophils % (Auto) 0 % (0-2.5); Eosinophils % (Auto) 0 % (0-10); Hematocrit 49.8 % (41.0-53.0); Immature Granulocytes % (Auto) 0 % (0-0); Immature Granulocytes Auto 0.04 Thou/mm3 (0.00-0.00); Lymphocytes # (Auto) 1.4 Thou/mm3 (1.0-4.8); Lymphocytes % (Auto) 12 % (10-50); Mean Corpuscular HGB Conc 34.1 g/dl (31.0-37.0); Mean Corpuscular Volume 85 fL (80-100); Monocytes # (Auto) 0.6 Thou/mm3 (0.0-0.8); Monocytes % (Auto) 5 % (0-12); Neutrophils # (Auto) 10.4 Thou/mm3 (1.8-7.7); Neutrophils % (Auto) 83 % (37-80); Nucleated Red Blood Cell % 0 /100 WBC (0); Platelet Count 297 Thou/mm3 (140-440); RDW Standard Deviation 38.3 fL (35.1-43.9); Red Blood Count 5.87 Miln/mm3 (4.50-5.90); White Blood Count 12.5 Thou/mm3 (3.8-10.6)
[2024-10-15 05:52] LABS: INR 1.2 (0.9-1.3); Partial Thromboplastin Time 31.8 Seconds (22.0-36.0); Prothrombin Time 13.1 Seconds (9.0-12.2)
[2024-10-15 06:15] LABS: Alanine Aminotransferase 41 U/L (10-49); Albumin, Serum 4.8 gm/dL (3.5-5.0); Albumin/Globulin Ratio 1.7 (1.2-2.2); Alkaline Phosphatase 96 U/L (46-116); Anion Gap 11 (7-16); Aspartate Amino Transferase 21 U/L (0-34); BUN/Creatinine Ratio 18 Ratio (12-20); Bilirubin,Total 0.5 mg/dL (0.3-1.2); Blood Urea Nitrogen 18 mg/dL (9-23); Calcium 9.3 mg/dL (8.3-10.6); Calcium (Corrected) 9.3 mg/dL (8.5-10.1); Chloride 102 mMol/L (98-107); Estimated Creatinine Clearance 118.4 mL/min (>60); Globulin 2.8 gm/dL (2.3-3.5); Glucose 167 mg/dL (74-106); Magnesium 2.2 mg/dL (1.6-2.6); Osmolality,Calculated 279 (275-295); Phosphorous 3.3 mg/dL (2.4-5.1); Potassium 3.5 mMol/L (3.4-5.1); Sodium 137 mMol/L (136-145); Total Protein 7.6 gm/dL (5.7-8.2); eGFR > 60 See Note
[2024-10-15] MEDS: INSULIN LISPRO (AdmeLOG) 1 UNIT/0.01 ML UNIT SC ×4 (07:44→20:14)
[2024-10-15] MEDS: hydrALAZINE INJ 20 MG/ML VIAL 10 MG IV (07:45)
[2024-10-15] MEDS: ONDANSETRON INJ 2 MG/ML INJ 2 ML 4 MG IV (08:07)
--- NOTE | 2024-10-15 08:40 | ESPR_ITS ---
Documentation for date of: 10/15/24 Subjective Subjective Interval history: Patient seen and examined at bedside. Continues to c/o dizziness, has vomiting but tolerated some p.o. intake, and also c/o severe headache, likely related to elevated BP. Overnight, patient required multiple doses of labetalol. This morning, home antihypertensives were resumed and prn labetalol and hydralazine were added. Case discussed with neuro who recommends repeat CT scan. Patient's sister was updated about his condition. Additionally, will order renal artery duplex to rule out renal artery stenosis causing severe hypertension. Exam Vital Signs Temp Pulse Resp BP Pulse Ox O2 Del Method 97.3 F 71 13 191/95 H 94 L Room Air 10/15/24 00:00 10/15/24 07:45 10/15/24 00:00 10/15/24 07:45 10/15/24 00:00 10/15/24 00:00 Narrative Exam Gen: AAOx3, in severe distress from pain, appears ill HEENT: NCAT, PERRLA, EOMI, MMM, no LAD CVS: normal S1, S2. RRR. No MRG Resp: CTA B/L. No rhonchi, rales, crackles or wheezing Abd: soft, non-tender, non-distended. BS+ in all 4 quadrants MSK: Good ROM in BUE & BLE. No edema or rash. Neuro: CN II-XII grossly intact. No motor/sensory loss. Objective Labs 10/16/24 04:24 10/16/24 04:24 Labs: Laboratory Results - last 24 hr 10/14/24 10/14/24 10/14/24 03:05 11:40 15:31 WBC RBC Hgb Hct MCV MCH MCHC RDW Std Deviation Plt Count Neut % (Auto) Lymph % (Auto) [place] % (Auto) Eos % (Auto) Baso % (Auto) Neut # (Auto) Lymph # (Auto) [place] # (Auto) Eos # (Auto) Baso # (Auto) Immature Gran # (Auto) Absolute Nucleated RBC Immature Gran % Nucleated RBC % Smear Path Review Sent to Pathologist Cancelled PT INR APTT Sodium Potassium Chloride Carbon Dioxide Anion Gap BUN Creatinine Estim Creat Clear Calc eGFR BUN/Creatinine Ratio Glucose Calculated Osmolality Calcium Corrected Calcium Phosphorus Magnesium Total Bilirubin AST ALT Alkaline Phosphatase Troponin I 0.163 H* 0.161 H* Total Protein Albumin Globulin Albumin/Globulin Ratio 10/14/24 10/14/24 10/15/24 19:20 23:40 04:46 WBC 12.5 H RBC 5.87 Hgb 17.0 H Hct 49.8 MCV 85 MCH 29.0 MCHC 34.1 RDW Std Deviation 38.3 Plt Count 297 Neut % (Auto) 83 H Lymph % (Auto) 12 [place] % (Auto) 5 Eos % (Auto) 0 Baso % (Auto) 0 Neut # (Auto) 10.4 H Lymph # (Auto) 1.4 [place] # (Auto) 0.6 Eos # (Auto) 0.0 Baso # (Auto) 0.0 Immature Gran # (Auto) 0.04 H Absolute Nucleated RBC 0.00 Immature Gran % 0 Nucleated RBC % 0 Smear Path Review PT 13.1 H INR 1.2 APTT 31.8 Sodium 137 Potassium 3.5 Chloride 102 Carbon Dioxide 24.0 Anion Gap 11 BUN 18 Creatinine 1.0 Estim Creat Clear Calc 118.4 eGFR > 60 BUN/Creatinine Ratio 18 Glucose 167 H D Calculated Osmolality 279 Calcium 9.3 Corrected Calcium 9.3 Phosphorus 3.3 Magnesium 2.2 Total Bilirubin 0.5 AST 21 ALT 41 Alkaline Phosphatase 96 D Troponin I 0.159 H* 0.161 H* Total Protein 7.6 Albumin 4.8 Globulin 2.8 Albumin/Globulin Ratio 1.7 Quality Measures Quality Measures none Assessment & Plan Assessment Current Active Medications: Generic Name Dose Route Start Last Admin Trade Name Freq PRN Reason Stop Dose Admin Acetaminophen 650 mg 10/14/24 11:32 Acetaminophen 325 Mg Tablet PO 11/13/24 11:31 Q6H PRN Fever >100.4 Acetaminophen 650 mg 10/14/24 11:32 10/15/24 03:29 Acetaminophen 325 Mg Tablet PO 11/13/24 11:31 650 mg Q6H PRN Administration PAIN SCALE 1-3 (mild Aspirin 81 mg 10/15/24 09:00 Aspirin Ec 81 Mg Tabec PO 11/14/24 08:59 QDAY DANA Atorvastatin Calcium 80 mg 10/14/24 21:00 10/14/24 20:26 Atorvastatin Calcium 20 Mg Tablet PO 11/13/24 20:59 80 mg HS DANA Administration Dextrose 25 ml 10/14/24 14:01 Dextrose 50%-Water Inj 50 Ml Syringe IV 11/13/24 14:00 Q15MIN PRN BG 50-70 responsive npo pt Dextrose 50 ml 10/14/24 14:01 Dextrose 50%-Water Inj 50 Ml Syringe IV 11/13/24 14:00 Q15MIN PRN BG <50 OR BG <70 & pt unresponsive Glucagon 1 mg 10/14/24 14:01 Glucagon Inj 1 Mg Vial IM Q15MIN PRN BG <70, and no IV access Sodium Chloride 1,000 mls @ 75 mls/hr 10/14/24 11:42 10/15/24 03:29 Ns IV 10/15/24 11:41 75 mls/hr .[id number] DANA Administration Insulin Human Lispro 0 unit 10/14/24 17:00 10/15/24 07:44 Insulin Lispro (Admelog) 1 Unit/0.01 Ml Unit SC 11/13/24 16:59 4 unit ACHS DANA Administration Protocol Ondansetron HCl 4 mg 10/14/24 02:57 10/14/24 08:59 Ondansetron Inj 2 Mg/Ml Inj 2 Ml IV 4 mg Q1HR PRN Administration PERSISTENT NAUSEA OR VOMITING Ondansetron HCl 4 mg 10/14/24 03:07 10/15/24 08:07 Ondansetron Inj 2 Mg/Ml Inj 2 Ml IV 11/13/24 03:06 4 mg Q4HR PRN Administration NAUSEA OR VOMITING Oxycodone/Acetaminophen 1 tab 10/14/24 11:32 10/15/24 05:05 Oxycodone/Apap 5/325 Tablet PO 10/19/24 11:31 1 tab Q6H PRN Administration PAIN SCALE 4-6 (Moderate Pantoprazole Sodium 40 mg 10/14/24 21:00 10/14/24 20:24 Pantoprazole 40 Mg Tablet PO 11/13/24 20:59 40 mg Q12HR DANA Administration Plan In summary: 44-year-old male with history of CVA, HTN, HLD, T2DM presenting with acute dizziness, outside tPA window, admitted for left cerebral hemisphere infarct. Teleneuro recommended ASPIRIN and high-dose statin. In-house neurology, Dr. Castañeda, on board. Hematology, Dr. Hobbs, consulted for chronic erythrocytosis. Appreciate neurology and hematology recommendations. # Acute cerebellar infarct # Hx of right MCA infarct # Hyperlipidemia Presented with acute dizziness, outside tPA window CT head showed nonhemorrhagic infarct right inferior cerebellar hemisphere, no hemorrhage or mass effect. CTA head/neck no stenosis or large vessel disease. MRI with large acute infarct of right cerebellar hemisphere, inferior vermis, and small portion of left cerebellar hemisphere. NIHSS score 0 Teleneuro recommended ASPIRIN and high-dose statin permissive hypertension BP 191/95, HR 81 on admission 10/03 TGC 123, LDL 112, cholesterol 178 10/03 [place] negative for thrombus or PFO, EF 55 to 60% 10/03 A1c 11.2, TSH 2.05 Dr. Castañeda recommended continue current management, no PLAVIX ? Continue ASPIRIN 81 mg daily ? Continue ATORVASTATIN 80 mg HS ? Head elevation 30 degrees ? Speech eval ? Physical therapy ? TYLENOL for fever and headache ? Normal saline 1 L at 75 cc/HR 10/15: Repeat head CT: Large acute infarct right cerebellar hemisphere displacing the fourth ventricle and impinging upon the posterior right margin of the brainstem; No lizy hemorrhagic transformation. Will defer initiating Plavix to neurology, appreciate recommendations. # Hypertensive emergency #Hypertension Patient's BP has consistently been in 200s requiring labetalol pushes even with permissive hypertension. Today 10/15, significant difficulty controlling blood pressure. Home meds nifedipine, Coreg and hydralazine were resumed, in addition to as needed labetalol and hydralazine. Renal artery duplex ultrasound ordered to rule out renal artery stenosis, pending read Can consider consulting nephrology for further recommendations on management # NSTEMI type II, delta trope Likely demand ischemia 2/2 HTN Admission troponin 0.162 then 0.163 EKG sinus rhythm with occasional PVC Denies chest pain or palpitations Previous admission elevated troponin of 0.356 Previous admission, LAWRENCE EF 55?60, no wall motion abnormalities ? Troponin q.6 H ? Antihypertensives as above ? Fluids as above 10/15: [place] noted. Patient denies any chest pain # Erythrocytosis Patient hemoglobin 16.7, baseline around 17.5 No previous workup for hematological disorders Possibly contributing to her recurrent CVA ? Hematology, Dr. Hobbs consulted ? Daily CBC # T2DM Admission GLUCOSE 168, currently 226 10/03 A1c 11.2 ? Accu-Cheks ? INSULIN sliding scale ? Holding home meds ? CHO consistent diet 10/15: Started patient on 10 units Lantus at bedtime Health maintenance Diet: Passed swallow eval, CHO consistent/cardiac diet GI prophylaxis: PROTONIX DVT prophylaxis: SCD Antibiotics: Not indicated CODE STATUS: Full code Disposition: Patient admitted for management of CVA and hypertensive emergency Patient seen and care discussed with my attending Dr. Madison. Marko Rico MD PGY-3 Attending Provider Attestation/Addendum I reviewed labs, imaging, EKG, home medications and prior available records. Face to face evaluation was performed by me. I have personally examined the patient and discussed assessment and plan with the IM team. I reviewed the resident note and agree with the plan with exceptions as below. Acute CVA: Brain MRI showed large right cerebellum which is consistent with the patient's symptoms. In the setting of prior history of CVA. Started aspirin and atorvastatin. Start BP management. Consulted inpatient neurology. Continue frequent neurochecks. Ordered PT evaluation. Erythrocytosis: Noted on H&H. Mild. May contribute to increased risk of CVA. Consulted hematology. Monitor H&H. Hypertensive urgency: Patient's SBP is more than 200. Status post IV hydralazine. He does have headaches likely because of that. Discussed with neurology: Will start oral medications. Continue IV labetalol/IV hydralazine as needed. Monitor BP closely. Repeat CT head. Ordered renal duplex to investigate this resistant hypertension. Uncontrolled diabetes mellitus with hyperglycemia: Start insulin Lantus plus sliding scale insulin. Monitor fingersticks.
[2024-10-15] MEDS: NIFEdipine XL 30 MG TABCR PO (09:14)
[2024-10-15] MEDS: ASPIRIN EC 81 MG TABEC PO (09:14)
[2024-10-15] MEDS: PANTOPRAZOLE 40 MG TABLET PO ×2 (09:15→20:13)
--- NOTE | 2024-10-15 10:46 | PC.PT ---
Attempt to initiate PT evaluation at 1041. Patient's mother at bedside. BP checked on R arm 199/104mmHg; L arm 197/102mmhg. PT eval witheld today due to HTN, Garry [place] made aware.
--- NOTE | 2024-10-15 11:23 | XR_ITS ---
Examination: CT brain head without contrast. 2-D sagittal coronal reconstructions Date and time of exam:October 15, 2024 [address] brain scan October 14, 2024 CTDI: vol (mGy):58.1 DLP: (mGycm):1255 Indications: Post acute stroke, right cerebellar hemisphere left cerebellar hemisphere on brain MRI October 14, 2024 Technique: Multiple CT axial sections of the brain have been obtained, 5 mm slice thickness. Contrast has not been administered. 2-D sagittal, coronal reconstructions have been obtained Low dose protocols were performed. One or more of the following dose reduction techniques were used; automated exposure control, adjustment of the mA and/or KV according to patient size, use of iterative reconstruction technique. Findings: No significant ventricular enlargement. Large acute infarct right cerebellar hemisphere with significant mass effect upon the fourth ventricle and brainstem pontine level No definite acute hemorrhage Intra-axial or extra-axial hemorrhage density is not seen. Basal cisterns are not remarkable. Fourth ventricle is midline. Cranial vault intact. Impression: Large acute infarct right cerebellar hemisphere displacing the fourth ventricle and impinging upon the posterior right margin of the brainstem No lizy hemorrhagic transformation
[2024-10-15] MEDS: carVEDILOL 12.5 MG TABLET PO ×2 (12:18→17:20)
--- NOTE | 2024-10-15 12:19 | PC.NURSE ---
Patient having 10/10 pain headache, tylenol given and notified. Patient reevaluated still having 10/10 pain headache BP 201/103, Dr. Rico notified and carvedilol 12.5mg started ordered.
--- NOTE | 2024-10-15 13:29 | PC.NURSE ---
BP retaken after labetolol, BP on right arm 221/108, BP on left arm 201/102, Dr. Rico notified. Patient having headache 06/18 improved from 08/18 earlier, and feeling lightheaded. Dr. Rico notified.
--- NOTE | 2024-10-15 13:49 | XR_ITS ---
Examination: Renal Doppler sonographic study Exam date and time: October 15, 2024 1619 hrs. Indications: Hypertension several years Technique And Findings: Sonographic images right and left kidneys obtained with assessment peak systolic velocities, assessment resistive indices and calculation or renal aortic ratios Right kidney 12.2 x 6.9 x 7.2 cm Left kidney 12.6 x 6.2 x 6.4 cm Moderate bilateral renal parenchymal scar formation No elevation of peak systolic velocities Normal renal aortic ratios Impression: No findings diagnostic for renal artery stenosis
[2024-10-15] MEDS: hydrALAZINE HCL 25 MG TABLET 50 MG PO ×2 (14:01→21:21)
--- NOTE | 2024-10-15 18:51 | ESPR_ITS ---
Documentation for date of: 10/15/24 Subjective Subjective Interval history: Patient was seen in telemetry at the bedside with his family. Patient continues to have pressure-like sensation, dizziness, vertigo and intractable nausea and vomiting but much better. He finds it hard to sit up. Denies any weakness or paresthesias or lack of coordination in both upper and lower extremities. Exam - Neurology Vital Signs Temp Pulse Resp BP Pulse Ox O2 Del Method 97.8 F 90 22 H 170/99 H 95 Room Air 10/15/24 16:00 10/15/24 17:20 10/15/24 16:00 10/15/24 17:20 10/15/24 16:00 10/15/24 16:00 Narrative Exam GENERAL APPEARANCE: Well hydrated, well-nourished in no acute distress. HEENT: Normocephalic, atraumatic, extraocular movements intact. Pupils: Equal reacting to light and accommodation NECK: Supple, no JVD or bruits. CARDIOVASULAR: Heart: S1, S2 heard, regular without S3-S4 or murmur no rubs or gallops. LUNGS/CHEST: Clear to auscultation bilaterally. No rails, rhonchi, or wheezing. Normal inspection. ABDOMEN: Soft, nontender, with normal bowel sounds. No pulsatile masses. No rebound, rigidity, or guarding. Normal inspection and palpation. EXTREMITIES: Normal inspection and palpation. No edema, clubbing or cyanosis. SKIN: Warm and dry without rashes. Normal inspection. MUSCULOSKELETAL: No cervical, thoracic, lumbar or midline bony tenderness. Normal inspection. NEURO: Alert, awake and oriented x3. Cranial nerves: II through XII grossly intact. Speech and language: Normal with no dysarthria or dysphasia. Motor system: Tone and bulk: Normal: Strength: 5 out of 5 in all 4 extremities; No pronator drift noted. Deep tendon reflexes: 2+ bilaterally symmetrical. Plantar reflex: Downgoing bilaterally. Sensory system: Intact to all modalities of sensation bilaterally. Coordination: Intact to [id number] and isfg-[id number]-yntz test bilaterally. No ataxia, no dysmetria, or dysdiadochokinesia noted. No intention tremors noted. Gait: Not tested. No signs of meningeal irritation noted. PSYCHIATRIC: Normal mood and affect. Objective Labs 10/16/24 04:24 10/16/24 04:24 Labs: Laboratory Results - last 24 hr 10/14/24 10/14/24 10/15/24 19:20 23:40 04:46 WBC 12.5 H RBC 5.87 Hgb 17.0 H Hct 49.8 MCV 85 MCH 29.0 MCHC 34.1 RDW Std Deviation 38.3 Plt Count 297 Neut % (Auto) 83 H Lymph % (Auto) 12 [place] % (Auto) 5 Eos % (Auto) 0 Baso % (Auto) 0 Neut # (Auto) 10.4 H Lymph # (Auto) 1.4 [place] # (Auto) 0.6 Eos # (Auto) 0.0 Baso # (Auto) 0.0 Immature Gran # (Auto) 0.04 H Absolute Nucleated RBC 0.00 Immature Gran % 0 Nucleated RBC % 0 PT 13.1 H INR 1.2 APTT 31.8 Sodium 137 Potassium 3.5 Chloride 102 Carbon Dioxide 24.0 Anion Gap 11 BUN 18 Creatinine 1.0 Estim Creat Clear Calc 118.4 eGFR > 60 BUN/Creatinine Ratio 18 Glucose 167 H D Calculated Osmolality 279 Calcium 9.3 Corrected Calcium 9.3 Phosphorus 3.3 Magnesium 2.2 Total Bilirubin 0.5 AST 21 ALT 41 Alkaline Phosphatase 96 D Troponin I 0.159 H* 0.161 H* Total Protein 7.6 Albumin 4.8 Globulin 2.8 Albumin/Globulin Ratio 1.7 Assessment & Plan Assessment and plan (1) Dizziness: Status: Acute Assessment and plan: Secondary to acute cerebellar CVA Should improve with time (2) Acute CVA (cerebrovascular accident): Status: Acute Assessment and plan: Affecting the right cerebellar hemisphere mainly Will continue to follow him closely as stroke involves the posterior fossa Continue with aspirin for now and then will add Plavix tomorrow to prevent hemorrhagic transformation (3) Hypertension: Status: Acute Assessment and plan: Continue with aggressive blood pressure control (4) Hyperlipidemia: Status: Acute Assessment and plan: Continue with high intensity statin: LDL: 112 (5) Type 2 diabetes mellitus: Status: Chronic Assessment and plan: Needs better control of diabetes as the last A1c: 11.2 (6) Intractable vomiting: Status: Acute Assessment and plan: Secondary to acute cerebellar CVA, should improve with time as the edema resolves.
[2024-10-15] MEDS: ATORVASTATIN CALCIUM 20 MG TABLET 80 MG PO (20:13)
[2024-10-15] MEDS: INSULIN GLARGINE (Lantus) 5 UNIT/0.05 ML (PER 5 UNITS) 10 UNIT SC (20:14)
[2024-10-16] VITALS (17 sets, daily range): BP systolic 155–194; BP diastolic 83–111; PULSE 62–90; RESP 14–22; TEMP 36.1–36.9; O2SAT 95–98; BMI 34.0
[2024-10-16] MEDS: ONDANSETRON INJ 2 MG/ML INJ 2 ML 4 MG IV ×3 (02:49→15:46)
[2024-10-16] MEDS: hydrALAZINE HCL 25 MG TABLET 50 MG PO ×3 (05:04→21:03)
[2024-10-16 05:42] LABS: Basophils # (Auto) 0.1 Thou/mm3 (0.0-0.2); Basophils % (Auto) 1 % (0-2.5); Eosinophils % (Auto) 0 % (0-10); Hematocrit 51.5 % (41.0-53.0); Hemoglobin 17.6 g/dL (13.5-16.0); Immature Granulocytes % (Auto) 0 % (0-0); Immature Granulocytes Auto 0.04 Thou/mm3 (0.00-0.00); Lymphocytes # (Auto) 2.2 Thou/mm3 (1.0-4.8); Lymphocytes % (Auto) 17 % (10-50); Mean Corpuscular HGB Conc 34.2 g/dl (31.0-37.0); Mean Corpuscular Hemoglobin 28.9 pg (25.0-35.0); Mean Corpuscular Volume 85 fL (80-100); Monocytes # (Auto) 0.8 Thou/mm3 (0.0-0.8); Monocytes % (Auto) 6 % (0-12); Neutrophils # (Auto) 9.8 Thou/mm3 (1.8-7.7); Neutrophils % (Auto) 76 % (37-80); Nucleated Red Blood Cell % 0 /100 WBC (0); Platelet Count 231 Thou/mm3 (140-440); RDW Standard Deviation 37.7 fL (35.1-43.9); Red Blood Count 6.09 Miln/mm3 (4.50-5.90); White Blood Count 12.8 Thou/mm3 (3.8-10.6)
[2024-10-16 05:58] LABS: INR 1.2 (0.9-1.3)
[2024-10-16 06:21] LABS: Alanine Aminotransferase 33 U/L (10-49); Albumin, Serum 4.8 gm/dL (3.5-5.0); Albumin/Globulin Ratio 1.8 (1.2-2.2); Alkaline Phosphatase 98 U/L (46-116); Anion Gap 12 (7-16); Aspartate Amino Transferase 25 U/L (0-34); BUN/Creatinine Ratio 14 Ratio (12-20); Bilirubin,Total 0.8 mg/dL (0.3-1.2); Blood Urea Nitrogen 15 mg/dL (9-23); Calcium 9.2 mg/dL (8.3-10.6); Calcium (Corrected) 9.2 mg/dL (8.5-10.1); Carbon Dioxide 21.9 mMol/L (20.0-31.0); Chloride 101 mMol/L (98-107); Creatinine (Component) 1.1 mg/dL (0.6-1.3); Estimated Creatinine Clearance 107.6 mL/min (>60); Globulin 2.7 gm/dL (2.3-3.5); Glucose 148 mg/dL (74-106); Magnesium 2.2 mg/dL (1.6-2.6); Osmolality,Calculated 273 (275-295); Phosphorous 2.1 mg/dL (2.4-5.1); Potassium 4.2 mMol/L (3.4-5.1); Sodium 135 mMol/L (136-145); Total Protein 7.5 gm/dL (5.7-8.2); eGFR > 60 See Note
--- NOTE | 2024-10-16 07:28 | ESPR_ITS ---
Documentation for date of: 10/16/24 Subjective Subjective Interval history: No acute overnight events. Still feels dizzy, but reports improvement. Denies fever, chills, headaches, chest pain, sob, cough, GI or urinary symptoms. PT eval held 2/2 HTN. Exam Vital Signs Temp Pulse Resp BP Pulse Ox O2 Del Method 97.0 F 74 17 158/111 H 97 Room Air 10/16/24 04:00 10/16/24 05:04 10/16/24 04:00 10/16/24 05:04 10/16/24 04:00 10/16/24 04:00 Narrative Exam GENERAL: Normal appearing adult male, NAD, complains of headaches and dizziness, on room air HEENT: NCAT.?KEYUR. Oral mucosa is moist. Patent Nares NECK: Supple, nontender, no thyromegaly, no meningismus, no JVD, no step offs CHEST: Symmetrical, atraumatic, and with equal expansion, Nontender on palpation no deformity and no crepitus. CARDIOVASCULAR: RRR, no m/g/r LUNGS: CTAB, no w/r/r. Symmetrical chest rise. No intercostal subcostal retraction. ABDOMEN: Soft, flat, nontender. No guarding/rebound tenderness/masses. +BS EXTREMITIES: Nontender.? No edema/cyanosis.?Moves all 4 extremities well, with full ROM and good CSM. SKIN: Warm and dry, no jaundice/rashes. MSK: No lumbar or midline, no CVA, no paraspinal muscle spasm or tenderness. NEURO: SUTTON x4, CN II-XII grossly intact.?No focal neurologic deficits. PSYCHIATRIC: Normal mood and affect, cooperative, no SI or HI or hallucinations. Objective Labs 10/16/24 04:24 10/16/24 04:24 Labs: Laboratory Results - last 24 hr 10/16/24 04:24 WBC 12.8 H RBC 6.09 H Hgb 17.6 H* Hct 51.5 MCV 85 MCH 28.9 MCHC 34.2 RDW Std Deviation 37.7 Plt Count 231 D Neut % (Auto) 76 Lymph % (Auto) 17 [place] % (Auto) 6 Eos % (Auto) 0 Baso % (Auto) 1 Neut # (Auto) 9.8 H Lymph # (Auto) 2.2 [place] # (Auto) 0.8 Eos # (Auto) 0.0 Baso # (Auto) 0.1 Immature Gran # (Auto) 0.04 H Absolute Nucleated RBC 0.00 Immature Gran % 0 Nucleated RBC % 0 PT 13.0 H INR 1.2 Sodium 135 L Potassium 4.2 D Chloride 101 Carbon Dioxide 21.9 Anion Gap 12 BUN 15 Creatinine 1.1 Estim Creat Clear Calc 107.6 eGFR > 60 BUN/Creatinine Ratio 14 Glucose 148 H Calculated Osmolality 273 L Calcium 9.2 Corrected Calcium 9.2 Phosphorus 2.1 L Magnesium 2.2 Total Bilirubin 0.8 AST 25 ALT 33 Alkaline Phosphatase 98 Total Protein 7.5 Albumin 4.8 Globulin 2.7 Albumin/Globulin Ratio 1.8 Quality Measures Quality Measures none Assessment & Plan Assessment Current Active Medications: Generic Name Dose Route Start Last Admin Trade Name Freq PRN Reason Stop Dose Admin Acetaminophen 650 mg 10/14/24 11:32 Acetaminophen 325 Mg Tablet PO 11/13/24 11:31 Q6H PRN Fever >100.4 Acetaminophen 650 mg 10/14/24 11:32 10/15/24 17:21 Acetaminophen 325 Mg Tablet PO 11/13/24 11:31 650 mg Q6H PRN Administration PAIN SCALE 1-3 (mild Aspirin 81 mg 10/15/24 09:00 10/15/24 09:14 Aspirin Ec 81 Mg Tabec PO 11/14/24 08:59 81 mg QDAY DANA Administration Atorvastatin Calcium 80 mg 10/14/24 21:00 10/15/24 20:13 Atorvastatin Calcium 20 Mg Tablet PO 11/13/24 20:59 80 mg HS DANA Administration Carvedilol 12.5 mg 10/15/24 12:15 10/15/24 17:20 Carvedilol 12.5 Mg Tablet PO 11/14/24 12:14 12.5 mg BIDWM DANA Administration Dextrose 25 ml 10/14/24 14:01 Dextrose 50%-Water Inj 50 Ml Syringe IV 11/13/24 14:00 Q15MIN PRN BG 50-70 responsive npo pt Dextrose 50 ml 10/14/24 14:01 Dextrose 50%-Water Inj 50 Ml Syringe IV 11/13/24 14:00 Q15MIN PRN BG <50 OR BG <70 & pt unresponsive Glucagon 1 mg 10/14/24 14:01 Glucagon Inj 1 Mg Vial IM Q15MIN PRN BG <70, and no IV access Hydralazine HCl 50 mg 10/15/24 14:00 10/16/24 05:04 Hydralazine Hcl 25 Mg Tablet PO 11/14/24 13:59 50 mg TID DANA Administration Hydralazine HCl 10 mg 10/15/24 13:47 Hydralazine Inj 20 Mg/Ml Vial IV 11/14/24 13:46 Q4HR PRN SBP > 180 Insulin Glargine 10 unit 10/15/24 21:00 10/15/24 20:14 Insulin Glargine (Lantus) 5 Unit/0.05 Ml (Per 5 Units) SC 11/14/24 20:59 10 unit HS DANA Administration Insulin Human Lispro 0 unit 10/14/24 17:00 10/15/24 20:14 Insulin Lispro (Admelog) 1 Unit/0.01 Ml Unit SC 11/13/24 16:59 2 unit ACHS DANA Administration Protocol Labetalol HCl 10 mg 10/15/24 13:47 Labetalol Inj 5 Mg/Ml Vial 20 Ml IVP 11/14/24 13:46 Q4HR PRN Sbp > 180 Losartan Potassium 100 mg 10/16/24 09:00 Losartan Potassium 25 Mg Tablet PO 11/15/24 08:59 QDAY DANA Nifedipine 30 mg 10/15/24 09:00 10/15/24 09:14 Nifedipine Xl 30 Mg Tabcr PO 11/14/24 08:59 30 mg QDAY DANA Administration Ondansetron HCl 4 mg 10/14/24 02:57 10/14/24 08:59 Ondansetron Inj 2 Mg/Ml Inj 2 Ml IV 4 mg Q1HR PRN Administration PERSISTENT NAUSEA OR VOMITING Ondansetron HCl 4 mg 10/14/24 03:07 10/16/24 02:49 Ondansetron Inj 2 Mg/Ml Inj 2 Ml IV 11/13/24 03:06 4 mg Q4HR PRN Administration NAUSEA OR VOMITING Oxycodone/Acetaminophen 1 tab 10/14/24 11:32 10/15/24 05:05 Oxycodone/Apap 5/325 Tablet PO 10/19/24 11:31 1 tab Q6H PRN Administration PAIN SCALE 4-6 (Moderate Pantoprazole Sodium 40 mg 10/14/24 21:00 10/15/24 20:13 Pantoprazole 40 Mg Tablet PO 11/13/24 20:59 40 mg Q12HR DANA Administration Plan In summary: 44-year-old male with history of CVA, HTN, HLD, T2DM presenting with acute dizziness, outside tPA window, admitted for left cerebral hemisphere infarct. Teleneuro recommended ASPIRIN and high-dose statin. In-house neurology, Dr. Castañeda, on board. Hematology, Dr. Hobbs, consulted for chronic erythrocytosis. Appreciate neurology and hematology recommendations. BP 158/111, HR 74, had 1 PVC overnight WBC 12.8, Hgb 17.6 Phosphorus 2.1, repleted # Acute cerebellar infarct # Hx of right MCA infarct # Hyperlipidemia Presented with acute dizziness, outside tPA window CT head showed nonhemorrhagic infarct right inferior cerebellar hemisphere, no hemorrhage or mass effect. CTA head/neck no stenosis or large vessel disease. MRI with large acute infarct of right cerebellar hemisphere, inferior vermis, and small portion of left cerebellar hemisphere. NIHSS score 0 Teleneuro recommended ASPIRIN and high-dose statin permissive hypertension 10/[address] with large acute infarct right cerebellar hemisphere displacing the fourth ventricle and impinging upon the posterior right margin of the brainstem; No lizy hemorrhagic transformation. BP 191/95, HR 81 on admission 10/03 TGC 123, LDL 112, cholesterol 178 10/03 LAWRENCE negative for thrombus or PFO, EF 55 to 60% 10/03 A1c 11.2, TSH 2.05 Dr. Castañeda recommended ASPIRIN, adding PLAVIX later on ? Continue ASPIRIN 81 mg daily ? Continue ATORVASTATIN 80 mg HS ? Started PLAVIX 5 mg daily ? Head elevation 30 degrees ? Speech eval ? Physical therapy ? TYLENOL for fever and headache ? Normal saline 1 L at 75 cc/HR # Hypertensive emergency # Hypertension Patient's BP has consistently been in 200s requiring labetalol pushes even with permissive hypertension. Today 10/15, significant difficulty controlling blood pressure. Renal artery US no renal artery stenosis Can consider consulting nephrology for further recommendations on management. BP 158/111, currently still elevated, increase NIFEDIPINE to 60 mg daily, nephrology consulted ? Continue home LOSARTAN 100 mg daily ? Continue home NIFEDIPINE 60 mg daily ? Continue home CARVEDILOL 12.5 mg BID ? Continue home HYDRALAZINE 50 mg TID ? Continue LABETALOL PRN, goal SBP <170 ? Pending nephrology recommendations # NSTEMI type II, delta trope Likely demand ischemia 2/2 HTN Admission troponin 0.162 then 0.163 EKG sinus rhythm with occasional PVC Denies chest pain or palpitations Previous admission elevated troponin of 0.356 Previous admission, LAWRENCE EF 55?60, no wall motion abnormalities ? Troponin q.6 H ? Antihypertensives as above ? Fluids as above # Erythrocytosis Patient hemoglobin 16.7, baseline around 17.5 No previous workup for hematological disorders Possibly contributing to her recurrent CVA ? Hematology, Dr. Hobbs consulted ? Daily CBC # T2DM Admission GLUCOSE 168, currently 172 10/03 A1c 11.2 ? Accu-Cheks ? Continue LANTUS 10 unit HS ? INSULIN sliding scale ? Holding home meds ? CHO consistent diet # Hypophosphatemia Phosphate 2.1 ? Repleted Health maintenance Diet: Passed swallow eval, CHO consistent/cardiac diet GI prophylaxis: PROTONIX DVT prophylaxis: SCD Antibiotics: Not indicated CODE STATUS: Full code Disposition: Patient admitted for management of CVA and hypertensive emergency Patient case was discussed with attending, Garcia Madison MD and senior resident Dr. Cummings. Kati Brooks DO PGYI Attending Provider Attestation/Addendum I reviewed labs, imaging, EKG, home medications and prior available records. Face to face evaluation was performed by me. I have personally examined the patient and discussed assessment and plan with the IM team. I reviewed the resident note and agree with the plan with exceptions as below. Acute CVA: Brain MRI showed large right cerebellum which is consistent with the patient's symptoms. In the setting of prior history of CVA. Started aspirin and atorvastatin. Start BP management. Consulted inpatient neurology. Continue frequent neurochecks. Ordered PT evaluation. Erythrocytosis: Noted on H&H. Mild. May contribute to increased risk of CVA. Consulted hematology. Monitor H&H. Hypertensive urgency: His BP remains not well-controlled. Started oral antihypertensive treatment. Increased nifedipine. Repeat CT head: Showed no interval changes. Ordered renal duplex to investigate this resistant hypertension that showed no renal artery stenosis. Consulted nephrology. Uncontrolled diabetes mellitus with hyperglycemia: Start insulin Lantus plus sliding scale insulin. Monitor fingersticks.
[2024-10-16] MEDS: INSULIN LISPRO (AdmeLOG) 1 UNIT/0.01 ML UNIT SC ×4 (07:44→21:01)
[2024-10-16] MEDS: LABETALOL INJ 5 MG/ML VIAL 20 ML 10 MG IVP ×2 (07:45→15:37)
[2024-10-16] MEDS: POT PHOS 15 mMol in NS 250 ML 15 MMOL/250 ML BAG 62.5 MMOL IV (08:15)
[2024-10-16] MEDS: LOSARTAN POTASSIUM 25 MG TABLET 100 MG PO (09:41)
[2024-10-16] MEDS: ASPIRIN EC 81 MG TABEC PO (09:42)
[2024-10-16] MEDS: NIFEdipine XL 30 MG TABCR PO (09:42)
[2024-10-16] MEDS: PANTOPRAZOLE 40 MG TABLET PO ×2 (09:42→21:00)
[2024-10-16] MEDS: carVEDILOL 12.5 MG TABLET PO ×2 (09:42→17:09)
[2024-10-16] MEDS: CLOPIDOGREL BISULFATE 75 MG TABLET PO (09:47)
[2024-10-16] MEDS: ACETAMINOPHEN 325 MG TABLET 650 MG PO (11:24)
[2024-10-16] MEDS: hydrALAZINE INJ 20 MG/ML VIAL 10 MG IV (12:03)
--- NOTE | 2024-10-16 15:52 | PD.NEPHCONS ---
History of Present Illness Data of Consult Consult date: 10/16/24 Requesting Physician: Garcia Madison MD Primary Care Provider: Physician No Primary/Family Consult Narrative Reason for consult: Uncontrolled hypertension History of present illness: Informant chart review done Mr. Penaloza is a 44-year-old male past medical history significant for recent right MCA stroke, HTN, HLD, T2DM, bicuspid aortic valve with moderate stenosis presented to the emergency department with dizziness and nausea and vomiting. In the emergency department stroke alert was initiated.CT head showed nonhemorrhagic infarct of right inferior cerebellar hemisphere, negative for hemorrhage or mass effect. CTA head/neck no significant neck arterial stenosis or stable large vessel occlusion or thrombus. MRI showed large acute infarct of right cerebellar hemisphere, inferior vermis and small portion of left cerebellar hemisphere. Teleneurology was consulted. They recommended aspirin, statins, permissive hypertension. Patient was on aspirin, statin, carvedilol, hydralazine, insulin, losartan/hydrochlorothiazide, metformin, nifedipine at home. In the emergency department Afebrile, BP 191/95, HR 81, satting 96% on room air. Troponin 0.162 then 0.163, EKG showed sinus rhythm with occasional PVCs, no acute ST changes. ALP 129, ALT 51, AST normal, GLUCOSE 226. WBC 11.7, hemoglobin 16.7 with baseline around 17.4. UA negative for UTI U-Tox negative Per chart review, recent admission 10/02 for acute encephalopathy and hypertensive emergency with NIHSS score of 6. CT head then was negative, CTA showed possible P1 stenosis. MRI was also negative for acute pathology but demonstrated large old infarct of right MCA. TTE and LAWRENCE were done showing suspicious echogenic structure in LVOT, bicuspid aortic valve with moderate stenosis and calcification, negative for PFO or thrombus. Patient was admitted for possible repeat stroke. Dr Castañeda was consulted. Blood pressure continues to be significantly elevated despite on for class medications. Current blood pressure 185/103. Renal Doppler showed no renal artery stenosis. Renal consultation requested for malignant hypertension. 10/16/2024 WBC 12.8, hemoglobin 17.6, platelets 231. Sodium 135, potassium 4.2, bicarbonate 21.9, creatinine 1.1, glucose 148, phosphorus 2.1, calcium 9.2, magnesium 2.2, LFTs normal Patient currently seen in telemetry. cc:: cc: Garcia Madison MD Review of Systems Review of Systems Narrative Review of Systems: CONSTITUTIONAL: Patient denies any fever, chills. Complaining of fatigue HEENT: Denies any visual disturbances or hearing problems. CARDIOVASCULAR: Patient denies any chest pain, shortness of breath, swelling in the lower extremities. PULMONARY: Patient denies any shortness of breath, cough. GASTROINTESTINAL: Patient denies any abdominal pain, constipation, nausea, vomiting, diarrhea. GENITOURINARY: Patient denies any urinary symptoms of burning or frequency or hematuria, denies any form in the urine. SKIN: Denies any rash. MUSCULOSKELETAL: Denies any muscular skeletal problems of joint pains. NEUROLOGICAL: Complaining of headaches Past Medical History Past Medical History NEUROLOGIC: Positive Cerebrovascular Accident (2017); Negative Seizures CARDIAC: Positive Hypercholesterolemia and Hypertension; Negative Congestive Heart Failure RESPIRATORY: Negative Respiratory Disorders or Chronic Obstructive Pulmonary Disease (COPD) GENITOURINARY: Negative Renal Disease ENDOCRINE: Positive Diabetes Mellitus Type 2; Negative Diabetes Mellitus Type 1 OTHER HISTORY: Positive Hospitalization (2017); Negative Autoimmune Disease, Falls, Blood Transfusions or Anesthesia Reactions (previous anesthesia) Family History FAMILY HISTORY: Positive Family Cardiac Disorders (HTN); Negative Family Psychiatric Problems, Family Respiratory Disorders, Family Gastrointestinal Problems, Family Genitourinary Problems, Family Endocrine Disorders, Family Reproductive Disorders, Family Musculoskeletal Disorders, Family Cancer, Family Surgery or Family Anesthesia Reaction Social History SMOKING STATUS: Former smoker Meds Home Medications and Allergies Home Medications ?Medication ?Instructions ?Recorded ?Confirmed ?Type hydralazine 50 mg tablet 50 mg PO TID 10/02/24 10/14/24 History losartan 100 1 tab PO QDAY 10/02/24 10/14/24 History mg-hydrochlorothiazide 25 mg tablet metformin 1,000 mg tablet 1,000 mg PO BID 10/02/24 10/14/24 History Allergies Allergy/AdvReac Type Severity Reaction Status Date / Time No Known Allergies Allergy Verified 10/02/24 16:59 Exam Vital Signs Temp Pulse Resp BP Pulse Ox O2 Del Method 36.8 C 75 20 185/103 H 97 Room Air 10/16/24 12:00 10/16/24 15:37 10/16/24 12:00 10/16/24 15:37 10/16/24 12:00 10/16/24 12:00 Narrative Exam GENERAL APPEARANCE: Patient seems to be comfortable, adequately hydrated and nourished. HEENT: EOMI, PERRLA NECK: Neck supple, no JVD or bruit CARDIOVASCULAR: Heart regular, no murmurs LUNGS/CHEST: Chest clear to auscultation. No rales, rhonchi, wheezing ABDOMEN: Soft, nontender, nondistended. No masses. Normal bowel sounds. EXTREMITIES: No edema, clubbing or cyanosis. SKIN: Skin exam normal without any rashes MUSCULOSKELETAL: Musculoskeletal exam normal PSYCHIATRIC: Normal mood, affect LYMPHATICS: No lymphadenopathy noted NEUROLOGICAL : No neurological deficits-able to move his extremities. Complaining of occipital headaches and dizziness Results Labs 10/16/24 04:24 10/16/24 04:24 Labs: Short CBC 10/16/24 Range/Units 04:24 WBC 12.8 H (3.8-10.6) Thou/mm3 Hgb 17.6 H* (13.5-16.0) g/dL Hct 51.5 (41.0-53.0) % Plt Count 231 D (140-440) Thou/mm3 BMP 10/16/24 04:24 Sodium 135 L Potassium 4.2 D Chloride 101 Carbon Dioxide 21.9 BUN 15 Creatinine 1.1 Glucose 148 H Calcium 9.2 Liver Function 10/16/24 Range/Units 04:24 Total Bilirubin 0.8 (0.3-1.2) mg/dL AST 25 (0-34) U/L ALT 33 (10-49) U/L Alkaline Phosphatase 98 (46-116) U/L Albumin 4.8 (3.5-5.0) gm/dL Assessment & Plan Assessment and plan (1) Dizziness: Status: Acute (2) Acute CVA (cerebrovascular accident): Status: Acute (3) Hypertension: Status: Acute (4) Hyperlipidemia: Status: Acute (5) Type 2 diabetes mellitus: Status: Chronic (6) Intractable vomiting: Status: Acute Additional Assessment & Plan Additional Plan: # Malignant hypertension - Patient currently on 4 class medication (carvedilol, hydralazine, losartan, nifedipine) suspect secondary hypertension. Renin, aldosterone, 24-hour urine for catecholamines ordered. Added spironolactone. Had a long conversation with mom at bedside who had several questions which were answered to her satisfaction Renal Doppler showed renal artery stenosis # Acute cerebellar infarct-complaining of headaches, dizziness. Dr Castañeda on the case # Hx of right MCA infarct # Hyperlipidemia # Diabetes mellitus Thank you Garcia for allowing me to participate in the care of Marcelle Penaloza
[2024-10-16] MEDS: ATORVASTATIN CALCIUM 20 MG TABLET 80 MG PO (21:00)
[2024-10-16] MEDS: INSULIN GLARGINE (Lantus) 5 UNIT/0.05 ML (PER 5 UNITS) 10 UNIT SC (21:01)
[2024-10-16] MEDS: SPIRONOLACTONE 25 MG TABLET 50 MG PO (21:02)
--- NOTE | 2024-10-16 22:03 | PD.VPROG1 ---
Telemedicine visit statement This visit was conducted with the use of phone was obtained on 10/16/24 at 2203. Documentation for date of: 10/16/24 Subjective Subjective Interval history: Patient is in telemetry. His blood pressure is getting better controlled on carvedilol, losartan,, hydralazine, nifedipine and Aldactone. No new symptoms reported. He is able to tolerate oral diet. Virtual exam Vital Signs Temp Pulse Resp BP Pulse Ox O2 Del Method 98.5 F 87 14 158/83 H 95 Room Air 10/16/24 20:00 10/16/24 21:03 10/16/24 20:00 10/16/24 21:03 10/16/24 20:00 10/16/24 20:00 Objective Labs 10/16/24 04:24 10/16/24 04:24 Labs: Laboratory Results - last 24 hr 10/16/24 04:24 WBC 12.8 H RBC 6.09 H Hgb 17.6 H* Hct 51.5 MCV 85 MCH 28.9 MCHC 34.2 RDW Std Deviation 37.7 Plt Count 231 D Neut % (Auto) 76 Lymph % (Auto) 17 [place] % (Auto) 6 Eos % (Auto) 0 Baso % (Auto) 1 Neut # (Auto) 9.8 H Lymph # (Auto) 2.2 [place] # (Auto) 0.8 Eos # (Auto) 0.0 Baso # (Auto) 0.1 Immature Gran # (Auto) 0.04 H Absolute Nucleated RBC 0.00 Immature Gran % 0 Nucleated RBC % 0 PT 13.0 H INR 1.2 Sodium 135 L Potassium 4.2 D Chloride 101 Carbon Dioxide 21.9 Anion Gap 12 BUN 15 Creatinine 1.1 Estim Creat Clear Calc 107.6 eGFR > 60 BUN/Creatinine Ratio 14 Glucose 148 H Calculated Osmolality 273 L Calcium 9.2 Corrected Calcium 9.2 Phosphorus 2.1 L Magnesium 2.2 Total Bilirubin 0.8 AST 25 ALT 33 Alkaline Phosphatase 98 Total Protein 7.5 Albumin 4.8 Globulin 2.7 Albumin/Globulin Ratio 1.8 Assessment & Plan Plan (1) Dizziness: Secondary to acute cerebellar CVA Should improve with time (2) Acute CVA (cerebrovascular accident): Affecting the right cerebellar hemisphere mainly Will continue to follow him closely as stroke involves the posterior fossa Continue with aspirin and Plavix as the repeat CT did not show any bleed from yesterday. Will continue to monitor his mental status and neuroexam closely with aggressive blood pressure control. (3) Hypertension: Continue with aggressive blood pressure control Noted nephrology was consulted for blood pressure management, workup has been negative so far including renal artery Doppler for renal artery stenosis. Renin, aldosterone, 24-hour urinary catecholamines are pending. Spironolactone was added. (4) Hyperlipidemia: Continue with high intensity statin: LDL: 112 (5) Type 2 diabetes mellitus: Needs better control of diabetes as the last A1c: 11.2 (6) Intractable vomiting: Improving secondary to acute cerebellar CVA, should improve with time as the edema resolves.
[2024-10-17] VITALS (22 sets, daily range): BP systolic 171–198; BP diastolic 86–113; PULSE 56–86; RESP 12–19; TEMP 36.2–37; O2SAT 92–98; BMI 34.0
[2024-10-17] MEDS: ACETAMINOPHEN 325 MG TABLET 650 MG PO ×2 (00:05→23:17)
[2024-10-17] MEDS: LABETALOL INJ 5 MG/ML VIAL 20 ML 10 MG IVP ×3 (00:06→15:59)
[2024-10-17 05:00] LABS: Basophils % (Auto) 0 % (0-2.5); Eosinophils % (Auto) 0 % (0-10); Hematocrit 52.9 % (41.0-53.0); Hemoglobin 17.7 g/dL (13.5-16.0); Immature Granulocytes % (Auto) 0 % (0-0); Immature Granulocytes Auto 0.03 Thou/mm3 (0.00-0.00); Lymphocytes # (Auto) 2.7 Thou/mm3 (1.0-4.8); Lymphocytes % (Auto) 23 % (10-50); Mean Corpuscular HGB Conc 33.5 g/dl (31.0-37.0); Mean Corpuscular Hemoglobin 28.2 pg (25.0-35.0); Mean Corpuscular Volume 84 fL (80-100); Monocytes # (Auto) 0.7 Thou/mm3 (0.0-0.8); Monocytes % (Auto) 6 % (0-12); Neutrophils % (Auto) 70 % (37-80); Nucleated Red Blood Cell % 0 /100 WBC (0); Platelet Count 316 Thou/mm3 (140-440); RDW Standard Deviation 38.1 fL (35.1-43.9); Red Blood Count 6.28 Miln/mm3 (4.50-5.90); White Blood Count 11.5 Thou/mm3 (3.8-10.6)
[2024-10-17 05:07] LABS: INR 1.2 (0.9-1.3)
[2024-10-17 05:13] LABS: Alanine Aminotransferase 38 U/L (10-49); Albumin/Globulin Ratio 1.8 (1.2-2.2); Alkaline Phosphatase 97 U/L (46-116); Anion Gap 10 (7-16); Aspartate Amino Transferase 20 U/L (0-34); BUN/Creatinine Ratio 15 Ratio (12-20); Bilirubin,Total 0.9 mg/dL (0.3-1.2); Blood Urea Nitrogen 17 mg/dL (9-23); Calcium 9.4 mg/dL (8.3-10.6); Calcium (Corrected) 9.4 mg/dL (8.5-10.1); Carbon Dioxide 25.3 mMol/L (20.0-31.0); Chloride 101 mMol/L (98-107); Creatinine (Component) 1.1 mg/dL (0.6-1.3); Estimated Creatinine Clearance 107.6 mL/min (>60); Globulin 2.8 gm/dL (2.3-3.5); Glucose 156 mg/dL (74-106); Magnesium 2.4 mg/dL (1.6-2.6); Osmolality,Calculated 276 (275-295); Phosphorous 2.9 mg/dL (2.4-5.1); Potassium 3.9 mMol/L (3.4-5.1); Sodium 136 mMol/L (136-145); Total Protein 7.8 gm/dL (5.7-8.2); eGFR > 60 See Note
[2024-10-17] MEDS: hydrALAZINE HCL 25 MG TABLET 50 MG PO ×3 (05:33→23:19)
--- NOTE | 2024-10-17 07:24 | ESPR_ITS ---
<Statement entered by Marko Rico MD - 10/18/24 08:23> Patient was seen and examined by me personally. I agree with most of the assessment and plan as discussed with the pharmacy grad intern physician, and my attending, Dr. Madison. Vitals, labs reviewed. HTN remains uncontrolled, nephrology following appreciate recs. Adjusting antiHTN regimen, with prn labetalol & hydralazine. Work up ordered (renin, freya, catecholamines). Discussed case with hematology, recommending BM biopsy and therapeutic phlebo. Will discuss case with neuro to hold plavix in anticipation of biopsy. Pending PT eval. Marko Rico MD, PGY-3 Documentation for date of: 10/17/24 Subjective Subjective Interval history: No acute overnight events. PT evaluation still pending. Denies fever, chills, headaches, chest pain, sob, cough, GI or urinary symptoms. PT unable to evaluate patient 2/2 HTN. Will revisit tomorrow. Exam Vital Signs Temp Pulse Resp BP Pulse Ox O2 Del Method 97.9 F 83 14 176/96 H 95 Room Air 10/17/24 04:00 10/17/24 05:33 10/17/24 04:00 10/17/24 05:33 10/17/24 04:00 10/17/24 04:00 Narrative Exam GENERAL: Normal appearing adult male, NAD, complains of headaches and dizziness, on room air HEENT: NCAT.?KEYUR. Oral mucosa is moist. Patent Nares NECK: Supple, nontender, no thyromegaly, no meningismus, no JVD, no step offs CHEST: Symmetrical, atraumatic, and with equal expansion, Nontender on palpation no deformity and no crepitus. CARDIOVASCULAR: RRR, no m/g/r LUNGS: CTAB, no w/r/r. Symmetrical chest rise. No intercostal subcostal retraction. ABDOMEN: Soft, flat, nontender. No guarding/rebound tenderness/masses. +BS EXTREMITIES: Nontender.? No edema/cyanosis.?Moves all 4 extremities well, with full ROM and good CSM. SKIN: Warm and dry, no jaundice/rashes. MSK: No lumbar or midline, no CVA, no paraspinal muscle spasm or tenderness. NEURO: SUTTON x4, CN II-XII grossly intact.?No focal neurologic deficits. PSYCHIATRIC: Normal mood and affect, cooperative, no SI or HI or hallucinations. Objective Labs 10/17/24 14:21 10/17/24 04:13 Labs: Laboratory Results - last 24 hr 10/17/24 04:13 WBC 11.5 H RBC 6.28 H Hgb 17.7 H* Hct 52.9 MCV 84 MCH 28.2 MCHC 33.5 RDW Std Deviation 38.1 Plt Count 316 D Neut % (Auto) 70 Lymph % (Auto) 23 [place] % (Auto) 6 Eos % (Auto) 0 Baso % (Auto) 0 Neut # (Auto) 8.0 H Lymph # (Auto) 2.7 [place] # (Auto) 0.7 Eos # (Auto) 0.0 Baso # (Auto) 0.0 Immature Gran # (Auto) 0.03 H Absolute Nucleated RBC 0.00 Immature Gran % 0 Nucleated RBC % 0 PT 13.0 H INR 1.2 Sodium 136 Potassium 3.9 Chloride 101 Carbon Dioxide 25.3 Anion Gap 10 BUN 17 Creatinine 1.1 Estim Creat Clear Calc 107.6 eGFR > 60 BUN/Creatinine Ratio 15 Glucose 156 H Calculated Osmolality 276 Calcium 9.4 Corrected Calcium 9.4 Phosphorus 2.9 Magnesium 2.4 Total Bilirubin 0.9 AST 20 ALT 38 Alkaline Phosphatase 97 Total Protein 7.8 Albumin 5.0 Globulin 2.8 Albumin/Globulin Ratio 1.8 Quality Measures Quality Measures none Assessment & Plan Assessment Current Active Medications: Generic Name Dose Route Start Last Admin Trade Name Freq PRN Reason Stop Dose Admin Acetaminophen 650 mg 10/14/24 11:32 Acetaminophen 325 Mg Tablet PO 11/13/24 11:31 Q6H PRN Fever >100.4 Acetaminophen 650 mg 10/14/24 11:32 10/17/24 00:05 Acetaminophen 325 Mg Tablet PO 11/13/24 11:31 650 mg Q6H PRN Administration PAIN SCALE 1-3 (mild Aspirin 81 mg 10/15/24 09:00 10/16/24 09:42 Aspirin Ec 81 Mg Tabec PO 11/14/24 08:59 81 mg QDAY DANA Administration Atorvastatin Calcium 80 mg 10/14/24 21:00 10/16/24 21:00 Atorvastatin Calcium 20 Mg Tablet PO 11/13/24 20:59 80 mg HS DANA Administration Carvedilol 12.5 mg 10/15/24 12:15 10/16/24 17:09 Carvedilol 12.5 Mg Tablet PO 11/14/24 12:14 12.5 mg BIDWM DANA Administration Clopidogrel Bisulfate 75 mg 10/16/24 09:45 10/16/24 09:47 Clopidogrel Bisulfate 75 Mg Tablet PO 11/15/24 09:44 75 mg QDAY DANA Administration Dextrose 25 ml 10/14/24 14:01 Dextrose 50%-Water Inj 50 Ml Syringe IV 11/13/24 14:00 Q15MIN PRN BG 50-70 responsive npo pt Dextrose 50 ml 10/14/24 14:01 Dextrose 50%-Water Inj 50 Ml Syringe IV 11/13/24 14:00 Q15MIN PRN BG <50 OR BG <70 & pt unresponsive Glucagon 1 mg 10/14/24 14:01 Glucagon Inj 1 Mg Vial IM Q15MIN PRN BG <70, and no IV access Hydralazine HCl 50 mg 10/15/24 14:00 10/17/24 05:33 Hydralazine Hcl 25 Mg Tablet PO 11/14/24 13:59 50 mg TID DANA Administration Hydralazine HCl 10 mg 10/15/24 13:47 10/16/24 12:03 Hydralazine Inj 20 Mg/Ml Vial IV 11/14/24 13:46 10 mg Q4HR PRN Administration SBP > 180 Insulin Glargine 10 unit 10/15/24 21:00 10/16/24 21:01 Insulin Glargine (Lantus) 5 Unit/0.05 Ml (Per 5 Units) SC 11/14/24 20:59 10 unit HS DANA Administration Insulin Human Lispro 0 unit 10/14/24 17:00 10/16/24 21:01 Insulin Lispro (Admelog) 1 Unit/0.01 Ml Unit SC 11/13/24 16:59 2 unit ACHS DANA Administration Protocol Labetalol HCl 10 mg 10/15/24 13:47 10/17/24 04:21 Labetalol Inj 5 Mg/Ml Vial 20 Ml IVP 11/14/24 13:46 10 mg Q4HR PRN Administration Sbp > 180 Losartan Potassium 100 mg 10/16/24 09:00 10/16/24 09:41 Losartan Potassium 25 Mg Tablet PO 11/15/24 08:59 100 mg QDAY DANA Administration Nifedipine 60 mg 10/17/24 09:00 Nifedipine Xl 30 Mg Tabcr PO 11/16/24 08:59 QDAY DANA Ondansetron HCl 4 mg 10/14/24 02:57 10/14/24 08:59 Ondansetron Inj 2 Mg/Ml Inj 2 Ml IV 4 mg Q1HR PRN Administration PERSISTENT NAUSEA OR VOMITING Ondansetron HCl 4 mg 10/14/24 03:07 10/16/24 15:46 Ondansetron Inj 2 Mg/Ml Inj 2 Ml IV 11/13/24 03:06 4 mg Q4HR PRN Administration NAUSEA OR VOMITING Oxycodone/Acetaminophen 1 tab 10/14/24 11:32 10/15/24 05:05 Oxycodone/Apap 5/325 Tablet PO 10/19/24 11:31 1 tab Q6H PRN Administration PAIN SCALE 4-6 (Moderate Pantoprazole Sodium 40 mg 10/14/24 21:00 10/16/24 21:00 Pantoprazole 40 Mg Tablet PO 11/13/24 20:59 40 mg Q12HR DANA Administration Spironolactone 50 mg 10/16/24 21:00 10/16/24 21:02 Spironolactone 25 Mg Tablet PO 11/15/24 20:59 50 mg BID DANA Administration Plan In summary: 44-year-old male with history of CVA, HTN, HLD, T2DM presenting with acute dizziness, outside tPA window, admitted for left cerebral hemisphere infarct. Teleneuro recommended ASPIRIN and high-dose statin. In-house neurology, Dr. Castañeda, on board. . Pending nephrology recommendation for blood pressure. Hematology, Dr. Hobbs, consulted for chronic erythrocytosis, which likely cause of resistant hypertension, recommended marrow aspiration. Holding PLAVIX, continued on HEPARIN drip Appreciate neurology and hematology recommendations. # Acute cerebellar infarct # Hx of right MCA infarct # Hyperlipidemia Presented with acute dizziness, outside tPA window CT head showed nonhemorrhagic infarct right inferior cerebellar hemisphere, no hemorrhage or mass effect. CTA head/neck no stenosis or large vessel disease. MRI with large acute infarct of right cerebellar hemisphere, inferior vermis, and small portion of left cerebellar hemisphere. NIHSS score 0 Teleneuro recommended ASPIRIN and high-dose statin permissive hypertension 10/[address] with large acute infarct right cerebellar hemisphere displacing the fourth ventricle and impinging upon the posterior right margin of the brainstem; No lizy hemorrhagic transformation. BP 191/95, HR 81 on admission 10/03 TGC 123, LDL 112, cholesterol 178 10/03 LAWRENCE negative for thrombus or PFO, EF 55 to 60% 10/03 A1c 11.2, TSH 2.05 Dr. Castañeda recommended ASPIRIN, adding PLAVIX later on Dr. Marques's recommended phlebotomy and bone marrow biopsy ? Continue ASPIRIN 81 mg daily ? Continue ATORVASTATIN 80 mg HS ? Holding PLAVIX [address] marrow biopsy ? Continue HEPARIN drip ? Pending CT-guided marrow aspiration ? Therapeutic phlebotomy possibly tomorrow 10/18 ? Head elevation 30 degrees ? Speech eval ? Physical therapy ? TYLENOL for fever and headache ? Normal saline 1 L at 75 cc/HR # Resistant hypertension # Hypertensive emergency ? resolved # Hypertension Possibly related to erythrocytosis Renal artery US no renal artery stenosis BP poorly controlled multiple beds, currently 186/96, no endorgan damage Pending hematology recommendations Nephrology ordered renin ALDOSTERONE, 24-hour CATECHOLAMINES, pending ? Resumed home HYDROCHLOROTHIAZIDE 25 mg daily ? Started HYDRALAZINE 15 g TID ? Continue SPIRONOLACTONE 50 mg BID ? Continue home LOSARTAN 100 mg daily ? Continue home HYDRALAZINE 50 mg TID ? Continue DILTIAZEM 60 mg TID ? Continue LASIX and 30 mg q.6h. ? Discontinued NIFEDIPINE 60 mg daily BID ? Discontinued home CARVEDILOL 12.5 mg BID ? Pending nephrology recommendations # NSTEMI type II, delta trope Likely demand ischemia 2/2 HTN Admission troponin 0.162 then 0.163 EKG sinus rhythm with occasional PVC Denies chest pain or palpitations Previous admission elevated troponin of 0.356 Previous admission, LAWRENCE EF 55?60, no wall motion abnormalities ? Troponin q.6 H ? Antihypertensives as above ? Fluids as above # Erythrocytosis Patient hemoglobin 16.7, baseline around 17.5, hematocrit 52.9 No previous workup for hematological disorders Possibly contributing to her recurrent CVA and resistant hypertension ? Hematology, Dr. Hobbs consulted ? Venesection procedure pending ? Daily CBC # T2DM Admission GLUCOSE 168, currently 156 10/03 A1c 11.2 ? Accu-Cheks ? Continue LANTUS 10 unit HS ? INSULIN sliding scale ? Holding home meds ? CHO consistent diet # Hypophosphatemia ? resolved Phosphate 2.1 ? Repleted Health maintenance Diet: Passed swallow eval, CHO consistent/cardiac diet GI prophylaxis: PROTONIX DVT prophylaxis: SCD, HEPARIN Antibiotics: Not indicated CODE STATUS: Full code Disposition: Patient admitted for management of CVA and hypertensive emergency Patient case was discussed with attending, Garcia Madison MD and senior resident Dr. Cummings. Kati Brooks DO PGYI Attending Provider Attestation/Addendum I reviewed labs, imaging, EKG, home medications and prior available records. Face to face evaluation was performed by me. I have personally examined the patient and discussed assessment and plan with the IM team. I reviewed the resident note and agree with the plan with exceptions as below. Acute CVA: Brain MRI showed large right cerebellum which is consistent with the patient's symptoms. In the setting of prior history of CVA. Started aspirin and atorvastatin. Start BP management. Consulted inpatient neurology. Continue frequent neurochecks. Ordered PT evaluation. Erythrocytosis: Noted on H&H. Mild. May contribute to increased risk of CVA. Consulted hematology. Monitor H&H. Hypertensive urgency: His BP remains not well-controlled. Started oral antihypertensive treatment. Increased nifedipine. Repeat CT head: Showed no interval changes. Ordered renal duplex to investigate this resistant hypertension that showed no renal artery stenosis. Consulted nephrology. Recommended sending renin/aldosterone activity and 24-hour catecholamine in the urine. Added spironolactone. Increased oral antihypertensive doses. Plan for phlebotomy. Uncontrolled diabetes mellitus with hyperglycemia: Start insulin Lantus plus sliding scale insulin. Monitor fingersticks.
[2024-10-17] MEDS: INSULIN LISPRO (AdmeLOG) 1 UNIT/0.01 ML UNIT SC ×4 (07:44→23:48)
[2024-10-17] MEDS: DILTIAZEM 30 MG TABLET PO ×3 (07:44→15:25)
[2024-10-17] MEDS: SPIRONOLACTONE 25 MG TABLET 50 MG PO ×2 (08:11→23:18)
[2024-10-17] MEDS: CLOPIDOGREL BISULFATE 75 MG TABLET PO (08:11)
[2024-10-17] MEDS: LOSARTAN POTASSIUM 25 MG TABLET 100 MG PO (08:11)
[2024-10-17] MEDS: ASPIRIN EC 81 MG TABEC PO (08:12)
[2024-10-17] MEDS: PANTOPRAZOLE 40 MG TABLET PO ×2 (08:12→23:18)
[2024-10-17] MEDS: oxyCODONE/APAP 5/325 TABLET 1 TAB PO (08:22)
[2024-10-17] MEDS: ONDANSETRON INJ 2 MG/ML INJ 2 ML 4 MG IV (08:22)
--- NOTE | 2024-10-17 08:43 | PD.RESPRO ---
Documentation for date of: 10/17/24 Subjective Subjective Interval history: Mr. Penaloza is a 44-year-old male past medical history significant for recent right MCA stroke, HTN, HLD, T2DM, bicuspid aortic valve with moderate stenosis presented to the emergency department with dizziness and nausea and vomiting. In the emergency department stroke alert was initiated.CT head showed nonhemorrhagic infarct of right inferior cerebellar hemisphere, negative for hemorrhage or mass effect. CTA head/neck no significant neck arterial stenosis or stable large vessel occlusion or thrombus. MRI showed large acute infarct of right cerebellar hemisphere, inferior vermis and small portion of left cerebellar hemisphere. Teleneurology was consulted. They recommended aspirin, statins, permissive hypertension. Patient was on aspirin, statin, carvedilol, hydralazine, insulin, losartan/hydrochlorothiazide, metformin, nifedipine at home. In the emergency department Afebrile, BP 191/95, HR 81, satting 96% on room air. Troponin 0.162 then 0.163, EKG showed sinus rhythm with occasional PVCs, no acute ST changes. ALP 129, ALT 51, AST normal, GLUCOSE 226. WBC 11.7, hemoglobin 16.7 with baseline around 17.4. UA negative for UTI U-Tox negative Per chart review, recent admission 10/02 for acute encephalopathy and hypertensive emergency with NIHSS score of 6. CT head then was negative, CTA showed possible P1 stenosis. MRI was also negative for acute pathology but demonstrated large old infarct of right MCA. TTE and LAWRENCE were done showing suspicious echogenic structure in LVOT, bicuspid aortic valve with moderate stenosis and calcification, negative for PFO or thrombus. Patient was admitted for possible repeat stroke. Dr Castañeda was consulted. 10/16/2024: Blood pressure continues to be significantly elevated despite on for class medications. Current blood pressure 185/103. Renal Doppler showed no renal artery stenosis. Renal consultation requested for malignant hypertension. Labs WBC 12.8, hemoglobin 17.6, platelets 231. Sodium 135, potassium 4.2, bicarbonate 21.9, creatinine 1.1, glucose 148, phosphorus 2.1, calcium 9.2, magnesium 2.2, LFTs normal Patient currently seen in telemetry. 10/17/2024: Patient's Blood Pressure 158/83 last night, continue to be high today, complains of mild headache, current Blood Pressure 188/86. Also endorsed hallucinations and visual disturbances last night. Pending Renin, Aldosterone. Sodium 136, Potassium 3.9, chloride 101, bicarbonate 25.3, phosphorus 2.9, magnesium 2.4, LFTs normal. Dr Castañeda consulted for acute infarct. 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 Exam Vital Signs Temp Pulse Resp BP Pulse Ox O2 Del Method 97.1 F 83 16 188/86 H 97 Room Air 10/17/24 08:00 10/17/24 08:11 10/17/24 08:00 10/17/24 08:11 10/17/24 08:00 10/17/24 08:00 Narrative Exam Physical Exam General: Awake and in no acute distress. Conversational and non-toxic appearing. HEENT: Normocephalic, atraumatic, mucous membranes moist. Heart: Regular rate and rhythm, no murmurs. Lungs: Clear to auscultation with no wheezing or crackles. Abdomen: Soft, nondistended, nontender, positive bowel sounds. ?No guarding or rebound tenderness. Neurologic: Alert and oriented x3, no gross neurological deficit, and patient able to move all 4 extremities. Complains of ataxia and headache. Extremities: No edema. Skin: No rash or ecchymoses. Objective Labs 10/17/24 14:21 10/17/24 04:13 Labs: Laboratory Results - last 24 hr 10/17/24 04:13 WBC 11.5 H RBC 6.28 H Hgb 17.7 H* Hct 52.9 MCV 84 MCH 28.2 MCHC 33.5 RDW Std Deviation 38.1 Plt Count 316 D Neut % (Auto) 70 Lymph % (Auto) 23 [place] % (Auto) 6 Eos % (Auto) 0 Baso % (Auto) 0 Neut # (Auto) 8.0 H Lymph # (Auto) 2.7 [place] # (Auto) 0.7 Eos # (Auto) 0.0 Baso # (Auto) 0.0 Immature Gran # (Auto) 0.03 H Absolute Nucleated RBC 0.00 Immature Gran % 0 Nucleated RBC % 0 PT 13.0 H INR 1.2 Sodium 136 Potassium 3.9 Chloride 101 Carbon Dioxide 25.3 Anion Gap 10 BUN 17 Creatinine 1.1 Estim Creat Clear Calc 107.6 eGFR > 60 BUN/Creatinine Ratio 15 Glucose 156 H Calculated Osmolality 276 Calcium 9.4 Corrected Calcium 9.4 Phosphorus 2.9 Magnesium 2.4 Total Bilirubin 0.9 AST 20 ALT 38 Alkaline Phosphatase 97 Total Protein 7.8 Albumin 5.0 Globulin 2.8 Albumin/Globulin Ratio 1.8 Quality Measures Quality Measures none Assessment & Plan Assessment Current Active Medications: Generic Name Dose Route Start Last Admin Trade Name Freq PRN Reason Stop Dose Admin Acetaminophen 650 mg 10/14/24 11:32 Acetaminophen 325 Mg Tablet PO 11/13/24 11:31 Q6H PRN Fever >100.4 Acetaminophen 650 mg 10/14/24 11:32 10/17/24 00:05 Acetaminophen 325 Mg Tablet PO 11/13/24 11:31 650 mg Q6H PRN Administration PAIN SCALE 1-3 (mild Aspirin 81 mg 10/15/24 09:00 10/17/24 08:12 Aspirin Ec 81 Mg Tabec PO 11/14/24 08:59 81 mg QDAY DANA Administration Atorvastatin Calcium 80 mg 10/14/24 21:00 10/16/24 21:00 Atorvastatin Calcium 20 Mg Tablet PO 11/13/24 20:59 80 mg HS DANA Administration Clopidogrel Bisulfate 75 mg 10/16/24 09:45 10/17/24 08:11 Clopidogrel Bisulfate 75 Mg Tablet PO 11/15/24 09:44 75 mg QDAY DANA Administration Dextrose 50 ml 10/14/24 14:01 Dextrose 50%-Water Inj 50 Ml Syringe IV 11/13/24 14:00 Q15MIN PRN BG <50 OR BG <70 & pt unresponsive Diltiazem HCl 30 mg 10/17/24 07:30 10/17/24 07:44 Diltiazem 30 Mg Tablet PO 11/16/24 07:29 30 mg Q6HR DANA Administration Glucagon 1 mg 10/14/24 14:01 Glucagon Inj 1 Mg Vial IM Q15MIN PRN BG <70, and no IV access Hydralazine HCl 50 mg 10/15/24 14:00 10/17/24 05:33 Hydralazine Hcl 25 Mg Tablet PO 11/14/24 13:59 50 mg TID DANA Administration Hydralazine HCl 10 mg 10/15/24 13:47 10/16/24 12:03 Hydralazine Inj 20 Mg/Ml Vial IV 11/14/24 13:46 10 mg Q4HR PRN Administration SBP > 180 Insulin Glargine 10 unit 10/15/24 21:00 10/16/24 21:01 Insulin Glargine (Lantus) 5 Unit/0.05 Ml (Per 5 Units) SC 11/14/24 20:59 10 unit HS DANA Administration Insulin Human Lispro 0 unit 10/14/24 17:00 10/17/24 07:44 Insulin Lispro (Admelog) 1 Unit/0.01 Ml Unit SC 11/13/24 16:59 2 unit ACHS DANA Administration Protocol Labetalol HCl 10 mg 10/15/24 13:47 10/17/24 04:21 Labetalol Inj 5 Mg/Ml Vial 20 Ml IVP 11/14/24 13:46 10 mg Q4HR PRN Administration Sbp > 180 Losartan Potassium 100 mg 10/16/24 09:00 10/17/24 08:11 Losartan Potassium 25 Mg Tablet PO 11/15/24 08:59 100 mg QDAY DANA Administration Ondansetron HCl 4 mg 10/14/24 02:57 10/14/24 08:59 Ondansetron Inj 2 Mg/Ml Inj 2 Ml IV 4 mg Q1HR PRN Administration PERSISTENT NAUSEA OR VOMITING Ondansetron HCl 4 mg 10/14/24 03:07 10/17/24 08:22 Ondansetron Inj 2 Mg/Ml Inj 2 Ml IV 11/13/24 03:06 4 mg Q4HR PRN Administration NAUSEA OR VOMITING Oxycodone/Acetaminophen 1 tab 10/14/24 11:32 10/17/24 08:22 Oxycodone/Apap 5/325 Tablet PO 10/19/24 11:31 1 tab Q6H PRN Administration PAIN SCALE 4-6 (Moderate Pantoprazole Sodium 40 mg 10/14/24 21:00 10/17/24 08:12 Pantoprazole 40 Mg Tablet PO 11/13/24 20:59 40 mg Q12HR DANA Administration Spironolactone 50 mg 10/16/24 21:00 10/17/24 08:11 Spironolactone 25 Mg Tablet PO 11/15/24 20:59 50 mg BID DANA Administration Plan Summary: Mr. Penaloza is a 44-year-old male past medical history significant for recent right MCA stroke, HTN, HLD, T2DM, bicuspid aortic valve with moderate stenosis presented to the emergency department with dizziness and nausea and vomiting. MRI showed large acute infarct of right cerebellar hemisphere, inferior vermis and small portion of left cerebellar hemisphere. Teleneurology was consulted. They recommended aspirin, statins, permissive hypertension. Patient admitted for management of Acute CVA # Malignant hypertension - Patient currently on 4 class medication (carvedilol, hydralazine, losartan, nifedipine) suspect secondary hypertension. Patient was on carvedilol, hydralazine, insulin, losartan/hydrochlorothiazide, nifedipine at home. Renal Doppler negative for renal artery stenosis. Had a long conversation with mom at bedside who had several questions which were answered to her satisfaction. Patient's blood pressure continues to remain high, blood pressure today 188/86 Plan: Currently on Cardizem 30 mg p.o. every 6 hours, hydralazine 50 mg p.o. 3 times daily, losartan 100 mg p.o. daily, spironolactone 50 mg p.o. twice daily Follow Renin, aldosterone, 24-hour urine for catecholamines ordered. 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 Consider phlebotomy if possible inpatient Follow anti-phospholipid antibody panel, beta-2 microglobulin, lupus anticoagulant eval with reflex, protein C, protein S activity Consider ordering erythropoietin level and JAK2 testing # Acute cerebellar infarct-complaining of headaches, dizziness. Dr Castañeda on the case # Hx of right MCA infarct # Hyperlipidemia # Diabetes mellitus Management as per primary team Case discussed with Attending Dr. Hansen. Chery Crowley PGY1 Attending Provider Attestation/Addendum Patient seen and examined with resident physician Dr. Crowley. Note reviewed, agree with findings and recommendations. Despite being on 5 class medications his blood pressure remains high. So far all the secondary hypertension workup is inconclusive. Noted his hemoglobin has been persistently elevated-will start workup for polycythemia. Care discussed with primary team. Mom at bedside who had several questions and answered to her satisfaction. Currently on Cardizem. Will discontinue nifedipine.
--- NOTE | 2024-10-17 09:50 | PC.SS ---
Patient is alert/oriented. He speaks Macedonian/Tuvaluan. Parents were at bedside. Macedonian speaking only. Patient preferred to interpret for them. Patient resides at [address] [facility]. Patient is independent with ADL's. Patient states he's had 2 prior strokes before this one. Patient was admitted for acute stroke. His speech is slurred. He states he worked with PT but was not able to ambulate much. Patient states he's seen Neurologist during hospital stay. He follows at [facility] with Dr. Mcgregor. lat appt. was last week. Patient parents state if patient needs rehab they prefer it to be in [facility]. Patient states his younger sister, Jaye, will be his alt medical decision maker. Parents will be secondar. Patient d/c plan: HH vs SNF depending on recommendations. Family can transport vs [facility] transport upon discharge.
[2024-10-17] MEDS: hydroCHLOROthiazide 12.5 MG CAPSULE 25 MG PO (10:19)
[2024-10-17 14:37] LABS: Hemoglobin 17.5 g/dL (13.5-16.0)
--- NOTE | 2024-10-17 15:08 | PC.PT ---
PT eval withheld today secondary to patient has high blood pressure of 194/106. Will re-attempt PT eval tomorrow. Dr. Brooks notified of PT being withheld today.
--- NOTE | 2024-10-17 15:37 | PC.SS ---
VIDEO INTERN informed by nursing education consultant that patient will require therapeutic phlebotomy. Per conference planning manager, [facility]; nursing staff has conducted procedure in the past. Manger left voicemail message with [facility] staff, Stefanie Luu; response pending. VIDEO INTERN to assist with follow up.
[2024-10-17 17:10] LABS: Partial Thromboplastin Time 30.9 Seconds (22.0-36.0)
[2024-10-17] MEDS: DILTIAZEM 30 MG TABLET 60 MG PO ×2 (17:40→23:20)
[2024-10-17] MEDS: HEPARIN SOD INJ 5000 UNIT/ML VIAL 8000 UNIT IVP (18:45)
[2024-10-17] MEDS: Heparin/D5w 25K 250 ML Ivpb 25,000 UNIT/250 ML BAG 18 UNIT IV (18:46)
--- NOTE | 2024-10-17 19:50 | PC.NURSE ---
called computer lab aide re catecholamines 24h order- [place] computer lab aide will call back rn.
--- NOTE | 2024-10-17 21:45 | PC.NURSE ---
called lab aid for orange container for 24hr urine collection.
--- NOTE | 2024-10-17 22:39 | PD.NEUROPROG ---
Documentation for date of: 10/17/24 Subjective Subjective Interval history: Patient was seen in telemetry at the bedside with his family. Patient continues to have pressure-like sensation, dizziness, vertigo and nausea and vomiting but much better. He finds it hard to sit up. Denies any weakness or paresthesias or lack of coordination in both upper and lower extremities. Exam - Neurology Vital Signs Temp Pulse Resp BP Pulse Ox O2 Del Method 98.0 F 71 12 171/93 H 97 Room Air 10/17/24 20:00 10/17/24 20:00 10/17/24 20:00 10/17/24 20:00 10/17/24 20:00 10/17/24 20:00 Narrative Exam GENERAL APPEARANCE: Well hydrated, well-nourished in no acute distress. HEENT: Normocephalic, atraumatic, extraocular movements intact. Pupils: Equal reacting to light and accommodation NECK: Supple, no JVD or bruits. CARDIOVASULAR: Heart: S1, S2 heard, regular without S3-S4 or murmur no rubs or gallops. LUNGS/CHEST: Clear to auscultation bilaterally. No rails, rhonchi, or wheezing. Normal inspection. ABDOMEN: Soft, nontender, with normal bowel sounds. No pulsatile masses. No rebound, rigidity, or guarding. Normal inspection and palpation. EXTREMITIES: Normal inspection and palpation. No edema, clubbing or cyanosis. SKIN: Warm and dry without rashes. Normal inspection. MUSCULOSKELETAL: No cervical, thoracic, lumbar or midline bony tenderness. Normal inspection. NEURO: Alert, awake and oriented x3. Cranial nerves: II through XII grossly intact. Speech and language: Normal with no dysarthria or dysphasia. Motor system: Tone and bulk: Normal: Strength: 5 out of 5 in all 4 extremities; No pronator drift noted. Deep tendon reflexes: 2+ bilaterally symmetrical. Plantar reflex: Downgoing bilaterally. Sensory system: Intact to all modalities of sensation bilaterally. Coordination: Intact to [id number] and gjga-lnbi-[id number] test bilaterally. No ataxia, no dysmetria, or dysdiadochokinesia noted. No intention tremors noted. Gait: Not tested. No signs of meningeal irritation noted. PSYCHIATRIC: Normal mood and affect. Objective Labs 10/17/24 14:21 10/17/24 04:13 Labs: Laboratory Results - last 24 hr 12/09/24 12/09/24 12/09/24 04:13 14:21 16:42 WBC 11.5 H RBC 6.28 H Hgb 17.7 H* 17.5 H Hct 52.9 50.0 MCV 84 MCH 28.2 MCHC 33.5 RDW Std Deviation 38.1 Plt Count 316 D Neut % (Auto) 70 Lymph % (Auto) 23 Fallon % (Auto) 6 Eos % (Auto) 0 Baso % (Auto) 0 Neut # (Auto) 8.0 H Lymph # (Auto) 2.7 Fallon # (Auto) 0.7 Eos # (Auto) 0.0 Baso # (Auto) 0.0 Immature Gran # (Auto) 0.03 H Absolute Nucleated RBC 0.00 Immature Gran % 0 Nucleated RBC % 0 PT 13.0 H INR 1.2 APTT 30.9 Sodium 136 Potassium 3.9 Chloride 101 Carbon Dioxide 25.3 Anion Gap 10 BUN 17 Creatinine 1.1 Estim Creat Clear Calc 107.6 eGFR > 60 BUN/Creatinine Ratio 15 Glucose 156 H Calculated Osmolality 276 Calcium 9.4 Corrected Calcium 9.4 Phosphorus 2.9 Magnesium 2.4 Total Bilirubin 0.9 AST 20 ALT 38 Alkaline Phosphatase 97 Total Protein 7.8 Albumin 5.0 Globulin 2.8 Albumin/Globulin Ratio 1.8 Assessment & Plan Assessment and plan (1) Dizziness: Status: Acute Assessment and plan: Secondary to acute cerebellar CVA Should improve with time (2) Acute CVA (cerebrovascular accident): Status: Acute Assessment and plan: Affecting the right cerebellar hemisphere mainly Will continue to follow him closely as stroke involves the posterior fossa Continue with aspirin for now and then will add Plavix tomorrow to prevent hemorrhagic transformation (3) Hypertension: Status: Acute Assessment and plan: BP continues to be high Continue with aggressive blood pressure control noted that he is on PRN meds in addition to scheduled multiple meds. (4) Hyperlipidemia: Status: Acute Assessment and plan: Continue with high intensity statin: LDL: 112 (5) Type 2 diabetes mellitus: Status: Chronic Assessment and plan: Needs better control of diabetes as the last A1c: 11.2 (6) Intractable vomiting: Status: Acute Assessment and plan: Secondary to acute cerebellar CVA, should improve with time as the edema resolves.
[2024-10-17] MEDS: ATORVASTATIN CALCIUM 20 MG TABLET 80 MG PO (23:17)
[2024-10-17] MEDS: INSULIN GLARGINE (Lantus) 5 UNIT/0.05 ML (PER 5 UNITS) 10 UNIT SC (23:51)
[2024-10-18] VITALS (15 sets, daily range): BP systolic 138–170; BP diastolic 78–108; PULSE 63–95; RESP 13–22; TEMP 36.1–36.4; O2SAT 95–98; BMI 19.6
[2024-10-18 01:04] LABS: Partial Thromboplastin Time 97.6 Seconds (22.0-36.0)
[2024-10-18] MEDS: DILTIAZEM 30 MG TABLET 60 MG PO ×3 (05:45→17:41)
[2024-10-18] MEDS: hydrALAZINE HCL 25 MG TABLET 50 MG PO ×4 (05:45→20:59)
--- NOTE | 2024-10-18 07:45 | ESCONSULT_ITS ---
RE: JUNIOR RHEA : 1980 DATE OF CONSULTATION: 10/14/2024 REFERRING PHYSICIAN: Dr. Todd Cavazos REASON FOR CONSULTATION: 1. CVA. 2. History of stroke in the past. 3. Hypertension. HISTORY OF PRESENT ILLNESS: Mr. Penaloza is a 44-year-old gentleman who was complaining of acute overnight dizziness. He has a history of previous/recent right middle cerebral artery stroke, hypertension, HDL, type 2 diabetes mellitus, bicuspid aortic valve with moderate stenosis. He went to bed and woke up with feeling dizzy and called 911 for evaluation and he was found to have vomiting, which he attributed to eating at [employer] last night and because of that he was brought to the hospital and he had a CT showed non-hemorrhagic infarct right inferior cervical artery. Negative for hemorrhage or mass effect. CTA head and neck no significant neck arterial stenosis or stable large vessel occlusion or thrombus. MRI showed a large acute infarct of the right cerebral hemisphere, and a small portion of the left cerebellar hemisphere. His blood pressure was elevated to 191/95, heart rate was 81, oxygen saturation was 96% on room air, alkaline phosphatase 129, ALT was 51, AST was normal, glucose was 226. WBC count was 11.7, hemoglobin 16.7, because of this CVA this consultation is obtained. On direct question the patient mentioned that he feels dizzy when he gets up and because of that he is not walking, but he is able to move his extremities at the moment. PAST MEDICAL HISTORY: As mentioned that he has a history of CVA from before, hypertension, HDL, and type 2 diabetes mellitus. No information regarding any kind of surgeries. SOCIAL HISTORY: He quit smoking last week. He used to smoke one pack per day and he did like that for 15 years. He quit drinking, using illicit drugs and alcohol, beer, and hard liquor few years ago. FAMILY HISTORY: Noncontributory. ALLERGIES: NONE KNOWN. PHYSICAL EXAMINATION: GENERAL: He is alert. He is afebrile. Vitals stable. HEENT: Pupil are reactive to light and accommodation. Sclerae are nonicteric. NECK: Supple. There is no JVD or palpable mass. LUNGS: Good air entry bilaterally. They are clear to auscultation and percussion. HEART: Regular. ABDOMEN: Soft. Bowel sounds are present. EXTREMITIES: 3+ pedal pulses. There is no cyanosis or edema. CLINICAL OUTCOMES MANAGER: The patient able to move his extremities and follows simple command. LABORATORY DATA: His blood work done today has a WBC count of 11.7, hemoglobin 16.7, hematocrit 47.6, and platelet count of 326,000. His PT is 12.2, INR is 1.1 and APTT is 26.4. Anticoagulant study including lupus anticoagulant antiphospholipid are still pending. His sodium is 136, potassium 3.5, chloride is 99, BUN is 23, creatinine is 1.1, GFR is 105.8. This is calculated. BUN and creatinine ratio is 21, which is very close to high normal. His troponin today is 0.161, but when he came in at that time his troponin was 0.162 and then later on it was 0.163 which waselevated. If this troponin is persistently elevated, then we should have a cardiology evaluation. His urine did not show any type of obvious infection. ASSESSMENT AND PLAN: Agree with the present plan of treatment. He will continue on anticoagulant aspirin at the moment and if he is discharged, he can see me in my office within 7 to 10 days and p.r.n. Hopefully, I will have the results of all his studies available at that time and will make the recommendation accordingly. I thank you, Dr. Cavazos, for letting me to participate in the care of this interesting patient. If you have any questions, please feel free to contact me. DT: 17:29:54 TT: 18:57:00 Ref: [id number] - TID: [id number] [facility]
[2024-10-18 09:05] LABS: Partial Thromboplastin Time 59.7 Seconds (22.0-36.0)
--- NOTE | 2024-10-18 09:20 | PC.NURSE ---
consulted dr cruz regarding order bone marrow biopsy. Patient is currently on heparin drip and had aspirin/plavix yesterday 10/17/2024. Dr. Cruz recommends postponing procedure until patient is done with anticuagulant therapy. If patient is off aspirin, plavix and heparin drip, MD can do procedure 10/20/[address] Hospitalist Dr Hardy made aware. procedure cancelled at this time
--- NOTE | 2024-10-18 09:28 | PC.SS ---
CONTINUING EDUCATION DEAN informed charge nurse of request for therapeutic phlebotomy. CONTINUING EDUCATION DEAN updated charge nurse that [facility] had been contacted on 10-17-24 to assist with request.
[2024-10-18] MEDS: hydroCHLOROthiazide 12.5 MG CAPSULE 25 MG PO (09:37)
[2024-10-18] MEDS: PANTOPRAZOLE 40 MG TABLET PO ×2 (09:38→21:01)
[2024-10-18] MEDS: SPIRONOLACTONE 25 MG TABLET 50 MG PO ×2 (09:38→20:59)
[2024-10-18] MEDS: LOSARTAN POTASSIUM 25 MG TABLET 100 MG PO (09:38)
[2024-10-18] MEDS: ASPIRIN EC 81 MG TABEC PO (10:13)
--- NOTE | 2024-10-18 11:04 | PC.SS ---
Addendum entered by Shelly Faustin 10/18/24 11:42: SS will send on [facility]. Patient confirmed he will d/c to: [address], [place]. He follows with Dr. Mcgregor @ [facility]. Last appt. was last week with Dr. Mcgregor. Original Note: SS received a call from PT and they recommend HH and a FWW. SS will start working on this for d/c.
--- NOTE | 2024-10-18 11:13 | PC.SS ---
Patient needs a FWW for home. The diagnosis creates mobility limitation that significantly impairs ability to participate in the patients activities of daily living either in their entirety, or in a reasonable time frame. Also the patient is able to safely use the walker and the patient?s mobility is sufficiently resolved with the use of the walker and cane has been ruled out.
[2024-10-18] MEDS: INSULIN LISPRO (AdmeLOG) 1 UNIT/0.01 ML UNIT SC ×3 (11:37→21:21)
[2024-10-18 11:58] LABS: Misc Send Out* See Sep Rpt
--- NOTE | 2024-10-18 12:34 | ESPR_ITS ---
Documentation for date of: 10/18/24 Subjective Subjective Interval history: No acute overnight events. Still has mild dizziness, pending PT evaluation was deferred 2/2 hypertension. Denies fever, chills, headaches, chest pain, sob, cough, GI or urinary symptoms. Exam Vital Signs Temp Pulse Resp BP Pulse Ox O2 Del Method 97.5 F 72 22 H 162/88 H 96 Room Air 10/18/24 08:00 10/18/24 11:37 10/18/24 08:00 10/18/24 11:37 10/18/24 08:00 10/18/24 04:00 Narrative Exam GENERAL: Normal appearing adult male, NAD, complains of headaches and dizziness, on room air HEENT: NCAT.?KEYUR. Oral mucosa is moist. Patent Nares NECK: Supple, nontender, no thyromegaly, no meningismus, no JVD, no step offs CHEST: Symmetrical, atraumatic, and with equal expansion, Nontender on palpation no deformity and no crepitus. CARDIOVASCULAR: RRR, no m/g/r LUNGS: CTAB, no w/r/r. Symmetrical chest rise. No intercostal subcostal retraction. ABDOMEN: Soft, flat, nontender. No guarding/rebound tenderness/masses. +BS EXTREMITIES: Nontender.? No edema/cyanosis.?Moves all 4 extremities well, with full ROM and good CSM. SKIN: Warm and dry, no jaundice/rashes. MSK: No lumbar or midline, no CVA, no paraspinal muscle spasm or tenderness. NEURO: SUTTON x4, CN II-XII grossly intact.?No focal neurologic deficits. PSYCHIATRIC: Normal mood and affect, cooperative, no SI or HI or hallucinations. Objective Labs 10/19/24 04:34 10/19/24 04:34 Labs: Laboratory Results - last 24 hr 10/17/24 10/17/24 10/18/24 14:21 16:42 00:20 Hgb 17.5 H Hct 50.0 APTT 30.9 97.6 H D 10/18/24 07:49 Hgb Hct APTT 59.7 H D Quality Measures Quality Measures none Assessment & Plan Assessment Current Active Medications: Generic Name Dose Route Start Last Admin Trade Name Freq PRN Reason Stop Dose Admin Acetaminophen 650 mg 10/14/24 11:32 Acetaminophen 325 Mg Tablet PO 11/13/24 11:31 Q6H PRN Fever >100.4 Acetaminophen 650 mg 10/14/24 11:32 10/17/24 23:17 Acetaminophen 325 Mg Tablet PO 11/13/24 11:31 650 mg Q6H PRN Administration PAIN SCALE 1-3 (mild Aspirin 81 mg 10/15/24 09:00 10/18/24 10:13 Aspirin Ec 81 Mg Tabec PO 11/14/24 08:59 81 mg QDAY DANA Administration Atorvastatin Calcium 80 mg 10/14/24 21:00 10/17/24 23:17 Atorvastatin Calcium 20 Mg Tablet PO 11/13/24 20:59 80 mg HS DANA Administration Clopidogrel Bisulfate 75 mg 10/16/24 09:45 10/17/24 08:11 Clopidogrel Bisulfate 75 Mg Tablet PO 11/15/24 09:44 75 mg QDAY DANA Administration Dextrose 50 ml 10/14/24 14:01 Dextrose 50%-Water Inj 50 Ml Syringe IV 11/13/24 14:00 Q15MIN PRN BG <50 OR BG <70 & pt unresponsive Diltiazem HCl 60 mg 10/17/24 18:00 10/18/24 11:37 Diltiazem 30 Mg Tablet PO 11/16/24 17:59 60 mg Q6HR DANA Administration Glucagon 1 mg 10/14/24 14:01 Glucagon Inj 1 Mg Vial IM Q15MIN PRN BG <70, and no IV access Hydralazine HCl 50 mg 10/18/24 09:00 10/18/24 09:38 Hydralazine Hcl 25 Mg Tablet PO 11/17/24 08:59 50 mg QID DANA Administration Hydrochlorothiazide 25 mg 10/17/24 10:00 10/18/24 09:37 Hydrochlorothiazide 12.5 Mg Capsule PO 11/16/24 09:59 25 mg QDAY DANA Administration Insulin Glargine 10 unit 10/15/24 21:00 10/17/24 23:51 Insulin Glargine (Lantus) 5 Unit/0.05 Ml (Per 5 Units) SC 11/14/24 20:59 10 unit HS DANA Administration Insulin Human Lispro 0 unit 10/14/24 17:00 10/18/24 11:37 Insulin Lispro (Admelog) 1 Unit/0.01 Ml Unit SC 11/13/24 16:59 2 unit ACHS DANA Administration Protocol Labetalol HCl 10 mg 10/17/24 15:38 10/17/24 15:59 Labetalol Inj 5 Mg/Ml Vial 20 Ml IVP 11/16/24 15:37 10 mg Q6H PRN Administration sBP>180, do NOT give if HR<70 Losartan Potassium 100 mg 10/16/24 09:00 10/18/24 09:38 Losartan Potassium 25 Mg Tablet PO 11/15/24 08:59 100 mg QDAY DANA Administration Ondansetron HCl 4 mg 10/14/24 03:07 10/17/24 08:22 Ondansetron Inj 2 Mg/Ml Inj 2 Ml IV 11/13/24 03:06 4 mg Q4HR PRN Administration NAUSEA OR VOMITING Oxycodone/Acetaminophen 1 tab 10/14/24 11:32 10/17/24 08:22 Oxycodone/Apap 5/325 Tablet PO 10/19/24 11:31 1 tab Q6H PRN Administration PAIN SCALE 4-6 (Moderate Pantoprazole Sodium 40 mg 10/14/24 21:00 10/18/24 09:38 Pantoprazole 40 Mg Tablet PO 11/13/24 20:59 40 mg Q12HR DANA Administration Spironolactone 50 mg 10/16/24 21:00 10/18/24 09:38 Spironolactone 25 Mg Tablet PO 11/15/24 20:59 50 mg BID DANA Administration Plan In summary: 44-year-old male with history of CVA, HTN, HLD, T2DM presenting with acute dizziness, outside tPA window, admitted for left cerebral hemisphere infarct. In-house neurology, Dr. Castañeda, recommended statin, PLAVIX and ASPIRIN. Patient has resistant hypertension likely 2/2 polycythemia, negative renal artery scan, currently on multiple ANTIHYPERTENSIVES, BP relatively controlled, pending phlebotomy. Blood smear showed polycythemia, Dr. Hobbs hematology, pending ANTICHOLAGOGUES and JAK2 mutations as well as marrow biopsy on . Currently holding PLAVIX until biopsy is done on (neurology, Dr. Castañeda notified). Will check with Dr. Laverne castrejon to continue on ASPIRIN. Appreciate neurology, nephrology and hematology recommendations. # Acute cerebellar infarct # Hx of right MCA infarct # Hyperlipidemia Presented with acute dizziness, outside tPA window CT head showed nonhemorrhagic infarct right inferior cerebellar hemisphere, no hemorrhage or mass effect. CTA head/neck no stenosis or large vessel disease. MRI with large acute infarct of right cerebellar hemisphere, inferior vermis, and small portion of left cerebellar hemisphere. NIHSS score 0. Patient continued on statin, ASPIRIN, currently holding PLAVIX till marrow biopsy on . Physical therapy will see patient now that BP controlled. ? Continue ASPIRIN 81 mg daily ? Continue ATORVASTATIN 80 mg HS ? Holding PLAVIX [address] marrow biopsy ? Head elevation 30 degrees ? Speech eval ? Physical therapy ? TYLENOL for fever and headache ? Normal saline 1 L at 75 cc/HR # Resistant hypertension # Hypertensive emergency ? resolved # Hypertension Possibly related to erythrocytosis Renal artery US no renal artery stenosis BP currently controlled with regimen. Nephrology following, pending renin ALDOSTERONE, 24-hour CATECHOLAMINES ? Continue HYDROCHLOROTHIAZIDE 25 mg daily ? Continue SPIRONOLACTONE 50 mg BID ? Continue LOSARTAN 100 mg daily ? Continue HYDRALAZINE 50 mg QID ? Continue DILTIAZEM 60 mg TID ? Continue LABETALOL 10 mg Q6H PRN for sBP >180 if HR >70 # NSTEMI type II, delta trope - resolved Likely demand ischemia 2/2 HTN Admission troponin 0.162 then 0.163 EKG sinus rhythm with occasional PVC Denies chest pain or palpitations ? Antihypertensives as above # Erythrocytosis # Polycythemia Elevated hemoglobin, around 17.5. Likely contributing to CVA and resistant hypertension. Blood smear showed polycythemia only. Pending labs including anticoag's and JAK2. Pending marrow aspiration on . ? Hematology, Dr. Hobbs following ? Venesection procedure pending ? Daily CBC # T2DM Admission GLUCOSE 168, currently controlled 10/03 A1c 11.2 ? Accu-Cheks ? Continue LANTUS 10 unit HS ? INSULIN sliding scale ? Holding home meds ? CHO consistent diet # Hypophosphatemia ? resolved Phosphate 2.1 ? Repleted Health maintenance Diet: Passed swallow eval, CHO consistent/cardiac diet GI prophylaxis: PROTONIX DVT prophylaxis: SCD, HEPARIN Antibiotics: Not indicated CODE STATUS: Full code Disposition: Patient admitted for management of CVA and hypertensive emergency Patient case was discussed with attending, Garcia Madison MD and senior resident Dr. Cummings. Kati Brooks DO PGYI L Mr Penaloza is a 44-year-old male with history of CVA, HTN, HLD, T2DM presenting with acute dizziness, outside tPA window, admitted for left cerebral hemisphere infarct. In-house neurology, Dr. Castañeda was consulted, patient is cleared by neurology with recommendation to continue statin, PLAVIX and ASPIRIN on discharge. Hematology Dr Hobbs consulted for persistently elevated hct >49% and Hb >17. Patient to be scheduled for in patient phlebotomy for blood letting and bone marrow biopsy scheduled for . ASA+ Plavix on HOLD for now, as per request by IR, in anticipation of procedure. Hypertension improving since starting on Diltiazem 60mg q6HR + Hydralazine 50mg TID + Losartan 100mg qD + HCTZ 25mg qD. Will monitor closely, PRN labetalol in place for SBP >185. Anticipate improvement by tomorrow, will advance Hydralazine frquency TID -> QID tomorrow, if needed. Patient examined and case discussed with the team including attending physician. Note reviewed, I agree with the care plan as documented. - Eudardo Cummings MD, PGY 2 Attending Provider Attestation/Addendum I reviewed labs, imaging, EKG, home medications and prior available records. Face to face evaluation was performed by me. I have personally examined the patient and discussed assessment and plan with the IM team. I reviewed the resident note and agree with the plan with exceptions as below. Acute CVA: Brain MRI showed large right cerebellum which is consistent with the patient's symptoms. In the setting of prior history of CVA. Started aspirin and atorvastatin. Start BP management. Consulted inpatient neurology. Continue frequent neurochecks. Ordered PT evaluation. Held aspirin and Plavix prior to bone biopsy. Erythrocytosis: Noted on H&H. Mild. May contribute to increased risk of CVA. Consulted hematology. Monitor H&H. Plan for phlebotomy. Recommended bone marrow biopsy on 10/20. Hypertensive urgency: BP improved. Started oral antihypertensive treatment. Increased nifedipine. Repeat CT head: Showed no interval changes. Ordered renal duplex to investigate this resistant hypertension that showed no renal artery stenosis. Consulted nephrology. Recommended sending renin/aldosterone activity and 24-hour catecholamine in the urine. Added spironolactone. Increased oral antihypertensive doses. Phlebotomy as above. Uncontrolled diabetes mellitus with hyperglycemia: Start insulin Lantus plus sliding scale insulin. Monitor fingersticks.
--- NOTE | 2024-10-18 13:50 | PD.RESPRO ---
Documentation for date of: 10/18/24 Subjective Subjective Interval history: Mr. Penaloza is a 44-year-old male past medical history significant for recent right MCA stroke, HTN, HLD, T2DM, bicuspid aortic valve with moderate stenosis presented to the emergency department with dizziness and nausea and vomiting. In the emergency department stroke alert was initiated.CT head showed nonhemorrhagic infarct of right inferior cerebellar hemisphere, negative for hemorrhage or mass effect. CTA head/neck no significant neck arterial stenosis or stable large vessel occlusion or thrombus. MRI showed large acute infarct of right cerebellar hemisphere, inferior vermis and small portion of left cerebellar hemisphere. Teleneurology was consulted. They recommended aspirin, statins, permissive hypertension. Patient was on aspirin, statin, carvedilol, hydralazine, insulin, losartan/hydrochlorothiazide, metformin, nifedipine at home. In the emergency department Afebrile, BP 191/95, HR 81, satting 96% on room air. Troponin 0.162 then 0.163, EKG showed sinus rhythm with occasional PVCs, no acute ST changes. ALP 129, ALT 51, AST normal, GLUCOSE 226. WBC 11.7, hemoglobin 16.7 with baseline around 17.4. UA negative for UTI U-Tox negative Per chart review, recent admission 10/02 for acute encephalopathy and hypertensive emergency with NIHSS score of 6. CT head then was negative, CTA showed possible P1 stenosis. MRI was also negative for acute pathology but demonstrated large old infarct of right MCA. TTE and LAWRENCE were done showing suspicious echogenic structure in LVOT, bicuspid aortic valve with moderate stenosis and calcification, negative for PFO or thrombus. Patient was admitted for possible repeat stroke. Dr Castañeda was consulted. 10/16/2024: Blood pressure continues to be significantly elevated despite on for class medications. Current blood pressure 185/103. Renal Doppler showed no renal artery stenosis. Renal consultation requested for malignant hypertension. Labs WBC 12.8, hemoglobin 17.6, platelets 231. Sodium 135, potassium 4.2, bicarbonate 21.9, creatinine 1.1, glucose 148, phosphorus 2.1, calcium 9.2, magnesium 2.2, LFTs normal Patient currently seen in telemetry. 10/17/2024: Patient's Blood Pressure 158/83 last night, continue to be high today, complains of mild headache, current Blood Pressure 188/86. Also endorsed hallucinations and visual disturbances last night. Pending Renin, Aldosterone. Sodium 136, Potassium 3.9, chloride 101, bicarbonate 25.3, phosphorus 2.9, magnesium 2.4, LFTs normal. Dr Castañeda consulted for acute infarct. 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 No labs done today. Patient has no current complaints. Scheduled for Bone marrow biopsy scheduled on , patient was started on heparin drip yesterday, was discontinued. Hematology consulted rec further workup of polycythemia. Continue to treat HTN with goal of decrease by 25% everyday. Exam Vital Signs Temp Pulse Resp BP Pulse Ox O2 Del Method 97.5 F 72 22 H 162/88 H 96 Room Air 10/18/24 08:00 10/18/24 11:37 10/18/24 08:00 10/18/24 11:37 10/18/24 08:00 10/18/24 04:00 Narrative Exam Physical Exam General: Awake and in no acute distress. Conversational and non-toxic appearing. HEENT: Normocephalic, atraumatic, mucous membranes moist. Heart: Regular rate and rhythm, no murmurs. Lungs: Clear to auscultation with no wheezing or crackles. Abdomen: Soft, nondistended, nontender, positive bowel sounds. No guarding or rebound tenderness. Neurologic: Alert and oriented x3, no gross neurological deficit, and patient able to move all 4 extremities. Complains of ataxia and headache. Extremities: No edema. Skin: No rash or ecchymoses. Objective Labs 10/18/24 13:57 10/17/24 04:13 Labs: Laboratory Results - last 24 hr 10/17/24 10/17/24 10/18/24 14:21 16:42 00:20 Hgb 17.5 H Hct 50.0 APTT 30.9 97.6 H D 10/18/24 07:49 Hgb Hct APTT 59.7 H D Quality Measures Quality Measures none Assessment & Plan Assessment Current Active Medications: Generic Name Dose Route Start Last Admin Trade Name Freq PRN Reason Stop Dose Admin Acetaminophen 650 mg 10/14/24 11:32 Acetaminophen 325 Mg Tablet PO 11/13/24 11:31 Q6H PRN Fever >100.4 Acetaminophen 650 mg 10/14/24 11:32 10/17/24 23:17 Acetaminophen 325 Mg Tablet PO 11/13/24 11:31 650 mg Q6H PRN Administration PAIN SCALE 1-3 (mild Aspirin 81 mg 10/15/24 09:00 10/18/24 10:13 Aspirin Ec 81 Mg Tabec PO 11/14/24 08:59 81 mg QDAY DANA Administration Atorvastatin Calcium 80 mg 10/14/24 21:00 10/17/24 23:17 Atorvastatin Calcium 20 Mg Tablet PO 11/13/24 20:59 80 mg HS DANA Administration Clopidogrel Bisulfate 75 mg 10/16/24 09:45 10/17/24 08:11 Clopidogrel Bisulfate 75 Mg Tablet PO 11/15/24 09:44 75 mg QDAY DANA Administration Dextrose 50 ml 10/14/24 14:01 Dextrose 50%-Water Inj 50 Ml Syringe IV 11/13/24 14:00 Q15MIN PRN BG <50 OR BG <70 & pt unresponsive Diltiazem HCl 60 mg 10/17/24 18:00 10/18/24 11:37 Diltiazem 30 Mg Tablet PO 11/16/24 17:59 60 mg Q6HR DANA Administration Glucagon 1 mg 10/14/24 14:01 Glucagon Inj 1 Mg Vial IM Q15MIN PRN BG <70, and no IV access Hydralazine HCl 50 mg 10/18/24 09:00 10/18/24 09:38 Hydralazine Hcl 25 Mg Tablet PO 11/17/24 08:59 50 mg QID DANA Administration Hydrochlorothiazide 25 mg 10/17/24 10:00 10/18/24 09:37 Hydrochlorothiazide 12.5 Mg Capsule PO 11/16/24 09:59 25 mg QDAY DANA Administration Insulin Glargine 10 unit 10/15/24 21:00 10/17/24 23:51 Insulin Glargine (Lantus) 5 Unit/0.05 Ml (Per 5 Units) SC 11/14/24 20:59 10 unit HS ADNA Administration Insulin Human Lispro 0 unit 10/14/24 17:00 10/18/24 11:37 Insulin Lispro (Admelog) 1 Unit/0.01 Ml Unit SC 11/13/24 16:59 2 unit ACHS DANA Administration Protocol Labetalol HCl 10 mg 10/17/24 15:38 10/17/24 15:59 Labetalol Inj 5 Mg/Ml Vial 20 Ml IVP 11/16/24 15:37 10 mg Q6H PRN Administration sBP>180, do NOT give if HR<70 Losartan Potassium 100 mg 10/16/24 09:00 10/18/24 09:38 Losartan Potassium 25 Mg Tablet PO 11/15/24 08:59 100 mg QDAY DANA Administration Ondansetron HCl 4 mg 10/14/24 03:07 10/17/24 08:22 Ondansetron Inj 2 Mg/Ml Inj 2 Ml IV 11/13/24 03:06 4 mg Q4HR PRN Administration NAUSEA OR VOMITING Oxycodone/Acetaminophen 1 tab 10/14/24 11:32 10/17/24 08:22 Oxycodone/Apap 5/325 Tablet PO 10/19/24 11:31 1 tab Q6H PRN Administration PAIN SCALE 4-6 (Moderate Pantoprazole Sodium 40 mg 10/14/24 21:00 10/18/24 09:38 Pantoprazole 40 Mg Tablet PO 11/13/24 20:59 40 mg Q12HR DANA Administration Spironolactone 50 mg 10/16/24 21:00 10/18/24 09:38 Spironolactone 25 Mg Tablet PO 11/15/24 20:59 50 mg BID DANA Administration Plan Summary: Mr. Penaloza is a 44-year-old male past medical history significant for recent right MCA stroke, HTN, HLD, T2DM, bicuspid aortic valve with moderate stenosis presented to the emergency department with dizziness and nausea and vomiting. MRI showed large acute infarct of right cerebellar hemisphere, inferior vermis and small portion of left cerebellar hemisphere. Teleneurology was consulted. They recommended aspirin, statins, permissive hypertension. Patient admitted for management of Acute CVA # Malignant hypertension Patient currently on 4 class medication (carvedilol, hydralazine, losartan, nifedipine) suspect secondary hypertension. Patient was on carvedilol, hydralazine, insulin, losartan/hydrochlorothiazide, nifedipine at home. Renal Doppler negative for renal artery stenosis. Blood pressure improved to 160's/80's, continue to treat with goal of decrease by 25% everyday. Plan: Currently on Cardizem 60 mg p.o. every 6 hours, hydralazine 50 mg p.o. four times daily, losartan 100 mg p.o. daily, spironolactone 50 mg p.o. twice daily Follow Renin, aldosterone, 24-hour urine for catecholamines ordered. 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 Scheduled for Phlebotomy tomorrow. Scheduled for Bone Marrow biopsy on . Follow anti-phospholipid antibody panel, beta-2 microglobulin, lupus anticoagulant eval with reflex, protein C, protein S activity Consider ordering erythropoietin level and JAK2 testing # Acute cerebellar infarct-complaining of headaches, dizziness. Dr Castañeda on the case # Hx of right MCA infarct # Hyperlipidemia # Diabetes mellitus Management as per primary team Case discussed with Attending Dr. Hansen. Chery Crowley PGY1 Attending Provider Attestation/Addendum Patient seen and examined with resident physician Dr. Crowley. Note reviewed, agree with findings and recommendations. Despite being on 5 class medications his blood pressure remains high. So far all the secondary hypertension workup is inconclusive. Noted his hemoglobin has been persistently elevated-will start workup for polycythemia. 10/2024 patient currently on heparin drip which was held for pending a bone marrow biopsy. Care discussed with primary team. Mom at bedside who had several questions and answered to her satisfaction. Currently on Cardizem. Will discontinue nifedipine. Blood pressure acceptable. Dr. Hobbs was consulted for polycythemia.
[2024-10-18 14:23] LABS: Hematocrit 51.7 % (41.0-53.0)
[2024-10-18] MEDS: ONDANSETRON INJ 2 MG/ML INJ 2 ML 4 MG IV (17:52)
[2024-10-18] MEDS: ATORVASTATIN CALCIUM 20 MG TABLET 80 MG PO (20:59)
[2024-10-18] MEDS: INSULIN GLARGINE (Lantus) 5 UNIT/0.05 ML (PER 5 UNITS) 10 UNIT SC (21:21)
--- NOTE | 2024-10-18 22:43 | PD.NEUROPROG ---
Documentation for date of: 10/18/24 Subjective Subjective Interval history: Patient was seen in telemetry at the bedside with his family. Patient continues to have pressure-like sensation, dizziness, vertigo and nausea and vomiting but much better. He finds it hard to sit up. Denies any weakness or paresthesias or lack of coordination in both upper and lower extremities. BP is much more controlled now, able to tolerate oral diet which has made his mother happy. Exam - Neurology Vital Signs Temp Pulse Resp BP Pulse Ox O2 Del Method 97.3 F 95 13 167/94 H 95 Room Air 10/18/24 20:00 10/18/24 20:59 10/18/24 20:00 10/18/24 20:59 10/18/24 20:00 10/18/24 16:00 Narrative Exam GENERAL APPEARANCE: Well hydrated, well-nourished in no acute distress. HEENT: Normocephalic, atraumatic, extraocular movements intact. Pupils: Equal reacting to light and accommodation NECK: Supple, no JVD or bruits. CARDIOVASULAR: Heart: S1, S2 heard, regular without S3-S4 or murmur no rubs or gallops. LUNGS/CHEST: Clear to auscultation bilaterally. No rails, rhonchi, or wheezing. Normal inspection. ABDOMEN: Soft, nontender, with normal bowel sounds. No pulsatile masses. No rebound, rigidity, or guarding. Normal inspection and palpation. EXTREMITIES: Normal inspection and palpation. No edema, clubbing or cyanosis. SKIN: Warm and dry without rashes. Normal inspection. MUSCULOSKELETAL: No cervical, thoracic, lumbar or midline bony tenderness. Normal inspection. NEURO: Alert, awake and oriented x3. Cranial nerves: II through XII grossly intact. Speech and language: Normal with no dysarthria or dysphasia. Motor system: Tone and bulk: Normal: Strength: 5 out of 5 in all 4 extremities; No pronator drift noted. Deep tendon reflexes: 2+ bilaterally symmetrical. Plantar reflex: Downgoing bilaterally. Sensory system: Intact to all modalities of sensation bilaterally. Coordination: Intact to [id number] and [id number] test bilaterally. No ataxia, no dysmetria, or dysdiadochokinesia noted. No intention tremors noted. Gait: Not tested. No signs of meningeal irritation noted. PSYCHIATRIC: Normal mood and affect. Objective Labs 10/18/24 13:57 10/17/24 04:13 Labs: Laboratory Results - last 24 hr 10/18/24 10/18/24 10/18/24 00:20 07:49 13:57 Hgb 18.0 H* Hct 51.7 APTT 97.6 H D 59.7 H D Assessment & Plan Assessment and plan (1) Dizziness: Status: Acute Assessment and plan: Secondary to acute cerebellar CVA Should improve with time (2) Acute CVA (cerebrovascular accident): Status: Acute Assessment and plan: Affecting the right cerebellar hemisphere mainly Will continue to follow him closely as stroke involves the posterior fossa Continue with aspirin for now and then will add Plavix tomorrow to prevent hemorrhagic transformation (3) Hypertension: Status: Acute Assessment and plan: much better now, Continue with aggressive blood pressure control noted that he is on PRN meds in addition to scheduled multiple meds. (4) Hyperlipidemia: Status: Acute Assessment and plan: Continue with high intensity statin: LDL: 112 (5) Type 2 diabetes mellitus: Status: Chronic Assessment and plan: Needs better control of diabetes as the last A1c: 11.2 (6) Intractable vomiting: Status: Acute Assessment and plan: Secondary to acute cerebellar CVA, should improve with time as the edema resolves. (7) Polycythemia: Status: Acute Assessment and plan: planned to get bone marrow biopsy by [facility]
[2024-10-19] VITALS (16 sets, daily range): BP systolic 149–173; BP diastolic 81–97; PULSE 65–83; RESP 14–18; TEMP 36–36.3; O2SAT 95–97; BMI 19.6
[2024-10-19] MEDS: DILTIAZEM 30 MG TABLET 60 MG PO ×4 (00:45→17:49)
[2024-10-19 05:43] LABS: Basophils # (Auto) 0.1 Thou/mm3 (0.0-0.2); Basophils % (Auto) 0 % (0-2.5); Eosinophils # (Auto) 0.1 Thou/mm3 (0.0-0.5); Eosinophils % (Auto) 1 % (0-10); Hematocrit 51.6 % (41.0-53.0); Hemoglobin 17.9 g/dL (13.5-16.0); Immature Granulocytes % (Auto) 0 % (0-0); Immature Granulocytes Auto 0.03 Thou/mm3 (0.00-0.00); Lymphocytes # (Auto) 3.1 Thou/mm3 (1.0-4.8); Lymphocytes % (Auto) 26 % (10-50); Mean Corpuscular HGB Conc 34.7 g/dl (31.0-37.0); Mean Corpuscular Hemoglobin 28.3 pg (25.0-35.0); Mean Corpuscular Volume 82 fL (80-100); Monocytes # (Auto) 1.1 Thou/mm3 (0.0-0.8); Monocytes % (Auto) 9 % (0-12); Neutrophils # (Auto) 7.7 Thou/mm3 (1.8-7.7); Neutrophils % (Auto) 64 % (37-80); Nucleated Red Blood Cell % 0 /100 WBC (0); Platelet Count 329 Thou/mm3 (140-440); Red Blood Count 6.32 Miln/mm3 (4.50-5.90); White Blood Count 11.9 Thou/mm3 (3.8-10.6)
[2024-10-19] MEDS: hydrALAZINE HCL 25 MG TABLET 50 MG PO ×4 (05:56→20:52)
[2024-10-19 06:18] LABS: Alanine Aminotransferase 29 U/L (10-49); Albumin, Serum 4.8 gm/dL (3.5-5.0); Albumin/Globulin Ratio 1.8 (1.2-2.2); Alkaline Phosphatase 99 U/L (46-116); Anion Gap 11 (7-16); Aspartate Amino Transferase 14 U/L (0-34); BUN/Creatinine Ratio 19 Ratio (12-20); Bilirubin,Total 0.7 mg/dL (0.3-1.2); Blood Urea Nitrogen 23 mg/dL (9-23); Calcium 9.3 mg/dL (8.3-10.6); Calcium (Corrected) 9.3 mg/dL (8.5-10.1); Chloride 99 mMol/L (98-107); Creatinine (Component) 1.2 mg/dL (0.6-1.3); Estimated Creatinine Clearance 70.5 mL/min (>60); Globulin 2.7 gm/dL (2.3-3.5); Glucose 137 mg/dL (74-106); Magnesium 2.3 mg/dL (1.6-2.6); Osmolality,Calculated 273 (275-295); Potassium 3.4 mMol/L (3.4-5.1); Sodium 134 mMol/L (136-145); Total Protein 7.5 gm/dL (5.7-8.2); eGFR > 60 See Note
[2024-10-19 06:30] LABS: INR 1.2 (0.9-1.3); Partial Thromboplastin Time 31.3 Seconds (22.0-36.0); Prothrombin Time 12.9 Seconds (9.0-12.2)
[2024-10-19 07:04] LABS: PTT-LA Screen 32 seconds (< OR = 40); Protein C Activity* 117 % normal (70-180); Protein S Activity* 111 % normal (70-150); dRVVT Screen 33 seconds (< OR = 45)
--- NOTE | 2024-10-19 08:02 | ESPR_ITS ---
Documentation for date of: 10/19/24 Subjective Subjective Interval history: No acute overnight events. Complaining of new mild occipital headache that started this morning. Family at bedside stated he has been a little drowsier than usual this morning. Patient also states she worked with PT last night but felt dizzy with ambulation. Will continue working physical therapy. Denies fever, chills, chest pain, sob, cough, GI or urinary symptoms. Exam Vital Signs Temp Pulse Resp BP Pulse Ox O2 Del Method 97.2 F 67 14 173/97 H 95 Room Air 10/19/24 04:00 10/19/24 05:56 10/19/24 04:00 10/19/24 05:56 10/19/24 04:00 10/18/24 16:00 Narrative Exam GENERAL: Normal appearing adult male, NAD, complains of headaches and dizziness, on room air HEENT: NCAT.?KEYUR. Oral mucosa is moist. Patent Nares NECK: Supple, nontender, no thyromegaly, no meningismus, no JVD, no step offs CHEST: Symmetrical, atraumatic, and with equal expansion, Nontender on palpation no deformity and no crepitus. CARDIOVASCULAR: RRR, no m/g/r LUNGS: CTAB, no w/r/r. Symmetrical chest rise. No intercostal subcostal retraction. ABDOMEN: Soft, flat, nontender. No guarding/rebound tenderness/masses. +BS EXTREMITIES: Nontender.? No edema/cyanosis.?Moves all 4 extremities well, with full ROM and good CSM. SKIN: Warm and dry, no jaundice/rashes. MSK: No lumbar or midline, no CVA, no paraspinal muscle spasm or tenderness. NEURO: SUTTON x4, CN II-XII grossly intact.?No focal neurologic deficits. PSYCHIATRIC: Normal mood and affect, cooperative, no SI or HI or hallucinations. Objective Labs 10/20/24 04:17 10/20/24 04:17 Labs: Laboratory Results - last 24 hr 10/14/24 10/18/24 10/18/24 11:40 07:49 13:57 WBC RBC Hgb 18.0 H* Hct 51.7 MCV MCH MCHC RDW Std Deviation Plt Count Neut % (Auto) Lymph % (Auto) Otero % (Auto) Eos % (Auto) Baso % (Auto) Neut # (Auto) Lymph # (Auto) Otero # (Auto) Eos # (Auto) Baso # (Auto) Immature Gran # (Auto) Absolute Nucleated RBC Immature Gran % Nucleated RBC % PT INR APTT 59.7 H D Lupus Anticoagulant SEE NOTE LA PTT Screen 32 LA Thrombin Time TNP LA dRVVT Screen Ratio 33 LA dRVVT Confirm Ratio TNP LA dRVVT Mix Ratio TNP dRVVT Mix Interpret TNP Hexagonal Phase Confirm TNP Protein C Activity 117 Protein S Activity 111 Sodium Potassium Chloride Carbon Dioxide Anion Gap BUN Creatinine Estim Creat Clear Calc eGFR BUN/Creatinine Ratio Glucose Calculated Osmolality Calcium Corrected Calcium Phosphorus Magnesium Total Bilirubin AST ALT Alkaline Phosphatase Total Protein Albumin Globulin Albumin/Globulin Ratio Epineph & Norepi Total Ur Creatinine 24 Hour Ur VMA Quantitative Urine Total Volume Ur Epinephrine 24 Hr U Norepinephrine 24 Hr Ur Dopamine 24 Hr 10/18/24 10/19/24 23:25 04:34 WBC 11.9 H RBC 6.32 H Hgb 17.9 H* Hct 51.6 MCV 82 MCH 28.3 MCHC 34.7 RDW Std Deviation 37.0 Plt Count 329 Neut % (Auto) 64 Lymph % (Auto) 26 Otero % (Auto) 9 Eos % (Auto) 1 Baso % (Auto) 0 Neut # (Auto) 7.7 Lymph # (Auto) 3.1 Otero # (Auto) 1.1 H Eos # (Auto) 0.1 Baso # (Auto) 0.1 Immature Gran # (Auto) 0.03 H Absolute Nucleated RBC 0.00 Immature Gran % 0 Nucleated RBC % 0 PT 12.9 H INR 1.2 APTT 31.3 D Lupus Anticoagulant LA PTT Screen LA Thrombin Time LA dRVVT Screen Ratio LA dRVVT Confirm Ratio LA dRVVT Mix Ratio dRVVT Mix Interpret Hexagonal Phase Confirm Protein C Activity Protein S Activity Sodium 134 L Potassium 3.4 D Chloride 99 Carbon Dioxide 24.0 Anion Gap 11 BUN 23 Creatinine 1.2 Estim Creat Clear Calc 70.5 eGFR > 60 BUN/Creatinine Ratio 19 Glucose 137 H Calculated Osmolality 273 L Calcium 9.3 Corrected Calcium 9.3 Phosphorus 4.0 Magnesium 2.3 Total Bilirubin 0.7 AST 14 ALT 29 Alkaline Phosphatase 99 Total Protein 7.5 Albumin 4.8 Globulin 2.7 Albumin/Globulin Ratio 1.8 Epineph & Norepi Total Cancelled Ur Creatinine 24 Hour Cancelled Ur VMA Quantitative Cancelled Urine Total Volume Cancelled Ur Epinephrine 24 Hr Cancelled U Norepinephrine 24 Hr Cancelled Ur Dopamine 24 Hr Cancelled Quality Measures Quality Measures none Assessment & Plan Assessment Current Active Medications: Generic Name Dose Route Start Last Admin Trade Name Freq PRN Reason Stop Dose Admin Acetaminophen 650 mg 10/14/24 11:32 Acetaminophen 325 Mg Tablet PO 11/13/24 11:31 Q6H PRN Fever >100.4 Acetaminophen 650 mg 10/14/24 11:32 10/17/24 23:17 Acetaminophen 325 Mg Tablet PO 11/13/24 11:31 650 mg Q6H PRN Administration PAIN SCALE 1-3 (mild Aspirin 81 mg 10/15/24 09:00 10/18/24 10:13 Aspirin Ec 81 Mg Tabec PO 11/14/24 08:59 81 mg QDAY DANA Administration Atorvastatin Calcium 80 mg 10/14/24 21:00 10/18/24 20:59 Atorvastatin Calcium 20 Mg Tablet PO 11/13/24 20:59 80 mg HS DANA Administration Clopidogrel Bisulfate 75 mg 10/16/24 09:45 10/17/24 08:11 Clopidogrel Bisulfate 75 Mg Tablet PO 11/15/24 09:44 75 mg QDAY DANA Administration Dextrose 50 ml 10/14/24 14:01 Dextrose 50%-Water Inj 50 Ml Syringe IV 11/13/24 14:00 Q15MIN PRN BG <50 OR BG <70 & pt unresponsive Diltiazem HCl 60 mg 10/17/24 18:00 10/19/24 05:56 Diltiazem 30 Mg Tablet PO 11/16/24 17:59 60 mg Q6HR DANA Administration Glucagon 1 mg 10/14/24 14:01 Glucagon Inj 1 Mg Vial IM Q15MIN PRN BG <70, and no IV access Hydralazine HCl 50 mg 10/18/24 09:00 10/19/24 05:56 Hydralazine Hcl 25 Mg Tablet PO 11/17/24 08:59 50 mg QID DANA Administration Hydrochlorothiazide 25 mg 10/17/24 10:00 10/18/24 09:37 Hydrochlorothiazide 12.5 Mg Capsule PO 11/16/24 09:59 25 mg QDAY DANA Administration Insulin Glargine 10 unit 10/15/24 21:00 10/18/24 21:21 Insulin Glargine (Lantus) 5 Unit/0.05 Ml (Per 5 Units) SC 11/14/24 20:59 10 unit HS DANA Administration Insulin Human Lispro 0 unit 10/14/24 17:00 10/18/24 21:21 Insulin Lispro (Admelog) 1 Unit/0.01 Ml Unit SC 11/13/24 16:59 2 unit ACHS DANA Administration Protocol Labetalol HCl 10 mg 10/17/24 15:38 10/17/24 15:59 Labetalol Inj 5 Mg/Ml Vial 20 Ml IVP 11/16/24 15:37 10 mg Q6H PRN Administration sBP>180, do NOT give if HR<70 Losartan Potassium 100 mg 10/16/24 09:00 10/18/24 09:38 Losartan Potassium 25 Mg Tablet PO 11/15/24 08:59 100 mg QDAY DANA Administration Ondansetron HCl 4 mg 10/14/24 03:07 10/18/24 17:52 Ondansetron Inj 2 Mg/Ml Inj 2 Ml IV 11/13/24 03:06 4 mg Q4HR PRN Administration NAUSEA OR VOMITING Oxycodone/Acetaminophen 1 tab 10/14/24 11:32 10/17/24 08:22 Oxycodone/Apap 5/325 Tablet PO 10/19/24 11:31 1 tab Q6H PRN Administration PAIN SCALE 4-6 (Moderate Pantoprazole Sodium 40 mg 10/14/24 21:00 10/18/24 21:01 Pantoprazole 40 Mg Tablet PO 11/13/24 20:59 40 mg Q12HR DANA Administration Spironolactone 50 mg 10/16/24 21:00 10/18/24 20:59 Spironolactone 25 Mg Tablet PO 11/15/24 20:59 50 mg BID DANA Administration Plan In summary: 44-year-old male with history of CVA, HTN, HLD, T2DM presenting with acute dizziness, outside tPA window, admitted for left cerebral hemisphere infarct. Patient notes new mild occipital headache that began this morning. We repeated CT showed new small acute subdural hemorrhage, peripheral to left temporal parietal lobe, we stopped antiplatelets and anticoag's. Patient has resistant hypertension likely 2/2 polycythemia, negative renal artery scan, currently on multiple ANTIHYPERTENSIVES, BP relatively controlled, therapeutic phlebotomy was done to remove 250 cc of blood. Recent blood smear showed polycythemia, Dr. Hobbs hematology, pending ANTICHOLAGOGUES and JAK2 mutations as well as marrow biopsy on . Appreciate neurology, nephrology and hematology recommendations. # Acute cerebellar infarct # Hx of right MCA infarct # Hyperlipidemia Presented with acute dizziness, outside tPA window CT head showed nonhemorrhagic infarct right inferior cerebellar hemisphere, no hemorrhage or mass effect. CTA head/neck no stenosis or large vessel disease. MRI with large acute infarct of right cerebellar hemisphere, inferior vermis, and small portion of left cerebellar hemisphere. NIHSS score 0. Patient continued on statin, ASPIRIN, currently holding PLAVIX till marrow biopsy on . Physical therapy will see patient now that BP controlled. New small acute subdural hemorrhage of left temporoparietal lobe, measuring 2.6 mm. Neurology informed, recommended holding anticoag's and antiplatelets. ? Holding ASPIRIN 81 mg daily ? Continue ATORVASTATIN 80 mg HS ? Holding PLAVIX [address] marrow biopsy ? Head elevation 30 degrees ? Speech eval ? Physical therapy ? TYLENOL for fever and headache ? Normal saline 1 L at 75 cc/HR # Resistant hypertension # Hypertensive emergency ? resolved # Hypertension Possibly related to erythrocytosis Renal artery US no renal artery stenosis BP currently controlled with regimen. Nephrology following, pending renin ALDOSTERONE, 24-hour CATECHOLAMINES ? Started MINOXIDIL 5 mg BID ? Discontinued HYDROCHLOROTHIAZIDE 25 mg daily ? Continue SPIRONOLACTONE 50 mg BID ? Continue LOSARTAN 100 mg daily ? Continue HYDRALAZINE 50 mg QID ? Continue DILTIAZEM 60 mg TID ? Continue LABETALOL 10 mg Q6H PRN for sBP >180 if HR >70 # NSTEMI type II, delta trope - resolved Likely demand ischemia 2/2 HTN Admission troponin 0.162 then 0.163 EKG sinus rhythm with occasional PVC Denies chest pain or palpitations ? Antihypertensives as above # Erythrocytosis # Polycythemia Elevated hemoglobin, around 17.5. Likely contributing to CVA and resistant hypertension. Blood smear showed polycythemia only. Pending labs including anticoag's and JAK2. Pending marrow aspiration on . ? Hematology, Dr. Hobbs following ? Venesection procedure pending ? Daily CBC # T2DM Admission GLUCOSE 168, currently controlled 10/03 A1c 11.2 ? Accu-Cheks ? Continue LANTUS 10 unit HS ? INSULIN sliding scale ? Holding home meds ? CHO consistent diet # Hypophosphatemia ? resolved Phosphate 2.1 ? Repleted Health maintenance Diet: Passed swallow eval, CHO consistent/cardiac diet GI prophylaxis: PROTONIX DVT prophylaxis: SCD, HEPARIN Antibiotics: Not indicated CODE STATUS: Full code Disposition: Patient admitted for management of CVA and hypertensive emergency Patient case was discussed with attending, Garcia Madison MD and senior resident Dr. Cummings. Kati Brooks, DO PGYI L Mr Penaloza is a 44-year-old male with history of CVA, HTN, HLD, T2DM presenting with acute dizziness, outside tPA window, admitted for RT cerebellar hemisphere infarct on MRIB. In-house neurology, Dr. Castañeda was consulted, patient is cleared by neurology with recommendation to continue statin, PLAVIX and ASPIRIN on discharge. Hematology Dr Hobbs consulted for persistently elevated hct >49% and Hb >17. Patient underwent 250cc output through phlebotomy. Hypertension improving, SBP 130-160 on Diltiazem 60mg q6HR + Hydralazine 50mg QID + Losartan 100mg qD + HCTZ 25mg qD. Since Nephrology started patient on Spirinolactone 50mg BID, and risk of hypokalemia with HCTZ, will discontinue thiazide diuretic for now and start Minoxidil 5mg BID, Dr Hansen in agreement as well. Will monitor closely, PRN labetalol in place for SBP >185. Anticipate improvement by tomorrow, will advance Hydralazine frquency TID -> QID tomorrow, if needed. 10/19: NIHSS 0 ; Family complained he is experiencing visual hallucinations, repeat Head CT ordered as recently discontinued heprain gtt as well. Head CT showed a new small bleed in the LT temporal-parietal region, likely due to persistent HTN. Large RT cerebellar ischemic infarct still present, intact. Neurology informed, will continue to observe and manage high BP. Plan: He is scheduled for a bone marrow biopsy tomorrow morning. NPO after midnight, holding ASA+ Plavix as per request by IR. Patient examined and case discussed with the team including attending physician. Note reviewed, I agree with the care plan as documented. - Eduardo Cummings MD, PGY 2 Attending Provider Attestation/Addendum I reviewed labs, imaging, EKG, home medications and prior available records. Face to face evaluation was performed by me. I have personally examined the patient and discussed assessment and plan with the IM team. I reviewed the resident note and agree with the plan with exceptions as below. Acute encephalopathy: Noted on 10/19. Patient was found to be confused as per family. Discussed with neurology: Ordered repeat CT head. Acute CVA: Brain MRI showed large right cerebellum which is consistent with the patient's symptoms. In the setting of prior history of CVA. Started aspirin and atorvastatin. Start BP management. Consulted inpatient neurology. Continue frequent neurochecks. Ordered PT evaluation. Held aspirin and Plavix prior to bone biopsy. Erythrocytosis: Noted on H&H. Mild. May contribute to increased risk of CVA. Consulted hematology. Monitor H&H. Plan for phlebotomy. Recommended bone marrow biopsy on 10/20. Hypertensive urgency: BP improved. Started oral antihypertensive treatment. Increased nifedipine. Repeat CT head: Showed no interval changes. Ordered renal duplex to investigate this resistant hypertension that showed no renal artery stenosis. Consulted nephrology. Recommended sending renin/aldosterone activity and 24-hour catecholamine in the urine. Added spironolactone. Increased oral antihypertensive doses. Phlebotomy as above. Uncontrolled diabetes mellitus with hyperglycemia: Start insulin Lantus plus sliding scale insulin. Monitor fingersticks.
[2024-10-19] MEDS: PANTOPRAZOLE 40 MG TABLET PO ×2 (08:12→20:51)
[2024-10-19] MEDS: POTASSIUM CHLORIDE 20 mEq TABCR 40 MEQ PO (08:12)
[2024-10-19] MEDS: LOSARTAN POTASSIUM 25 MG TABLET 100 MG PO (08:12)
[2024-10-19] MEDS: hydroCHLOROthiazide 12.5 MG CAPSULE 50 MG PO (08:13)
[2024-10-19] MEDS: SPIRONOLACTONE 25 MG TABLET 50 MG PO ×2 (08:13→20:53)
[2024-10-19] MEDS: INSULIN LISPRO (AdmeLOG) 1 UNIT/0.01 ML UNIT SC ×4 (08:14→20:54)
[2024-10-19] MEDS: ASPIRIN EC 81 MG TABEC PO (08:14)
--- NOTE | 2024-10-19 08:36 | PD.RESPRO ---
Documentation for date of: 10/19/24 Subjective Subjective Interval history: Mr. Penaloza is a 44-year-old male past medical history significant for recent right MCA stroke, HTN, HLD, T2DM, bicuspid aortic valve with moderate stenosis presented to the emergency department with dizziness and nausea and vomiting. In the emergency department stroke alert was initiated.CT head showed nonhemorrhagic infarct of right inferior cerebellar hemisphere, negative for hemorrhage or mass effect. CTA head/neck no significant neck arterial stenosis or stable large vessel occlusion or thrombus. MRI showed large acute infarct of right cerebellar hemisphere, inferior vermis and small portion of left cerebellar hemisphere. Teleneurology was consulted. They recommended aspirin, statins, permissive hypertension. Patient was on aspirin, statin, carvedilol, hydralazine, insulin, losartan/hydrochlorothiazide, metformin, nifedipine at home. In the emergency department Afebrile, BP 191/95, HR 81, satting 96% on room air. Troponin 0.162 then 0.163, EKG showed sinus rhythm with occasional PVCs, no acute ST changes. ALP 129, ALT 51, AST normal, GLUCOSE 226. WBC 11.7, hemoglobin 16.7 with baseline around 17.4. UA negative for UTI U-Tox negative Per chart review, recent admission 10/02 for acute encephalopathy and hypertensive emergency with NIHSS score of 6. CT head then was negative, CTA showed possible P1 stenosis. MRI was also negative for acute pathology but demonstrated large old infarct of right MCA. TTE and LAWRENCE were done showing suspicious echogenic structure in LVOT, bicuspid aortic valve with moderate stenosis and calcification, negative for PFO or thrombus. Patient was admitted for possible repeat stroke. Dr Castañeda was consulted. 10/16/2024: Blood pressure continues to be significantly elevated despite on for class medications. Current blood pressure 185/103. Renal Doppler showed no renal artery stenosis. Renal consultation requested for malignant hypertension. Labs WBC 12.8, hemoglobin 17.6, platelets 231. Sodium 135, potassium 4.2, bicarbonate 21.9, creatinine 1.1, glucose 148, phosphorus 2.1, calcium 9.2, magnesium 2.2, LFTs normal Patient currently seen in telemetry. 10/17/2024: Patient's Blood Pressure 158/83 last night, continue to be high today, complains of mild headache, current Blood Pressure 188/86. Also endorsed hallucinations and visual disturbances last night. Pending Renin, Aldosterone. Sodium 136, Potassium 3.9, chloride 101, bicarbonate 25.3, phosphorus 2.9, magnesium 2.4, LFTs normal. Dr Castañeda consulted for acute infarct. 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 No labs done today. Patient has no current complaints. Scheduled for Bone marrow biopsy scheduled on , patient was started on heparin drip yesterday, was discontinued. Hematology consulted rec further workup of polycythemia. Continue to treat HTN with goal of decrease by 25% everyday. 10/19/2024: Patient Blood Pressure 162/63, reports improvement compared to yesterday continues to complain of hallucinations. Patient reports working with physical therapy, complains of gait instability. Labs done today significant for hemoglobin 17.5, sodium 134, glucose 137, osmolality 273 BUN 23, creatinine 1.2, GFR more than 60, potassium 3.4. Patient has no current complaints. Scheduled for Bone marrow biopsy tomorrow. Hematology consulted rec further workup of polycythemia. Continue to treat HTN with goal of decrease by 25% everyday. Patient started on hydrochlorothiazide today. Exam Vital Signs Temp Pulse Resp BP Pulse Ox O2 Del Method 97.0 F 70 18 168/96 H 97 Room Air 10/19/24 08:00 10/19/24 08:13 10/19/24 08:00 10/19/24 08:13 10/19/24 08:00 10/19/24 08:00 Narrative Exam Physical Exam General: Awake and in no acute distress. Conversational and non-toxic appearing. HEENT: Normocephalic, atraumatic, mucous membranes moist. Heart: Regular rate and rhythm, no murmurs. Lungs: Clear to auscultation with no wheezing or crackles. Abdomen: Soft, nondistended, nontender, positive bowel sounds. No guarding or rebound tenderness. Neurologic: Alert and oriented x3, no gross neurological deficit, and patient able to move all 4 extremities. Complains of ataxia and headache. Extremities: No edema. Skin: No rash or ecchymoses. Objective Labs 10/22/24 13:55 10/22/24 05:58 Labs: Laboratory Results - last 24 hr 10/14/24 10/18/24 10/18/24 11:40 07:49 13:57 WBC RBC Hgb 18.0 H* Hct 51.7 MCV MCH MCHC RDW Std Deviation Plt Count Neut % (Auto) Lymph % (Auto) [place] % (Auto) Eos % (Auto) Baso % (Auto) Neut # (Auto) Lymph # (Auto) [place] # (Auto) Eos # (Auto) Baso # (Auto) Immature Gran # (Auto) Absolute Nucleated RBC Immature Gran % Nucleated RBC % PT INR APTT 59.7 H D Lupus Anticoagulant SEE NOTE LA PTT Screen 32 LA Thrombin Time TNP LA dRVVT Screen Ratio 33 LA dRVVT Confirm Ratio TNP LA dRVVT Mix Ratio TNP dRVVT Mix Interpret TNP Hexagonal Phase Confirm TNP Protein C Activity 117 Protein S Activity 111 Sodium Potassium Chloride Carbon Dioxide Anion Gap BUN Creatinine Estim Creat Clear Calc eGFR BUN/Creatinine Ratio Glucose Calculated Osmolality Calcium Corrected Calcium Phosphorus Magnesium Total Bilirubin AST ALT Alkaline Phosphatase Total Protein Albumin Globulin Albumin/Globulin Ratio Epineph & Norepi Total Ur Creatinine 24 Hour Ur VMA Quantitative Urine Total Volume Ur Epinephrine 24 Hr U Norepinephrine 24 Hr Ur Dopamine 24 Hr 10/18/24 10/19/24 23:25 04:34 WBC 11.9 H RBC 6.32 H Hgb 17.9 H* Hct 51.6 MCV 82 MCH 28.3 MCHC 34.7 RDW Std Deviation 37.0 Plt Count 329 Neut % (Auto) 64 Lymph % (Auto) 26 [place] % (Auto) 9 Eos % (Auto) 1 Baso % (Auto) 0 Neut # (Auto) 7.7 Lymph # (Auto) 3.1 [place] # (Auto) 1.1 H Eos # (Auto) 0.1 Baso # (Auto) 0.1 Immature Gran # (Auto) 0.03 H Absolute Nucleated RBC 0.00 Immature Gran % 0 Nucleated RBC % 0 PT 12.9 H INR 1.2 APTT 31.3 D Lupus Anticoagulant LA PTT Screen LA Thrombin Time LA dRVVT Screen Ratio LA dRVVT Confirm Ratio LA dRVVT Mix Ratio dRVVT Mix Interpret Hexagonal Phase Confirm Protein C Activity Protein S Activity Sodium 134 L Potassium 3.4 D Chloride 99 Carbon Dioxide 24.0 Anion Gap 11 BUN 23 Creatinine 1.2 Estim Creat Clear Calc 70.5 eGFR > 60 BUN/Creatinine Ratio 19 Glucose 137 H Calculated Osmolality 273 L Calcium 9.3 Corrected Calcium 9.3 Phosphorus 4.0 Magnesium 2.3 Total Bilirubin 0.7 AST 14 ALT 29 Alkaline Phosphatase 99 Total Protein 7.5 Albumin 4.8 Globulin 2.7 Albumin/Globulin Ratio 1.8 Epineph & Norepi Total Cancelled Ur Creatinine 24 Hour Cancelled Ur VMA Quantitative Cancelled Urine Total Volume Cancelled Ur Epinephrine 24 Hr Cancelled U Norepinephrine 24 Hr Cancelled Ur Dopamine 24 Hr Cancelled Quality Measures Quality Measures none Assessment & Plan Assessment Current Active Medications: Generic Name Dose Route Start Last Admin Trade Name Freq PRN Reason Stop Dose Admin Acetaminophen 650 mg 10/14/24 11:32 Acetaminophen 325 Mg Tablet PO 11/13/24 11:31 Q6H PRN Fever >100.4 Acetaminophen 650 mg 10/14/24 11:32 10/17/24 23:17 Acetaminophen 325 Mg Tablet PO 11/13/24 11:31 650 mg Q6H PRN Administration PAIN SCALE 1-3 (mild Aspirin 81 mg 10/15/24 09:00 10/19/24 08:14 Aspirin Ec 81 Mg Tabec PO 11/14/24 08:59 81 mg QDAY DANA Administration Atorvastatin Calcium 80 mg 10/14/24 21:00 10/18/24 20:59 Atorvastatin Calcium 20 Mg Tablet PO 11/13/24 20:59 80 mg HS DANA Administration Clopidogrel Bisulfate 75 mg 10/16/24 09:45 10/17/24 08:11 Clopidogrel Bisulfate 75 Mg Tablet PO 11/15/24 09:44 75 mg QDAY DANA Administration Dextrose 50 ml 10/14/24 14:01 Dextrose 50%-Water Inj 50 Ml Syringe IV 11/13/24 14:00 Q15MIN PRN BG <50 OR BG <70 & pt unresponsive Diltiazem HCl 60 mg 10/17/24 18:00 10/19/24 05:56 Diltiazem 30 Mg Tablet PO 11/16/24 17:59 60 mg Q6HR DANA Administration Glucagon 1 mg 10/14/24 14:01 Glucagon Inj 1 Mg Vial IM Q15MIN PRN BG <70, and no IV access Hydralazine HCl 50 mg 10/18/24 09:00 10/19/24 05:56 Hydralazine Hcl 25 Mg Tablet PO 11/17/24 08:59 50 mg QID DANA Administration Hydrochlorothiazide 50 mg 10/19/24 09:00 10/19/24 08:13 Hydrochlorothiazide 12.5 Mg Capsule PO 11/18/24 08:59 50 mg QDAY DANA Administration Insulin Glargine 10 unit 10/15/24 21:00 10/18/24 21:21 Insulin Glargine (Lantus) 5 Unit/0.05 Ml (Per 5 Units) SC 11/14/24 20:59 10 unit HS DANA Administration Insulin Human Lispro 0 unit 10/14/24 17:00 10/19/24 08:14 Insulin Lispro (Admelog) 1 Unit/0.01 Ml Unit SC 11/13/24 16:59 4 unit ACHS DANA Administration Protocol Labetalol HCl 10 mg 10/17/24 15:38 10/17/24 15:59 Labetalol Inj 5 Mg/Ml Vial 20 Ml IVP 11/16/24 15:37 10 mg Q6H PRN Administration sBP>180, do NOT give if HR<70 Losartan Potassium 100 mg 10/16/24 09:00 10/19/24 08:12 Losartan Potassium 25 Mg Tablet PO 11/15/24 08:59 100 mg QDAY DANA Administration Ondansetron HCl 4 mg 10/14/24 03:07 10/18/24 17:52 Ondansetron Inj 2 Mg/Ml Inj 2 Ml IV 11/13/24 03:06 4 mg Q4HR PRN Administration NAUSEA OR VOMITING Oxycodone/Acetaminophen 1 tab 10/14/24 11:32 10/17/24 08:22 Oxycodone/Apap 5/325 Tablet PO 10/19/24 11:31 1 tab Q6H PRN Administration PAIN SCALE 4-6 (Moderate Pantoprazole Sodium 40 mg 10/14/24 21:00 10/19/24 08:12 Pantoprazole 40 Mg Tablet PO 11/13/24 20:59 40 mg Q12HR DANA Administration Spironolactone 50 mg 10/16/24 21:00 10/19/24 08:13 Spironolactone 25 Mg Tablet PO 11/15/24 20:59 50 mg BID DANA Administration Plan Summary: Mr. Penaloza is a 44-year-old male past medical history significant for recent right MCA stroke, HTN, HLD, T2DM, bicuspid aortic valve with moderate stenosis presented to the emergency department with dizziness and nausea and vomiting. MRI showed large acute infarct of right cerebellar hemisphere, inferior vermis and small portion of left cerebellar hemisphere. Teleneurology was consulted. They recommended aspirin, statins, permissive hypertension. Patient admitted for management of Acute CVA # Malignant hypertension Patient currently on 4 class medication (carvedilol, hydralazine, losartan, nifedipine) suspect secondary hypertension. Patient was on carvedilol, hydralazine, insulin, losartan/hydrochlorothiazide, nifedipine at home. Renal Doppler negative for renal artery stenosis. Blood pressure improved to 160's/80's, continue to treat with goal of decrease by 25% everyday. Plan: Currently on Cardizem 60 mg p.o. every 6 hours, hydralazine 50 mg p.o. four times daily, losartan 100 mg p.o. daily, spironolactone 50 mg p.o. twice daily. Patient started on hydrochlorothiazide today Follow Renin, aldosterone, 24-hour urine for catecholamines ordered. 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 Scheduled for Phlebotomy tomorrow. Scheduled for Bone Marrow biopsy on . Follow anti-phospholipid antibody panel, beta-2 microglobulin, lupus anticoagulant eval with reflex, protein C, protein S activity Consider ordering erythropoietin level and JAK2 testing # Acute cerebellar infarct-complaining of headaches, dizziness. Dr Castañeda on the case # Hx of right MCA infarct # Hyperlipidemia # Diabetes mellitus Management as per primary team Case discussed with Attending Dr. Hansen. Chery Crowley PGY1 Attending Provider Attestation/Addendum Patient seen and examined with resident physician Dr. Crowley. Note reviewed, agree with findings and recommendations. Blood pressure still remains elevated. Spoke to primary team-switch hydrochlorothiazide to minoxidil. CT brain today showed small subdural bleed. Off anticoagulation for now. Patient still having some hallucinations, dizziness. Plan of care discussed with mom with the help of orthopaedic general.
--- NOTE | 2024-10-19 10:01 | XR_ITS ---
Examination: CT brain head without contrast. 2-D sagittal coronal reconstructions Date and time of exam:October 19, 2024 1113 hours INDICATIONS: Stroke alert October 14, 2024, acute infarcts cerebellar hemispheres on brain MRI October 14, 2024 CTDI: vol (mGy):56.4 DLP: (mGycm):1302 Technique: Multiple CT axial sections of the brain have been obtained, 5 mm slice thickness. Contrast has not been administered. 2-D sagittal, coronal reconstructions have been obtained Low dose protocols were performed. One or more of the following dose reduction techniques were used; automated exposure control, adjustment of the mA and/or KV according to patient size, use of iterative reconstruction technique. Findings: Again noted large acute infarct right cerebellar hemisphere and smaller acute infarct left cerebellar hemisphere The fourth ventricle is obliterated secondary to mass effect No hemorrhagic transformation No obstructive hydrocephalus Minimal acute likely subdural hemorrhage peripheral to the left temporal lobe on this study, 2.6 mm in thickness, axial images 24 through 20 Cranial vault intact IMPRESSION: Again noted large acute infarct right cerebellar hemisphere and smaller acute infarct left cerebellar hemisphere no hemorrhagic transformation involving these infarcts Small acute likely subdural hemorrhage peripheral to the left temporal parietal lobe, 2.6 mm in thickness, axial images 24 through 20
[2024-10-19] MEDS: SODIUM CHLORIDE 0.9% 250 ML 250 ML 500 ML IV (10:17)
--- NOTE | 2024-10-19 10:26 | PC.NURSE ---
Shelly [place] from [facility] to perform therapeutic phlebotomy. Procedure explained to Pt and family at the bedside with certified multimedia educational specialist. VS pre-procedure at 1003 were: 97.1, 167/95, 95% RA, 70, 19. Procedure started at 1012. Removed 250cc per order. Procedure ended at 1016. VS post-procedure at 1017 were: 97.1, 135/91, 96% RA, 73, 19. NS 250 bolus administered, see MAR. Pt tolerated procedure well.
[2024-10-19] MEDS: POLYETHYLENE GLYCOL 17 GM PACKET PO (13:02)
[2024-10-19 13:55] LABS: Hematocrit 49.6 % (41.0-53.0); Hemoglobin 17.5 g/dL (13.5-16.0)
[2024-10-19] MEDS: GLYCERIN, ADULT 1 EA SUPP 1 EACH PR (17:49)
[2024-10-19] MEDS: ATORVASTATIN CALCIUM 20 MG TABLET 80 MG PO (20:51)
[2024-10-19] MEDS: minoxidiL 10 MG TABLET 5 MG PO (20:53)
[2024-10-19] MEDS: INSULIN GLARGINE (Lantus) 5 UNIT/0.05 ML (PER 5 UNITS) 10 UNIT SC (20:54)
--- NOTE | 2024-10-19 21:31 | PD.NEUROPROG ---
Documentation for date of: 10/19/24 Subjective Subjective Interval history: Patient was seen in telemetry at the bedside with his family. Patient continues to have pressure-like sensation, dizziness, vertigo and nausea and vomiting but much better. He finds it hard to sit up. Denies any weakness or paresthesias or lack of coordination in both upper and lower extremities. BP is much more controlled now, reportedly was not making sense this morning. Exam - Neurology Vital Signs Temp Pulse Resp BP Pulse Ox O2 Del Method 97.0 F 78 16 151/83 H 97 Room Air 10/19/24 20:00 10/19/24 20:53 10/19/24 20:00 10/19/24 20:53 10/19/24 20:00 10/19/24 16:00 Narrative Exam GENERAL APPEARANCE: Well hydrated, well-nourished in no acute distress. HEENT: Normocephalic, atraumatic, extraocular movements intact. Pupils: Equal reacting to light and accommodation NECK: Supple, no JVD or bruits. CARDIOVASULAR: Heart: S1, S2 heard, regular without S3-S4 or murmur no rubs or gallops. LUNGS/CHEST: Clear to auscultation bilaterally. No rails, rhonchi, or wheezing. Normal inspection. ABDOMEN: Soft, nontender, with normal bowel sounds. No pulsatile masses. No rebound, rigidity, or guarding. Normal inspection and palpation. EXTREMITIES: Normal inspection and palpation. No edema, clubbing or cyanosis. SKIN: Warm and dry without rashes. Normal inspection. MUSCULOSKELETAL: No cervical, thoracic, lumbar or midline bony tenderness. Normal inspection. NEURO: Alert, awake and oriented x3. Cranial nerves: II through XII grossly intact. Speech and language: Normal with no dysarthria or dysphasia. Motor system: Tone and bulk: Normal: Strength: 5 out of 5 in all 4 extremities; No pronator drift noted. Deep tendon reflexes: 2+ bilaterally symmetrical. Plantar reflex: Downgoing bilaterally. Sensory system: Intact to all modalities of sensation bilaterally. Coordination: Intact to [id number] and [id number] test bilaterally. No ataxia, no dysmetria, or dysdiadochokinesia noted. No intention tremors noted. Gait: Not tested. No signs of meningeal irritation noted. PSYCHIATRIC: Normal mood and affect. Objective Labs 10/19/24 13:44 10/19/24 04:34 Labs: Laboratory Results - last 24 hr 10/14/24 10/18/24 10/19/24 11:40 23:25 04:34 WBC 11.9 H RBC 6.32 H Hgb 17.9 H* Hct 51.6 MCV 82 MCH 28.3 MCHC 34.7 RDW Std Deviation 37.0 Plt Count 329 Neut % (Auto) 64 Lymph % (Auto) 26 [place] % (Auto) 9 Eos % (Auto) 1 Baso % (Auto) 0 Neut # (Auto) 7.7 Lymph # (Auto) 3.1 [place] # (Auto) 1.1 H Eos # (Auto) 0.1 Baso # (Auto) 0.1 Immature Gran # (Auto) 0.03 H Absolute Nucleated RBC 0.00 Immature Gran % 0 Nucleated RBC % 0 PT 12.9 H INR 1.2 APTT 31.3 D Lupus Anticoagulant SEE NOTE LA PTT Screen 32 LA Thrombin Time TNP LA dRVVT Screen Ratio 33 LA dRVVT Confirm Ratio TNP LA dRVVT Mix Ratio TNP dRVVT Mix Interpret TNP Hexagonal Phase Confirm TNP Protein C Activity 117 Protein S Activity 111 Sodium 134 L Potassium 3.4 D Chloride 99 Carbon Dioxide 24.0 Anion Gap 11 BUN 23 Creatinine 1.2 Estim Creat Clear Calc 70.5 eGFR > 60 BUN/Creatinine Ratio 19 Glucose 137 H Calculated Osmolality 273 L Calcium 9.3 Corrected Calcium 9.3 Phosphorus 4.0 Magnesium 2.3 Total Bilirubin 0.7 AST 14 ALT 29 Alkaline Phosphatase 99 Total Protein 7.5 Albumin 4.8 Globulin 2.7 Albumin/Globulin Ratio 1.8 Epineph & Norepi Total Cancelled Ur Creatinine 24 Hour Cancelled Ur VMA Quantitative Cancelled Urine Total Volume Cancelled Ur Epinephrine 24 Hr Cancelled U Norepinephrine 24 Hr Cancelled Ur Dopamine 24 Hr Cancelled 10/19/24 13:44 WBC RBC Hgb 17.5 H Hct 49.6 MCV MCH MCHC RDW Std Deviation Plt Count Neut % (Auto) Lymph % (Auto) [place] % (Auto) Eos % (Auto) Baso % (Auto) Neut # (Auto) Lymph # (Auto) [place] # (Auto) Eos # (Auto) Baso # (Auto) Immature Gran # (Auto) Absolute Nucleated RBC Immature Gran % Nucleated RBC % PT INR APTT Lupus Anticoagulant LA PTT Screen LA Thrombin Time LA dRVVT Screen Ratio LA dRVVT Confirm Ratio LA dRVVT Mix Ratio dRVVT Mix Interpret Hexagonal Phase Confirm Protein C Activity Protein S Activity Sodium Potassium Chloride Carbon Dioxide Anion Gap BUN Creatinine Estim Creat Clear Calc eGFR BUN/Creatinine Ratio Glucose Calculated Osmolality Calcium Corrected Calcium Phosphorus Magnesium Total Bilirubin AST ALT Alkaline Phosphatase Total Protein Albumin Globulin Albumin/Globulin Ratio Epineph & Norepi Total Ur Creatinine 24 Hour Ur VMA Quantitative Urine Total Volume Ur Epinephrine 24 Hr U Norepinephrine 24 Hr Ur Dopamine 24 Hr Assessment & Plan Assessment and plan (1) Dizziness: Status: Acute Assessment and plan: Secondary to acute cerebellar CVA Should improve with time (2) Acute CVA (cerebrovascular accident): Status: Acute Assessment and plan: Affecting the right cerebellar hemisphere mainly Will continue to follow him closely as stroke involves the posterior fossa hold off on all antiplatelet agents and heparin for now because of the finding on the repeat CT head (3) Hypertension: Status: Acute Assessment and plan: much better now, Continue with aggressive blood pressure control noted that he is on PRN meds in addition to scheduled multiple meds. (4) Hyperlipidemia: Status: Acute Assessment and plan: Continue with high intensity statin: LDL: 112 (5) Type 2 diabetes mellitus: Status: Chronic Assessment and plan: Needs better control of diabetes as the last A1c: 11.2 (6) Intractable vomiting: Status: Acute Assessment and plan: Secondary to acute cerebellar CVA, should improve with time as the edema resolves. (7) Polycythemia: Status: Acute Assessment and plan: got bone marrow biopsy by IR today.
[2024-10-20] VITALS (20 sets, daily range): BP systolic 111–188; BP diastolic 64–113; PULSE 65–87; RESP 13–24; TEMP 36–36.7; O2SAT 94–99
[2024-10-20] MEDS: DILTIAZEM 30 MG TABLET 60 MG PO ×3 (00:18→11:45)
[2024-10-20] MEDS: hydrALAZINE HCL 25 MG TABLET 50 MG PO (05:41)
[2024-10-20 05:53] LABS: Basophils # (Auto) 0.1 Thou/mm3 (0.0-0.2); Basophils % (Auto) 0 % (0-2.5); Eosinophils # (Auto) 0.1 Thou/mm3 (0.0-0.5); Eosinophils % (Auto) 1 % (0-10); Hematocrit 50.6 % (41.0-53.0); Hemoglobin 17.6 g/dL (13.5-16.0); Immature Granulocytes % (Auto) 0 % (0-0); Immature Granulocytes Auto 0.05 Thou/mm3 (0.00-0.00); Lymphocytes # (Auto) 3.4 Thou/mm3 (1.0-4.8); Lymphocytes % (Auto) 27 % (10-50); Mean Corpuscular HGB Conc 34.8 g/dl (31.0-37.0); Mean Corpuscular Hemoglobin 28.8 pg (25.0-35.0); Mean Corpuscular Volume 83 fL (80-100); Monocytes # (Auto) 1.1 Thou/mm3 (0.0-0.8); Monocytes % (Auto) 8 % (0-12); Neutrophils % (Auto) 63 % (37-80); Nucleated Red Blood Cell % 0 /100 WBC (0); Platelet Count 289 Thou/mm3 (140-440); RDW Standard Deviation 37.8 fL (35.1-43.9); Red Blood Count 6.11 Miln/mm3 (4.50-5.90); White Blood Count 12.7 Thou/mm3 (3.8-10.6)
[2024-10-20 06:04] LABS: INR 1.2 (0.9-1.3); Partial Thromboplastin Time 30.8 Seconds (22.0-36.0)
[2024-10-20 06:13] LABS: Alanine Aminotransferase 26 U/L (10-49); Albumin, Serum 4.9 gm/dL (3.5-5.0); Albumin/Globulin Ratio 1.8 (1.2-2.2); Alkaline Phosphatase 98 U/L (46-116); Anion Gap 12 (7-16); Aspartate Amino Transferase 18 U/L (0-34); BUN/Creatinine Ratio 20 Ratio (12-20); Bilirubin,Total 0.6 mg/dL (0.3-1.2); Blood Urea Nitrogen 26 mg/dL (9-23); Calcium 9.7 mg/dL (8.3-10.6); Calcium (Corrected) 9.7 mg/dL (8.5-10.1); Carbon Dioxide 22.9 mMol/L (20.0-31.0); Chloride 99 mMol/L (98-107); Creatinine (Component) 1.3 mg/dL (0.6-1.3); Globulin 2.7 gm/dL (2.3-3.5); Glucose 146 mg/dL (74-106); Magnesium 2.3 mg/dL (1.6-2.6); Osmolality,Calculated 275 (275-295); Potassium 3.7 mMol/L (3.4-5.1); Sodium 134 mMol/L (136-145); Total Protein 7.6 gm/dL (5.7-8.2); eGFR > 60 See Note
--- NOTE | 2024-10-20 09:00 | XR_ITS ---
Examination: CT-guided percutaneous bone marrow aspiration right posterior superior iliac crest CT-guided percutaneous bone biopsy deep right posterior superior iliac crest Date and time of procedure: October 20, 2024 0953 hours INDICATIONS: Erythrocytosis unknown etiology Informed consent provided. A timeout was completed verifying correct patient, procedure, site and positioning. Technique: Axial 3 mm sections were obtained for localization of the right posterior superior iliac crest Appropriate area is marked. The patient's site was prepped and draped in sterile fashion Maximal sterile barrier technique utilized, including hand hygiene Local anesthesia was obtained with 1% lidocaine. Low dose protocols were performed. One or more of the following dose reduction techniques were used; automated exposure control, adjustment of the mA and/or KV according to patient size, use of iterative reconstruction technique. Utilizing CT fluoroscopic guidance, 14-gauge bone biopsy needle placed in the right posterior superior iliac crest 5 cc marrow aspirate obtained deemed satisfactory 4 cm bone core obtained Estimated blood loss 2 cc Complete pathology report to follow. Impression: Successful CT-guided percutaneous bone marrow aspiration right posterior superior iliac crest Successful CT-guided percutaneous bone biopsy deep right posterior superior iliac crest
--- NOTE | 2024-10-20 09:24 | PD.RESPRO ---
Documentation for date of: 10/20/24 Subjective Subjective Interval history: Mr. Penaloza is a 44-year-old male past medical history significant for recent right MCA stroke, HTN, HLD, T2DM, bicuspid aortic valve with moderate stenosis presented to the emergency department with dizziness and nausea and vomiting. In the emergency department stroke alert was initiated.CT head showed nonhemorrhagic infarct of right inferior cerebellar hemisphere, negative for hemorrhage or mass effect. CTA head/neck no significant neck arterial stenosis or stable large vessel occlusion or thrombus. MRI showed large acute infarct of right cerebellar hemisphere, inferior vermis and small portion of left cerebellar hemisphere. Teleneurology was consulted. They recommended aspirin, statins, permissive hypertension. Patient was on aspirin, statin, carvedilol, hydralazine, insulin, losartan/hydrochlorothiazide, metformin, nifedipine at home. In the emergency department Afebrile, BP 191/95, HR 81, satting 96% on room air. Troponin 0.162 then 0.163, EKG showed sinus rhythm with occasional PVCs, no acute ST changes. ALP 129, ALT 51, AST normal, GLUCOSE 226. WBC 11.7, hemoglobin 16.7 with baseline around 17.4. UA negative for UTI U-Tox negative Per chart review, recent admission 10/02 for acute encephalopathy and hypertensive emergency with NIHSS score of 6. CT head then was negative, CTA showed possible P1 stenosis. MRI was also negative for acute pathology but demonstrated large old infarct of right MCA. TTE and LAWRENCE were done showing suspicious echogenic structure in LVOT, bicuspid aortic valve with moderate stenosis and calcification, negative for PFO or thrombus. Patient was admitted for possible repeat stroke. Dr Castañeda was consulted. 10/17/2024: Patient's Blood Pressure 158/83 last night, continue to be high today, complains of mild headache, current Blood Pressure 188/86. Also endorsed hallucinations and visual disturbances last night. Pending Renin, Aldosterone. Sodium 136, Potassium 3.9, chloride 101, bicarbonate 25.3, phosphorus 2.9, magnesium 2.4, LFTs normal. Dr Castañeda consulted for acute infarct. 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 No labs done today. Patient has no current complaints. Scheduled for Bone marrow biopsy scheduled on , patient was started on heparin drip yesterday, was discontinued. Hematology consulted rec further workup of polycythemia. Continue to treat HTN with goal of decrease by 25% everyday. 10/19/2024: Patient Blood Pressure 162/63, reports improvement compared to yesterday continues to complain of hallucinations. Patient reports working with physical therapy, complains of gait instability. Labs done today significant for hemoglobin 17.5, sodium 134, glucose 137, osmolality 273 BUN 23, creatinine 1.2, GFR more than 60, potassium 3.4. Patient has no current complaints. Scheduled for Bone marrow biopsy tomorrow. Hematology consulted rec further workup of polycythemia. Continue to treat HTN with goal of decrease by 25% everyday. Patient started on hydrochlorothiazide today. 10/20/2024: Patient blood pressure 155/89, patient CT head yesterday was positive for 2.6 mmsubdural hemorrhage, likely etiology blood thinners which patient was on for management of stroke. Patient's blood pressure is better controlled today, patient was started on minoxidil, patient has no current complaints, sleeping comfortably in bed. Patient is scheduled for bone marrow biopsy today. BUN 26, creatinine 1.3, GFR more than 60 today. Patient's hypertension well-controlled, will continue to monitor. Exam Vital Signs Temp Pulse Resp BP Pulse Ox O2 Del Method 97.2 F 72 24 H 125/64 95 Room Air 10/20/24 08:00 10/20/24 08:00 10/20/24 08:00 10/20/24 08:00 10/20/24 08:00 10/20/24 08:00 Narrative Exam Physical Exam General: Awake and in no acute distress. Conversational and non-toxic appearing. HEENT: Normocephalic, atraumatic, mucous membranes moist. Heart: Regular rate and rhythm, no murmurs. Lungs: Clear to auscultation with no wheezing or crackles. Abdomen: Soft, nondistended, nontender, positive bowel sounds. No guarding or rebound tenderness. Neurologic: Alert and oriented x3, no gross neurological deficit, and patient able to move all 4 extremities. Extremities: No edema. Skin: No rash or ecchymoses. Objective Labs 10/22/24 13:55 10/22/24 05:58 Labs: Laboratory Results - last 24 hr 10/19/24 10/20/24 13:44 04:17 WBC 12.7 H RBC 6.11 H Hgb 17.5 H 17.6 H* Hct 49.6 50.6 MCV 83 MCH 28.8 MCHC 34.8 RDW Std Deviation 37.8 Plt Count 289 D Neut % (Auto) 63 Lymph % (Auto) 27 [place] % (Auto) 8 Eos % (Auto) 1 Baso % (Auto) 0 Neut # (Auto) 8.0 H Lymph # (Auto) 3.4 [place] # (Auto) 1.1 H Eos # (Auto) 0.1 Baso # (Auto) 0.1 Immature Gran # (Auto) 0.05 H Absolute Nucleated RBC 0.00 Immature Gran % 0 Nucleated RBC % 0 PT 13.0 H INR 1.2 APTT 30.8 Sodium 134 L Potassium 3.7 Chloride 99 Carbon Dioxide 22.9 Anion Gap 12 BUN 26 H Creatinine 1.3 Estim Creat Clear Calc 90.0 eGFR > 60 BUN/Creatinine Ratio 20 Glucose 146 H Calculated Osmolality 275 Calcium 9.7 Corrected Calcium 9.7 Phosphorus 4.0 Magnesium 2.3 Total Bilirubin 0.6 AST 18 ALT 26 Alkaline Phosphatase 98 Total Protein 7.6 Albumin 4.9 Globulin 2.7 Albumin/Globulin Ratio 1.8 Quality Measures Quality Measures none Assessment & Plan Assessment Current Active Medications: Generic Name Dose Route Start Last Admin Trade Name Freq PRN Reason Stop Dose Admin Acetaminophen 650 mg 10/14/24 11:32 Acetaminophen 325 Mg Tablet PO 11/13/24 11:31 Q6H PRN Fever >100.4 Acetaminophen 650 mg 10/14/24 11:32 10/17/24 23:17 Acetaminophen 325 Mg Tablet PO 11/13/24 11:31 650 mg Q6H PRN Administration PAIN SCALE 1-3 (mild Atorvastatin Calcium 80 mg 10/14/24 21:00 10/19/24 20:51 Atorvastatin Calcium 20 Mg Tablet PO 11/13/24 20:59 80 mg HS DANA Administration Clopidogrel Bisulfate 75 mg 10/16/24 09:45 10/17/24 08:11 Clopidogrel Bisulfate 75 Mg Tablet PO 11/15/24 09:44 75 mg QDAY DANA Administration Dextrose 50 ml 10/14/24 14:01 Dextrose 50%-Water Inj 50 Ml Syringe IV 11/13/24 14:00 Q15MIN PRN BG <50 OR BG <70 & pt unresponsive Diltiazem HCl 60 mg 10/17/24 18:00 10/20/24 05:41 Diltiazem 30 Mg Tablet PO 11/16/24 17:59 60 mg Q6HR DANA Administration Glucagon 1 mg 10/14/24 14:01 Glucagon Inj 1 Mg Vial IM Q15MIN PRN BG <70, and no IV access Hydralazine HCl 50 mg 10/18/24 09:00 10/20/24 05:41 Hydralazine Hcl 25 Mg Tablet PO 11/17/24 08:59 50 mg QID DANA Administration Insulin Glargine 10 unit 10/15/24 21:00 10/19/24 20:54 Insulin Glargine (Lantus) 5 Unit/0.05 Ml (Per 5 Units) SC 11/14/24 20:59 10 unit HS DANA Administration Insulin Human Lispro 0 unit 10/14/24 17:00 10/20/24 07:34 Insulin Lispro (Admelog) 1 Unit/0.01 Ml Unit SC 11/13/24 16:59 Not Given ACHS [facility] Protocol Labetalol HCl 10 mg 10/17/24 15:38 10/17/24 15:59 Labetalol Inj 5 Mg/Ml Vial 20 Ml IVP 11/16/24 15:37 10 mg Q6H PRN Administration sBP>180, do NOT give if HR<70 Losartan Potassium 100 mg 10/16/24 09:00 10/19/24 08:12 Losartan Potassium 25 Mg Tablet PO 11/15/24 08:59 100 mg QDAY DANA Administration Minoxidil 5 mg 10/19/24 21:00 10/19/24 20:53 Minoxidil 10 Mg Tablet PO 11/18/24 20:59 5 mg BID DANA Administration Ondansetron HCl 4 mg 10/14/24 03:07 10/18/24 17:52 Ondansetron Inj 2 Mg/Ml Inj 2 Ml IV 11/13/24 03:06 4 mg Q4HR PRN Administration NAUSEA OR VOMITING Pantoprazole Sodium 40 mg 10/14/24 21:00 10/19/24 20:51 Pantoprazole 40 Mg Tablet PO 11/13/24 20:59 40 mg Q12HR DANA Administration Polyethylene Glycol 17 gm 10/19/24 11:00 10/19/24 13:02 Polyethylene Glycol 17 Gm Packet PO 11/18/24 10:59 17 gm QDAY DANA Administration Sennosides 1 tab 10/19/24 10:58 Senna/Docusate Sod 1 Tab Tablet PO 11/18/24 10:57 QDAY PRN CONSTIPATION Protocol Spironolactone 50 mg 10/16/24 21:00 10/19/24 20:53 Spironolactone 25 Mg Tablet PO 11/15/24 20:59 50 mg BID DANA Administration Plan Summary: Mr. Penaloza is a 44-year-old male past medical history significant for recent right MCA stroke, HTN, HLD, T2DM, bicuspid aortic valve with moderate stenosis presented to the emergency department with dizziness and nausea and vomiting. MRI showed large acute infarct of right cerebellar hemisphere, inferior vermis and small portion of left cerebellar hemisphere. Teleneurology was consulted. They recommended aspirin, statins, permissive hypertension. Patient admitted for management of Acute CVA # Malignant hypertension Patient currently on 4 class medication (carvedilol, hydralazine, losartan, nifedipine) suspect secondary hypertension. Patient was on carvedilol, hydralazine, insulin, losartan/hydrochlorothiazide, nifedipine at home. Renal Doppler negative for renal artery stenosis. Blood pressure improved markedly. Plan: Patient currently on Cardizem 60 mg p.o. every 6 hours, hydralazine 100 mg p.o. 3 times daily, losartan 100 mg p.o. daily, minoxidil 5 mg p.o. twice daily and spironolactone 50 mg p.o. twice daily Follow Renin, aldosterone, 24-hour urine for catecholamines ordered. 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 Status post bone marrow biopsy Follow anti-phospholipid antibody panel, beta-2 microglobulin, lupus anticoagulant eval with reflex, protein C, protein S activity Consider ordering erythropoietin level and JAK2 testing # Acute cerebellar infarct-complaining of headaches, dizziness. Dr Castañeda on the case # Hx of right MCA infarct # Subdural hemorrhage # Hyperlipidemia # Diabetes mellitus Management as per primary team Case discussed with Attending Dr. Hansen. Chery Crowley PGY1 Attending Provider Attestation/Addendum Patient seen and examined with resident physician Dr. Crowley. Note reviewed, agree with findings and recommendations. Blood pressure seems to be much better.
[2024-10-20 09:47] LABS: Flow Cytometry* See Sep Rpt
[2024-10-20] MEDS: fentaNYL CIT INJ 50 mCg/ML AMP 2ML 75 MCG IVP (10:16)
[2024-10-20] MEDS: LIDOCAINE INJ PF 1% 30 ML VIAL 15 ML INFL (10:25)
[2024-10-20] MEDS: INSULIN LISPRO (AdmeLOG) 1 UNIT/0.01 ML UNIT SC ×3 (11:40→21:13)
[2024-10-20] MEDS: minoxidiL 10 MG TABLET 5 MG PO (11:41)
[2024-10-20] MEDS: PANTOPRAZOLE 40 MG TABLET PO ×2 (11:42→21:14)
[2024-10-20] MEDS: SPIRONOLACTONE 25 MG TABLET 50 MG PO (11:43)
[2024-10-20] MEDS: LOSARTAN POTASSIUM 25 MG TABLET 100 MG PO (11:44)
[2024-10-20] MEDS: POLYETHYLENE GLYCOL 17 GM PACKET PO (11:46)
--- NOTE | 2024-10-20 11:51 | ESPR_ITS ---
Documentation for date of: 10/20/24 Subjective Subjective Interval history: No acute overnight events. Patient underwent marrow biopsy with IR today, tolerated procedure well. Currently complains of dizziness and headache, both improved from yesterday. Able to ambulate independently, with supervision, upper physical therapy. Denies fever, chills, worsening headaches, chest pain, sob, cough, GI or urinary symptoms. Exam Vital Signs Temp Pulse Resp BP Pulse Ox O2 Del Method O2 Flow Rate 98.1 F 70 20 184/113 H 98 Room Air 3 10/20/24 09:23 10/20/24 10:30 10/20/24 10:30 10/20/24 10:30 10/20/24 10:30 10/20/24 10:30 10/20/24 10:25 Narrative Exam GENERAL: Normal appearing adult male, NAD, complains of headaches and dizziness, on room air HEENT: NCAT.?KEYUR. Oral mucosa is moist. Patent Nares NECK: Supple, nontender, no thyromegaly, no meningismus, no JVD, no step offs CHEST: Symmetrical, atraumatic, and with equal expansion, Nontender on palpation no deformity and no crepitus. CARDIOVASCULAR: RRR, no m/g/r LUNGS: CTAB, no w/r/r. Symmetrical chest rise. No intercostal subcostal retraction. ABDOMEN: Soft, flat, nontender. No guarding/rebound tenderness/masses. +BS EXTREMITIES: Nontender.? No edema/cyanosis.?Moves all 4 extremities well, with full ROM and good CSM. SKIN: Warm and dry, no jaundice/rashes. MSK: No lumbar or midline, no CVA, no paraspinal muscle spasm or tenderness. NEURO: SUTTON x4, CN II-XII grossly intact.?No focal neurologic deficits. PSYCHIATRIC: Normal mood and affect, cooperative, no SI or HI or hallucinations. Objective Labs 10/20/24 13:40 10/20/24 04:17 Labs: Laboratory Results - last 24 hr 10/19/24 10/20/24 13:44 04:17 WBC 12.7 H RBC 6.11 H Hgb 17.5 H 17.6 H* Hct 49.6 50.6 MCV 83 MCH 28.8 MCHC 34.8 RDW Std Deviation 37.8 Plt Count 289 D Neut % (Auto) 63 Lymph % (Auto) 27 [place] % (Auto) 8 Eos % (Auto) 1 Baso % (Auto) 0 Neut # (Auto) 8.0 H Lymph # (Auto) 3.4 [place] # (Auto) 1.1 H Eos # (Auto) 0.1 Baso # (Auto) 0.1 Immature Gran # (Auto) 0.05 H Absolute Nucleated RBC 0.00 Immature Gran % 0 Nucleated RBC % 0 PT 13.0 H INR 1.2 APTT 30.8 Sodium 134 L Potassium 3.7 Chloride 99 Carbon Dioxide 22.9 Anion Gap 12 BUN 26 H Creatinine 1.3 Estim Creat Clear Calc 90.0 eGFR > 60 BUN/Creatinine Ratio 20 Glucose 146 H Calculated Osmolality 275 Calcium 9.7 Corrected Calcium 9.7 Phosphorus 4.0 Magnesium 2.3 Total Bilirubin 0.6 AST 18 ALT 26 Alkaline Phosphatase 98 Total Protein 7.6 Albumin 4.9 Globulin 2.7 Albumin/Globulin Ratio 1.8 Quality Measures Quality Measures none Assessment & Plan Assessment Current Active Medications: Generic Name Dose Route Start Last Admin Trade Name Freq PRN Reason Stop Dose Admin Acetaminophen 650 mg 10/14/24 11:32 Acetaminophen 325 Mg Tablet PO 11/13/24 11:31 Q6H PRN Fever >100.4 Acetaminophen 650 mg 10/14/24 11:32 10/17/24 23:17 Acetaminophen 325 Mg Tablet PO 11/13/24 11:31 650 mg Q6H PRN Administration PAIN SCALE 1-3 (mild Atorvastatin Calcium 80 mg 10/14/24 21:00 10/19/24 20:51 Atorvastatin Calcium 20 Mg Tablet PO 11/13/24 20:59 80 mg HS DANA Administration Clopidogrel Bisulfate 75 mg 10/16/24 09:45 10/17/24 08:11 Clopidogrel Bisulfate 75 Mg Tablet PO 11/15/24 09:44 75 mg QDAY DANA Administration Dextrose 50 ml 10/14/24 14:01 Dextrose 50%-Water Inj 50 Ml Syringe IV 11/13/24 14:00 Q15MIN PRN BG <50 OR BG <70 & pt unresponsive Diltiazem HCl 60 mg 10/17/24 18:00 10/20/24 05:41 Diltiazem 30 Mg Tablet PO 11/16/24 17:59 60 mg Q6HR DANA Administration Glucagon 1 mg 10/14/24 14:01 Glucagon Inj 1 Mg Vial IM Q15MIN PRN BG <70, and no IV access Hydralazine HCl 100 mg 10/20/24 12:00 Hydralazine Hcl 25 Mg Tablet PO 11/19/24 11:59 QID DANA Insulin Glargine 10 unit 10/15/24 21:00 10/19/24 20:54 Insulin Glargine (Lantus) 5 Unit/0.05 Ml (Per 5 Units) SC 11/14/24 20:59 10 unit HS DANA Administration Insulin Human Lispro 0 unit 10/14/24 17:00 10/20/24 07:34 Insulin Lispro (Admelog) 1 Unit/0.01 Ml Unit SC 11/13/24 16:59 Not Given ACHS [facility] Protocol Labetalol HCl 10 mg 10/17/24 15:38 10/17/24 15:59 Labetalol Inj 5 Mg/Ml Vial 20 Ml IVP 11/16/24 15:37 10 mg Q6H PRN Administration sBP>180, do NOT give if HR<70 Losartan Potassium 100 mg 10/16/24 09:00 10/19/24 08:12 Losartan Potassium 25 Mg Tablet PO 11/15/24 08:59 100 mg QDAY DANA Administration Minoxidil 5 mg 10/19/24 21:00 10/19/24 20:53 Minoxidil 10 Mg Tablet PO 11/18/24 20:59 5 mg BID DANA Administration Ondansetron HCl 4 mg 10/14/24 03:07 10/18/24 17:52 Ondansetron Inj 2 Mg/Ml Inj 2 Ml IV 11/13/24 03:06 4 mg Q4HR PRN Administration NAUSEA OR VOMITING Pantoprazole Sodium 40 mg 10/14/24 21:00 10/19/24 20:51 Pantoprazole 40 Mg Tablet PO 11/13/24 20:59 40 mg Q12HR DANA Administration Polyethylene Glycol 17 gm 10/19/24 11:00 10/19/24 13:02 Polyethylene Glycol 17 Gm Packet PO 11/18/24 10:59 17 gm QDAY DANA Administration Sennosides 1 tab 10/19/24 10:58 Senna/Docusate Sod 1 Tab Tablet PO 11/18/24 10:57 QDAY PRN CONSTIPATION Protocol Spironolactone 50 mg 10/16/24 21:00 10/19/24 20:53 Spironolactone 25 Mg Tablet PO 11/15/24 20:59 50 mg BID DANA Administration Plan In summary: 44-year-old male with history of CVA, HTN, HLD, T2DM presenting with acute dizziness, outside tPA window, admitted for left cerebral hemisphere infarct. Patient notes new mild occipital headache that began this morning. We repeated CT showed new small acute subdural hemorrhage, peripheral to left temporal parietal lobe, we stopped antiplatelets and anticoag's. Neurology, Dr. Castañeda recommended restarting ASPIRIN and PLAVIX tomorrow 10/21/[address] HEAD in AM. Patient has resistant hypertension likely 2/2 polycythemia, negative renal artery scan, currently on multiple ANTIHYPERTENSIVES, BP relatively controlled, therapeutic phlebotomy was done to remove 250 cc of blood. Recent blood smear showed polycythemia, Dr. Hobbs hematology, completed marrow biopsy, pending ANTICHOLAGOGUES and JAK2 mutations. Appreciate neurology, nephrology and hematology recommendations. Acute cerebellar infarct Hx of right MCA infarct Hyperlipidemia Presented with acute dizziness, outside tPA window CT head showed nonhemorrhagic infarct right inferior cerebellar hemisphere, no hemorrhage or mass effect. CTA head/neck no stenosis or large vessel disease. MRI with large acute infarct of right cerebellar hemisphere, inferior vermis, and small portion of left cerebellar hemisphere. NIHSS score 0. Patient continued on statin, ASPIRIN, currently holding PLAVIX till marrow biopsy on . New small acute subdural hemorrhage of left temporoparietal lobe, measuring 2.6 mm. Neurology informed, holding anticoag's and antiplatelets. Physical therapy: Patient ambulating independently, but should be under supervision Neurology recommendations as below: ? Holding ASPIRIN 81 mg daily, will resume 10/[address] head negative ? Holding PLAVIX 5 mg daily, will resume 10/[address] head negative ? Continue ATORVASTATIN 80 mg HS ? Head elevation 30 degrees ? Speech eval ? Physical therapy ? TYLENOL for fever and headache ? Normal saline 1 L at 75 cc/HR Resistant hypertension Hypertensive emergency ? resolved Hypertension Possibly related to erythrocytosis Renal artery US no renal artery stenosis BP currently controlled with regimen and after MINOXIDIL Nephrology following, pending renin ALDOSTERONE, 24-hour CATECHOLAMINES, BP goal 150/90, recs as below: ? Started MINOXIDIL 5 mg daily ? Continue SPIRONOLACTONE 50 mg daily ? Continue LOSARTAN 100 mg daily ? Continue HYDRALAZINE 100 mg BID ? Continue DILTIAZEM 60 mg TID ? Continue LABETALOL 10 mg Q6H PRN for sBP >180 if HR >70 NSTEMI type II, delta trope - resolved Likely demand ischemia 2/2 HTN Admission troponin 0.162 then 0.163 EKG sinus rhythm with occasional PVC Denies chest pain or palpitations ? Antihypertensives as above Erythrocytosis Polycythemia Elevated hemoglobin, around 17.5. Likely contributing to CVA and resistant hypertension. Blood smear showed polycythemia only. Pending labs including anticoag's and JAK2. Pending marrow aspiration on . ? Hematology, Dr. Hobbs following ? Daily CBC T2DM Admission GLUCOSE 168, currently controlled 10/03 A1c 11.2 ? Accu-Cheks ? Continue LANTUS 10 unit HS ? INSULIN sliding scale ? Holding home meds ? CHO consistent diet Hypophosphatemia ? resolved Phosphate 2.1, repleted Health maintenance Diet: Passed swallow eval, CHO consistent/cardiac diet GI prophylaxis: PROTONIX DVT prophylaxis: SCD, HEPARIN Antibiotics: Not indicated CODE STATUS: Full code Disposition: Patient admitted for management of CVA and hypertensive emergency Patient case was discussed with attending, Garcia Madison MD and senior resident Dr. Cummings. Kati Brooks DO PGYI Attending Provider Attestation/Addendum I reviewed labs, imaging, EKG, home medications and prior available records. Face to face evaluation was performed by me. I have personally examined the patient and discussed assessment and plan with the IM team. I reviewed the resident note and agree with the plan with exceptions as below. Acute encephalopathy: Noted on 10/19. Improved. Repeat CT head showed small acute left temporal subdural hematoma. Stopped aspirin and Plavix. Continue neurochecks. Aggressive BP management. Neurology is following. Acute CVA: Brain MRI showed large right cerebellum which is consistent with the patient's symptoms. In the setting of prior history of CVA. Started aspirin and atorvastatin. Start BP management. Consulted inpatient neurology. Continue frequent neurochecks. Ordered PT evaluation. Held aspirin and Plavix prior to bone biopsy. Erythrocytosis: Noted on H&H. Mild. May contribute to increased risk of CVA. Consulted hematology. Monitor H&H. Plan for phlebotomy. Recommended bone marrow biopsy on 10/20. Hypertensive urgency: BP improved. Started oral antihypertensive treatment. Increased nifedipine. Increased hydralazine. Repeat CT head: Showed no interval changes. Ordered renal duplex to investigate this resistant hypertension that showed no renal artery stenosis. Consulted nephrology. Recommended sending renin/aldosterone activity and 24-hour catecholamine in the urine. Added spironolactone. Increased oral antihypertensive doses. S/p phlebotomy. A second repeat of CT head showed left temporal subdural hematoma. Continue aggressive BP management. Subdural hematoma: New complication found on 10/19. Management as above. Uncontrolled diabetes mellitus with hyperglycemia: Start insulin Lantus plus sliding scale insulin. Monitor fingersticks.
[2024-10-20 13:58] LABS: Hemoglobin 17.8 g/dL (13.5-16.0)
[2024-10-20] MEDS: ONDANSETRON INJ 2 MG/ML INJ 2 ML 4 MG IV ×2 (18:19→21:09)
[2024-10-20] MEDS: INSULIN GLARGINE (Lantus) 5 UNIT/0.05 ML (PER 5 UNITS) 10 UNIT SC (21:12)
[2024-10-20] MEDS: hydrALAZINE HCL 25 MG TABLET 100 MG PO (21:13)
[2024-10-20] MEDS: ATORVASTATIN CALCIUM 20 MG TABLET 80 MG PO (21:14)
[2024-10-20] MEDS: ACETAMINOPHEN 325 MG TABLET 650 MG PO (21:14)
--- NOTE | 2024-10-20 23:16 | ESPR_ITS ---
Documentation for date of: 10/20/24 Subjective Subjective Interval history: Patient was seen in telemetry at the bedside with his family, eating dinner. No complaints. Got the bone marrow biopsy today. Exam - Neurology Vital Signs Temp Pulse Resp BP Pulse Ox O2 Del Method O2 Flow Rate 97.1 F 77 13 152/97 H 97 Room Air 0 10/20/24 20:00 10/20/24 21:13 10/20/24 20:00 10/20/24 21:13 10/20/24 20:00 10/20/24 20:00 10/20/24 20:00 Narrative Exam GENERAL APPEARANCE: Well hydrated, well-nourished in no acute distress. HEENT: Normocephalic, atraumatic, extraocular movements intact. Pupils: Equal reacting to light and accommodation NECK: Supple, no JVD or bruits. CARDIOVASULAR: Heart: S1, S2 heard, regular without S3-S4 or murmur no rubs or gallops. LUNGS/CHEST: Clear to auscultation bilaterally. No rails, rhonchi, or wheezing. Normal inspection. ABDOMEN: Soft, nontender, with normal bowel sounds. No pulsatile masses. No rebound, rigidity, or guarding. Normal inspection and palpation. EXTREMITIES: Normal inspection and palpation. No edema, clubbing or cyanosis. SKIN: Warm and dry without rashes. Normal inspection. MUSCULOSKELETAL: No cervical, thoracic, lumbar or midline bony tenderness. Normal inspection. NEURO: Alert, awake and oriented x3. Cranial nerves: II through XII grossly intact. Speech and language: Normal with no dysarthria or dysphasia. Motor system: Tone and bulk: Normal: Strength: 5 out of 5 in all 4 extremities; No pronator drift noted. Deep tendon reflexes: 2+ bilaterally symmetrical. Plantar reflex: Downgoing bilaterally. Sensory system: Intact to all modalities of sensation bilaterally. Coordination: Intact to hjsndy-[id number] and ewac-diyu-xwdk test bilaterally. No ataxia, no dysmetria, or dysdiadochokinesia noted. No intention tremors noted. Gait: Not tested. No signs of meningeal irritation noted. PSYCHIATRIC: Normal mood and affect. Objective Labs 10/20/24 13:40 10/20/24 04:17 Labs: Laboratory Results - last 24 hr 10/20/24 10/20/24 04:17 13:40 WBC 12.7 H RBC 6.11 H Hgb 17.6 H* 17.8 H* Hct 50.6 51.0 MCV 83 MCH 28.8 MCHC 34.8 RDW Std Deviation 37.8 Plt Count 289 D Neut % (Auto) 63 Lymph % (Auto) 27 [place] % (Auto) 8 Eos % (Auto) 1 Baso % (Auto) 0 Neut # (Auto) 8.0 H Lymph # (Auto) 3.4 [place] # (Auto) 1.1 H Eos # (Auto) 0.1 Baso # (Auto) 0.1 Immature Gran # (Auto) 0.05 H Absolute Nucleated RBC 0.00 Immature Gran % 0 Nucleated RBC % 0 PT 13.0 H INR 1.2 APTT 30.8 Sodium 134 L Potassium 3.7 Chloride 99 Carbon Dioxide 22.9 Anion Gap 12 BUN 26 H Creatinine 1.3 Estim Creat Clear Calc 90.0 eGFR > 60 BUN/Creatinine Ratio 20 Glucose 146 H Calculated Osmolality 275 Calcium 9.7 Corrected Calcium 9.7 Phosphorus 4.0 Magnesium 2.3 Total Bilirubin 0.6 AST 18 ALT 26 Alkaline Phosphatase 98 Total Protein 7.6 Albumin 4.9 Globulin 2.7 Albumin/Globulin Ratio 1.8 Assessment & Plan Assessment and plan (1) Dizziness: Status: Acute Assessment and plan: Secondary to acute cerebellar CVA Should improve with time (2) Acute CVA (cerebrovascular accident): Status: Acute Assessment and plan: Affecting the right cerebellar hemisphere mainly Will continue to follow him closely as stroke involves the posterior fossa restart antiplatelet agents after the repeat CT head (3) Hypertension: Status: Acute Assessment and plan: much better now, Continue with aggressive blood pressure control noted that he is on PRN meds in addition to scheduled multiple meds. (4) Hyperlipidemia: Status: Acute Assessment and plan: Continue with high intensity statin: LDL: 112 (5) Type 2 diabetes mellitus: Status: Chronic Assessment and plan: Needs better control of diabetes as the last A1c: 11.2 (6) Intractable vomiting: Status: Resolved Assessment and plan: Secondary to acute cerebellar CVA, should improve with time as the edema resolves. (7) Polycythemia: Status: Acute Assessment and plan: got bone marrow biopsy by IR today.
[2024-10-21] VITALS (14 sets, daily range): BP systolic 124–160; BP diastolic 76–90; PULSE 72–103; RESP 16–21; TEMP 36.1–36.4; O2SAT 94–98; BMI 32.1
[2024-10-21] MEDS: DILTIAZEM 30 MG TABLET 60 MG PO ×4 (00:30→18:20)
[2024-10-21 05:08] LABS: Basophils % (Auto) 0 % (0-2.5); Eosinophils # (Auto) 0.1 Thou/mm3 (0.0-0.5); Eosinophils % (Auto) 1 % (0-10); Hematocrit 46.8 % (41.0-53.0); Hemoglobin 16.6 g/dL (13.5-16.0); Immature Granulocytes % (Auto) 0 % (0-0); Immature Granulocytes Auto 0.03 Thou/mm3 (0.00-0.00); Lymphocytes # (Auto) 2.5 Thou/mm3 (1.0-4.8); Lymphocytes % (Auto) 27 % (10-50); Mean Corpuscular HGB Conc 35.5 g/dl (31.0-37.0); Mean Corpuscular Volume 82 fL (80-100); Monocytes # (Auto) 0.8 Thou/mm3 (0.0-0.8); Monocytes % (Auto) 9 % (0-12); Neutrophils # (Auto) 5.9 Thou/mm3 (1.8-7.7); Neutrophils % (Auto) 63 % (37-80); Nucleated Red Blood Cell % 0 /100 WBC (0); Platelet Count 189 Thou/mm3 (140-440); RDW Standard Deviation 37.3 fL (35.1-43.9); Red Blood Count 5.72 Miln/mm3 (4.50-5.90); White Blood Count 9.4 Thou/mm3 (3.8-10.6)
[2024-10-21 05:44] LABS: Alanine Aminotransferase 30 U/L (10-49); Albumin, Serum 4.8 gm/dL (3.5-5.0); Albumin/Globulin Ratio 1.8 (1.2-2.2); Alkaline Phosphatase 101 U/L (46-116); Anion Gap 10 (7-16); Aspartate Amino Transferase 20 U/L (0-34); BUN/Creatinine Ratio 24 Ratio (12-20); Bilirubin,Total 0.6 mg/dL (0.3-1.2); Blood Urea Nitrogen 39 mg/dL (9-23); Calcium 9.4 mg/dL (8.3-10.6); Calcium (Corrected) 9.4 mg/dL (8.5-10.1); Carbon Dioxide 22.3 mMol/L (20.0-31.0); Chloride 101 mMol/L (98-107); Creatinine (Component) 1.6 mg/dL (0.6-1.3); Estimated Creatinine Clearance 73.1 mL/min (>60); Globulin 2.7 gm/dL (2.3-3.5); Glucose 149 mg/dL (74-106); Magnesium 2.5 mg/dL (1.6-2.6); Osmolality,Calculated 278 (275-295); Phosphorous 5.1 mg/dL (2.4-5.1); Potassium 3.9 mMol/L (3.4-5.1); Sodium 133 mMol/L (136-145); Total Protein 7.5 gm/dL (5.7-8.2); eGFR 55 See Note
--- NOTE | 2024-10-21 06:00 | XR_ITS ---
Examination: CT brain head without contrast. 2-D sagittal coronal reconstructions Date and time of exam:October 21, 2024 0949 hours Comparison October 19, 2024 INDICATIONS: Acute stroke, large acute infarct right cerebellar hemisphere smaller acute infarct left cerebellar hemisphere on brain MRI October 24, 2024, small subdural hemorrhage peripheral to the left temporal parietal lobe 2.6 mm in thickness on CT brain October 19, 2024 CTDI: vol (mGy):55.3 DLP: (mGycm):1244 Technique: Multiple CT axial sections of the brain have been obtained, 5 mm slice thickness. Contrast has not been administered. 2-D sagittal, coronal reconstructions have been obtained Low dose protocols were performed. One or more of the following dose reduction techniques were used; automated exposure control, adjustment of the mA and/or KV according to patient size, use of iterative reconstruction technique. Findings: No change in acute cerebellar infarcts, mass effect upon the fourth ventricle from the large right cerebellar acute infarct No hemorrhagic transformation of the cerebellar infarct Stable small acute subdural hematoma peripheral to the left temporal parietal lobe, measuring 2.6 mm in thickness No new hemorrhage IMPRESSION: Stable small acute subdural hematoma peripheral to the left temporal parietal lobe
--- NOTE | 2024-10-21 08:00 | PD.RESPRO ---
Documentation for date of: 10/21/24 Exam Vital Signs Temp Pulse Resp BP Pulse Ox O2 Del Method O2 Flow Rate 97.1 F 90 14 144/116 H 96 Room Air 0 10/22/24 08:00 10/22/24 08:17 10/22/24 08:00 10/22/24 08:17 10/22/24 08:00 10/22/24 08:00 10/22/24 08:00 Objective Labs 10/22/24 05:58 10/22/24 05:58 Labs: Laboratory Results - last 24 hr 10/21/24 10/22/24 13:29 05:58 WBC 10.4 RBC 6.22 H Hgb 18.2 H* 17.7 H* Hct 52.0 51.9 MCV 83 MCH 28.5 MCHC 34.1 RDW Std Deviation 37.9 Plt Count 305 D Neut % (Auto) 69 Lymph % (Auto) 23 Humphreys % (Auto) 7 Eos % (Auto) 1 Baso % (Auto) 0 Neut # (Auto) 7.1 Lymph # (Auto) 2.4 Humphreys # (Auto) 0.8 Eos # (Auto) 0.1 Baso # (Auto) 0.0 Immature Gran # (Auto) 0.03 H Absolute Nucleated RBC 0.00 Immature Gran % 0 Nucleated RBC % 0 Sodium 133 L Potassium 3.9 Chloride 101 Carbon Dioxide 26.1 Anion Gap 6 L BUN 32 H Creatinine 1.4 H Estim Creat Clear Calc 82.1 eGFR > 60 BUN/Creatinine Ratio 23 H Glucose 158 H Calculated Osmolality 276 Calcium 9.6 Corrected Calcium 9.6 Phosphorus 3.8 Magnesium 2.3 Total Bilirubin 0.7 AST 18 ALT 28 Alkaline Phosphatase 100 Total Protein 7.5 Albumin 4.9 Globulin 2.6 Albumin/Globulin Ratio 1.9 Quality Measures Quality Measures VTE prophylaxis (SCDs) Assessment & Plan Assessment Current Active Medications: Generic Name Dose Route Start Last Admin Trade Name Freq PRN Reason Stop Dose Admin Acetaminophen 650 mg 10/14/24 11:32 10/20/24 21:14 Acetaminophen 325 Mg Tablet PO 11/13/24 11:31 650 mg Q6H PRN Administration Fever >100.4 Acetaminophen 650 mg 10/14/24 11:32 10/17/24 23:17 Acetaminophen 325 Mg Tablet PO 11/13/24 11:31 650 mg Q6H PRN Administration PAIN SCALE 1-3 (mild Atorvastatin Calcium 80 mg 10/14/24 21:00 10/21/24 20:31 Atorvastatin Calcium 20 Mg Tablet PO 11/13/24 20:59 80 mg HS DANA Administration Dextrose 50 ml 10/14/24 14:01 Dextrose 50%-Water Inj 50 Ml Syringe IV 11/13/24 14:00 Q15MIN PRN BG <50 OR BG <70 & pt unresponsive Diltiazem HCl 60 mg 10/17/24 18:00 10/22/24 05:53 Diltiazem 30 Mg Tablet PO 11/16/24 17:59 60 mg Q6HR DANA Administration Glucagon 1 mg 10/14/24 14:01 Glucagon Inj 1 Mg Vial IM Q15MIN PRN BG <70, and no IV access Hydralazine HCl 100 mg 10/20/24 21:00 10/22/24 08:17 Hydralazine Hcl 25 Mg Tablet PO 11/19/24 20:59 100 mg BID DANA Administration Insulin Glargine 10 unit 10/15/24 21:00 10/21/24 20:23 Insulin Glargine (Lantus) 5 Unit/0.05 Ml (Per 5 Units) SC 11/14/24 20:59 10 unit HS DANA Administration Insulin Human Lispro 0 unit 10/14/24 17:00 10/22/24 07:51 Insulin Lispro (Admelog) 1 Unit/0.01 Ml Unit SC 11/13/24 16:59 2 unit ACHS DANA Administration Protocol Labetalol HCl 10 mg 10/17/24 15:38 10/17/24 15:59 Labetalol Inj 5 Mg/Ml Vial 20 Ml IVP 11/16/24 15:37 10 mg Q6H PRN Administration sBP>180, do NOT give if HR<70 Losartan Potassium 100 mg 10/16/24 09:00 10/20/24 11:44 Losartan Potassium 25 Mg Tablet PO 11/15/24 08:59 100 mg QDAY DANA Administration Minoxidil 5 mg 10/21/24 09:00 10/21/24 08:57 Minoxidil 10 Mg Tablet PO 11/20/24 08:59 5 mg QDAY DANA Administration Ondansetron HCl 4 mg 10/14/24 03:07 10/20/24 21:09 Ondansetron Inj 2 Mg/Ml Inj 2 Ml IV 11/13/24 03:06 4 mg Q4HR PRN Administration NAUSEA OR VOMITING Pantoprazole Sodium 40 mg 10/14/24 21:00 10/22/24 08:16 Pantoprazole 40 Mg Tablet PO 11/13/24 20:59 40 mg Q12HR DANA Administration Polyethylene Glycol 17 gm 10/19/24 11:00 10/22/24 08:18 Polyethylene Glycol 17 Gm Packet PO 11/18/24 10:59 17 gm QDAY DANA Administration Sennosides 1 tab 10/19/24 10:58 Senna/Docusate Sod 1 Tab Tablet PO 11/18/24 10:57 QDAY PRN CONSTIPATION Protocol Spironolactone 50 mg 10/21/24 09:00 10/22/24 08:16 Spironolactone 25 Mg Tablet PO 11/20/24 08:59 50 mg QDAY DANA Administration
--- NOTE | 2024-10-21 08:03 | ESPR_ITS ---
Documentation for date of: 10/21/24 Subjective - Hospitalist Subjective Interval history: BP is 139/76 this a.m. Hemoglobin improved to 16.6 after phlebotomy He developed mild VEGA. Losartan was held. Seen by nephrology who made several adjustments including decreasing hydralazine to 100 mg twice daily and decreasing Aldactone to 50 mg daily. Seen by neurology who recommended repeat CT head. Patient was seen and examined at the bedside. 24-hour events, labs, imaging studies, and reports reviewed in details. Patient denies new complaints. He mentioned that his dizziness and nausea are improving. No vomiting. He is AAOx3. Review of Systems Review of Systems Narrative Review of Systems: Review of systems: 12 point of system reviewed. All negative except as mentioned above. Exam Vital Signs Temp Pulse Resp BP Pulse Ox O2 Del Method O2 Flow Rate 97.0 F 75 16 139/76 H 96 Room Air 0 10/21/24 04:00 10/21/24 05:18 10/21/24 04:00 10/21/24 05:18 10/21/24 04:00 10/21/24 04:00 10/21/24 04:00 Narrative General: Alert and oriented x3. In no acute distress. Eyes: Pupils are equal and reactive to light bilaterally. HEENT: Atraumatic, normocephalic. No JVD noted. Cardiovascular: Normal S1 and S2. Normal rate and regular rhythm. No murmurs appreciated. No peripheral pitting edema noted. No JVD noted. Respiratory: No respiratory distress. Lungs are clear to auscultation bilaterally. No wheezing or crackles heard. Abdomen: Soft, nontender, nondistended. Skin: No rash. Warm to touch. Musculoskeletal: No gross injuries. Able to move all 4 extremities. Neuro: Alert and oriented x3. Sensation is intact throughout. Strength is 5/5 and symmetric. No focal neuro deficits. Psych: Normal affect and mood. Objective - Hospitalist Labs Diagram: 10/21/24 04:17 10/21/24 04:17 Labs: Laboratory Results - last 24 hr 10/20/24 10/21/24 13:40 04:17 WBC 9.4 RBC 5.72 Hgb 17.8 H* 16.6 H Hct 51.0 46.8 MCV 82 MCH 29.0 MCHC 35.5 RDW Std Deviation 37.3 Plt Count 189 D Neut % (Auto) 63 Lymph % (Auto) 27 [place] % (Auto) 9 Eos % (Auto) 1 Baso % (Auto) 0 Neut # (Auto) 5.9 Lymph # (Auto) 2.5 [place] # (Auto) 0.8 Eos # (Auto) 0.1 Baso # (Auto) 0.0 Immature Gran # (Auto) 0.03 H Absolute Nucleated RBC 0.00 Immature Gran % 0 Nucleated RBC % 0 Sodium 133 L Potassium 3.9 Chloride 101 Carbon Dioxide 22.3 Anion Gap 10 BUN 39 H Creatinine 1.6 H Estim Creat Clear Calc 73.1 eGFR 55 L BUN/Creatinine Ratio 24 H Glucose 149 H Calculated Osmolality 278 Calcium 9.4 Corrected Calcium 9.4 Phosphorus 5.1 Magnesium 2.5 Total Bilirubin 0.6 AST 20 ALT 30 Alkaline Phosphatase 101 Total Protein 7.5 Albumin 4.8 Globulin 2.7 Albumin/Globulin Ratio 1.8 Assessment & Plan Patient Synopsis In summary: 44-year-old male with history of CVA, HTN, HLD, T2DM presenting with acute dizziness, outside tPA window, admitted for left cerebral hemisphere infarct. Patient notes new mild occipital headache that began this morning. We repeated CT showed new small acute subdural hemorrhage, peripheral to left temporal parietal lobe, we stopped antiplatelets and anticoag's. Neurology, Dr. Castañeda recommended restarting ASPIRIN and PLAVIX tomorrow 10/21/[address] HEAD in AM in case the CT head is stable. Patient has resistant hypertension likely 2/2 polycythemia, negative renal artery scan, currently on multiple ANTIHYPERTENSIVES, BP relatively controlled, therapeutic phlebotomy was done to remove 250 cc of blood. Recent blood smear showed polycythemia, Dr. Hobbs hematology, completed marrow biopsy, pending ANTICHOLAGOGUES and JAK2 mutations. Appreciate neurology, nephrology and hematology recommendations. Acute cerebellar infarct Hx of right MCA infarct Hyperlipidemia Presented with acute dizziness, outside tPA window CT head showed nonhemorrhagic infarct right inferior cerebellar hemisphere, no hemorrhage or mass effect. CTA head/neck no stenosis or large vessel disease. MRI with large acute infarct of right cerebellar hemisphere, inferior vermis, and small portion of left cerebellar hemisphere. NIHSS score 0. Patient continued on statin, ASPIRIN, currently holding PLAVIX till marrow biopsy on . New small acute subdural hemorrhage of left temporoparietal lobe, measuring 2.6 mm. Neurology informed, holding anticoag's and antiplatelets. Physical therapy: Patient ambulating independently, but should be under supervision Repeat CT head on 10/19: Showed left-sided subdural hematoma in the left temporal area. Held aspirin and Plavix. Discussed with neurology: Holding aspirin and Plavix. Pending repeat CT head on 10/21. Neurology recommendations as below: ? Holding ASPIRIN 81 mg daily, will resume 10/[address] head stable ? Holding PLAVIX 5 mg daily, will resume 10/[address] head stable ? Continue ATORVASTATIN 80 mg HS ? Head elevation 30 degrees ? Speech eval ? Physical therapy ? TYLENOL for fever and headache Resistant hypertension Hypertensive emergency ? resolved Hypertension Possibly related to erythrocytosis versus renal disease Renal artery US no renal artery stenosis BP currently controlled with regimen and after MINOXIDIL Nephrology following, pending renin ALDOSTERONE, 24-hour CATECHOLAMINES, BP goal 150/90, recs as below: ? Started MINOXIDIL 5 mg daily ? Continue SPIRONOLACTONE 50 mg daily ? Continue LOSARTAN 100 mg daily ? Continue HYDRALAZINE 100 mg BID ? Continue DILTIAZEM 60 mg TID ? Continue LABETALOL 10 mg Q6H PRN for sBP >180 if HR >70 NSTEMI type II, delta trope - resolved Likely demand ischemia 2/2 HTN Admission troponin 0.162 then 0.163 EKG sinus rhythm with occasional PVC Denies chest pain or palpitations ? Antihypertensives as above Erythrocytosis Polycythemia Elevated hemoglobin, around 17.5. Likely contributing to CVA and resistant hypertension. Blood smear showed polycythemia only. Pending labs including anticoag's and JAK2. Pending marrow aspiration on . ? Hematology, Dr. Hobbs following ? Daily CBC VEGA Creatinine slightly increased to 1.6. Held losartan. Nephrology is following. Monitor kidney function. Avoid nephrotoxins. Renally dosed medications. T2DM Admission GLUCOSE 168, currently controlled 10/03 A1c 11.2 ? Accu-Cheks ? Continue LANTUS 10 unit HS ? INSULIN sliding scale ? Holding home meds ? CHO consistent diet Hypophosphatemia ? resolved Phosphate 2.1, repleted Health maintenance Diet: Passed swallow eval, CHO consistent/cardiac diet GI prophylaxis: PROTONIX DVT prophylaxis: SCD, heparin held due to subdural hematoma Antibiotics: Not indicated CODE STATUS: Full code Disposition: Patient admitted for management of CVA and hypertensive emergency Time Spent with Patient Time: Total time spent is greater than 50% in coordination of care (as documented) at patient's floor/unit and/or counseling patient: Time with patient: 25 - 35 minutes Reason for Continued Stay Reason for continued stay: further dx testing Quality Measures Quality Measures VTE prophylaxis (SCDs)
[2024-10-21] MEDS: POLYETHYLENE GLYCOL 17 GM PACKET PO (08:44)
[2024-10-21] MEDS: SPIRONOLACTONE 25 MG TABLET 50 MG PO (08:45)
--- NOTE | 2024-10-21 08:48 | PD.NEPHPROG ---
Documented by User: Arlin Hansen MD 10/22/24 18:59 Documentation for date of: 10/21/24 Subjective Subjective Interval history: Informant chart review done Mr. Penaloza is a 44-year-old male past medical history significant for recent right MCA stroke, HTN, HLD, T2DM, bicuspid aortic valve with moderate stenosis presented to the emergency department with dizziness and nausea and vomiting. In the emergency department stroke alert was initiated.CT head showed nonhemorrhagic infarct of right inferior cerebellar hemisphere, negative for hemorrhage or mass effect. CTA head/neck no significant neck arterial stenosis or stable large vessel occlusion or thrombus. MRI showed large acute infarct of right cerebellar hemisphere, inferior vermis and small portion of left cerebellar hemisphere. Teleneurology was consulted. They recommended aspirin, statins, permissive hypertension. Patient was on aspirin, statin, carvedilol, hydralazine, insulin, losartan/hydrochlorothiazide, metformin, nifedipine at home. In the emergency department Afebrile, BP 191/95, HR 81, satting 96% on room air. Troponin 0.162 then 0.163, EKG showed sinus rhythm with occasional PVCs, no acute ST changes. ALP 129, ALT 51, AST normal, GLUCOSE 226. WBC 11.7, hemoglobin 16.7 with baseline around 17.4. UA negative for UTI U-Tox negative Per chart review, recent admission 10/02 for acute encephalopathy and hypertensive emergency with NIHSS score of 6. CT head then was negative, CTA showed possible P1 stenosis. MRI was also negative for acute pathology but demonstrated large old infarct of right MCA. TTE and LAWRENCE were done showing suspicious echogenic structure in LVOT, bicuspid aortic valve with moderate stenosis and calcification, negative for PFO or thrombus. Patient was admitted for possible repeat stroke. Dr Castañeda was consulted. Blood pressure continues to be significantly elevated despite on for class medications. Current blood pressure 185/103. Renal Doppler showed no renal artery stenosis. Renal consultation requested for malignant hypertension. 10/16/2024 WBC 12.8, hemoglobin 17.6, platelets 231. Sodium 135, potassium 4.2, bicarbonate 21.9, creatinine 1.1, glucose 148, phosphorus 2.1, calcium 9.2, magnesium 2.2, LFTs normal Patient currently seen in telemetry. Exam Vital Signs Temp Pulse Resp BP Pulse Ox O2 Del Method O2 Flow Rate 36.2 C 75 20 124/79 98 Room Air 0 10/21/24 08:00 10/21/24 08:00 10/21/24 08:00 10/21/24 08:00 10/21/24 08:00 10/21/24 08:00 10/21/24 04:00 Objective Labs 10/22/24 13:55 10/22/24 05:58 Labs: Laboratory Results - last 24 hr 10/20/24 10/21/24 13:40 04:17 WBC 9.4 RBC 5.72 Hgb 17.8 H* 16.6 H Hct 51.0 46.8 MCV 82 MCH 29.0 MCHC 35.5 RDW Std Deviation 37.3 Plt Count 189 D Neut % (Auto) 63 Lymph % (Auto) 27 [place] % (Auto) 9 Eos % (Auto) 1 Baso % (Auto) 0 Neut # (Auto) 5.9 Lymph # (Auto) 2.5 [place] # (Auto) 0.8 Eos # (Auto) 0.1 Baso # (Auto) 0.0 Immature Gran # (Auto) 0.03 H Absolute Nucleated RBC 0.00 Immature Gran % 0 Nucleated RBC % 0 Sodium 133 L Potassium 3.9 Chloride 101 Carbon Dioxide 22.3 Anion Gap 10 BUN 39 H Creatinine 1.6 H Estim Creat Clear Calc 73.1 eGFR 55 L BUN/Creatinine Ratio 24 H Glucose 149 H Calculated Osmolality 278 Calcium 9.4 Corrected Calcium 9.4 Phosphorus 5.1 Magnesium 2.5 Total Bilirubin 0.6 AST 20 ALT 30 Alkaline Phosphatase 101 Total Protein 7.5 Albumin 4.8 Globulin 2.7 Albumin/Globulin Ratio 1.8 Assessment & Plan Assessment and plan (1) Dizziness: Status: Acute (2) Acute CVA (cerebrovascular accident): Status: Acute (3) Hypertension: Status: Acute (4) Hyperlipidemia: Status: Acute (5) Type 2 diabetes mellitus: Status: Chronic (6) Intractable vomiting: Status: Resolved (7) Polycythemia: Status: Acute Additional Assessment & Plan Additional Plan: Summary: Mr. Penaloza is a 44-year-old male past medical history significant for recent right MCA stroke, HTN, HLD, T2DM, bicuspid aortic valve with moderate stenosis presented to the emergency department with dizziness and nausea and vomiting. MRI showed large acute infarct of right cerebellar hemisphere, inferior vermis and small portion of left cerebellar hemisphere. Teleneurology was consulted. They recommended aspirin, statins, permissive hypertension. Patient admitted for management of Acute CVA # Malignant hypertension Patient currently on 4 class medication (carvedilol, hydralazine, losartan, nifedipine) suspect secondary hypertension. Patient was on carvedilol, hydralazine, insulin, losartan/hydrochlorothiazide, nifedipine at home. Renal Doppler negative for renal artery stenosis. Blood pressure improved markedly. Blood pressure medication optimized, blood pressure goals 150/90 Plan: Medication optimized at diltiazem 60 mg p.o. every 6 hours, hydralazine 100 mg p.o. twice daily, losartan 100 mg p.o. daily, minoxidil 5 mg p.o. daily, spironolactone 50 mg p.o. daily. BP goal 150/90 Follow Renin, aldosterone, 24-hour urine for catecholamines ordered. 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 Status post bone marrow biopsy Follow anti-phospholipid antibody panel, beta-2 microglobulin, lupus anticoagulant eval with reflex, protein C, protein S activity Consider ordering erythropoietin level and JAK2 testing # Acute cerebellar infarct-complaining of headaches, dizziness. Dr Castañeda on the case # Hx of right MCA infarct # Subdural hemorrhage # Hyperlipidemia # Diabetes mellitus Management as per primary team Case discussed with Attending Dr. Hansen. Chery Crowley PGY1 Patient seen and examined with resident physician Dr. Crowlye. Note reviewed, agree with findings and recommendations. Documented by User: Chery Crowley MD 10/22/24 09:45 Subjective Subjective Interval history: Mr. Penaloza is a 44-year-old male past medical history significant for recent right MCA stroke, HTN, HLD, T2DM, bicuspid aortic valve with moderate stenosis presented to the emergency department with dizziness and nausea and vomiting. In the emergency department stroke alert was initiated.CT head showed nonhemorrhagic infarct of right inferior cerebellar hemisphere, negative for hemorrhage or mass effect. CTA head/neck no significant neck arterial stenosis or stable large vessel occlusion or thrombus. MRI showed large acute infarct of right cerebellar hemisphere, inferior vermis and small portion of left cerebellar hemisphere. Teleneurology was consulted. They recommended aspirin, statins, permissive hypertension. Patient was on aspirin, statin, carvedilol, hydralazine, insulin, losartan/hydrochlorothiazide, metformin, nifedipine at home. In the emergency department Afebrile, BP 191/95, HR 81, satting 96% on room air. Troponin 0.162 then 0.163, EKG showed sinus rhythm with occasional PVCs, no acute ST changes. ALP 129, ALT 51, AST normal, GLUCOSE 226. WBC 11.7, hemoglobin 16.7 with baseline around 17.4. UA negative for UTI U-Tox negative Per chart review, recent admission 10/02 for acute encephalopathy and hypertensive emergency with NIHSS score of 6. CT head then was negative, CTA showed possible P1 stenosis. MRI was also negative for acute pathology but demonstrated large old infarct of right MCA. TTE and LAWRENCE were done showing suspicious echogenic structure in LVOT, bicuspid aortic valve with moderate stenosis and calcification, negative for PFO or thrombus. Patient was admitted for possible repeat stroke. Dr Castañeda was consulted. 10/17/2024: Patient's Blood Pressure 158/83 last night, continue to be high today, complains of mild headache, current Blood Pressure 188/86. Also endorsed hallucinations and visual disturbances last night. Pending Renin, Aldosterone. Sodium 136, Potassium 3.9, chloride 101, bicarbonate 25.3, phosphorus 2.9, magnesium 2.4, LFTs normal. Dr Castañeda consulted for acute infarct. 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 10/19/2024: Patient Blood Pressure 162/63, reports improvement compared to yesterday continues to complain of hallucinations. Patient reports working with physical therapy, complains of gait instability. Labs done today significant for hemoglobin 17.5, sodium 134, glucose 137, osmolality 273 BUN 23, creatinine 1.2, GFR more than 60, potassium 3.4. Patient has no current complaints. Scheduled for Bone marrow biopsy tomorrow. Hematology consulted rec further workup of polycythemia. Continue to treat HTN with goal of decrease by 25% everyday. Patient started on hydrochlorothiazide today. 10/20/2024: Patient blood pressure 155/89, patient CT head yesterday was positive for 2.6 mmsubdural hemorrhage, likely etiology blood thinners which patient was on for management of stroke. Patient's blood pressure is better controlled today, patient was started on minoxidil, patient has no current complaints, sleeping comfortably in bed. Patient is scheduled for bone marrow biopsy today. BUN 26, creatinine 1.3, GFR more than 60 today. Patient's hypertension well-controlled, will continue to monitor. 10/21/2024: Patient blood pressure 128/79, patient's medication optimized at diltiazem 60 mg p.o. every 6 hours, hydralazine 100 mg p.o. twice daily, losartan 100 mg p.o. daily, minoxidil 5 mg p.o. daily, spironolactone 50 mg p.o. daily. Otherwise patient does complain of some photophobia and headache, scheduled for repeat CT scan of the head today to determine stability of subdural hematoma. Otherwise patient's BUN 39, creatinine 1.6, GFR 55, possibly secondary to dehydration recommended increase p.o. intake, will continue to monitor Review of Systems Review of Systems Narrative Review of Systems: CONSTITUTIONAL: Patient denies any fever, chills. Complaining of fatigue HEENT: Denies any visual disturbances or hearing problems. CARDIOVASCULAR: Patient denies any chest pain, shortness of breath, swelling in the lower extremities. PULMONARY: Patient denies any shortness of breath, cough. GASTROINTESTINAL: Patient denies any abdominal pain, constipation, nausea, vomiting, diarrhea. GENITOURINARY: Patient denies any urinary symptoms of burning or frequency or hematuria, denies any form in the urine. SKIN: Denies any rash. MUSCULOSKELETAL: Denies any muscular skeletal problems of joint pains. NEUROLOGICAL: Complaining of headaches and photophobia Exam Narrative Exam Physical Exam General: Awake and in no acute distress. Conversational and non-toxic appearing. HEENT: Normocephalic, atraumatic, mucous membranes moist. Heart: Regular rate and rhythm, no murmurs. Lungs: Clear to auscultation with no wheezing or crackles. Abdomen: Soft, nondistended, nontender, positive bowel sounds. No guarding or rebound tenderness. Neurologic: Alert and oriented x3, no gross neurological deficit, and patient able to move all 4 extremities. Extremities: No edema. Skin: No rash or ecchymoses. Objective Labs 10/22/24 13:55 10/22/24 05:58 Assessment & Plan Assessment and plan (1) Dizziness: Status: Acute (2) Acute CVA (cerebrovascular accident): Status: Acute (3) Hypertension: Status: Acute (4) Hyperlipidemia: Status: Acute (5) Type 2 diabetes mellitus: Status: Chronic (6) Intractable vomiting: Status: Resolved (7) Polycythemia: Status: Acute Additional Assessment & Plan Additional Plan: Summary: Mr. Penaloza is a 44-year-old male past medical history significant for recent right MCA stroke, HTN, HLD, T2DM, bicuspid aortic valve with moderate stenosis presented to the emergency department with dizziness and nausea and vomiting. MRI showed large acute infarct of right cerebellar hemisphere, inferior vermis and small portion of left cerebellar hemisphere. Teleneurology was consulted. They recommended aspirin, statins, permissive hypertension. Patient admitted for management of Acute CVA # Malignant hypertension Patient currently on 4 class medication (carvedilol, hydralazine, losartan, nifedipine) suspect secondary hypertension. Patient was on carvedilol, hydralazine, insulin, losartan/hydrochlorothiazide, nifedipine at home. Renal Doppler negative for renal artery stenosis. Blood pressure improved markedly. Blood pressure medication optimized, blood pressure goals 150/90 Plan: Medication optimized at diltiazem 60 mg p.o. every 6 hours, hydralazine 100 mg p.o. twice daily, losartan 100 mg p.o. daily, minoxidil 5 mg p.o. daily, spironolactone 50 mg p.o. daily. BP goal 150/90 Follow Renin, aldosterone, 24-hour urine for catecholamines ordered. 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 Status post bone marrow biopsy Follow anti-phospholipid antibody panel, beta-2 microglobulin, lupus anticoagulant eval with reflex, protein C, protein S activity Consider ordering erythropoietin level and JAK2 testing # Acute cerebellar infarct-complaining of headaches, dizziness. Dr Castañeda on the case # Hx of right MCA infarct # Subdural hemorrhage # Hyperlipidemia # Diabetes mellitus Management as per primary team Case discussed with Attending Dr. Hansen. Chery Crowley PGY1
[2024-10-21] MEDS: hydrALAZINE HCL 25 MG TABLET 100 MG PO ×2 (08:50→20:31)
[2024-10-21] MEDS: INSULIN LISPRO (AdmeLOG) 1 UNIT/0.01 ML UNIT SC ×3 (08:56→20:21)
[2024-10-21] MEDS: minoxidiL 10 MG TABLET 5 MG PO (08:57)
[2024-10-21] MEDS: PANTOPRAZOLE 40 MG TABLET PO ×2 (08:58→20:31)
[2024-10-21 13:03] LABS: Hemoglobin 18.2 g/dL (13.5-16.0)
--- NOTE | 2024-10-21 16:55 | PC.PT ---
Patient will be D/C from PT services secondary to he is xI with bed mobility, transfers, and ambulation. Patient can ambulate using a FWW while he is here in the hospital.
[2024-10-21] MEDS: INSULIN GLARGINE (Lantus) 5 UNIT/0.05 ML (PER 5 UNITS) 10 UNIT SC (20:23)
[2024-10-21] MEDS: ATORVASTATIN CALCIUM 20 MG TABLET 80 MG PO (20:31)
--- NOTE | 2024-10-21 23:25 | ESPR_ITS ---
Documentation for date of: 10/21/24 Subjective Subjective Interval history: Patient was seen in telemetry at the bedside with his family, eating dinner. No complaints. Exam - Neurology Vital Signs Temp Pulse Resp BP Pulse Ox O2 Del Method O2 Flow Rate 97.6 F 88 21 H 153/85 H 94 L Room Air 0 10/21/24 20:00 10/21/24 20:31 10/21/24 20:00 10/21/24 20:31 10/21/24 20:00 10/21/24 20:00 10/21/24 20:00 Narrative Exam GENERAL APPEARANCE: Well hydrated, well-nourished in no acute distress. HEENT: Normocephalic, atraumatic, extraocular movements intact. Pupils: Equal reacting to light and accommodation NECK: Supple, no JVD or bruits. CARDIOVASULAR: Heart: S1, S2 heard, regular without S3-S4 or murmur no rubs or gallops. LUNGS/CHEST: Clear to auscultation bilaterally. No rails, rhonchi, or wheezing. Normal inspection. ABDOMEN: Soft, nontender, with normal bowel sounds. No pulsatile masses. No rebound, rigidity, or guarding. Normal inspection and palpation. EXTREMITIES: Normal inspection and palpation. No edema, clubbing or cyanosis. SKIN: Warm and dry without rashes. Normal inspection. MUSCULOSKELETAL: No cervical, thoracic, lumbar or midline bony tenderness. Normal inspection. NEURO: Alert, awake and oriented x3. Cranial nerves: II through XII grossly intact. Speech and language: Normal with no dysarthria or dysphasia. Motor system: Tone and bulk: Normal: Strength: 5 out of 5 in all 4 extremities; No pronator drift noted. Deep tendon reflexes: 2+ bilaterally symmetrical. Plantar reflex: Downgoing bilaterally. Sensory system: Intact to all modalities of sensation bilaterally. Coordination: Intact to [id number] and [id number] test bilaterally. No ataxia, no dysmetria, or dysdiadochokinesia noted. No intention tremors noted. Gait: Not tested. No signs of meningeal irritation noted. PSYCHIATRIC: Normal mood and affect. Objective Labs 10/21/24 13:29 10/21/24 04:17 Labs: Laboratory Results - last 24 hr 10/21/24 10/21/24 04:17 13:29 WBC 9.4 RBC 5.72 Hgb 16.6 H 18.2 H* Hct 46.8 52.0 MCV 82 MCH 29.0 MCHC 35.5 RDW Std Deviation 37.3 Plt Count 189 D Neut % (Auto) 63 Lymph % (Auto) 27 [place] % (Auto) 9 Eos % (Auto) 1 Baso % (Auto) 0 Neut # (Auto) 5.9 Lymph # (Auto) 2.5 [place] # (Auto) 0.8 Eos # (Auto) 0.1 Baso # (Auto) 0.0 Immature Gran # (Auto) 0.03 H Absolute Nucleated RBC 0.00 Immature Gran % 0 Nucleated RBC % 0 Sodium 133 L Potassium 3.9 Chloride 101 Carbon Dioxide 22.3 Anion Gap 10 BUN 39 H Creatinine 1.6 H Estim Creat Clear Calc 73.1 eGFR 55 L BUN/Creatinine Ratio 24 H Glucose 149 H Calculated Osmolality 278 Calcium 9.4 Corrected Calcium 9.4 Phosphorus 5.1 Magnesium 2.5 Total Bilirubin 0.6 AST 20 ALT 30 Alkaline Phosphatase 101 Total Protein 7.5 Albumin 4.8 Globulin 2.7 Albumin/Globulin Ratio 1.8 Assessment & Plan Assessment and plan (1) Dizziness: Status: Acute Assessment and plan: Secondary to acute cerebellar CVA Resolving (2) Acute CVA (cerebrovascular accident): Status: Acute Assessment and plan: Affecting the right cerebellar hemisphere mainly Continue with dual antiplatelet agents along with statin. (3) Hypertension: Status: Acute Assessment and plan: much better now, Continue with aggressive blood pressure control noted that he is on PRN meds in addition to scheduled multiple meds. (4) Hyperlipidemia: Status: Acute Assessment and plan: Continue with high intensity statin: LDL: 112 (5) Type 2 diabetes mellitus: Status: Chronic Assessment and plan: Needs better control of diabetes as the last A1c: 11.2 (6) Intractable vomiting: Status: Resolved Assessment and plan: Secondary to acute cerebellar CVA, improved with time as the edema resolves. (7) Polycythemia: Status: Acute Assessment and plan: got bone marrow biopsy by IR today.
[2024-10-22] VITALS (10 sets, daily range): BP systolic 120–150; BP diastolic 65–116; PULSE 60–90; RESP 13–20; TEMP 35.9–36.3; O2SAT 91–97; BMI 32.1
[2024-10-22] MEDS: DILTIAZEM 30 MG TABLET 60 MG PO ×3 (05:53→12:56)
[2024-10-22 06:47] LABS: Basophils % (Auto) 0 % (0-2.5); Eosinophils # (Auto) 0.1 Thou/mm3 (0.0-0.5); Eosinophils % (Auto) 1 % (0-10); Hematocrit 51.9 % (41.0-53.0); Hemoglobin 17.7 g/dL (13.5-16.0); Immature Granulocytes % (Auto) 0 % (0-0); Immature Granulocytes Auto 0.03 Thou/mm3 (0.00-0.00); Lymphocytes # (Auto) 2.4 Thou/mm3 (1.0-4.8); Lymphocytes % (Auto) 23 % (10-50); Mean Corpuscular HGB Conc 34.1 g/dl (31.0-37.0); Mean Corpuscular Hemoglobin 28.5 pg (25.0-35.0); Mean Corpuscular Volume 83 fL (80-100); Monocytes # (Auto) 0.8 Thou/mm3 (0.0-0.8); Monocytes % (Auto) 7 % (0-12); Neutrophils # (Auto) 7.1 Thou/mm3 (1.8-7.7); Neutrophils % (Auto) 69 % (37-80); Nucleated Red Blood Cell % 0 /100 WBC (0); Platelet Count 305 Thou/mm3 (140-440); RDW Standard Deviation 37.9 fL (35.1-43.9); Red Blood Count 6.22 Miln/mm3 (4.50-5.90); White Blood Count 10.4 Thou/mm3 (3.8-10.6)
[2024-10-22 07:10] LABS: Alanine Aminotransferase 28 U/L (10-49); Albumin, Serum 4.9 gm/dL (3.5-5.0); Albumin/Globulin Ratio 1.9 (1.2-2.2); Alkaline Phosphatase 100 U/L (46-116); Anion Gap 6 (7-16); Aspartate Amino Transferase 18 U/L (0-34); BUN/Creatinine Ratio 23 Ratio (12-20); Bilirubin,Total 0.7 mg/dL (0.3-1.2); Blood Urea Nitrogen 32 mg/dL (9-23); Calcium 9.6 mg/dL (8.3-10.6); Calcium (Corrected) 9.6 mg/dL (8.5-10.1); Carbon Dioxide 26.1 mMol/L (20.0-31.0); Chloride 101 mMol/L (98-107); Creatinine (Component) 1.4 mg/dL (0.6-1.3); Estimated Creatinine Clearance 82.1 mL/min (>60); Globulin 2.6 gm/dL (2.3-3.5); Glucose 158 mg/dL (74-106); Magnesium 2.3 mg/dL (1.6-2.6); Osmolality,Calculated 276 (275-295); Phosphorous 3.8 mg/dL (2.4-5.1); Potassium 3.9 mMol/L (3.4-5.1); Sodium 133 mMol/L (136-145); Total Protein 7.5 gm/dL (5.7-8.2); eGFR > 60 See Note
[2024-10-22] MEDS: INSULIN LISPRO (AdmeLOG) 1 UNIT/0.01 ML UNIT SC ×2 (07:51→12:57)
[2024-10-22] MEDS: SPIRONOLACTONE 25 MG TABLET 50 MG PO (08:16)
[2024-10-22] MEDS: PANTOPRAZOLE 40 MG TABLET PO (08:16)
[2024-10-22] MEDS: hydrALAZINE HCL 25 MG TABLET 100 MG PO (08:17)
[2024-10-22] MEDS: POLYETHYLENE GLYCOL 17 GM PACKET PO (08:18)
--- NOTE | 2024-10-22 08:57 | PD.RESPRO ---
Documentation for date of: 10/22/24 Subjective Subjective Interval history: Mr. Penaloza is a 44-year-old male past medical history significant for recent right MCA stroke, HTN, HLD, T2DM, bicuspid aortic valve with moderate stenosis presented to the emergency department with dizziness and nausea and vomiting. In the emergency department stroke alert was initiated.CT head showed nonhemorrhagic infarct of right inferior cerebellar hemisphere, negative for hemorrhage or mass effect. CTA head/neck no significant neck arterial stenosis or stable large vessel occlusion or thrombus. MRI showed large acute infarct of right cerebellar hemisphere, inferior vermis and small portion of left cerebellar hemisphere. Teleneurology was consulted. They recommended aspirin, statins, permissive hypertension. Patient was on aspirin, statin, carvedilol, hydralazine, insulin, losartan/hydrochlorothiazide, metformin, nifedipine at home. In the emergency department Afebrile, BP 191/95, HR 81, satting 96% on room air. Troponin 0.162 then 0.163, EKG showed sinus rhythm with occasional PVCs, no acute ST changes. ALP 129, ALT 51, AST normal, GLUCOSE 226. WBC 11.7, hemoglobin 16.7 with baseline around 17.4. UA negative for UTI U-Tox negative Per chart review, recent admission 10/02 for acute encephalopathy and hypertensive emergency with NIHSS score of 6. CT head then was negative, CTA showed possible P1 stenosis. MRI was also negative for acute pathology but demonstrated large old infarct of right MCA. TTE and LAWRENCE were done showing suspicious echogenic structure in LVOT, bicuspid aortic valve with moderate stenosis and calcification, negative for PFO or thrombus. Patient was admitted for possible repeat stroke. Dr Castañeda was consulted. 10/17/2024: Patient's Blood Pressure 158/83 last night, continue to be high today, complains of mild headache, current Blood Pressure 188/86. Also endorsed hallucinations and visual disturbances last night. Pending Renin, Aldosterone. Sodium 136, Potassium 3.9, chloride 101, bicarbonate 25.3, phosphorus 2.9, magnesium 2.4, LFTs normal. Dr Castañeda consulted for acute infarct. 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 10/20/2024: Patient blood pressure 155/89, patient CT head yesterday was positive for 2.6 mmsubdural hemorrhage, likely etiology blood thinners which patient was on for management of stroke. Patient's blood pressure is better controlled today, patient was started on minoxidil, patient has no current complaints, sleeping comfortably in bed. Patient is scheduled for bone marrow biopsy today. BUN 26, creatinine 1.3, GFR more than 60 today. Patient's hypertension well-controlled, will continue to monitor. 10/21/2024: Patient blood pressure 128/79, patient's medication optimized at diltiazem 60 mg p.o. every 6 hours, hydralazine 100 mg p.o. twice daily, losartan 100 mg p.o. daily, minoxidil 5 mg p.o. daily, spironolactone 50 mg p.o. daily. Otherwise patient does complain of some photophobia and headache, scheduled for repeat CT scan of the head today to determine stability of subdural hematoma. Otherwise patient's BUN 39, creatinine 1.6, GFR 55, possibly secondary to dehydration recommended increase p.o. intake, will continue to monitor 10/22/2024: Patient's blood pressure 145/81, blood pressure has improved remarkably, patient denies any headaches, photophobia, reports he is feeling better. BUN 32, creatinine 1.4, GFR more than 60, VEGA has resolved, maintain adequate hydration, repeat CT scan of the head done yesterday shows stable subdural hematoma. Patient is stable for discharge from nephrology standpoint, continue current hypertension medications, recommended to follow-up outpatient with nephrology in 1 to 2 weeks. Exam Vital Signs Temp Pulse Resp BP Pulse Ox O2 Del Method O2 Flow Rate 97.1 F 90 14 144/116 H 96 Room Air 0 10/22/24 08:00 10/22/24 08:17 10/22/24 08:00 10/22/24 08:17 10/22/24 08:00 10/22/24 08:00 10/22/24 08:00 Narrative Exam Physical Exam General: Awake and in no acute distress. Conversational and non-toxic appearing. HEENT: Normocephalic, atraumatic, mucous membranes moist. Heart: Regular rate and rhythm, no murmurs. Lungs: Clear to auscultation with no wheezing or crackles. Abdomen: Soft, nondistended, nontender, positive bowel sounds. No guarding or rebound tenderness. Neurologic: Alert and oriented x3, no gross neurological deficit, and patient able to move all 4 extremities. Extremities: No edema. Skin: No rash or ecchymoses. Objective Labs 10/22/24 13:55 10/22/24 05:58 Labs: Laboratory Results - last 24 hr 10/21/24 10/22/24 13:29 05:58 WBC 10.4 RBC 6.22 H Hgb 18.2 H* 17.7 H* Hct 52.0 51.9 MCV 83 MCH 28.5 MCHC 34.1 RDW Std Deviation 37.9 Plt Count 305 D Neut % (Auto) 69 Lymph % (Auto) 23 [place] % (Auto) 7 Eos % (Auto) 1 Baso % (Auto) 0 Neut # (Auto) 7.1 Lymph # (Auto) 2.4 [place] # (Auto) 0.8 Eos # (Auto) 0.1 Baso # (Auto) 0.0 Immature Gran # (Auto) 0.03 H Absolute Nucleated RBC 0.00 Immature Gran % 0 Nucleated RBC % 0 Sodium 133 L Potassium 3.9 Chloride 101 Carbon Dioxide 26.1 Anion Gap 6 L BUN 32 H Creatinine 1.4 H Estim Creat Clear Calc 82.1 eGFR > 60 BUN/Creatinine Ratio 23 H Glucose 158 H Calculated Osmolality 276 Calcium 9.6 Corrected Calcium 9.6 Phosphorus 3.8 Magnesium 2.3 Total Bilirubin 0.7 AST 18 ALT 28 Alkaline Phosphatase 100 Total Protein 7.5 Albumin 4.9 Globulin 2.6 Albumin/Globulin Ratio 1.9 Quality Measures Quality Measures VTE prophylaxis (SCDs) Assessment & Plan Assessment Current Active Medications: Generic Name Dose Route Start Last Admin Trade Name Freq PRN Reason Stop Dose Admin Acetaminophen 650 mg 10/14/24 11:32 10/20/24 21:14 Acetaminophen 325 Mg Tablet PO 11/13/24 11:31 650 mg Q6H PRN Administration Fever >100.4 Acetaminophen 650 mg 10/14/24 11:32 10/17/24 23:17 Acetaminophen 325 Mg Tablet PO 11/13/24 11:31 650 mg Q6H PRN Administration PAIN SCALE 1-3 (mild Atorvastatin Calcium 80 mg 10/14/24 21:00 10/21/24 20:31 Atorvastatin Calcium 20 Mg Tablet PO 11/13/24 20:59 80 mg HS DANA Administration Dextrose 50 ml 10/14/24 14:01 Dextrose 50%-Water Inj 50 Ml Syringe IV 11/13/24 14:00 Q15MIN PRN BG <50 OR BG <70 & pt unresponsive Diltiazem HCl 60 mg 10/17/24 18:00 10/22/24 05:53 Diltiazem 30 Mg Tablet PO 11/16/24 17:59 60 mg Q6HR DANA Administration Glucagon 1 mg 10/14/24 14:01 Glucagon Inj 1 Mg Vial IM Q15MIN PRN BG <70, and no IV access Hydralazine HCl 100 mg 10/20/24 21:00 10/22/24 08:17 Hydralazine Hcl 25 Mg Tablet PO 11/19/24 20:59 100 mg BID DANA Administration Insulin Glargine 10 unit 10/15/24 21:00 10/21/24 20:23 Insulin Glargine (Lantus) 5 Unit/0.05 Ml (Per 5 Units) SC 11/14/24 20:59 10 unit HS DANA Administration Insulin Human Lispro 0 unit 10/14/24 17:00 10/22/24 07:51 Insulin Lispro (Admelog) 1 Unit/0.01 Ml Unit SC 11/13/24 16:59 2 unit ACHS DANA Administration Protocol Labetalol HCl 10 mg 10/17/24 15:38 10/17/24 15:59 Labetalol Inj 5 Mg/Ml Vial 20 Ml IVP 11/16/24 15:37 10 mg Q6H PRN Administration sBP>180, do NOT give if HR<70 Losartan Potassium 100 mg 10/16/24 09:00 10/20/24 11:44 Losartan Potassium 25 Mg Tablet PO 11/15/24 08:59 100 mg QDAY DANA Administration Minoxidil 5 mg 10/21/24 09:00 10/21/24 08:57 Minoxidil 10 Mg Tablet PO 11/20/24 08:59 5 mg QDAY DANA Administration Ondansetron HCl 4 mg 10/14/24 03:07 10/20/24 21:09 Ondansetron Inj 2 Mg/Ml Inj 2 Ml IV 11/13/24 03:06 4 mg Q4HR PRN Administration NAUSEA OR VOMITING Pantoprazole Sodium 40 mg 10/14/24 21:00 10/22/24 08:16 Pantoprazole 40 Mg Tablet PO 11/13/24 20:59 40 mg Q12HR DANA Administration Polyethylene Glycol 17 gm 10/19/24 11:00 10/22/24 08:18 Polyethylene Glycol 17 Gm Packet PO 11/18/24 10:59 17 gm QDAY DANA Administration Sennosides 1 tab 10/19/24 10:58 Senna/Docusate Sod 1 Tab Tablet PO 11/18/24 10:57 QDAY PRN CONSTIPATION Protocol Spironolactone 50 mg 10/21/24 09:00 10/22/24 08:16 Spironolactone 25 Mg Tablet PO 11/20/24 08:59 50 mg QDAY DANA Administration Plan Summary: Mr. Penaloza is a 44-year-old male past medical history significant for recent right MCA stroke, HTN, HLD, T2DM, bicuspid aortic valve with moderate stenosis presented to the emergency department with dizziness and nausea and vomiting. MRI showed large acute infarct of right cerebellar hemisphere, inferior vermis and small portion of left cerebellar hemisphere. Teleneurology was consulted. They recommended aspirin, statins, permissive hypertension. Patient admitted for management of Acute CVA # Malignant hypertension Patient currently on 4 class medication (carvedilol, hydralazine, losartan, nifedipine) suspect secondary hypertension. Patient was on carvedilol, hydralazine, insulin, losartan/hydrochlorothiazide, nifedipine at home. Renal Doppler negative for renal artery stenosis. Blood pressure improved markedly. Blood pressure medication optimized, blood pressure goals 150/90 Plan: Hypertension medication optimized at diltiazem 60 mg p.o. every 6 hours, hydralazine 100 mg p.o. twice daily, losartan 100 mg p.o. daily, minoxidil 5 mg p.o. daily, spironolactone 50 mg p.o. daily. BP goal 150/90 Follow outpatient closely with primary care provider and follow with nephrology in clinic 1 to 2 weeks. Follow Renin, aldosterone, 24-hour urine for catecholamines outpatient in clinic in 1 to 2 weeks. Monitor blood pressure closely # Mild VEGA, prerenal, improving Secondary to poor p.o. intake, patient complains of headache, lethargic, has decreased p.o. water intake BUN 39, creatinine 1.6, GFR 55-10/21/2024 Baseline BUN 23, creatinine 1.0, GFR more than 60 Maintain adequate hydration, encourage p.o. 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 Status post bone marrow biopsy Follow anti-phospholipid antibody panel, beta-2 microglobulin, lupus anticoagulant eval with reflex, protein C, protein S activity Consider ordering erythropoietin level and JAK2 testing # Acute cerebellar infarct-complaining of headaches, dizziness. Dr Castañeda on the case # Hx of right MCA infarct # Subdural hemorrhage # Hyperlipidemia # Diabetes mellitus Management as per primary team Case discussed with Attending Dr. Hansen. Chery Crowley PGY1 Attending Provider Attestation/Addendum Patient seen and examined with resident physician Dr. Crowley. Note reviewed, agree with findings and recommendations. Blood pressure much better. Can be discharged today. Follow-up with me in 2 weeks
[2024-10-22] MEDS: minoxidiL 10 MG TABLET 5 MG PO (09:01)
--- NOTE | 2024-10-22 10:57 | PD.ADDPROG ---
Addendum Progress Note Addendum Date of report being addended: 10/22/24 Narrative: Attending's attestation: I reviewed labs, imaging, EKG, home medications and prior available records. Face to face evaluation was performed by me. I have personally examined the patient and discussed assessment and plan with the IM team. I reviewed the resident note and agree with the plan with exceptions as below. Acute CVA, right cerebellum Hypertensive urgency Subdural hematoma, left temporal VEGA on CKD Repeat CT head showed subdural bleed that is peripheral to the left temporal SDH. Will touch base with neurology regarding the timing to resume aspirin/Plavix. Continue atorvastatin. Patient worked with PT. Recommended walker and home health. Kidney function improved. Continue to monitor kidney function. Avoid nephrotoxins. Renally dosed medications.
--- NOTE | 2024-10-22 12:06 | PC.CM ---
received faxed HH order from Dr. Landrum. Entered pt. on [facility].
--- NOTE | 2024-10-22 12:12 | PC.SS ---
DIRECTOR OF RETENTION followed up with pt regarding with Dr. Mcgregor pt see's in order for Nurse Hugo to put in HH orders, and pt see Dr. Gerald Mcgregor at [facility].
--- NOTE | 2024-10-22 14:13 | PD.ADDDSCHGE ---
Addendum Discharge Addendum Date of report being addended: 10/22/24 Narrative: Attending's attestation: I reviewed labs, imaging, EKG, home medications and prior available records. Face to face evaluation was performed by me. I have personally examined the patient and discussed assessment and plan with the IM team. I reviewed the resident note and agree with the plan with exceptions as below. Acute CVA, right cerebellum Hypertensive urgency Subdural hematoma, left temporal VEGA on CKD Repeat CT head showed subdural bleed that is peripheral to the left temporal SDH. Discussed with neurology: Continue Plavix only. Continue atorvastatin. Okay to discharge from neurology standpoint. Patient worked with PT. Recommended walker and home health. Kidney function improved. Continue to monitor kidney function. Avoid nephrotoxins. Renally dosed medications. Time spent is 40 minutes. More than 50% of the time was spent on patient education and coordination of care.
[2024-10-22 14:32] LABS: Hematocrit 49.8 % (41.0-53.0); Hemoglobin 17.3 g/dL (13.5-16.0)
--- NOTE | 2024-10-22 15:00 | ESDS_ITS ---
Planned Discharge Date 10/22/24 DS: Providers Provider Date of admission: 10/14/24 11:14 Primary care physician: Physician No Primary/Family Admitting Provider: Garcia Madison MD Attending Provider on Admission: Garcia Madison MD Consults: 10/14/24 08:46 Consult to Neurology / Tele-Neurology Routine Comment: Consulting Provider: [facility] 10/14/24 10:41 Consult to Neurology / Tele-Neurology Stat Comment: Nonhemorrhagic infarct R inferior cerebellar hemis Consulting Provider: David Castañeda 10/14/24 10:42 Consult to Hematology Stat Comment: Erythroctosis, stroke Consulting Provider: Amanda Hobbs 10/14/24 11:40 Referral Physical Therapy Routine Comment: Physician Instructions: 10/14/24 11:46 Referral Speech Therapy Routine Comment: swallow eval 10/16/24 10:03 Consult to Nephrology Routine Comment: restitant HTN Consulting Provider: Arlin Hansen Attending Provider on DC: Marko Rico MD Discharging Provider: Marko Rico MD DS: Diagnosis Problem List Completed Was Problem List Reviewed/Reconciled?: Yes Hospital Course Hospital Course Hospital course: Patient was a 44-year-old male with uncontrolled T2DM, HTN, HLD, bicuspid aortic valve and history of right MCA infarct who presented to the ED with dizziness associated with vomiting. Patient endorses noncompliance with antihypertensives/diabetic medications. Of note, patient was discharged on 10/05/2024 after being worked up for a TIA. In the ED, patient was found to have a nonhemorrhagic infarct of right inferior cerebellar hemisphere, without any LVO seen on CTA head and neck. MRI confirmed infarct, and patient was admitted for further workup and management. Neurology followed the patient and recommended aspirin with repeat head CT prior to initiating Plavix. Due to polycythemia seen on CBC, hematology was consulted and recommended to obtain a bone marrow biopsy, therefore aspirin/Plavix were held, and Plavix was resumed after biopsy and discussion with neurology. Repeat head CT's did show small subdural hemorrhage of left temporoparietal lobe and small acute infarct left cerebellar hemisphere, however no significant hemorrhagic transformation. Over the course of admission, patient's blood pressure was refractory to several medications/adjustments, therefore nephrology was consulted. Ultimately patient's blood pressure was stable on a regimen of diltiazem 60 mg 4 times daily, hydralazine 100 mg twice daily, minoxidil 5 mg daily, spironolactone 50 mg daily. His losartan was held due to developing an VEGA, which had improved by the day of discharge. Patient was also counseled on strict glycemic control as A1c was 11.2, and encouraged to be compliant with his insulin & metformin. Patient was deemed stable and no longer had headaches, dizziness, vomiting. He was tolerating diet, and worked with PT where he was noted to be independent and stable to be discharged home with home health PT. #Acute cerebellar infarct #History of right MCA infarct #Subdural hematoma #HLD #Refractory HTN #Hypertensive emergency, improved #NSTEMI type II, delta troponin noted #Erythrocytosis #Polycythemia, s/p BM biopsy #VEGA, improving #T2DM, uncontrolled #Electrolyte abnormalities, improved Discharge plan discussed with patient extensively as follows: Follow-up with PCP, neurology (for CVA), nephrology (for HTN) and hematology (for polycythemia/bone marrow biopsy results) Take Plavix once daily Antihypertensive regimen: Cardizem diltiazem 60 mg 4 times daily, hydralazine 100 mg twice daily, minoxidil 5 mg daily, spironolactone 50 mg daily. Holding losartan?HCTZ due to VEGA, which is improving Encouraged to monitor blood pressure and have tight glycemic control. Patient seen and care discussed with my attending Dr. Madison. Marko Rico MD PGY-3 Status at Discharge Cognitive/behavioral status at discharge: AAOx3 Time Spent with Patient Time attestation: Total time spent providing and/or coordinating discharge services: Time spent: Greater than 30 minutes Quality: Stroke Pt Provided Written Stroke Discharge Instructions: No (n/a) Home Health Home Health Referral Orders: 10/22/24 11:00 Home Health Referral Routine Reason For Exam: Need for home PT after CVA Home-Bound The patient must either because of illness or injury, need the aid of supportive devices such as crutches, canes, wheelchairs, and walkers; the use of special transportation; or the assistance of another person in order to leave their place of residence; OR have a condition such that leaving his or her home is medically contraindicated. In addition, the patient also meets the following criteria: patient is normally unable to leave the home and leaving home requires considerable taxing effort. Addendum to Home Health Certification Practitioner's Certification: I certify that the patient has been under my care in the hospital and the care of attending physician (see below). We had a [id number] encounter on (see date below). My clinical findings indicate that the patient is home bound per the above criteria and the Home Health Services noted in these orders are medically necessary. The primary reason for the [id number] encounter is related to the fact that the patient requires home health services. Date Certifying [id number] Physician Encounter: 10/14/24 Physician's Name who will Assume Oversight for HH Services: Physician No Primary/Family PYTHON DJANGO DEVELOPER - Community Resources: Yes PT to Evaluate: Yes PT to evaluate and provide a treatmnet plan to increase patient's mobility and strength. Wound Care: No IV Therapy: No RN Safety Evaluation: Yes RN to evaluate and create a plan of care that will produce positive outcomes. Palliative Treatment: No Palliative treatment and evaluate the need for hospice. Home Health Aide - Personal Care: Yes Home Health Aide to assist with any ADL's. Exam Vital Signs Temp Pulse Resp BP Pulse Ox O2 Del Method O2 Flow Rate 97.0 F 87 19 137/95 H 96 Room Air 0 10/22/24 12:00 10/22/24 12:56 10/22/24 12:00 10/22/24 12:56 10/22/24 12:00 10/22/24 12:00 10/22/24 12:00 Narrative Exam Gen: AAOx3, sleeping, arousable to voice, pleasant to speak with HEENT: NCAT, PERRLA, EOMI, MMM, no LAD CVS: normal S1, S2. RRR. No MRG Resp: CTA B/L. No rhonchi, rales, crackles or wheezing Abd: soft, non-tender, non-distended. BS+ in all 4 quadrants MSK: Good ROM in BUE & BLE. No edema or rash. Neuro: CN II-XII grossly intact. No motor/sensory loss. Discharge Plan Plan Patient Disposition: Home w/HOME HEALTH Patient condition on transfer: Stable Care Plan Goals: Follow-up with your PCP within 1 week Follow-up with neurology Dr Castañeda within 1 to 2 weeks for stroke. Take clopidogrel 75 mg tablet once daily Follow-up with children's tutor Dr. Hansen within 1 to 2 weeks for high blood pressure and acute kidney injury Follow-up with patient services coordinator Dr. Hobbs within 1 to 2 weeks for polycythemia/results of bone marrow biopsy Your medications were adjusted with the following regimen for high blood pressure: Diltiazem 60 mg tablet every 6 hours (4 times daily); hydralazine 100 mg every 12 hours (twice daily); minoxidil 5 mg daily (2 tablets/day); sp ironolactone 50 mg daily. Your aspirin, carvedilol and nifedipine were discontinued. Your losartan?HCTZ is held due to some kidney dysfunction. Work with your PCP and nephrology Dr. Hansen on when to resume. Continue to monitor your blood pressure and blood sugars Prescriptions/Referrals Prescriptions/Med Rec: New clopidogrel 75 mg Tablet 75 mg PO QDAY 30 Days Qty: 30 1RF hydralazine 100 mg tablet 100 mg PO BID 30 Days Qty: 60 0RF diltiazem HCl 60 mg tablet 60 mg PO Q6HR 30 Days Qty: 120 1RF pantoprazole 40 mg Tablet,Delayed Release (Dr/Ec) 40 mg PO QDAY 30 Days Qty: 30 0RF spironolactone 50 mg tablet 50 mg PO QDAY 30 Days Qty: 30 1RF minoxidil 2.5 mg tablet 5 mg PO QDAY 30 Days Qty: 60 0RF Continued metformin 1,000 mg Tablet 1,000 mg PO BID atorvastatin 80 mg tablet 80 mg PO HS 30 Days Qty: 30 0RF insulin glargine 100 unit/mL (3 mL) insulin pen 15 unit subcut HS Qty: 15 0RF (DME) pen needle, diabetic 29 gauge x 1/2 needle See Rx Instructions .Route Qty: 100 0RF Rx Instructions: As directed (DME) blood-glucose meter Kit See Rx Instructions .Route Qty: 1 0RF Rx Instructions: As directed ([facility] [place]) Blood Glucose Test Strip See Rx Instructions .Route Qty: 50 0RF Rx Instructions: As directed (DME) lancets Misc See Rx Instructions .Route Qty: 200 0RF Rx Instructions: As directed (DME) FreeStyle Anthony 3 Sensor Device See Rx Instructions .Route Qty: 1 0RF Rx Instructions: As directed Held losartan-hydrochlorothiazide 100-25 mg Tablet 1 tab PO QDAY Hold Instructions: Resume on 11/05/24. Hold due to acute kidney injury. Follow up with PCP on when to resume. Discontinued hydralazine 50 mg Tablet 50 mg PO TID nifedipine 30 mg Tablet Extended Release 24hr 30 mg PO QDAY 30 Days Qty: 30 0RF carvedilol 12.5 mg Tablet 12.5 mg PO BIDWM 30 Days Qty: 60 0RF aspirin 81 mg Tablet,Delayed Release (Dr/Ec) 81 mg PO QDAY 30 Days Qty: 30 0RF Referrals: No Primary/Family,Physician [Primary Care Provider] - David Castañeda MD [Physician] - Arlin Hansen MD [Physician] - Patient/Caregiver Discharge Instructions Discharge Activity: as per physical therapy Education Materials: Managing Type 2 Diabetes, What Is Ischemic Stroke?, Hypertension Stroke Link, Type 2 Diabetes Print Language: Nepali Stand Alone Forms: Mag Award Info., Patient Portal Info Letter Discharge Order Discharge Orders: Discharge (Routine); Ordered 10/22/24 Ordered By: Marko Rico Quality Discharge Quality Measures VTE prophylaxis and stroke Statin ordered >75 y/o:moderate or high intensity dose on DC: n/a Statin ordered <75 y/o: high intensity dose on DC: yes Statin not ordered due to:: not indicated (statin was ordered (see above question)) Anticoagulation ordered for A-fib or flutter (current or hx): not indicated Antithrombotic ordered on DC: ordered MD Attestestation MD Attestation I reviewed labs, imaging, EKG, home medications and prior available records. Face to face evaluation was performed by me. I have personally examined the patient and discussed assessment and plan with the IM team. I reviewed the resident note and agree with the plan with exceptions as below. See my addendum in a separate note for the same date.
[2024-10-22 17:49] LABS: Cardiolipin Ab IgA <2.0 APL-U/mL; Cardiolipin Ab IgG <2.0 GPL-U/mL
--- NOTE | 2024-10-22 23:25 | VVPN_ITS ---
Telemedicine visit statement This visit was conducted with the use of phone was obtained on 10/22/24. Documentation for date of: 10/22/24 Subjective Subjective Interval history: Patient is in telemetry. His blood pressure is getting better controlled on carvedilol, losartan,, hydralazine, nifedipine and Aldactone. No new symptoms reported. He is able to tolerate oral diet. Virtual exam Vital Signs Temp Pulse Resp BP Pulse Ox O2 Del Method O2 Flow Rate 96.7 F L 90 14 131/97 H 97 Room Air 0 10/22/24 16:00 10/22/24 16:00 10/22/24 16:00 10/22/24 16:00 10/22/24 16:00 10/22/24 16:00 10/22/24 12:00 Objective Labs 10/22/24 13:55 10/22/24 05:58 Labs: Laboratory Results - last 24 hr 10/22/24 10/22/24 05:58 13:55 WBC 10.4 RBC 6.22 H Hgb 17.7 H* 17.3 H Hct 51.9 49.8 MCV 83 MCH 28.5 MCHC 34.1 RDW Std Deviation 37.9 Plt Count 305 D Neut % (Auto) 69 Lymph % (Auto) 23 Lipscomb % (Auto) 7 Eos % (Auto) 1 Baso % (Auto) 0 Neut # (Auto) 7.1 Lymph # (Auto) 2.4 Lipscomb # (Auto) 0.8 Eos # (Auto) 0.1 Baso # (Auto) 0.0 Immature Gran # (Auto) 0.03 H Absolute Nucleated RBC 0.00 Immature Gran % 0 Nucleated RBC % 0 Sodium 133 L Potassium 3.9 Chloride 101 Carbon Dioxide 26.1 Anion Gap 6 L BUN 32 H Creatinine 1.4 H Estim Creat Clear Calc 82.1 eGFR > 60 BUN/Creatinine Ratio 23 H Glucose 158 H Calculated Osmolality 276 Calcium 9.6 Corrected Calcium 9.6 Phosphorus 3.8 Magnesium 2.3 Total Bilirubin 0.7 AST 18 ALT 28 Alkaline Phosphatase 100 Total Protein 7.5 Albumin 4.9 Globulin 2.6 Albumin/Globulin Ratio 1.9 Assessment & Plan Plan (1) Dizziness: Secondary to acute cerebellar CVA Should improve with time (2) Acute CVA (cerebrovascular accident): Affecting the right cerebellar hemisphere mainly Will continue to follow him closely as stroke involves the posterior fossa Continue with Plavix only as the repeat CT still showed some subdural hematoma. Patient is stable for discharge from neurology standpoint. Will see him back in 10 days (3) Hypertension: Continue with aggressive blood pressure control Noted nephrology was consulted for blood pressure management, workup has been negative so far including renal artery Doppler for renal artery stenosis. Spironolactone was added. (4) Hyperlipidemia: Continue with high intensity statin: LDL: 112 (5) Type 2 diabetes mellitus: Needs better control of diabetes as the last A1c: 11.2 (6) Intractable vomiting: Improving secondary to acute cerebellar CVA, should improve with time as the edema resolves.
--- NOTE | 2024-10-23 12:42 | PC.CM ---
Pt PCP is not in [facility] system. I sent the email request to Marah Davis to add the PCP in [facility]. I also added the PCP name to [employer] system. Unable to send HH referral at this time.
[2024-10-24 06:55] LABS: B2-Glycoprotein I Ab IgA <2.0 U/mL; B2-Glycoprotein I Ab IgG <2.0 U/mL; B2-Glycoprotein I Ab IgM <2.0 U/mL; Beta 2 Microglobulin 1.89 mg/L (< OR = 2.51); Cardiolipin Ab IgM <2.0 MPL-U/mL; Phos.Serine Ab IgG 9 U (< OR = 30); Phos.Serine Ab IgM <9 U (< OR = 30)
[2024-10-24 06:55] LABS: Aldosterone* 1 ng/dL
--- NOTE | 2024-10-25 09:23 | PC.CM ---
Addendum entered by Lamar Stanley RN 10/25/24 10:09: Patient accepted by [facility]. Pending auth and start of care date. Original Note: We have no accepting agencies at this time. I reach out to [facility] to see if they can accept
--- NOTE | 2024-10-26 16:42 | PC.CM ---
Reached out to [facility] for start of care date. Colleen from [facility] responded on [employer] We have been attempting to contact Pt and have not been able to do so.
[2024-10-27 06:25] LABS: Renin Activity, Plasma* 1.97 ng/mL/h (0.25-5.82)
--- NOTE | 2024-10-29 10:21 | PC.CM ---
[facility] has not been able to get a hold of patient.
--- NOTE | 2024-10-31 13:40 | PC.CM ---
Addendum entered by Gemma Chavez RN 10/31/24 13:42: I also called the pt but unable to get hold of the pt. Referral was sent on 10/24/24. At this point HH referral is canceled due to unable to get hold of pt after multiple attempts. Original Note: Colleen updated me that they are unable to get hold of the pt for start of care date and stated they closed the case after 5 days.
== END 2024-10-22 17:28 | disposition home or self-care (01) | DRG 45 ==
LOC: SERX 07:47 → SERHOLD 11:34 → S2NX 13:46
PROVIDERS: Emergency Medicine; Internal Medicine; Student in an Organized Health Care Education/Training Program; Admitting Provider Student in an Organized Health Care Education/Training Program; Emergency Provider Emergency Medicine; Visit Provider Student in an Organized Health Care Education/Training Program
DX: I63.441 Cerebral infarction due to embolism of right cerebellar artery (principal); I16.1 Hypertensive emergency; I21.A1 Myocardial infarction type 2; E11.65 Type 2 diabetes mellitus with hyperglycemia; D75.1 Secondary polycythemia; E11.22 Type 2 diabetes mellitus with diabetic chronic kidney disease; E83.39 Other disorders of phosphorus metabolism; I12.9 Hypertensive chronic kidney disease with stage 1 through stage 4 chronic kidney disease, or unspecified chronic kidney disease; E78.5 Hyperlipidemia, unspecified; I1A.0 Resistant hypertension; Q23.81 Bicuspid aortic valve; R29.700 NIHSS score 0; N18.9 Chronic kidney disease, unspecified; R44.1 Visual hallucinations; N17.9 Acute kidney failure, unspecified; G93.40 Encephalopathy, unspecified; I62.00 Nontraumatic subdural hemorrhage, unspecified; Z79.899 Other long term (current) drug therapy; Z86.73 Personal history of transient ischemic attack (TIA), and cerebral infarction without residual deficits; Z87.891 Personal history of nicotine dependence; Z79.4 Long term (current) use of insulin; Z91.148 Patient's other noncompliance with medication regimen for other reason; Z79.02 Long term (current) use of antithrombotics/antiplatelets; Z79.84 Long term (current) use of oral hypoglycemic drugs
CPT/HCPCS: 36415; 70450; 70496; 70498; 70551; 77012; 80053; 80069; 80307; 80320; 81001; 81219; 81270; 81279; 81339; 82088; 82232; 82384; 82570; 83735; 84100; 84244; 84484; 84585; 85014; 85018; 85025; 85303; 85306; 85610; 85613; 85730; 86146; 86147; 86148; 87086; 92526; 92610; 93005; 93975; 96361; 96374; 96375; 96376; 97162; 99291; A4649; J0360; J1643; J1644; J1815; J2405; J2765; J3010; J3360; J3490; J7030; J7050; J7999; Q9967; A9270; G0480; J1920